=== PATIENT | male | born 1950 | race Caucasian/White ===

== ENCOUNTER 2024-02-01 09:28 | Outpatient (OUT) | payer MEDICARE, MEDICAID, OTHER, SELFPAY ==
--- NOTE | 2024-02-01 09:53 | CT_ITS ---
[address] [address] Patient Name: VICTOR M NI MRN: [id number] date: 1950 Sex: M Assigned Patient Location: LAB Current Patient Location: LAB Accession/Order Number: [id number] Exam Date: 02/01/2024 10:30 Report Date: 02/03/2024 04:34 At the request of: RADHA OLIVIER Procedure: CT abdomen pelvis wo/w con EXAMINATION: CT abdomen pelvis wo/w con HISTORY: Renal cancer COMPARISON: No relevant comparison available. TECHNIQUE: Axial, Coronal, and Sagittal images were obtained without and/or with IV contrast as indicated by examination type. Dose reduction techniques were achieved by using automated exposure control and/or adjustment of mA and/or kV according to patient size and/or use of iterative reconstruction technique. FINDINGS: LUNG BASES: No visible pulmonary or pleural disease. LIVER: No enlargement, atrophy, suspicious density, or significant focal lesion. BILIARY: A few small stones within noninflamed gallbladder. PANCREAS: No lesion, fluid collection, or abnormal duct dilatation. SPLEEN: No enlargement or focal lesion. ADRENALS: No mass or enlargement. KIDNEYS: Prior wedge resection and removal of mass seen within right kidney on prior study. Unremarkable left kidney. BOWEL/MESENTERY: No visible mass, obstruction, or bowel wall thickening. AORTA/VASCULAR: No aneurysm or dissection. RETROPERITONEUM: No mass or adenopathy. LYMPH NODES: No adenopathy. ABDOMINAL WALL: No mass or hernia. BONES: No bony lesion or fracture. OTHER: Negative. CT/CT abdomen pelvis wo/w con IMPRESSION: 1. Prior wedge resection of right renal mass. No interval studies since the 07/10/2021 study when the renal mass was present. 2. No appreciable recurrence of neoplasm or evidence of metastatic disease. 3. Cholelithiasis. Electronically authenticated by: BALDO GARCIA Date: 02/03/2024 04:34
[2024-02-01 10:01] LABS: Estimated GFR (African America 47 (>=60 mL/min/1.73m^2); Estimated GFR (Non-African Ame 39 (>=60 mL/min/1.73m^2)
--- NOTE | 2024-02-01 10:45 | XR_ITS ---
The [address] [address] Patient Name: VICTOR M NI MRN: [id number] date: 1950 Sex: M Assigned Patient Location: LAB Current Patient Location: Accession/Order Number: [id number] Exam Date: 02/01/2024 10:38 Report Date: 02/02/2024 08:08 At the request of: RADHA OLIVIER Procedure: XR chest 2V EXAMINATION: XR chest 2V HISTORY: SP Partial nephrectomy, RCC COMPARISON: No relevant comparison available. TECHNIQUE: AP and lateral FINDINGS: LUNGS: No significant pulmonary parenchymal abnormalities. Low lung volumes VASCULATURE: No increased pulmonary vasculature. PLEURA: No pneumothorax, effusion, or pleural thickening. CARDIAC: No cardiomegaly or cardiac silhouette abnormality. MEDIASTINUM: No visible mass or adenopathy. BONES: No fracture or visible bone lesion. OTHER: Negative. XR/XR chest 2V IMPRESSION: No acute cardiopulmonary process Electronically authenticated by: BRENDA HI Date: 02/02/2024 08:08
== END 2024-02-01 09:29 | disposition home or self-care (01) ==
LOC: LAB 09:36
PROVIDERS: PCP Family Medicine; Visit Provider Physician Assistant
DX: C64.9 Malignant neoplasm of unspecified kidney, except renal pelvis (principal); K80.20 Calculus of gallbladder without cholecystitis without obstruction
CPT/HCPCS: 36415; 71046; 74178; 82565; Q9966

== ENCOUNTER 2024-07-07 13:11 | Outpatient (OUT) | payer MEDICARE, MEDICAID, OTHER, SELFPAY | END 2024-07-07 13:12 | disposition home or self-care (01) | LOC: PST 13:11 | PROVIDERS: PCP Family Medicine; Visit Provider Urology | DX: Z01.818 Encounter for other preprocedural examination (principal); R97.20 Elevated prostate specific antigen [PSA] ==

== ENCOUNTER 2024-08-01 13:09 | Outpatient (OUT) | payer MEDICARE, MEDICAID, OTHER, SELFPAY | END 2024-08-01 13:10 | disposition home or self-care (01) | LOC: PST 13:09 | PROVIDERS: PCP Family Medicine; Visit Provider Urology | DX: Z01.818 Encounter for other preprocedural examination (principal); N40.1 Benign prostatic hyperplasia with lower urinary tract symptoms; R97.20 Elevated prostate specific antigen [PSA] ==

== ENCOUNTER 2024-08-10 07:52 | Day surgery (SDC) | payer MEDICARE, MEDICAID, OTHER, SELFPAY ==
--- NOTE | 2024-08-10 07:36 | US_ITS ---
[address] [address] Patient Name: VICTOR M NI MRN: [id number] date: 1950 Sex: M Assigned Patient Location: [facility] Current Patient Location: Accession/Order Number: [id number] Exam Date: 08/10/2024 12:47 Report Date: 08/10/2024 12:49 At the request of: MATILDA BRUNSON MD Procedure: US prostate Ultrasound-guided prostate biopsy. FINDINGS: Ultrasound guided prostate biopsy performed by the urology service. No radiologist was present for the procedure. The prostate gland measures 4.8 x 4.1 x 5.3 cm for a prostate volume of 56 mL. Predicted PSA 6.69. US/US prostate IMPRESSION: Ultrasound-guided prostate biopsy. Impression dictated by: Jamilah Casillas Jr.OCarol Ann 08/10/2024 12:49 PM Dictation Location: [place] [address] Electronically authenticated by: [id number] Y Date: 08/10/2024 12:49
[2024-08-10 07:50] VITALS: BP 141/90; PULSE 59; TEMP 36.2; O2SAT 97
[2024-08-10] MEDS: GENTAMICIN SULFATE 80 MG/2 ML VIAL IM (08:00)
[2024-08-10 08:05] VITALS: BP 145/75; PULSE 58; O2SAT 97
[2024-08-10 08:07] VITALS: BP 174/72; PULSE 64; O2SAT 96
--- OUTSIDE RECORDS SUMMARY | 2024-08-10 08:14 | XMS_ITS | CCD ---
Author Organization [facility] Care Team Providers Care Transport Tech Name Role Phone Ayesha Tafoya Primary Care Physician UnavailShanell Pulliam Rounding Physician Unavailab AYESHA Ann Primary Care Physician Lottie REID, Ayesha aaron Primary Care Provider [phone] Ayesha Tafoya MD Primary Care Provider Ayesha Tafoya MD aaron Primary Care Provider Ayesha Tafoya MD aaron Primary Care Provider [phone] AYESHA TAFOYA BRYN MAWR Primary Care Unavailable WEIGHT, CHRISTOPHER Referring Unavailable TAFOYA AYESHA BRYN MAWR Primary Care Unavailable WEIGHT, CHRISTOPHER Referring Unavailable TAFOYA AYESHA BRYN MAWR Primary Care Unavailable WEIGHT, CHRISTOPHER Referring Unavailable TAFOYA [facility] Primary Care Unavailable WEIGHT, CHRISTOPHER Referring Unavailable TAFOYA AYESHA BRYN MAWR Referring Unavailable TAFOYA AYESHA BRYN MAWR Primary Care Unavailable WEIGHT, CHRISTOPHER Referring Unavailable TAFOYA AYESHA BRYN MAWR Primary Care Unavailable WEIGHT, CHRISTOPHER Attending Unavailable WEIGHT, CHRISTOPHER Referring Unavailable TAFOYA [facility] Primary Care Unavailable MATT KHAN Attending Unavailable TAFOYA, [facility] Primary Care Unavailable WEIGHT, CHRISTOPHER Referring Unavailable TAFOYA, [facility] Primary Care Unavailable TAFOYA, [facility] Primary Care Unavailable ERASMO HACKETT Admitting Unavailable ERASMO HACKETT Attending Unavailable TAFOYA, [facility] Primary Care Unavailable MATT KHAN Attending Unavailable TAFOYA, [facility] Primary Care Unavailable WEIGHT, CHRISTOPHER Attending Unavailable WEIGHT, CHRISTOPHER Referring Unavailable TAFOYA, [facility] Primary Care Unavailable WEIGHT, CHRISTOPHER Referring Unavailable TAFOYA, [facility] Primary Care Unavailable EVERTON ABAD Attending Unavailable WEIGHT, CHRISTOPHER Referring Unavailable TAFOYA, AYESHA RAMIREZ Primary Care Unavailable TITUS LANGE Referring Unavailable TAFOYA, AYESHA RAMIREZ Primary Care Unavailable WEIGHT, MAR Admitting Unavailable WEIGHT, MAR Attending Unavailable TAFOYA, AYESHA RAMIREZ Primary Care Unavailable WEIGHT, MAR Referring Unavailable WEIGHT, MAR Attending Unavailable TAFOYA, DR AYESHA Sena Admitting Unavailable TAFOYA, DR AYESHA Sena Attending Unavailable TAFOYA, DR AYESHA Sena Primary Care Unavailable TAFOYA, DR AYESHA Sena Consulting Unavailable NANNETTE, DR GREY Admitting Unavailable BRUNSON, DR GREY Attending Unavailable TAFOYA, DR AYESHA Sena Primary Care Unavailable BRUNSON, DR GREY Consulting Unavailable ZIEBER, DR BALDO Grimes Consulting Unavailable TAFOYA, DR AYESHA Sena Admitting Unavailable TAFOYA, DR AYESHA Sena Attending Unavailable TAFOYA, DR AYESHA Sena Primary Care Unavailable TAFOYA, DR AYESHA Sena Consulting Unavailable TAFOYA, DR AYESHA Sena Primary Care Unavailable HAY, DR MATHIAS Admitting Unavailable HAY, DR MATHIAS Attending Unavailable HAY, DR MATHIAS Consulting Unavailable PRESTON, LULÚ Consulting Unavailable AYESHA TAFOYA Primary Care Physician [phone] Ayesha Tafoya MD Primary Care Provider RANDALL APARICIO Primary Care Physician [phone] AYESHA TAFOYA Primary Care Unavailable RAJ GAFFNEY Referring Unavailable Susan Ballesteros PA-C Attending Provider NON STAFF Primary Care Provider UnavailSusan Yin Attending Unavailable Susan Ballesteros Admitting Unavailable NON STAFF Primary Care Unavailable Matilda BRUNSON Attending Unavailable BRUNSON, Matilda Grimes Attending Unavailable BRUNSON, Matilda R Attending Unavailable BRUNSON, Matilda Grimes Attending Unavailable BRUNSON, Matilda Grimes Attending Unavailable SUSAN BALLESTEROS Attending Unavailable RANDALL APARICIO Referring Unavailable SUSAN BALLESTEROS Attending Unavailable Allergies Allergy Classification Reported Allergen(s) Allergy Type Date of Onset Reaction(s) Facility (10 sources) buPROPion; Translations: [bupropion] Drug Allergy 2 Sleep, function (observable entity), Mental Status Change [facility] (16 sources) meloxicam; Translations: [meloxicam] Drug Allergy 2 Sleep, function (observable entity), Mental Status Change [facility] (1 source) meloxicam Drug Allergy 6 [facility] Repository (3 sources) rofecoxib; Translations: [rofecoxib] Drug Allergy Unknown (qualifier value) [facility] (1 source) meloxicam Drug Allergy 9 [facility] Repository Medications Current Medications Medication Drug Class(es) Dates Sig (Normalized) Sig (Original) acetaminophen 500 mg oral tablet (20 sources) Start: 07-21-2022 take 2 tablets by mouth every six hours as needed for pain acetaminophen 500 mg Tab 1,000 mg = 2 tab(s), Oral, q6hr, PRN for pain, # 120 tab(s), Refills(s) 0 Start Date: 07/21/22 Status: Ordered Start: 10-30-2021 End: 11-13-2021 take 2 tablets by mouth every six hours acetaminophen (TYLENOL EXTRA STRENGTH) 500 mg tablet Take 2 tablets by mouth every 6 hours for 14 days. 112 tablet 0 10/30/2021 11/13/2021 Active Start: 07-21-2021 acetaminophen Refills(s) 0 Start Date: 07/21/21 Status: Ordered Start: 10-30-2018 take 500 mg by mouth every six hours as needed for pain Acetaminophen 500 MG Oral Q6H PRN For Pain October 30, 2018 Active Start: 07-19-2008 acetaminophen( TYLENOL EXTRA STRENGTH 500 MG TAB) Take two(2) tablets every six(6) hours as needed for pain. 0 07/19/2008 Active Comment on above: Take two(2) tablets every six(6) hours as needed for pain. Take 2 tablets by mo [facility] every 6 hours for 14 days. albuterol 0.833 mg/ml / ipratropium bromide 0.167 mg/ml inhalation solution (1 source) Anticholinergic, beta2-Adrenergic Agonist Start: 07-22-19 take 1 [IU] by inhalation every four hours albuterol-ipratro pium Inh Shruti 3 mL UD INHALE 1 UNIT DOSE VIAL VIA NEB EVERY 4 HOURS Start Date: 07/21/22 Status: Ordered amLODIPine 5 mg oral tablet (1 source) Dihydropyridine Calcium Channel Brad Start: 03-31-19 take 1 tablet by mouth once daily amLODIPine 5 mg Tab 5 mg = 1 tab(s), Oral, Daily, Refills(s) 0 Start Date: 03/31/21 Status: Ordered AMLODIPINE BESYLATE, BULK, MISC (13 sources) take 5 mg by mouth once daily AMLODIPINE BESYLATE, BULK, MISC Take 5 mg by mouth once daily. Active take 5 mg by mouth once daily AM LODIPINE BESYLATE, BULK, MISC Take 5 mg by mouth once daily. 0 Active AMLODIPINE BESYL ATE, BULK, MISC Comment on above: Take 5 mg by mouth o nce daily. ARIPiprazole 2 mg oral tablet (5 sources) Atypical Antipsychotic Start: 07-22-19 take 1 tablet by mouth once daily aripiprazole 2 mg Tab 2 mg, Oral, Daily, # 30 tab(s), Refills(s) 0 Start Date: 07/21/22 Status: Ordered Start: 01-20-2022 take 1 tablet by butch th once daily ARIPiprazole (ABILIFY) 5 mg tablet Take 5 mg by mouth once daily. 01/20/2022 Active Comment on above: Take 5 mg by mouth o nce daily. basic metabolic panel (1 source) Start: 07-24-2022 basic metabolic panel basic metabolic panel, To be done one week after discharge and fax the result to PCP, Print Requisition, Compound Start Date: 07/24/22 Status: Ordered busPIRone hydrochloride 10 mg oral tablet (3 sources) Start: 01-18-2024 busPIRone 10 mg Tab 10 mg = 1 tab(s), Refills(s) 0 Start Date: 01/18/24 Status: Ordered Start: 10-07-2022 take 1 tablet by butch th three times daily busPIRone 5 mg Tab 5 mg = 1 tab(s), Oral, TID, # 270 tab(s), Refills(s) 0, Pharmacy: [id number], 171, cm, 10/07/22 13:59:00 EDT, Height/Length Dosing, 299, kg, 10/07/22 13:59:00 EDT, Weight Dosing Start Date: 10/07/22 Status: Ordered Start: 07-21-2022 take 1 tablet by butch th three times daily busPIRone 5 mg Tab 5 mg = 1 tab(s), Oral, TID, # 270 tab(s), Refills(s) 0 Start Date: 07/21/22 Status: Ordered Celebrate Multivitamin (1 source) Start: 07-21-2022 Celebrate Multivitamin Refill(s) 0 Start Date: 07/21/22 Status: Ordered citalopram 20 mg oral tablet (7 sources) Serotonin Reuptake Inhibitor Start: 07-21-2022 take 1 tablet by mouth once daily citalopram 20 mg Tab 20 mg = 1 tab(s), Oral, Daily, # 90 tab(s), Refills(s) 0 Start Date: 07/21/22 Status: Ordered Start: 07-19-2008 End: 2021 CITALOPRAM 20 MG TAB Diclofenac (1 source) Nonsteroidal Anti-inflammatory Drug Start: 01-18-2024 Voltaren Topical See Instructions, Refill(s) 0 Start Date: 01/18/24 Status: Ordered docusate sodium 100 mg oral capsule (8 sources) Start: 10-30-2021 take 1 capsule by mouth twice daily as needed for constipation Colace 100 mg Cap 100 mg = 1 cap(s), Oral, BID, PRN for constipation, # 20 cap(s), Refills(s) 0 Start Date: 07/21/22 Status: Ordered Comment on above: Take 1 capsule by mouth twice daily. Maikel e while taking narcotic pain medication to avoid constipation. Stop taking if you develop loose stools or diarrhea dorzolamide (1 source) Carbonic Anhydrase Inhibitor Start: 08-16-2020 dorzolamide ophthalmic Eye-Both, TID, Refill(s) 0 Start Date: 08/16/20 Status: Ordered dorzolamide 20 mg/ml / timolol 5 mg/ml ophthalmic solution (20 sources) Carbonic Anhydrase Inhibitor, beta-Adrenergic Brad Start: 07-21-2022 dorzolamide-timol ol Opth 2%-0.5% Shruti PLACE 1 DROP IN EACH EYE TWICE DAILY Start Date: 07/21/22 Status: Ordered Start: 10-02-2021 take 1 drop(s) into the eye(s) every twelve hours dorzolamide-timolol (COSOPT) 22.3-6.8 mg/mL ophthalmic solution Use 1 Drop in both eyes every 12 hours. 10/02/2021 Active Start: 10-02-2021 take 1 drop(s) into the eye(s) every twelve hours dorzolamide-timolol (COSOPT) 22.3-6.8 mg/mL ophthalmic solution Use 1 Drop in both eyes every 12 hours. 0 10/02/2021 Active Start: 10-30-2018 take 1 drop(s) into the eye(s) twice daily Dorzolamide-Timolol 1 DROPS Eye-Both Twice daily October 30, 2018 Active Start: 10-30-2018 take 1 drop(s) into the eye(s) twice daily Dorzolamide-Timolol 22.3-6.8 mg/mL Drops Active 1 DROPS EYE-BOTH Twice daily October 29, 2018 11:00pm Comment on above: Use 1 Drop in both e yes every 12 hours. DULoxetine 60 mg delayed release oral capsule (20 sources) Serotonin and Norepinephrine Reuptake Inhibitor Start: 10-07-2022 duloxetine 60 mg oral delayed release capsule 60 mg = 1 cap(s), Oral, Daily, in addition to the 30mg cap, # 180 cap(s), Refills(s) 0, Pharmacy: [id number], 171, cm, 10/07/22 13:59:00 EDT, Height/Length Dosing, 299, kg, 10/07/22 13:59:00 EDT, Weight Dosing Start Date: 10/07/22 Status: Ordered Start: 07-21-2022 duloxetine 30 mg oral delayed release capsule 30 mg = 1 cap(s), Daily, in addition to the 60mg cap Start Date: 07/21/22 Status: Ordered Start: 07-21-2022 duloxetine 60 mg oral delayed release capsule 60 mg = 1 cap(s), Daily, in addition to the 30mg cap, Refills(s) 0 Start Date: 07/21/22 Status: Ordered Start: 11-04-2018 take 60 mg by mouth at bedtime Duloxetine [Cymbalta] 60 MG Oral Bedtime 14 November 04, 2018 Active take 2 capsules by m outh once daily DULoxetine (CYMBALTA) 60 mg capsule Take 120 mg by mouth once daily. Active Comment on above: Take 60 mg by mouth once daily. Take 120 mg by mouth once daily. duloxetine 60 mg Cap-DR (1 source) Start: 1 take 1 mg by mouth once daily duloxetine 60 mg Cap-DR mg, Oral, Daily, Refills(s) 0 Start Date: 08/16/20 Status: Ordered methocarbamol 500 mg oral tablet (1 source) Muscle Relaxant Start: 2 End: 2 take 1 tablet by mouth three times daily methocarbamol (ROBAXIN) 500 mg tablet Take 1 tablet by mouth three times daily for 5 days. 15 tablet 0 10/30/2021 11/04/2021 Active Comment on above: Take 1 tablet by butch three times daily for 5 days. metoprolol tartrate 25 mg oral tablet (5 sources) beta-Adrenergic Brad Start: 3 take 1 tablet by mouth once daily Lopressor 25 mg oral tablet 25 mg = 1 tab(s), Oral, Daily, # 90 tab(s), Refills(s) 0, Pharmacy: [id number], 171, cm, 10/07/22 13:59:00 EDT, Height/Length Dosing, 299, kg, 10/07/22 13:59:00 EDT, Weight Dosing Start Date: 10/07/22 Status: Ordered Start: 07-24-2022 End: 07-24-2022 Lopressor 25 mg oral tablet 25 mg = 1 tab(s), Tab, Oral, Start date 07/24/22 9:00:00 EDT, 07/21/22 20:47:00 EDT Start Date: 07/24/22 Stop Date: 07/24/22 Status: Completed Start: 07-23-2022 End: 07-23-2022 Lopressor 25 mg oral tablet 25 mg = 1 tab(s), Tab, Oral, Start date 07/23/22 9:00:00 EDT, 07/21/22 20:47:00 EDT Start Date: 07/23/22 Stop Date: 07/23/22 Status: Completed Start: 07-22-2022 End: 07-22-2022 Lopressor 25 mg oral tablet 25 mg = 1 tab(s), Tab, Oral, Start date 07/22/22 9:00:00 EDT, 07/21/22 20:47:00 EDT Start Date: 07/22/22 Stop Date: 07/22/22 Status: Completed Start: 07-21-2022 take 1 tablet by butch once daily Lopressor 25 mg oral tablet 25 mg = 1 tab(s), Oral, Daily, Refills(s) 0 Start Date: 07/21/22 Status: Ordered mirtazapine 7.5 mg oral tablet (1 source) Start: 01-18-2024 take 1 tablet by mouth once daily mirtazapine 7.5 mg oral tablet 7.5 mg = 1 tab(s), Oral, Daily, Refills(s) 0 Start Date: 01/18/24 Status: Ordered MULTIVITAMIN TAB (14 sources) Start: 07-19-2008 MULTIVITAMIN T AB Take one(1) tablet daily. 0 0 07/19/2008 Active Comment on above: Take one(1) tablet d aily. Multivitamins and Minerals (1 source) Start: 07-21-2021 Multivitamins and Minerals Refill(s) 0 Start Date: 07/21/21 Status: Ordered Nystatin (1 source) Polyene Antifungal Start: 01-18-2024 nystatin 100,000 unit(s), Refills(s) 0 Start Date: 01/18/24 Status: Ordered One Tab Daily (1 source) Start: 01-18-2024 One Tab Daily 1 tab(s), Refill(s) 0 Start Date: 01/18/24 Status: Ordered oxyCODONE hydrochloride 5 mg oral tablet (8 sources) Opioid Agonist Start: 10-30-2021 take 1 tablet by mouth every eight hours as needed for pain oxyCODONE IR (ROXICODONE) 5 mg immediate release tablet Indications: Renal cell cancer, right (HCC) Take 1 tablet by mouth every 8 hours as needed for pain. 9 tablet 10/30/2021 Active Start: 10-30-2021 End: 10-30-2021 take 1 tablet by mouth every six hours as needed for pain oxyCODONE IR (ROXICODONE) 5 mg immediate release tablet Indications: pain Take 1 tablet by mouth every 6 hours as needed for pain for up to 2 days. 8 tablet 0 10/30/2021 10/30/2021 Discontinued Comment on above: Take 1 tablet by butch th every 8 hours as needed for pain. Take 1 tablet by butch th every 6 hours as needed for pain for up to 2 days. Prednison Onitment 0.05 units (1 source) Start: 019 apply 0.05 [IU] topically once daily Prednison Onitment 0.05 units Active 0.05 PERCENT TOPICAL Daily October 29, 2018 11:00pm sildenafil 100 mg oral tablet (1 source) Phosphodiesterase 5 Inhibitor Start: 021 take 1 mg by mouth once daily sildenafil 100 mg Tab mg tab(s), Oral, Daily, Refills(s) 0 Start Date: 08/16/20 Status: Ordered tamsulosin hydrochloride 0.4 mg oral capsule (16 sources) alpha-Adrenergic Brad Start: 023 take 1 capsule by mouth once daily tamsulosin 0.4 mg Cap 0.4 mg = 1 cap(s), Oral, Daily, # 90 cap(s), Refills(s) 0, Pharmacy: [id number], 171, cm, 10/07/22 13:59:00 EDT, Height/Length Dosing, 299, kg, 10/07/22 13:59:00 EDT, Weight Dosing Start Date: 10/07/22 Status: Ordered Start: 08-16-2020 take 1 capsule by mo [facility] once daily tamsulosin 0.4 mg Cap 0.4 mg = 1 cap(s), Oral, Daily, # 30 cap(s), Refills(s) 0 Start Date: 07/21/22 Status: Ordered Comment on above: Take 0.4 mg by mouth once daily. traZODone hydrochloride 100 mg oral tablet (1 source) Serotonin Reuptake Inhibitor Start: 01-18-2024 traZODONE 100 mg Tab 100 mg = 1 tab(s), Refills(s) 0 Start Date: 01/18/24 Status: Ordered valproic acid 250 mg oral capsule (1 source) Mood Stabilizer, Anti-epileptic Agent Start: 01-18-2024 Depakote 250 mg, Oral, Refills(s) 0 Start Date: 01/18/24 Status: Ordered Completed/Discontinued Medications Medication Drug Class(es) Dates Sig (Normalized) Sig (Original) enteric contrast (will be provided with radiology test) (1 source) Start: 2 End: 2 enteric contrast (will be provided with radiology test) Indications: Renal neoplasm , Benign prostatic hyperplasia with urinary obstruction For CT CHESTABD/PEL W IVCON Routine order Administer, As Directed One Time Only, via Oral, Rectal, both Oral and Rectal, Enteric Tube, Stoma or Indwelling Catheter, Enteric Contrast as designated per enteric contrast guidelines 1 Each 0 02/26/2022 02/27/2022 Comment on above: For CT CHESTABD/PEL W IVCON Routine order Administer, As Directed One Time Only, via Oral, Rectal, both Oral and Rectal, Enteric Tube, Stoma or Indwelling Catheter, Enteric Contrast as designated per enteric contrast guidelines FLUoxetine 20 mg oral capsule (9 sources) Serotonin Reuptake Inhibitor Start: 8 End: 9 take 20 mg by mouth once daily in the morning Fluoxetine 20 MG Oral Every morning November 19, 2017 November 04, 2018 Discontinued hydroCHLOROthiazide 12.5 mg / lisinopril 10 mg oral tablet (9 sources) Thiazide Diuretic, Angiotensin Converting Enzyme Inhibitor Start: 8 take 1 tablet by mouth once daily in the morning Lisinopril-Hydroch lorothiazide 1 TAB Oral Every morning November 19, 2017 Active hydrOXYzine hydrochloride 25 mg oral tablet (3 sources) Antihistamine Start: 2 End: 2 hydrOXYzine HCl (ATARAX) 25 mg tablet iv contrast (will be provided with radiology test) (4 sources) Start: 2 End: 2 iv contrast (will be provided with radiology test) Indications: Renal neoplasm , Benign prostatic hyperplasia with urinary obstruction CT Chest ABD/PEL-Inject, intravenously, once for 1 dose.No IV access, insert saline lock prior to the beginning of sedation, infusion, injection of imaging exam. Discontinue saline lock post exam. If Pt. has a central line or IVAD, may access for administration according to line specific nursing protocol. Once exam is complete flush line and de-access according to line specific nursing protocol in the CT contrast administration guidelines link. 1 Each 0 02/26/2022 02/27/2022 Start: 11-18-2021 End: 11-19-2021 iv contrast (will be provide d with radiology test) Indications: Renal cell cancer, right (HCC) CT ABD/PEL -Inject, intravenously, once for 1 dose.No IV access, insert saline lock prior to the beginning of sedation, infusion, injection of imaging exam. Discontinue saline lock post exam. If Pt. has a central line or IVAD, may access for administration according to line specific nursing protocol. Once exam is complete flush line and de-access according to line specific nursing protocol in the CT contrast administration guidelines link. 1 Each 0 11/18/2021 11/19/2021 Start: 11-18-2021 End: 11-19-2021 iv contrast (will be provide d with radiology test) Indications: Renal cell cancer, right (HCC) CT Chest W -Inject, intravenously, once for 1 dose.No IV access, insert saline lock prior to the beginning of sedation, infusion, injection of imaging exam. Discontinue saline lock post exam. If Pt. has a central line or IVAD, may access for administration according to line specific nursing protocol. Once exam is complete flush line and de-access according to line specific nursing protocol in the CT contrast administration guidelines link. 1 Each 0 11/18/2021 11/19/2021 Start: 10-02-2021 End: 10-03-2021 iv contrast (will be provide d with radiology test) Indications: Renal mass CT Chest W -Inject, intravenously, once for 1 dose.No IV access, insert saline lock prior to the beginning of sedation, infusion, injection of imaging exam. Discontinue saline lock post exam. If Pt. has a central line or IVAD, may access for administration according to line specific nursing protocol. Once exam is complete flush line and de-access according to line specific nursing protocol in the CT contrast administration guidelines link. 1 Each 0 10/02/2021 10/03/2021 Comment on above: CT Chest W -Inject, intravenously, once for 1 dose.No IV access, insert saline lock prior to the beginning of sedation, infusion, injection of imaging exam. Discontinue saline lock post exam. If Pt. has a central line or IVAD, may access for administration according to line specific nursing protocol. Once exam is complete flush line and de-access according to line specific nursing protocol in the CT contrast administration guidelines link. CT ABD/PEL -Inject, intravenously, once for 1 dose.No IV access, insert saline lock prior to the beginning of sedation, infusion, injection of imaging exam. Discontinue saline lock post exam. If Pt. has a central line or IVAD, may access for administration according to line specific nursing protocol. Once exam is complete flush line and de-access according to line specific nursing protocol in the CT contrast administration guidelines link. CT Chest ABD/PEL-Inj ect, intravenously, once for 1 dose.No IV access, insert saline lock prior to the beginning of sedation, infusion, injection of imaging exam. Discontinue saline lock post exam. If Pt. has a central line or IVAD, may access for administration according to line specific nursing protocol. Once exam is complete flush line and de-access according to line specific nursing protocol in the CT contrast administration guidelines link. lidocaine 0.05 mg/mg medicated patch (6 sources) Antiarrhythmic, Amide Local Anesthetic Start: End: apply 1 dose transdermal route once daily, then apply 1 dose transdermal route every twelve hours lidocaine(LIDODERM 5 % (700 MG/PATCH) ADHESIVE PATCH) Apply one(1) patch to affected area once daily. Remove patch after 12 hours. 0 0 07/19/2008 2021 Discontinued Comment on above: Apply one(1) patch t o affected area once daily. Remove patch after 12 hours. lisinopril 10 mg oral tablet (6 sources) Angiotensin Converting Enzyme Inhibitor Start: End: lisinopril(PRINIVIL 10 MG TAB) Take one(1) tablet daily. 0 0 07/19/2008 2021 Discontinued Comment on above: Take one(1) tablet d aily. Prednison Onitment (8 sources) Start: Prednison Onitment 0.05 PERCENT Topical Daily October 30, 2018 Active QUEtiapine 25 mg oral tablet (9 sources) Atypical Antipsychotic Start: End: take 1 tablet by mouth once daily at bedtime as needed Quetiapine 1 - 2 TAB Oral Daily at bedtime PRN For Insomnia November 19, 2017 Discontinued sulindac 200 mg oral tablet (20 sources) Nonsteroidal Anti-inflammatory Drug Start: take 1 tablet by mouth twice daily as needed for pain sulindac 200 mg oral tablet 200 mg = 1 tab(s), Oral, BID, TAKE 1 TABLET BY MOUTH TWICE DAILY NEEDED for joint pain, # 180 tab(s), Refills(s) 0, Pharmacy: [id number], 171, cm, 10/07/22 13:59:00 EDT, Height/Length Dosing, 299, kg, 10/07/22 13:59:00 EDT, Weight Dosing Start Date: 10/07/22 Status: Ordered Comment on above: Take 200 mg by mouth as needed. vortioxetine 20 mg oral tablet (4 sources) Start: 021 End: 022 take 1 tablet by mouth once daily TRINTELLIX 20 mg tablet Take 20 mg by mouth once daily. 0 07/09/2021 2021 Discontinued Comment on above: Take 20 mg by mouth once daily. Problems Active Problems Problem Classification Problem Date Documented Da te Episodic/Chronic Acute and unspecified renal failure (1 source) Renal failure syndrome; Translations: [Unspecified kidney failure] Chronic Adjustment disorders (2 sources) Adjustment disorder with depressed mood 06-10-2022 Chronic Anxiety disorders (5 sources) Anxiety disorder; Translations: [Other specified anxiety disorders] Onset: 07-22-2022 Chronic Cancer of kidney and renal pelvis (9 sources) Clear cell carcinoma of kidney; Translations: [Malignant neoplasm of right kidney, except renal pelvis] Onset: 2021 Chronic Cancer of kidney and renal pelvis (1 source) History of malignant neoplasm of retroperitoneum; Translations: [Personal history of other malignant neoplasm of kidney] Episodic Chronic kidney disease (3 sources) Chronic kidney disease stage 3; Translations: [Chronic kidney disease, stage 3 unspecified] Onset: 07-22-2022 Chronic Congestive heart failure; nonhypertensive (1 source) Left ventricular failure, unspecified; Translations: [LEFT VENTRICULAR FAILURE UNSPEC] Onset: 03-25-2022 Chronic Deficiency and other anemia (1 source) Anemia; Translations: [Anemia, unspecified] Episodic Diabetes mellitus without complication (4 sources) Hyperglycemia, unspecified; Translations: [HYPERGLYCEMIA UNSPECIFIED] Onset: 03-26-2022 Episodic Disorders of lipid metabolism (2 sources) Dyslipidemia 06-10-2022 Chronic E Codes: Fall (1 source) Unspecified fall, initial encounter; Translations: [UNSPECIFIED FALL INITIAL ENCOUNTER] Onset: 04-07-2022 Episodic Essential hypertension (17 sources) Hypertensive disorder; Translations: [Essential (primary) hypertension] Onset: 2021 2021 Chronic Genitourinary symptoms and ill-defined conditions (16 sources) Urge incontinence of urine; Translations: [Urge incontinence] Onset: 10-02-2021 03-31-2021 Chronic Genitourinary symptoms and ill-defined conditions (3 sources) Nocturia 03-31-2021 Episodic Hyperplasia of prostate (20 sources) Benign prostatic hypertrophy with outflow obstruction; Translations: [Benign prostatic hyperplasia with lower urinary tract symptoms] Onset: 07-15-2021 Chronic Hypertension with complications and secondary hypertension (4 sources) Hypertensive heart disease with heart failure; Translations: [HTN HEART DISEASE W/HEART FAIL] Onset: 03-21-2022 Chronic Malaise and fatigue (6 sources) Malaise and fatigue; Translations: [Other malaise] Onset: 03-25-2022 Episodic Mood disorders (19 sources) Severe major depression; Translations: [Major depressive disorder, single episode, severe without psychotic features] Onset: 2021 2021 Chronic Neoplasms of unspecified nature or uncertain behavior (10 sources) Neoplasm of kidney; Translations: [Neoplasm of unspecified behavior of unspecified kidney] Onset: 10-30-2021 10-30-2021 Episodic Osteoarthritis (2 sources) Osteoarthritis; Translations: [Degenerative joint disease involving multiple joints] 06-10-2022 Chronic Comment on above: knees Other aftercare (1 source) Other termite exterminator helper (current) drug therapy; Translations: [OTH BONBON DIPPER CURRENT DRUG THERAPY] Onset: 04-07-2022 Episodic Other diseases of kidney and ureters (3 sources) Disorder of kidney and/or ureter; Translations: [Other specified disorders of kidney and ureter] Onset: 07-21-2021 Chronic Other diseases of kidney and ureters (18 sources) Renal mass; Translations: [Other specified disorders of kidney and ureter] Onset: 10-02-2021 03-31-2021 Chronic Other diseases of kidney and ureters (8 sources) Other specified disorders of kidney and ureter; Translations: [Renal mass, right] Onset: 05-12-2022 Chronic Other diseases of kidney and ureters (2 sources) Urinary tract obstruction; Translations: [Other obstructive and reflux uropathy] Onset: 07-21-2021 Episodic Other male genital disorders (2 sources) Disorder of prostate 06-10-2022 Episodic Other non-traumatic joint disorders (3 sources) Pain in left knee; Translations: [PAIN IN LEFT KNEE] Onset: 04-05-2022 Episodic Other nutritional; endocrine; and metabolic disorders (11 sources) Obesity; Translations: [Obesity, unspecified] Onset: 2021 2021 Chronic Other nutritional; endocrine; and metabolic disorders (1 source) Severe obesity; Translations: [Morbid (severe) obesity due to excess calories] Chronic Other nutritional; endocrine; and metabolic disorders (7 sources) Body mass index 40+ - severely obese; Translations: [Morbid (severe) obesity due to excess calories] Onset: 10-29-2021 10-29-2021 Chronic Other nutritional; endocrine; and metabolic disorders (1 source) Morbid (severe) obesity due to excess calories; Translations: [Class 3 severe obesity with body mass index (BMI) of 50.0 to 59.9 in adult, unspecified obesity type, unspecified whether serious comorbidity present (HCC)] Onset: 2021 Chronic Other nutritional; endocrine; and metabolic disorders (1 source) Body mass index (BMI) 50.0-59.9, adult; Translations: [Class 3 severe obesity with body mass index (BMI) of 50.0 to 59.9 in adult, unspecified obesity type, unspecified whether serious comorbidity present (HCC)] Onset: 2021 Chronic Other nutritional; endocrine; and metabolic disorders (3 sources) Morbid obesity; Translations: [Morbid (severe) obesity due to excess calories] Onset: 07-22-2022 Chronic Other screening for suspected conditions (not mental disorders or infectious disease) (6 sources) Patient encounter status; Translations: [Encounter for screening for other disorder] Onset: 07-22-2022 Episodic Residual codes; unclassified (15 sources) Obstructive sleep apnea syndrome; Translations: [Obstructive sleep apnea (adult) (pediatric)] Onset: 2021 2021 Chronic Residual codes; unclassified (1 source) Obstructive sleep apnea (adult) (pediatric); Translations: [Obstructive sleep apnea] Onset: 2021 Chronic Spondylosis; intervertebral disc disorders; other back problems (2 sources) Sciatica 06-10-2022 Episodic Past or Other Problems Problem Classification Problem Date Documented Date Episodic/Chronic Complications of surgical procedures or medical care (11 sources) Delayed recovery from general anesthesia; Translations: [Other complications of anesthesia, initial encounter] Onset: 2021 2021 Episodic Fracture of lower limb (2 sources) Unspecified fracture of lower end of left femur, initial encounter for closed fracture; Translations: [Displaced supracondylar fracture with intracondylar extension of lower end of left femur, subsequent encounter for closed fracture with routine healing] Onset: 04-06-2022 Episodic Other diseases of kidney and ureters (1 source) Other obstructive and reflux uropathy; Translations: [Benign prostatic hyperplasia with urinary obstruction] Onset: 10-02-2021 Episodic Other non-traumatic joint disorders (14 sources) Shoulder joint pain; Translations: [Pain in unspecified shoulder] Onset: 07-20-2003 07-20-2003 Episodic Results Test Name Value Interpretation Reference Range Facility Urology Office/Clinic Noteon 05-22-2024 Urology Office/Clinic Note Urology Office/Clinic Note Chief Complaint increasing PSA, TRUS/ HPI Staff 73 year old male here to discuss TRUS/Bx and increasing elevated PSA. Previous DX: BPH w/LUTS and renal mass Pt. taking Flomax 0.4mg PSA 01/05/24 - 5.7 06/25/20 - 3.61 08/25/18 - 2.54 08/02/17 - 1.79 07/15/20 - 1.40 04/24/24 - 6.7 pt states he is having urgency, usually he can get the urinal in time. pt unable to give urine sample due to immobility. History of Present Illness Tests reviewed: reviewed UA, PSA, MRI, CT, CXR I have reviewed the previous health record information and history for this patient from Dr. Brunson. I have reviewed and verified the staff HPI to be accurate for this encounter. Review of Systems PHQ Score Initial Depression Screen Score: 0 SCORE ROS - Provider Constitutional: denies weight loss, denies hot flashes. Eyes: denies eye problems. Gastrointestinal: denies nausea, denies vomiting. Cardiovascular: denies chest pain or angina. Integumentary: no dryness Musculoskeletal: denies musculoskeletal symptoms. ENMT: denies otolaryngeal symptoms. Respiratory: no shortness of breath. Heme/Lymph: denies easy bleeding tendency, denies easy bruising tendency. Psychiatric: no confusion, no anxiety. Genitourinary: See HPI. Physical Exam Vitals & Measurements T: 37 ???C(Oral) HR: 68(Peripheral) RR: 18 BP: 126/80 HT: 68 in HT: 172 cm WT: 282.191 lb WT: 128 kg BMI: 43.27 General Appearance: alert, no distress, well nourished, well developed male. Assessment/Plan Pt resides at the [facility]. Ambulates via wheelchair. 1. Elevated PSA (R97.20: Elevated prostate specific antigen [PSA]) PSA 07/16/15 - 1.40 08/02/17 - 1.79 08/25/18 - 2.54 06/25/20 - 3.61 01/05/24 - 5.7 04/24/24 - 6.7 Prostate [place] [facility] [place] No family hx prostate cancer. Unable to do CHERELLE - pt is in WC/stuart lift. PSA has increased despite neg MRI and asx for prostatitis. Advised pt MRI's do not have a chance of missed malignancy. Recommended TRUS/bx to further evaluate. Risks/benefits discussed. Pt willing to proceed. -Will schedule TRUS of Prostate with Biopsy. The procedural risks, benefits, details, and treatment alternatives have been discussed with the patient. These include minimal to severe bleeding, infection, blood in the semen, inability to urinate, and severe infection requiring hospitalization and IV antibiotics, among others. Full informed consent has been obtained. Will order Local anesthesia. 2. BPH with urinary obstruction (N40.1: Benign prostatic hyperplasia with lower urinary tract symptoms) Prostate [place] [facility] [place] volume 77 mL. IPSS 14. No sample provided for UA today. Taking Flomax 0.8m qd. No bother with urination at this time. 3. Renal cancer (C64.9: Malignant neoplasm of unspecified kidney, except renal pelvis) Sp robotic partial nephrectomy at [facility] 10/29/21. 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 Plan was f/u [address] chest/abd/pelv, BMP, CBC. Appears to have been lost to f/u after that. No labs 2023 on clinisync. CBC/CMP 01/04/24 - BUN 25 Courtesy Clerk 1.6 GFR 44 [1] CT/CXR 02/01/24 [facility] - Neg for recurrence or mets Follow-up With When Contact Information NANNETTE REID, Matilda Grimes, [facility] [address] [place] [address] [phone] Additional Instructions: sched TRUS/bx Patient Education Transrectal Ultrasound-Guided Prostate Biopsy, Care After Transrectal Ultrasound-Guided Prostate Biopsy I, Adelaide Wesley, personally scribed for Dr. Brunson on 05/22/2024 10:25:39. . Documentation recorded by the scribe, Adelaide Wesley, accurately reflects the services(s) I performed and decisions made by me. Authenticated by Dr. Brunson on 05/22/2024 10:27:09. Problem List/Past Medical History Ongoing Adjustment disorder with depressed mood Anxiety BPH with urinary obstruction CKD (chronic kidney disease), stage III Depression with anxiety Dyslipidemia Elevated PSA Melancholia Morbid obesity due to excess calories Obstructive sleep apnea Primary hypertension Primary osteoarthritis involving multiple joints Renal cancer Sciatica Weakness Historical BPH without urinary obstruction Disorder of prostate, unspecified Nocturia Urge incontinence Procedure/Surgical History Internal fixation of femur (04/13/2022), Colonoscopy abnormal, Partial nephrectomy. Medications acetaminophen 500 mg Tab, 1000 mg= 2 tab(s), Oral, q6hr, PRN busPIRone 10 mg Tab, 10 mg= 1 tab(s) busPIRone 5 mg Tab, 5 mg= 1 tab(s), Oral, TID Depakote, 250 mg, Oral dorzolamide-timolol Opth 2%-0.5% Shruti duloxetine 60 mg oral delayed release capsule, 60 mg= 1 cap(s), Oral, Daily furosemide 20 mg Tab, 20 mg= 1 tab(s) Lopressor 25 mg oral tablet, 25 mg= 1 tab(s), Oral, Daily mirtazapine 7.5 mg oral tablet, 7.5 mg= 1 tab(s), Oral, Daily nyst (more content not included)... Normal [facility] Comment on above: Result Comment: Elec tronically Signed By: Matilda BRUNSON MD\.br\Date and Time Signed: 05/22/24 10:27 EDT\.br\Electronically Co-Signed By: Adelaide Wesley\.br\Date and Time Co-Signed: 05/22/24 10:26 EDT Creatinine (Bld) [Mass/Vol]O rdered By: Susan Ballesteros on 04-11-2024 Creatinine [Mass/Vol] Whole blood creatinine measurement High 0.6-1.3 [facility] Comment on above: ER/ESD physician is notified/shown all ISTAT results.Critical values may be confirmed by laboratory testing ifdeemed necessary by ER attending doctor. ISTAT XRay CREon 04-11-2024 Creatinine [Mass/Vol] 1.4 mg/dL High 0.6-1.3 [facility] Comment on above: Result Comment: ER/E SD physician is notified/shown all ISTAT results. Critical values may be confirmed by laboratory testing if deemed necessary by ER attending doctor. Performed By: #### I SCRE #### [facility] [address] [place] [address] ISTAT GFR 53.071 Normal [facility] Comment on above: Result Comment: PERF ORMED BY: [place] [address] PATHOLOGIST ADMINISTRATIVE OFFICE MANAGER TANIYA PASCAL M.D. Performed By: #### I SCRE #### [facility] [address] [place] [address] MR prostate wo/w conon 04-11 MR prostate wo/w con [facility] [place] [address] [place] [address] MRI Report Signed Patient: Victor M Ni MR#: [id number] : 1950 Acct:[id number] Age/Sex: 73 / M ADM Date: 04/11/24 Loc: MR Room: Type: [facility] Attending Dr: Susan Ballesteros PA-C Copies to: Susan Ballesteros PA-C Ordering Provider: Susan Ballesteros PA-C Date of Service: 04/11/24 MR/MR prostate wo/w con: R97.20 EXAMINATION: MR prostate wo/w con HISTORY: Elevated PSA. COMPARISON: NONE TECHNIQUE: Multiparametric imaging of the prostate gland was performed with IV contrast. FINDINGS: Prostate Dimensions: 5.5 x 4.0 x 6.7 cm Prostate Volume: 77 mL Peripheral Zone: Heterogenous inT2 signal suggestive of prior prostatitis. No suspicious T2 or ADC map abnormality is identified to suggest prostate malignancy. Central/Transitional Zone: BPH changes. Seminal Vesicles: Unremarkable Neurovascular bundles: Unremarkable. Lymphadenopathy: No evidence of lymphadenopathy. Bladder: No focal lesion. Bowel: The visualized bowel is without acute abnormality. Peritoneal Cavity: No free fluid. Bones: No suspicious bony lesion. MR/MR prostate wo/w con IMPRESSION: No MRI evidence of clinically significant prostate cancer. BPH. Impression dictated by: Erasmo Johnson Jr., D.OCarol Ann04/11/2024 2:22 PM Dictation Location: [facility]- Transcribed By: [facility] 04/11/24 1422 Dictated By: Erasmo Johnson Jr, DO 04/11/24 1412 Signed By: 04/11/24 1422 Normal [facility] Magnetic resonance imaging r eportOrdered By: Erasmo Johnson on 04-11-2024 Study report [facility] [place] [address] [place] [address] MRI Report Signed Patient: Victor M Ni MR#: [id number] : 1950 Acct:[id number] Age/Sex: 73 / M ADM Date: 5 Loc: MR Room: Type: [facility] Attending Dr: Susan Ballesteros PA-C Copies to: Susan Ballesteros PA-C~ Ordering Provider: Susan Ballesteros PA-C Date of Service: 04/11/24 MR/MR prostate wo/w con: R97.20 EXAMINATION: MR prostate wo/w con HISTORY: Elevated PSA. COMPARISON: NONE TECHNIQUE: Multiparametric imaging of the prostate gland was performed with IV contrast. FINDINGS: Prostate Dimensions: 5.5 x 4.0 x 6.7 cm Prostate Volume: 77 mL Peripheral Zone: Heterogenous inT2 signal suggestive of prior prostatitis. Nosuspicious T2 or ADC map abnormality is identified to suggest prostate malignancy. Central/Transitional Zone: BPH changes. Seminal Vesicles: Unremarkable Neurovascular bundles: Unremarkable. Lymphadenopathy: No evidence of lymphadenopathy. Bladder: No focal lesion. Bowel: The visualized bowel is without acute abnormality. Peritoneal Cavity: No free fluid. Bones: No suspicious bony lesion. MR/MR prostate wo/w con IMPRESSION: No MRI evidence of clinically significant prostate cancer. BPH. Impression dictated by: Erasmo Johnson Jr., D.O.04/11/2024 2:22 PM Dictation Location: [place] [address] Transcribed By: THI 04/11/24 1422 Dictated By: Erasmo Johnson Jr, DO 04/11/24 1412 Signed By: 04/11/24 1422 [facility] No Panel InformationOrdered By: Susan Ballesteros on 04-11-2024 Bedside Estimated GFR (eGFR) 53.071 [facility] XR FEMUR LEFT (MIN 2 VIEWS)o n 03-22-2024 XR FEMUR LEFT (MIN 2 VIEWS) History: Left femur status post open reduction internal fixation. Comparison: 06/02/2022 Findings: 2 views of the left femur in a skeletally mature individual (AP, lateral) and 3 views of the left knee in a skeletally mature individual (AP, oblique, lateral) demonstrating previous orthopedic hardware in the form of plates and screws about the medial and lateral aspect of the femur as well as the lateral aspect of the proximal tibia. Orthopedic hardware was examined in detail and negative for any broken screws, a broken plate, or any other hardware related complications. The previous fracture of the distal femur is well-visualized and when comparing to previous films does not appear to have much fracture consolidation, nor callus formation. No new acute fractures or dislocations noted. Impression: Left femur/left knee with previous orthopedic hardware that is stable, distal femur fracture that is not consolidating. Interpreted by: Leonard Bustillos DO Boothby, Benjamin C, Signed by: Bravo Martins DO 03/22/24 Final result Normal [facility] XR KNEE LEFT (3 VIEWS)on XR KNEE LEFT (3 VIEWS) History: Left fem ur status post open reduction internal fixation. Comparison: 06/02/2022 Findings: 2 views of the left femur in a skeletally mature individual (AP, lateral) and 3 views of the left knee in a skeletally mature individual (AP, oblique, lateral) demonstrating previous orthopedic hardware in the form of plates and screws about the medial and lateral aspect of the femur as well as the lateral aspect of the proximal tibia. Orthopedic hardware was examined in detail and negative for any broken screws, a broken plate, or any other hardware related complications. The previous fracture of the distal femur is well-visualized and when comparing to previous films does not appear to have much fracture consolidation, nor callus formation. No new acute fractures or dislocations noted. Impression: Left femur/left knee with previous orthopedic hardware that is stable, distal femur fracture that is not consolidating. Interpreted by: Leonard Bustillos DO Boothby, Benjamin C, DO Signed by: Bravo Martins DO 03/22/24 Final result Normal [facility] Ambulatory Visit Summaryon 1 03-19-2023 Ambulatory Visit Summary Ambulatory Visit Summary VICTOR M NI :1950 Visit Date:01/18/2024 Ambulatory Visit Instructions Your Diagnosis Elevated PSA Renal cancer BPH with urinary obstruction Other obstructive and reflux uropathy Tests Performed CT Abdomen w/ + w/o Contrast -- Results Pending -- CXR -- Results Pending -- MRI Pelvis (Soft Tissue) w/ + w/o contrast -- Results Pending -- Please visit your patient portal for your results or contact your primary care physician. Your Care Team Attending Physician - SUSAN BALLESTEROS PA-C Primary Care Physician - RANDALL APARICIO DO Referring Physician - RANDALL APARICIO DO This Is Your Medications List acetaminophen (acetaminophen 500 mg Tab) busPIRone (busPIRone 10 mg Tab) busPIRone (busPIRone 5 mg Tab) diclofenac topical (Voltaren Topical) divalproex sodium (Depakote) dorzolamide-timolol ophthalmic (dorzolamide-timolol Opth 2%-0.5% Shruti) duloxetine (duloxetine 60 mg oral delayed release capsule) metoprolol (Lopressor 25 mg oral tablet) mirtazapine (mirtazapine 7.5 mg oral tablet) multivitamin (One Tab Daily) nystatin sulindac (sulindac 200 mg oral tablet) tamsulosin (tamsulosin 0.4 mg Cap) trazodone (traZODONE 100 mg Tab) Procedures Performed Internal fixation of femur (04/13/2022), Colonoscopy abnormal, Partial nephrectomy. Discharge Vitals Temperature (Oral) 37 ???C Heart Rate (Peripheral) 51 Respiratory Rate 18 Blood Pressure 142/99 Height 172 cm Height 68 in Weight 123 kg Weight 271.168 lb BMI 41.58 What to do next You Need to Schedule the Following Appointments Follow Up with FAVIAN TOLEDO, CHEMA RANGEL When: Comments: pending results of imaging/testing, will call with next steps Where: [address] [place] [address] Business (1) Medications What How Much When Instructions Unchanged acetaminophen (acetaminophen 500 mg Tab) 2 Tablets By Mouth Every 6 hours as needed for for pain Unchanged busPIRone (busPIRone 10 mg Tab) 1 Tablets Unchanged busPIRone (busPIRone 5 mg Tab) 1 Tablets By Mouth 3 times a day Unchanged diclofenac topical (Voltaren Topical) See instructions Unchanged divalproex sodium (Depakote) 250 Milligram By Mouth Unchanged dorzolamide-timolol ophthalmic (dorzolamide-timolol Opth 2%-0.5% Shruti) PLACE 1 DROP IN EACH EYE TWICE DAILY Unchanged duloxetine (duloxetine 60 mg oral delayed release capsule) 1 Capsules By Mouth Every day in addition to the 30mg cap Unchanged metoprolol (Lopressor 25 mg oral tablet) 1 Tablets By Mouth Every day Unchanged mirtazapine (mirtazapine 7.5 mg oral tablet) 1 Tablets By Mouth Every day Unchanged multivitamin (One Tab Daily) 1 Tablets Unchanged nystatin 100,000 Units Unchanged sulindac (sulindac 200 mg oral tablet) 1 Tablets By Mouth 2 times a day TAKE 1 TABLET BY MOUTH TWICE DAILY NEEDED for joint pain Unchanged tamsulosin (tamsulosin 0.4 mg Cap) 1 Capsules By Mouth Every day Unchanged trazodone (traZODONE 100 mg Tab) 1 Tablets Allergies Mobic (Sleep) Vioxx (Unknown) Wellbutrin (Sleep) Problems Ongoing - Any problem that you are currently receiving treatment for. Adjustment disorder with depressed mood Anxiety BPH with urinary obstruction CKD (chronic kidney disease), stage III Depression with anxiety Dyslipidemia Elevated PSA Melancholia Morbid obesity due to excess calories Obstructive sleep apnea Primary hypertension Primary osteoarthritis involving multiple joints Renal cancer Sciatica Weakness Historical - Any problem that you are no longer receiving treatment for. BPH without urinary obstruction Disorder of prostate, unspecified Nocturia Urge incontinence Patient Survey You may receive a survey via text or e-mail asking about your office visit. Please share your experience with us by completing your survey. We appreciate your feedback and thank you for choosing us for your care. Education Materials Benign Prostatic Hyperplasia Benign prostatic hyperplasia (BPH) is an enlarged prostate gland that is caused by the normal aging process. The prostate may get bigger as a man gets older. The condition is not caused by cancer. The prostate is a walnut-sized gland that is involved in the production of semen. It is located in front of the rectum and below the bladder. The bladder stores urine. The urethra carries stored urine out of the body. An enlarged prostate can press on the urethra. This can make it harder to pass urine. The buildup of urine in the bladder can cause infection. Back pressure and infection may progress to bladder damage and kidney (renal) failure. What are the causes? This condition is part of the normal aging process. However, not all men develop problems from this condition. If the prostate enlarges away from the urethra, urine flow will not be blocked. If it enlarges toward the urethra and compresses i (more content not included)... Normal [facility] Urology Office/Clinic Noteon 01-18-2024 Urology Office/Clinic Note Urology Office/Clinic Note Chief Complaint elevated PSA HPI Staff 73 year old male referred for elevated PSA. Pt. last seen 07/21/21. Pt also has history of kidney cancer and tumors were removed about 2 yrs ago. Unable to give urine sample right now, pt states might be able to go before leaving Previous DX: BPH w/LUTS and renal mass Pt. taking Flomax 0.4mg PSA 01/05/24 - 5.7 06/25/20 - 3.61 08/25/18 - 2.54 08/02/17 - 1.79 07/15/20 - 1.40 Dysuria: denies Incomplete bladder emptying: does not feel empty, but cannot go anymore Hematuria: denies Frequency: 3-4x per day Urgency: yes - cannot hold urine Nocturia: yes - 1x per night Stream: good stream Leaking: denies Post void dripping: denies Wearing pads/ Depends: wears depends Urge incontinence: yes - uses a urinal but does not make it all the time Stress incontinence: denies Incontinence without Sensory Awareness: only at night sometimes, usually wakes up and is able to use urinal Abdominal pain: denies Flank pain:denies Review of Systems PHQ Score Initial Depression Screen Score: 6 SCORE Detailed Depression Screen Score: 9 Total Depression Screen Score: 15 no fever, chills, malaise, myalgia. no unintentional weight loss. no night sweats. Physical Exam Vitals & Measurements T: 37 ???C(Oral) HR: 51(Peripheral) RR: 18 BP: 142/99 HT: 68 in HT: 172 cm WT: 123 kg WT: 271.168 lb BMI: 41.58 General: nontoxic, NAD. in WC. Mouth: moist mucosa Lungs: normal respiratory effort Cardio: regular rate, good distal perfusion Abdomen: nondistended, no suprapubic distention or tenderness, no CVA tenderness Neurologic: Grossly normal Skin: No rashes or suspicious lesions Assessment/Plan 1. Elevated PSA (R97.20: Elevated prostate specific antigen [PSA]) PSA 01/05/24 - 5.7 06/25/20 - 3.61 08/25/18 - 2.54 08/02/17 - 1.79 07/16/15 - 1.40 No family hx prostate cancer. Unable to do CHERELLE today - pt is in WC/stuart lift. I discussed the pros and cons of PSA with the patient today. The various causes of PSA elevation were outlined, including prostate cancer, prostate enlargement, infection of the prostate, inflammation without infection, as well as prostate manipulation. The options regarding this PSA elevation, including prostate biopsy versus close monitoring, versus obtaining an MRI of the prostate were discussed. -The patient has decided upon obtaining an MRI of the prostate. If normal, we will repeat PSA f&t in 3 mos. If abnl, will schedule appt [facility] to discuss fusion biopsy. Ordered: Body Mass Index (BMI) documented 3008F Current tobacco non-user 1036F Depression Screening Negative 3352F E&M of Est. Patient High 40-54 Min 63953 Influenza immunization status assessed 1030F Medication list documented in medical record 1159F Most recent diastolic blood pressure >=90 mm Hg 3080F Most recent systolic blood pressure >= 140 mm Hg 3077F MRI Pelvis (Soft Tissue) w/ + w/o contrast Patient screen for fall risk: no falls in last year or 1 fall with no injury in last year 1101F Review of all meds by a prescribing practitioner or clinical pharmacist documented in EHR 1160F 2. Renal cancer (C64.9: Malignant neoplasm of unspecified kidney, except renal pelvis) Sp robotic partial nephrectomy at [facility] 10/29/21. 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 Plan was f/u [address] chest/abd/pelv, BMP, CBC. Appears to have been lost to f/u after that. No labs 2023 on clin[facility]. 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 Orders placed. Ordered: Body Mass Index (BMI) documented 3008F CT Abdomen w/ + w/o Contrast Current tobacco non-user 1036F Depression Screening Negative 3352F E&M of Est. Patient High 40-54 Min 47151 Influenza immunization status assessed 1030F Medication list documented in medical record 1159F Most recent diastolic blood pressure >=90 mm Hg 3080F Most recent systolic blood pressure >= 140 mm Hg 3077F Patient screen for fall risk: no falls in last year or 1 fall with no injury in last year 1101F Review of all meds by a prescribing practitioner or clinical pharmacist documented in EHR 1160F XR Chest 2 Views 3. BPH with urinary obstruction (N40.1: Benign prostatic hyperplasia with lower urinary tract symptoms) Pt is taking tamsulosin0.4mg qd and is _with overall symptom control. Pt is experiencing noside effects. Was previously on 0.8mg last time we saw him (2021). Pt did not complete IPSS but has severe urgency. Uses a urinal but does not make it all the time. Wears Depends. Noct x 1. Occasional nocturnal enuresis. Good steady stream. We discussed current dose and optional changes: increasing tamsulosin to BID. No hx hypotension, dizziness, lightheadedness. adding an additional agent such as finasteride/dutaster luis enrique -Pt prefers to try Flomax 0.8mg daily since that's what he used to be on. Ordered: Body Mass (more content not included)... Normal [facility] Comment on above: Result Comment: Elec tronically Signed By: FAVIAN TOLEDO, SUSAN Sena\.gilbert\Date and Time Signed: 01/18/24 15:51 EST CHEMISTRYOrdered By: SYSTEM SYSTEM on 07-24-2022 Anion gap [Moles/Vol] 10 mmol/L Normal 6 - 16 mEq/L F [facility] Remisol Calcium [Mass/Vol] 8.9 mg/dL Normal 8.9 - 11. 1 mg/dL [facility] Remisol Chloride [Moles/Vol] 105 mmol/L Normal 101 - 1 11 mmol/L [facility] CO2 [Moles/Vol] 27 mmol/L Normal 21 - 31 mmol/L [facility] Remisol Creatinine [Mass/Vol] 1.6 mg/dL High 0.5 - 1.3 mg/dL [facility] Remisol GFR/1.73 sq M.predicted among non-blacks MDRD (S/P/Bld) [Vol rate/Area] 46 mL/min/1.73 m2 Low >=59mL/min/1 .73 m2 [facility] Chem S Glucose [Mass/Vol] 90 mg/dL Normal 55 - 199 mg/dL [facility] Remisol Potassium [Moles/Vol] 3.5 mmol/L Normal 3.5 - 5.3 mmol/L [facility] Remisol Sodium [Moles/Vol] 138 mmol/L Normal 135 - 145 mmol/L [facility] Urea nitrogen [Mass/Vol] 14 mg/dL Normal 5 - 21 mg/dL [facility] Rem[facility] Urea nitrogen/Creatinine [Mass ratio] 9 mg/mg Low 10 - 20 [facility] Remisol MICRO OTHER TESTSOrdered By: Jeniffer Jeffries on 07-24-2022 Rapid COV Int NEG Ctl Pass (07/24/22 7:55 AM) Normal [facility] Man Sero Rapid COV Int POS Ctl Pass (07/24/22 7:55 AM) Normal [facility] Man Sero SARS-CoV+SARS-CoV-2 (COVID-19) Ag IA.rapid Ql (Resp) Not Detected (07/24/22 7:55 AM) Normal Not Detected FT Man Sero CHEMISTRYOrdered By: SYSTEM SYSTEM on 07-23-2022 Albumin [Mass/Vol] 3.6 g/dL Normal 3.3 - 5.0 gm/dL [facility] Albumin/Globulin [Mass ratio] 1.0 {ratio} Low 1.1 - 2.2 [facility] ALP [Catalytic activity/Vol] 97 [iU]/d Normal 21 - 98 Int._Unit/L [facility] ALT No additional P-5'-P [Catalytic activity/Vol] 11 [iU]/d Normal 6 - 46 Int._Unit/L [facility] Anion gap [Moles/Vol] 10 mmol/L Normal 6 - 16 mEq/L F [facility] AST [Catalytic activity/Vol] 15 [iU]/d Normal 5 - 43 Int._Unit/L [facility] Bilirubin [Mass/Vol] 0.8 mg/dL Normal 0.0 - 1 .1 mg/dL [facility]isol Calcium [Mass/Vol] 9.0 mg/dL Normal 8.9 - 11. 1 mg/dL [facility]isol Chloride [Moles/Vol] 105 mmol/L Normal 101 - 1 11 mmol/L [facility] CK [Catalytic activity/Vol] 45 [iU]/d Normal 14 - 261 Int._Unit/L [facility] CO2 [Moles/Vol] 27 mmol/L Normal 21 - 31 mmol/L [facility] Creatinine [Mass/Vol] 1.7 mg/dL High 0.5 - 1.3 mg/dL [facility] GFR/1.73 sq M.predicted among non-blacks MDRD (S/P/Bld) [Vol rate/Area] 43 mL/min/1.73 m2 Low >=59mL/min/1 .73 m2 [facility] Chem S Globulin (S) [Mass/Vol] 3.7 g/dL Normal 1.4 - 4.0 gm/dL [facility] Remisol Glucose [Mass/Vol] 97 mg/dL Normal 55 - 199 mg/dL [facility] Potassium [Moles/Vol] 3.3 mmol/L Low 3.5 - 5.3 mmol/L [facility] Protein [Mass/Vol] 7.3 g/dL Normal 6.0 - 7.8 gm/dL [facility] Sodium [Moles/Vol] 139 mmol/L Normal 135 - 145 mmol/L [facility] Urea nitrogen [Mass/Vol] 17 mg/dL Normal 5 - 21 mg/dL [facility] Urea nitrogen/Creatinine [Mass ratio] 10 mg/mg Normal 10 - 20 [facility] Remisol HEMATOLOGYOrdered By: SYSTEM SYSTEM on 07-23-2022 Basophils/100 WBC (Bld) 0.8 % Normal 0.0 - 2.0 % [facility] HemeAutoSS Basophils/Leukocytes Auto (Bld) [Pure # fraction] 0.1 E9/L Normal 0.0 - 0.2 E9/L [facility]eAutoSS Eosinophils/100 WBC (Bld) 2.3 % Normal 0.0 - 8.0 % [facility]Auto[facility] Eosinophils/Leukocytes Auto (Bld) [Pure # fraction] 0.1 E9/L Normal 0.0 - 0.5 E9/L [facility]eAuto[facility] Lymphocytes/100 WBC (Bld) 22.7 % Normal 14.0 - 50.0 % [facility]eAutoSS Lymphocytes/Leukocytes Auto (Bld) [Pure # fraction] 1.5 E9/L Normal 1.0 - 4.0 E9/L [facility]eAutoSS Monocytes/100 WBC (Bld) 12.0 % Normal 4.0 - 14.0 % [facility]eAutoSS Monocytes/Leukocytes Auto (Bld) [Pure # fraction] 0.8 E9/L Normal 0.2 - 1.0 E9/L [facility] Neutrophils/100 WBC (Bld) 62.2 % Normal 36.0 - 75.0 % [facility]eAutoSS Neutrophils/Leukocytes Auto (Bld) [Pure # fraction] 4.0 E9/L Normal 2.0 - 7.5 E9/L [facility] HemeAutoSS HEMATOLOGYOrdered By: Apolonia Tierney on 07-23-2022 Erythrocyte distribution width (RBC) [Ratio] 15.1 % High 10.9 - 14.2 % [facility]eAutoSS Hematocrit (Bld) [Volume fraction] 42.8 % Normal 37.7 - 49.0 % [facility]eAutoSS Hemoglobin (Bld) [Mass/Vol] 14.4 g/dL Normal 13.5 - 17.5 gm/dL [facility] HemeAutoSS MCH (RBC) [Entitic mass] 29.8 pg Normal 27.0 - 34.0 pg [facility] HemeAutoSS MCHC (RBC) [Mass/Vol] 33.7 g/dL Normal 31.4 - 36.0 gm/dL [facility] HemeAutoSS MCV (RBC) [Entitic vol] 88.5 fL Normal 80.0 - 100.0 fL [facility] HemeAutoSS Platelet mean volume (Bld) [Entitic vol] 9.7 fL Normal 6.4 - 10.8 fL [facility] HemeAutoSS Platelets (Bld) [#/Vol] 180.0 E9/L Normal 150.0 - 500.0 E9/L [facility] HemeAutoSS RBC (Bld) [#/Vol] 4.8 E12/L Normal 4.3 - 5.9 E12/L [facility] HemeAutoSS WBC corrected for nucl RBC Auto (Bld) [#/Vol] 6.5 E9/L Normal 4.0 - 11.0 E9/L [facility] HemeAutoSS CHEMISTRYOrdered By: SYSTEM SYSTEM on 07-22-2022 Anion gap [Moles/Vol] 13 mmol/L Normal 6 - 16 mEq/L [facility] Remisol Calcium [Mass/Vol] 9.0 mg/dL Normal 8.9 - 11. 1 mg/dL [facility] Remisol Chloride [Moles/Vol] 103 mmol/L Normal 101 - 1 11 mmol/L [facility] Remisol CO2 [Moles/Vol] 25 mmol/L Normal 21 - 31 mmol/L [facility] Remisol Creatinine [Mass/Vol] 1.8 mg/dL High 0.5 - 1.3 mg/dL [facility] Remisol GFR/1.73 sq M.predicted among non-blacks MDRD (S/P/Bld) [Vol rate/Area] 40 mL/min/1.73 m2 Low >=59mL/min/1 .73 m2 [facility] Chem S Glucose [Mass/Vol] 90 mg/dL Normal 55 - 199 mg/dL [facility] Remisol Potassium [Moles/Vol] 3.4 mmol/L Low 3.5 - 5.3 mmol/L [facility] Sodium [Moles/Vol] 138 mmol/L Normal 135 - 145 mmol/L [facility] Rem[facility] Urea nitrogen [Mass/Vol] 13 mg/dL Normal 5 - 21 mg/dL [facility] Urea nitrogen/Creatinine [Mass ratio] 7 mg/mg Low 10 - 20 [facility] Remisol HEMATOLOGYOrdered By: [employer] SYSTEM on 07-22-2022 Basophils/100 WBC (Bld) 1.1 % Normal 0.0 - 2.0 % [facility]eAutoSS Basophils/Leukocytes Auto (Bld) [Pure # fraction] 0.1 E9/L Normal 0.0 - 0.2 E9/L [facility]Auto[facility] Eosinophils/100 WBC (Bld) 2.3 % Normal 0.0 - 8.0 % [facility] Eosinophils/Leukocytes Auto (Bld) [Pure # fraction] 0.1 E9/L Normal 0.0 - 0.5 E9/L [facility] Lymphocytes/100 WBC (Bld) 23.1 % Normal 14.0 - 50.0 % [facility] Lymphocytes/Leukocytes Auto (Bld) [Pure # fraction] 1.4 E9/L Normal 1.0 - 4.0 E9/L [facility] Monocytes/100 WBC (Bld) 12.8 % Normal 4.0 - 14.0 % [facility] Monocytes/Leukocytes Auto (Bld) [Pure # fraction] 0.8 E9/L Normal 0.2 - 1.0 E9/L [facility] Neutrophils/100 WBC (Bld) 60.7 % Normal 36.0 - 75.0 % [facility] Neutrophils/Leukocytes Auto (Bld) [Pure # fraction] 3.8 E9/L Normal 2.0 - 7.5 E9/L [facility] HEMATOLOGYOrdered By: Jeniffer Jeffries on 07-22-2022 Erythrocyte distribution width (RBC) [Ratio] 15.1 % High 10.9 - 14.2 % [facility] Hematocrit (Bld) [Volume fraction] 41.9 % Normal 37.7 - 49.0 % [facility] Hemoglobin (Bld) [Mass/Vol] 13.9 g/dL Normal 13.5 - 17.5 gm/dL [facility] MCH (RBC) [Entitic mass] 29.5 pg Normal 27.0 - 34.0 pg [facility] MCHC (RBC) [Mass/Vol] 33.1 g/dL Normal 31.4 - 36.0 gm/dL [facility] MCV (RBC) [Entitic vol] 89.3 fL Normal 80.0 - 100.0 fL [facility] Platelet mean volume (Bld) [Entitic vol] 9.2 fL Normal 6.4 - 10.8 fL [facility] Platelets (Bld) [#/Vol] 179.0 E9/L Normal 150.0 - 500.0 E9/L [facility] RBC (Bld) [#/Vol] 4.7 E12/L Normal 4.3 - 5.9 E12/L [facility] WBC corrected for nucl RBC Auto (Bld) [#/Vol] 6.2 E9/L Normal 4.0 - 11.0 E9/L [facility] URINALYSISOrdered By: Apolonia Noble on 07-22-2022 Bacteria LM Ql (Urine sed) Trace /HPF Normal Trace/HPF [facility] UA Auto SS Bilirubin Ql (U) 2+ *ABN* (07/22/22 8:20 AM) Invalid Interpretation Code Negative [facility] UA Auto SS Calcium oxalate crystals LM Ql (Urine sed) Present (07/22/22 8:20 AM) Normal [facility] UA Auto SS Clarity (U) Clear (07/22/22 8:20 AM) Normal Clear [facility] UA Auto SS Color (U) Yellow (07/22/22 8:20 AM) Normal Yellow [facility] UA Auto SS Epithelial cells.squamous LM.HPF (Urine sed) [#/Area] 0-2 /HPF Normal 0-2/HPF [facility] UA Aut o SS Glucose Test strip (U) [Mass/Vol] Negative (07/22/22 8:20 AM) Normal Negative [facility] UA Auto SS Hemoglobin Ql (U) Trace *ABN* (07/22/22 8:20 AM) Invalid Interpretation Code Negative [facility] UA Auto SS Ketones (U) [Mass/Vol] 2+ *ABN* (07/22/22 8:20 AM) Invalid Interpretation Code Negative [facility] UA Auto SS Morrice.plasma/Morrice .RBC (Bld) [Mass ratio] 21-30 /HPF Invalid Interpretation Code 0-3/HPF [facility] UA Auto SS Mucus Ql (Urine sed) 1+ (07/22/22 8:20 AM) Normal [facility] UA Auto SS Nitrite Ql (U) Negative (07/22/22 8:20 AM) Normal Negative [facility] UA Auto SS pH (U) 6.0 *NA* (07/22/22 8:20 AM) Invalid Interpretation Code 5.0 - 9.0 [facility] UA Auto SS Protein (U) [Mass/Vol] Trace *ABN* (07/22/22 8:20 AM) Invalid Interpretation Code Negative [facility] UA Auto SS Specific gravity (U) [Rel density] >=1.030 *NA* (07/22/22 8:20 AM) Invalid Interpretation Code 1.005 - 1.030 [facility] UA Auto SS UA Spec Desc Clean Catch (07/22/22 8:20 AM) Normal [facility] UA Auto SS Urobilinogen Qn (U) [id number] {Jose'U}/dL Normal 0.0 - 1.0 EU/dL [facility] UA Auto SS WBC Auto Ql (U) Negative (07/22/22 8:20 AM) Normal Negative [facility] UA Auto SS WBC LM.HPF (Urine sed) [#/Area] 0-5 /HPF Normal 0-5/HPF [facility] UA Auto SS CHEMISTRYOrdered By: SYSTEM SYSTEM on 07-21-2022 Troponin I.cardiac [Mass/Vol] 7.70 pg/mL Low 15.90 - 38.40 pg/mL [facility] Remisol COAGULATIONOrdered By: Torri Marcos on 07-21-2022 aPTT Coag (PPP) [Time] 32.2 s Normal 25.1 - 36.5 second(s) [facility] Auto Coag INR Coag (PPP) [Relative time] 1.1 {INR} Invalid Interpretation Code [facility] Auto Coag PT Coag (PPP) [Time] 11.9 s Normal 9.4 - 1 2.5 second(s) [facility] Auto Coag HEMATOLOGYOrdered By: SYSTEM SYSTEM on 07-21-2022 Basophils/100 WBC (Bld) 1.0 % Normal 0.0 - 2.0 % [facility] HemeAutoSS Basophils/Leukocytes Auto (Bld) [Pure # fraction] 0.1 E9/L Normal 0.0 - 0.2 E9/L [facility] Eosinophils/100 WBC (Bld) 0.9 % Normal 0.0 - 8.0 % [facility] Eosinophils/Leukocytes Auto (Bld) [Pure # fraction] 0.1 E9/L Normal 0.0 - 0.5 E9/L [facility] Lymphocytes/100 WBC (Bld) 13.2 % Low 14.0 - 50.0 % [facility] Lymphocytes/Leukocytes Auto (Bld) [Pure # fraction] 1.1 E9/L Normal 1.0 - 4.0 E9/L [facility] Monocytes/100 WBC (Bld) 9.3 % Normal 4.0 - 14.0 % [facility] Monocytes/Leukocytes Auto (Bld) [Pure # fraction] 0.8 E9/L Normal 0.2 - 1.0 E9/L [facility] Neutrophils/100 WBC (Bld) 75.6 % High 36.0 - 75.0 % [facility] Neutrophils/Leukocytes Auto (Bld) [Pure # fraction] 6.2 E9/L Normal 2.0 - 7.5 E9/L [facility] HEMATOLOGYOrdered By: Valeria Gupta on 07-21-2022 Erythrocyte distribution width (RBC) [Ratio] 15.1 % High 10.9 - 14.2 % [facility] Hematocrit (Bld) [Volume fraction] 46.5 % Normal 37.7 - 49.0 % [facility] Hemoglobin (Bld) [Mass/Vol] 15.5 g/dL Normal 13.5 - 17.5 gm/dL [facility] MCH (RBC) [Entitic mass] 29.4 pg Normal 27.0 - 34.0 pg [facility] MCHC (RBC) [Mass/Vol] 33.2 g/dL Normal 31.4 - 36.0 gm/dL [facility] MCV (RBC) [Entitic vol] 88.6 fL Normal 80.0 - 100.0 fL [facility] Platelet mean volume (Bld) [Entitic vol] 9.2 fL Normal 6.4 - 10.8 fL [facility] Platelets (Bld) [#/Vol] 201.0 E9/L Normal 150.0 - 500.0 E9/L [facility] RBC (Bld) [#/Vol] 5.2 E12/L Normal 4.3 - 5.9 E12/L [facility] HemeAutoSS WBC corrected for nucl RBC Auto (Bld) [#/Vol] 8.2 E9/L Normal 4.0 - 11.0 E9/L [facility] HemeAutoSS XR KNEE LT 4V or >on 023 XR KNEE LT 4V or > EXAM: XR KNEE LT 4V or > HISTORY: Pain in left knee COMPARISON: Left knee radiographs dated 11/13/2020. TECHNIQUE: 4 views of the left knee were obtained. FINDINGS: There are postsurgical changes of ORIF of a remote proximal left tibia fracture. There is a moderately comminuted, impacted, and displaced fracture through the distal left femoral diametaphysis without definite intra-articular extension. There are advanced degenerative changes of the lateral compartment with mild degenerative changes of the medial and patellofemoral compartments of the left knee. There is no significant left knee joint effusion. IMPRESSION: 1. Moderately comminuted, impacted, and displaced fracture through the distal left femoral diametaphysis without definite intra-articular extension. Electronically authenticated by: Keysha PRESTON Date: 2022-04-05 01:08 Normal [facility] GLYCOHEMOGLOBIN A1Con 2022 ADA RECOMMENDATION SEE BELOW Normal [facility] Comment on above: Result Comment: ADA RECOMMENDED LIMIT 4.0 - 6.0 ADA THERAPEUTIC TARGET < 7.0 ACTION SUGGESTED > 7.0 Performed By: #### A 1C #### [facility] [address] [address] [address] Hemanth Meraz Glucose [Mass/Vol] 128 mg/dL Normal [facility] Comment on above: Performed By: #### A 1C #### [facility] [address] [address] [address] Hemanth Meraz HbA1c (Bld) [Mass fraction] 6.1 % Normal 4.5-6.2 [facility] Comment on above: Performed By: #### A 1C #### [facility] [address] [address] [address] Hemanth Meraz BNPon 03-21-2022 Natriuretic peptide B (Bld) [Mass/Vol] 31.0 pg/mL Normal <=900.0 [facility] Comment on above: Performed By: #### C MP, FT3, BNP, TSH #### [facility] [address] [place], [place] [address] Dr. Hemanth Meraz CBC AUTO DIFFon 03-21-2022 BASO # 0.1 103/ul Normal 0.0-0.1 [facility] Comment on above: Performed By: #### C BC ####[facility] [address] [address]Dr. Hemanth Meraz Basophils/100 WBC (Bld) 1.2 % Normal 0.2-2.0 [facility] Comment on above: Performed By: #### C BC ####[facility] [address] [address]DrCarol Ann Meraz EO # 0.2 103/ul Normal 0.0-0.7 [facility] Comment on above: Performed By: #### C BC ####[facility] [address] [address]DrCarol Ann Meraz Eosinophils/100 WBC (Bld) 3.1 % Normal 0.9-7.0 [facility] Comment on above: Performed By: #### C BC ####[facility] [address] [address]DrCarol Ann Meraz Erythrocyte distribution width (RBC) [Ratio] 13.0 % Normal 11.0-15.0 [facility] Comment on above: Performed By: #### C BC ####[facility] [address] [address]DrCarol Ann Meraz Hematocrit (Bld) [Volume fraction] 37.3 % Critically low 42.0-54.0 [facility] Comment on above: Performed By: #### C BC ####[facility] [address] [address]DrCarol Ann Meraz Hemoglobin (Bld) [Mass/Vol] 13.6 g/dL Critically low 14.0-18.0 [facility] Comment on above: Performed By: #### C BC ####[facility] [address] [id number]. Hemanth Meraz IG # 0.01 10e3/ul Normal 0.00-0.03 [facility] Comment on above: Performed By: #### C BC ####[facility] [address] [address]Dr. Hemanth Meraz IG % 0.2 % Normal 0.0-0.5 [facility] Comment on above: Performed By: #### C BC ####[facility] [address] [address]Dr. Hemanth Kt LYMPH # 1.4 103/ul Normal 1.2-3.8 [facility] Comment on above: Performed By: #### C BC ####[facility] [address] [address]Dr. Haydelizet Meraz Lymphocytes/100 WBC (Bld) 23.5 % Normal 20.5-60.0 [facility] Comment on above: Performed By: #### C BC ####[facility] [address] [address]Dr. Hemanth Meraz MANUAL DIFF REQ NO Normal [facility] Comment on above: Performed By: #### C BC ####[facility] [address] [address]Dr. Hemanth Meraz MCH (RBC) [Entitic mass] 31.6 pg Normal 25.9-34.0 [facility] Comment on above: Performed By: #### C BC ####[facility] [address] [address]Dr. Hemanth Meraz MCHC (RBC) [Mass/Vol] 36.5 g/dL Critically high 29.9-35.2 [facility] Comment on above: Performed By: #### C BC ####[facility] [address] [place], [place] [address]Dr. Hemanth Meraz MCV (RBC) [Entitic vol] 86.7 fL Normal 80.0-94.0 [facility] Comment on above: Performed By: #### C BC ####[facility] [address] [id number]. Hemanth Meraz MONO # 0.5 103/ul Normal 0.3-0.8 [facility] Comment on above: Performed By: #### C BC ####[facility] [address] [id number]. Hemanth Meraz Monocytes/100 WBC (Bld) 9.0 % Normal 1.7-12.0 [facility] Comment on above: Performed By: #### C BC ####[facility] [address] [place], [place] [address]Dr. Hemanth Meraz NEUT # 3.7 103/ul Normal 1.4-6.5 [facility] Comment on above: Performed By: #### C BC ####[facility] [address] [place], [place] [address]Dr. Hemanth Meraz Neutrophils/100 WBC (Bld) 63.0 % Normal 43.0-75.0 [facility] Comment on above: Performed By: #### C BC ####[facility] [address] [place], [place] [address]Dr. Hemanth Meraz Platelet mean volume (Bld) [Entitic vol] 9.4 fL Critically low 9.5-13.5 [facility] Comment on above: Performed By: #### C BC ####[facility] [address] [place], [place] [id number]. Hemanth Meraz PLT 202 103/ul Normal 150-450 [facility] Comment on above: Performed By: #### C BC ####[facility] [address] [place], [place] [address]Dr. Hemanth Meraz RBC 4.30 106/ul Critically low 4.70-6.10 [facility] Comment on above: Performed By: #### C BC ####[facility] [address] [place], [place] [address]Dr. Hemanth Meraz WBC 5.9 103/ul Normal 4.0-11.0 [facility] Comment on above: Performed By: #### C BC ####[facility] [address] [place], [place] [address]Dr. Hemanth Meraz FREE T3on 03-21-2022 FREE T3 2.37 pg/mlL Normal 2.18-3.98 [facility] Comment on above: Performed By: #### C MP, FT3, BNP, TSH #### [facility] [address] [place] [address] Dr. Hemanth Meraz FREE T4on 03-21-2022 Free T4 [Mass/Vol] 0.74 ng/dL Critically low 0.76-1.46 [facility] Comment on above: Performed By: #### F T4 #### [facility] [address] [place] [address] Dr. Hemanth Meraz PROF 14(COMP METB)on 023 Albumin [Mass/Vol] 3.4 g/dL Normal 3.4-5.0 [facility] Comment on above: Performed By: #### C MP, FT3, BNP, TSH #### [facility] [address] [place] [address] Dr. Hemanth Meraz Albumin/Globulin [Mass ratio] 0.9 {ratio} Normal [facility] Comment on above: Performed By: #### C MP, FT3, BNP, TSH #### [facility] [address] [place] [address] Dr. Hemanth Meraz ALP [Catalytic activity/Vol] 113 U/L Normal 46-116 [facility] Comment on above: Performed By: #### C MP, FT3, BNP, TSH #### [facility] [address] [place] [address] Dr. Hemanth Meraz ALT [Catalytic activity/Vol] 23 U/L Normal 16-63 [facility] Comment on above: Performed By: #### C MP, FT3, BNP, TSH #### [facility] [address] [place] [address] Dr. Hemanth Meraz Anion gap [Moles/Vol] 11.5 mmol/L Normal [facility] Comment on above: Performed By: #### C MP, FT3, BNP, TSH #### [facility] [address] [place] [address] Dr. Hemanth Meraz AST [Catalytic activity/Vol] 17 U/L Normal 15-37 [facility] Comment on above: Performed By: #### C MP, FT3, BNP, TSH #### [facility] [address] [address] [address] Hemanth Meraz Bilirubin [Mass/Vol] 0.5 mg/dL Normal 0.2-1.0 [facility] Comment on above: Performed By: #### C MP, FT3, BNP, TSH #### [facility] [address] [address] [address] Hemanth Meraz Calcium [Mass/Vol] 9.1 mg/dL Normal 8.5-10.1 [facility] Comment on above: Performed By: #### C MP, FT3, BNP, TSH #### [facility] [address] [place] [address] Dr. Hemanth Meraz Chloride [Moles/Vol] 104 mmol/L Normal 98-107 [facility] Comment on above: Performed By: #### C MP, FT3, BNP, TSH #### [facility] [address] [place] [address] Dr. Hemanth Meraz CO2 [Moles/Vol] 29.6 mmol/L Normal 21.0-32.0 [facility] Comment on above: Performed By: #### C MP, FT3, BNP, TSH #### [facility] [address] [place] [address] Dr. Hemanth Meraz Creatinine [Mass/Vol] 1.76 mg/dL Critically high 0.70-1.30 [facility] Comment on above: Performed By: #### C MP, FT3, BNP, TSH #### [facility] [address] [place] [address] Dr. Hemanth Meraz EGFR-AF KAZAKH 46 mL/min/1.73m2 Critically low >=60 [facility] Comment on above: Performed By: #### C MP, FT3, BNP, TSH #### [facility] [address] [place] [address] Dr. Hemanth Meraz EGFR-NON AF KAZAKH 38 mL/min/1.73m2 Critically low >=60 [facility] Comment on above: Performed By: #### C MP, FT3, BNP, TSH #### [facility] [address] [address] [address] Hemanth Meraz Globulin (S) [Mass/Vol] 3.8 g/dL Normal [facility] Comment on above: Performed By: #### C MP, FT3, BNP, TSH #### [facility] [address] [place] [address] Dr. Hemanth Meraz Glucose [Mass/Vol] 179 mg/dL Critically high 74-106 T [facility] Comment on above: Performed By: #### C MP, FT3, BNP, TSH #### [facility] [address] [place] [address] Dr. Hemanth Meraz Potassium [Moles/Vol] 4.1 mmol/L Normal 3.5-5.1 [facility] Comment on above: Performed By: #### C MP, FT3, BNP, TSH #### [facility] [address] [place] [address] Dr. Hemanth Meraz Protein [Mass/Vol] 7.2 g/dL Normal 6.4-8.2 [facility] Comment on above: Performed By: #### C MP, FT3, BNP, TSH #### [facility] [address] [place] [address] Dr. Hemanth Meraz Sodium [Moles/Vol] 141 mmol/L Normal 136-145 [facility] Comment on above: Performed By: #### C MP, FT3, BNP, TSH #### [facility] [address] [place] [address] Dr. Hemanth Meraz Urea nitrogen [Mass/Vol] 30.0 mg/dL Critically high 7.0-18.0 [facility] Comment on above: Performed By: #### C MP, FT3, BNP, TSH #### [facility] [address] [place] [address] Dr. Hemanth Meraz Urea nitrogen/Creatinine [Mass ratio] 17.0 mg/mg Normal [facility] Comment on above: Performed By: #### C MP, FT3, BNP, TSH #### [facility] [address] [place], [place] [address] Dr. Hemanth Meraz TSHon 03-21-2022 TSH 2.406 uIU/mL Normal 0.358-3.740 [facility] Comment on above: Performed By: #### C MP, FT3, BNP, TSH #### [facility] [address] [place], [place] [address] Dr. Hemanth Meraz CNOVSPon 02-26-2022 CNOVSP Visit (SP) Office ([place]) VICTOR M NI ([id number]) 1950 M Date Time Provider Department 02/26/22 10:30 AM MATT KHAN During your visit today, we recorded the following information about you: Temperature Pulse Respiration Blood pressure 97.6 degrees 79/minute 16/minute 165/85 Weight Height 162.2 kg 1.75 m Matt Khan MD 02/26/2022 10:53 AM Signed NAME: Victor M Ni CLINIC NO.: [id number] DATE OF SERVICE: February 26, 2022 ([place]) Some elements in this clinic note that are critical to medical decision making have been carefully reviewed and included from a prior clinic note dated: January 29, 2022 ([place]) Referring Provider: self Additional Clinicians involved in Victor M Ni's care: Mar Ellis, Matilda Estrada DIAGNOSIS: Right kidney cancer ASSESSMENT: 71 year old man with history of right renal mass s/p Robotic right partial nephrectomy 10/29/2021. He initially presented in October 2020 with a suspicious mass that was initially stable on serial follow-up but then approximately 9 months later was found to increase in size. Following resection he presents for local follow-up and serial observation. CT's in January 2022 with no evidence of disease. PLAN: Repeat CT in 12 weeks Labs same day RTC 1 Week after to review. 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 Tumor was confined to the kidney margins are negative stage [id number] maximum tumor diameter 5.5 cm. 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 07/10/2021 CT abdomen pelvis comparison 02/07/2021 heterogeneous hypoenhancing right renal mass 5.5 x 4.1 x 4.5 cm biopsy recommended. Compression fractures T7-T8. 02/07/2021 CT abdomen right kidney stable 4.8 cm mass remains nonspecific. Suspect hemorrhagic or density proteinaceous cyst. 01/30/2021 nondisplaced longitudinal fracture left patella 11/15/2020 CT abdomen pelvis: 4.9 cm right renal mass showing density higher than expected for simple fluid. Mass was suspicious with recommended pre and postinfusion imaging. 11/13/2020 ultrasound kidneys bladder: Indications increased frequency of urination, dehydration, nocturia: Right kidney hypoechoic partially exophytic round mass versus cyst projecting from mid body right kidney 4.8 cm diameter. No hydronephrosis or visible stones. Left kidney with normal renal cortical parenchymal echogenicity. Updated Visit, February 26, 2022: Doing well, Energy is back. Anemia resolved. Is staying hydrated. Scans show no evidence of recurrence. Initial Visit, January 29, 2022: Victor M Ni presents today Hematology and Oncology evaluation. He is a 71 year old male who has BPH and mild obstructive uropathy as well as a history of obstructive sleep apnea who was found to have a right renal mass in October 2020. Initially noted on ultrasound in October 2020 as a right hypocholic kidney mass possible cyst. Follow-up CT scan showed a 4.9 cm right renal mass concerning for possible malignancy. Follow-up CT scan in January 2021 showed that the mass was stable but then in June 2021 it was noted to be increasing in size now 5.5 cm. 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 He then underwent a partial right nephrectomy robotically assisted summarized above. Victor M tells me that he still feels very fatigued since his surgery. We will check his laboratories to see if he has become anemic But otherwise he may need his CPAP adjusted which he has been on for many years. He presents with his [place] who is also a patient of mine and wishes for his care to be done closer to home. I promised close correspondence with his urologic team. - REVIEW OF SYSTEMS Per HPI and otherwise negative by full review of organ systems. - ECOG PERFORMANCE STATUS: 1 PHYSICAL EXAMINATION: Vitals: BP 165/85 Pulse 79 Temp (Src) 97.6 (Temporal) Resp 16 Ht 5' 8.898 (1.75m) Wt 357 lb 9.6 oz (162.2kg) SpO2 98% BMI 52.97 kg/(m2). Body surface area is 2.81 meters squared. Very pleasant age-appropriate man with chronic lower extremity edema and difficulty walking due to orthopedic injuries including ankle and knee injuries. He is neurologically intact on gross visualization and appears to be in no acute distress. ____ (more content not included)... Normal [facility] CT Abdomen W contrast Flip 1 04-21-2021 IMPRESSION: Ill-defined hypodense in the right partial nephrectomy bed, likely postoperative change, though follow-up recommended. No abdominal metastasis. Transcribe Date/Time: Feb 18 2022 9:28A Dictated by: MAR SHARMA MD This examination was interpreted and the report reviewed and electronically signed by: MAR SHARMA MD on Feb 18 2022 9:48AM EST Thank you for allowing us to participate in the care of your patient. Should there be any questions regarding this interpretation, please call [phone]. If you are unable to reach us at the number above, please feel free to contact [facility] at [phone]. DIVISION OF RADIOLOGY * * *Final Report* * * DATE OF EXAM: Feb 17 2022 10:31AM [facility] 0533 - CT ABDOMEN W IVCON / PROCEDURE REASON: Other specified disorders of kidney and ureter * * * * Physician Interpretation * * * * RESULT: EXAMINATION: CT ABDOMEN WITH IV CONTRAST CLINICAL HISTORY: Right partial nephrectomy for papillary RCC TECHNIQUE: CT of the abdomen was performed using standard technique, scanning from just above the dome of the diaphragm to the iliac crest. MQ: CTAbdW_4 Contrast: IV: 125 ml of Omnipaque 300 Oral: 450 ml of 50ML Omnipaque [address] Radiation dose: Integrated Dose-length product (DLP) for this visit = 126 mGy*cm. CT Dose Reduction Employed: Automated exposure control (AEC) COMPARISON: Outside CT 07/10/2021 RESULT: Liver: No mass. Fatty change. Biliary: No bile duct dilation. Cholelithiasis. Spleen: No mass. No splenomegaly. Pancreas: No mass or duct dilation. Adrenals:No mass. Kidneys: Interval right partial nephrectomy. Ill-defined hypodense stranding in the operative bed (3:66). Left kidney is unremarkable. GI tract: No dilation or wall thickening. Lymph nodes: No abdominal lymphadenopathy. Mesentery/Peritoneum : No ascites or mass. Retroperitoneum: No mass. Vasculature: - Abdominal aorta: No aneurysm. - Celiac and SMA: Patent without stenosis. - Portal venous system (SMV, splenic vein, portal vein and branches): Patent. - Hepatic veins: Patent. Bones/Soft Tissues: Degenerative change. No osseous metastatic disease. Lower thorax: A chest CT performed will be reported separately. Humanities Division Chair (topogram) images: No additional findings. DIVISION OF RADIOLOGY Provider, [facility] [place] - 02/18/2022 * * *Final Report* * * DATE OF EXAM: Feb 17 2022 10:31AM [facility] 0533 - CT ABDOMEN W IVCON / PROCEDURE REASON: Other specified disorders of kidney and ureter * * * * Physician Interpretation * * * * RESULT: EXAMINATION: CT ABDOMEN WITH IV CONTRAST CLINICAL HISTORY: Right partial nephrectomy for papillary RCC TECHNIQUE: CT of the abdomen was performed using standard technique, scanning from just above the dome of the diaphragm to the iliac crest. MQ: CTAbdW_4 Contrast: IV: 125 ml of Omnipaque 300 Oral: 450 ml of 50ML Omnipaque [address] Radiation dose: Integrated Dose-length product (DLP) for this visit = 126 mGy*cm. CT Dose Reduction Employed: Automated exposure control (AEC) COMPARISON: Outside CT 07/10/2021 RESULT: Liver: No mass. Fatty change. Biliary: No bile duct dilation. Cholelithiasis. Spleen: No mass. No splenomegaly. Pancreas: No mass or duct dilation. Adrenals:No mass. Kidneys: Interval right partial nephrectomy. Ill-defined hypodense stranding in the operative bed (3:66). Left kidney is unremarkable. GI tract: No dilation or wall thickening. Lymph nodes: No abdominal lymphadenopathy. Mesentery/Peritoneum : No ascites or mass. Retroperitoneum: No mass. Vasculature: - Abdominal aorta: No aneurysm. - Celiac and SMA: Patent without stenosis. - Portal venous system (SMV, splenic vein, portal vein and branches): Patent. - Hepatic veins: Patent. Bones/Soft Tissues: Degenerative change. No osseous metastatic disease. Lower thorax: A chest CT performed will be reported separately. Humanities Division Chair (topogram) images: No additional findings. IMPRESSION IMPRESSION: Ill-defined hypodense in the right partial nephrectomy bed, likely postoperative change, though follow-up recommended. No abdominal metastasis. Transcribe Date/Time: Feb 18 2022 9:28A Dictated by: MAR SHARMA MD This examination was interpreted and the report reviewed and electronically signed by: MAR SHARMA MD on Feb 18 2022 9:48AM EST Thank you for allowing us to participate in the care of your patient. Should there be any questions regarding this interpretation, please call [phone]. If you are unable to reach us at the number above, please feel free to contact [facility] at [phone]. [facility] CT Chest W contrast Flip IMPRESSION: 1. Small (less than 5 mm) indeterminate pulmonary nodules are stable since 11/16/2020. Attention on follow-up exam is recommended given the history of malignancy. 2. No thoracic lymphadenopathy. 3. Dilated ascending aorta measuring 5.1 cm, not substantially changed since the prior exam. 4. Compression deformities of T6-T8 vertebral bodies with sclerosis, unchanged since the prior exam. Transcribe Date/Time: Feb 18 2022 9:09A Dictated by: SABIHA BEARD MD This examination was interpreted and the report reviewed and electronically signed by: SABIHA BEARD MD on Feb 18 2022 9:30AM EST Thank you for allowing us to participate in the care of your patient. Should there be any questions regarding this interpretation, please call [phone]. If you are unable to reach us at the number above, please feel free to contact [facility] at [phone]. DIVISION OF RADIOLOGY * * *Final Report* * * DATE OF EXAM: Feb 17 2022 10:31AM [facility] 0539 - CT CHEST W IVCON / PROCEDURE REASON: Renal cell cancer, right (HCC) * * * * Physician Interpretation * * * * RESULT: EXAMINATION: CHEST CT WITH CONTRAST CLINICAL HISTORY: Renal cell carcinoma, s/p Robotic right partial nephrectomy 10/29/2021 (as per medical record). Technique: Spiral CT acquisition of the chest from the thoracic inlet to the upper abdomen following IV contrast. MQ: CTCW_6 Contrast: 125 mL Omnipaque [address] Radiation dose: Integrated Dose-length product (DLP) for this visit = 126 mGy*cm CT Dose Reduction Employed: Automated exposure control (AEC) Comparison: CT chest dated 2021 RESULT: Limitations: None Lines, tubes, and devices: None. Lung parenchyma and airways: The lungs are free of focal consolidation. A few small (less than 5 mm) pulmonary nodules are stable since the prior exam. For reference, a 3 mm groundglass nodule in the right middle lobe (image 99), a 3 mm groundglass nodule in the right middle lobe (image 102), a 2 mm right middle lobe nodule (image 120) and a 2 mm left lower lobe nodule (image 106) are stable since the prior CT chest dated [address] abdomen dated 11/16/2020. A 3 mm calcified granuloma along the minor fissure (image 78) is unchanged. No new or enlarging suspicious pulmonary nodules are seen. The central airways are patent. No endobronchial lesion is seen. Pleural space: No pleural effusion or focal pleural thickening is identified. There is no pneumothorax. Lower neck, lymph nodes, and mediastinum: No enlarged mediastinal, hilar, supraclavicular, or axillary lymph nodes are seen. The thyroid gland is unremarkable. The esophagus is nondilated. Heart, pericardium, and thoracic vessels: There is a three-vessel left aortic arch. The ascending aorta is dilated measuring 5.1 cm in diameter, similar to the prior exam. The main pulmonary artery is normal in course and caliber. Mild atherosclerotic calcifications are seen in the coronary arteries although the exam is not optimized for evaluation of the coronary arteries. The cardiac chambers are normal in size. There is no pericardial effusion or pericardial thickening. Bones and soft tissues: Sclerosis and compression deformities of the T6-T8 vertebral bodies are unchanged since the prior exam. The T8 compression deformity is also seen on the CT abdomen dated 11/16/2020. Degenerative changes are seen in the thoracic spine. The soft tissues of the chest wall are unremarkable. Upper abdomen: CT of the abdomen and pelvis performed concurrently is reported separately. Humanities Division Chair (topogram) images: No additional findings. DIVISION OF RADIOLOGY Provider, [facility] [place] - 02/18/2022 * * *Final Report* * * DATE OF EXAM: Feb 17 2022 10:31AM [facility] 0539 - CT CHEST W IVCON / PROCEDURE REASON: Renal cell cancer, right (HCC) * * * * Physician Interpretation * * * * RESULT: EXAMINATION: CHEST CT WITH CONTRAST CLINICAL HISTORY: Renal cell carcinoma, s/p Robotic right partial nephrectomy 10/29/2021 (as per medical record). Technique: Spiral CT acquisition of the chest from the thoracic inlet to the upper abdomen following IV contrast. MQ: CTCW_6 Contrast: 125 mL Omnipaque [address] Radiation dose: Integrated Dose-length product (DLP) for this visit = 126 mGy*cm CT Dose Reduction Employed: Automated exposure control (AEC) Comparison: CT chest dated 2021 RESULT: Limitations: None Lines, tubes, and devices: None. Lung parenchyma and airways: The lungs are free of focal consolidation. A few small (less than 5 mm) pulmonary nodules are stable since the prior exam. For reference, a 3 mm groundglass nodule in the right middle lobe (image 99), a 3 mm groundglass nodule in the right middle lobe (image 102), a 2 mm right middle lobe nodule (image 120) and a 2 mm left lower lobe nodule (image 106) are stable since the prior CT chest dated [address] abdomen dated 11/16/2020. A 3 mm calcified granuloma along the minor fissure (image 78) is unchanged. No new or enlarging suspicious pulmonary nodules are seen. The central airways are patent. No endobronchial lesion is seen. Pleural space: No pleural effusion or focal pleural thickening is identified. There is no pneumothorax. Lower neck, lymph nodes, and mediastinum: No enlarged mediastinal, hilar, supraclavicular, or axillary lymph nodes are seen. The thyroid gland is unremarkable. The esophagus is nondilated. Heart, pericardium, and thoracic vessels: There is a three-vessel left aortic arch. The ascending aorta is dilated measuring 5.1 cm in diameter, similar to the prior exam. The main pulmonary artery is normal in course and caliber. Mild atherosclerotic calcifications are seen in the coronary arteries although the exam is not optimized for evaluation of the coronary arteries. The cardiac chambers are normal in size. There is no pericardial effusion or pericardial thickening. Bones and soft tissues: Sclerosis and compression deformities of the T6-T8 vertebral bodies are unchanged since the prior exam. The T8 compression deformity is also seen on the CT abdomen dated 11/16/2020. Degenerative changes are seen in the thoracic spine. The soft tissues of the chest wall are unremarkable. Upper abdomen: CT of the abdomen and pelvis performed concurrently is reported separately. Humanities Division Chair (topogram) images: No additional findings. IMPRESSION IMPRESSION: 1. Small (less than 5 mm) indeterminate pulmonary nodules are stable since 11/16/2020. Attention on follow-up exam is recommended given the history of malignancy. 2. No thoracic lymphadenopathy. 3. Dilated ascending aorta measuring 5.1 cm, not substantially changed since the prior exam. 4. Compression deformities of T6-T8 vertebral bodies with sclerosis, unchanged since the prior exam. Transcribe Date/Time: Feb 18 2022 9:09A Dictated by: SABIHA BEARD MD This examination was interpreted and the report reviewed and electronically signed by: SABIHA BEARD MD on Feb 18 2022 9:30AM EST Thank you for allowing us to participate in the care of your patient. Should there be any questions regarding this interpretation, please call [phone]. If you are unable to reach us at the number above, please feel free to contact [facility] at [phone]. [facility] CT Chest W contrast IVOrdere d By: [facility] Provider on 02-18-2022 [facility] CBC W Auto Differential pane l (Bld)on 02-17-2022 Basophils (Bld) [#/Vol] 0.05 10*3/uL Normal <0.[address] [facility] Comment on above: Order Comment: Speci men Type: BLOOD SPECIMENOrdering Facility: [facility] Address: [address] [place] [address] Performed By: #### 5 7021-8 ####[facility] LABCLIA [id number] [place] [address] Basophils/100 WBC (Bld) 0.7 % Normal [facility] Comment on above: Order Comment: Speci men Type: BLOOD SPECIMENOrdering Facility: [facility] Address: [address] [address] Performed By: #### 5 7021-8 ####[facility] LABCLIA [id number] [place] [address] Differential cell count method Nom (Bld) Auto Normal [facility] Comment on above: Order Comment: Speci men Type: BLOOD SPECIMENOrdering Facility: [facility] Address: [address] [address] Performed By: #### 5 7021-8 ####[facility] LABCLIA [id number] [place] [address] Eosinophils (Bld) [#/Vol] 0.26 10*3/uL Normal <0.[address] [facility] Comment on above: Order Comment: Speci men Type: BLOOD SPECIMENOrdering Facility: [facility] Address: [address] [address] Performed By: #### 5 7021-8 ####[facility] LABCLIA [id number] [place] [address] Eosinophils/100 WBC (Bld) 3.7 % Normal [facility] Comment on above: Order Comment: Speci men Type: BLOOD SPECIMENOrdering Facility: [facility] Address: [address] [place] [address] Performed By: #### 5 7021-8 ####[facility] LABCLIA [id number] [place] [address] Erythrocyte distribution width (RBC) [Ratio] 13.2 % Normal 11.5-15.[address] [facility] Comment on above: Order Comment: Speci men Type: BLOOD SPECIMENOrdering Facility: [facility] Address: [address] [place] [address] Performed By: #### 5 7021-8 ####[facility] LABCLIA [id number] [place] [address] Hematocrit (Bld) [Volume fraction] 41.6 % Normal 39.0-51.[address] [facility] Comment on above: Order Comment: Speci men Type: BLOOD SPECIMENOrdering Facility: [facility] Address: [address] [place] [address] Performed By: #### 5 7021-8 ####[facility] LABCLIA [id number] [place] [address] Hemoglobin (Bld) [Mass/Vol] 13.7 g/dL Normal 13.0-17.[address] [facility] Comment on above: Order Comment: Speci men Type: BLOOD SPECIMENOrdering Facility: [facility] Address: [address] [place] [address] Performed By: #### 5 7021-8 ####[facility] LABCLIA [id number] [place] [address] Immature granulocytes (Bld) [#/Vol] 10*3/uL Normal <0.[address] [facility] Comment on above: Order Comment: Speci men Type: BLOOD SPECIMENOrdering Facility: [facility] Address: [address] [place] [address] Performed By: #### 5 7021-8 ####[facility] LABCLIA [id number] [place] [address] Immature granulocytes/100 WBC (Bld) 0.3 % Normal [facility] Comment on above: Order Comment: Speci men Type: BLOOD SPECIMENOrdering Facility: [facility] Address: [address] [place] [address] Performed By: #### 5 7021-8 ####[facility] LABCLIA [id number] [place] [address] Lymphocytes (Bld) [#/Vol] 1.61 10*3/uL Normal 1.00-4.[address] [facility] Comment on above: Order Comment: Speci men Type: BLOOD SPECIMENOrdering Facility: [facility] Address: [address] [place] [address] Performed By: #### 5 7021-8 ####[facility] LABCLIA [id number] [place] [address] Lymphocytes/100 WBC (Bld) 23.1 % Normal [facility] Comment on above: Order Comment: Speci men Type: BLOOD SPECIMENOrdering Facility: [facility] Address: [facility] [address] [place] [address] Performed By: #### 5 7021-8 ####[facility] LABCLIA [id number] [place] [address] MCH (RBC) [Entitic mass] 30.9 pg Normal 26.0-34.[address] [facility] Comment on above: Order Comment: Speci men Type: BLOOD SPECIMENOrdering Facility: [facility] Address: [address] [place] [address] Performed By: #### 5 7021-8 ####[facility] LABCLIA [id number] [place] [address] MCHC (RBC) [Mass/Vol] 32.9 g/dL Normal 30.5-36.0 [facility] Comment on above: Order Comment: Speci men Type: BLOOD SPECIMENOrdering Facility: [facility] Address: [address] [place] [address] Performed By: #### 5 7021-8 ####[facility] LABIA [id number] [place] [address] MCV (RBC) [Entitic vol] 93.9 fL Normal 80.0-100.[address] [facility] Comment on above: Order Comment: Speci men Type: BLOOD SPECIMENOrdering Facility: [facility] Address: [address] [place] [address] Performed By: #### 5 7021-8 ####[facility] LABCLIA [id number] [place] [address] Monocytes (Bld) [#/Vol] 0.81 10*3/uL Normal <0.[address] [facility] Comment on above: Order Comment: Speci men Type: BLOOD SPECIMENOrdering Facility: [facility] Address: [address] [place] [address] Performed By: #### 5 7021-8 ####[facility] LABCLIA [id number] [place] [address] Monocytes/100 WBC (Bld) 11.6 % Normal [facility] Comment on above: Order Comment: Speci men Type: BLOOD SPECIMENOrdering Facility: [facility] Address: [address] [place] [address] Performed By: #### 5 7021-8 ####[facility] LABCLIA [id number] [place] [address] Neutrophils (Bld) [#/Vol] 4.21 10*3/uL Normal 1.45-7.[address] [facility] Comment on above: Order Comment: Speci men Type: BLOOD SPECIMENOrdering Facility: [facility] Address: [address] [place] [address] Performed By: #### 5 7021-8 ####[facility] LABCLIA [id number] [place] [address] Neutrophils/100 WBC (Bld) 60.6 % Normal [facility] Comment on above: Order Comment: Speci men Type: BLOOD SPECIMENOrdering Facility: [facility] Address: [address] [place] [address] Performed By: #### 5 7021-8 ####[facility] LABCLIA [id number] [place] [address] Nucleated RBC (Bld) [#/Vol] 10*3/uL Normal <0.[address] [facility] Comment on above: Order Comment: Speci men Type: BLOOD SPECIMENOrdering Facility: [facility] Address: [address] [place] [address] Performed By: #### 5 7021-8 ####[facility] LABCLIA [id number] [place] [address] Nucleated RBC/100 WBC (Bld) [Ratio] 0.0 /100 WBC Normal [facility] Comment on above: Order Comment: Speci men Type: BLOOD SPECIMENOrdering Facility: [facility] Address: [address] [place] [address] Performed By: #### 5 7021-8 ####[facility] LABCLIA [id number] [place] [address] Platelet mean volume (Bld) [Entitic vol] 9.9 fL Normal 9.0-12.[address] [facility] Comment on above: Order Comment: Speci men Type: BLOOD SPECIMENOrdering Facility: [facility] Address: [address] [place] [address] Performed By: #### 5 7021-8 ####[facility] LABCLIA [id number] [place] [address] Platelets (Bld) [#/Vol] 239 10*3/uL Normal 150-[address] [facility] Comment on above: Order Comment: Speci men Type: BLOOD SPECIMENOrdering Facility: [facility] Address: [address] [place] [address] Performed By: #### 5 7021-8 ####[facility] LABCLIA [id number] [place] [address] RBC (Bld) [#/Vol] 4.43 10*6/uL Normal 4.20-6.00 [facility] Comment on above: Order Comment: Speci men Type: BLOOD SPECIMENOrdering Facility: [facility] Address: [address] [place] [address] Performed By: #### 5 7021-8 ####[facility] LABCLIA [id number] [place] [address] WBC (Bld) [#/Vol] 6.96 10*3/uL Normal 3.70-11.00 [facility] Comment on above: Order Comment: Speci men Type: BLOOD SPECIMENOrdering Facility: [facility] Address: [address] [place] [address] Performed By: #### 5 7021-8 ####[facility] LABCLIA [id number] [place] [address] Basophils (Bld) [#/Vol] 0.05 10*3/uL [facility] Basophils/100 WBC (Bld) 0.7 % [facility] Differential cell count method Nom (Bld) Auto [facility] Eosinophils (Bld) [#/Vol] 0.26 10*3/uL [facility] Eosinophils/100 WBC (Bld) 3.7 % [facility] Erythrocyte distribution width (RBC) [Ratio] 13.2 % 11.5 - 15.0 % [facility] Hematocrit (Bld) [Volume fraction] 41.6 % 39.0 - 51.0 % [facility] Hemoglobin (Bld) [Mass/Vol] 13.7 g/dL 13.0 - 17.0 g/dL [facility] Immature granulocytes (Bld) [#/Vol] [facility] Immature granulocytes/100 WBC (Bld) 0.3 % [facility] Lymphocytes (Bld) [#/Vol] 1.61 10*3/uL [facility] Lymphocytes/100 WBC (Bld) 23.1 % [facility] MCH (RBC) [Entitic mass] 30.9 pg 26.0 - 34.0 pg [facility] MCHC (RBC) [Mass/Vol] 32.9 g/dL 30.5 - 36.0 g/dL [facility] MCV (RBC) [Entitic vol] 93.9 fL 80.0 - 100.0 fL [facility] Monocytes (Bld) [#/Vol] 0.81 10*3/uL [facility] Monocytes/100 WBC (Bld) 11.6 % [facility] Neutrophils (Bld) [#/Vol] 4.21 10*3/uL [facility] Neutrophils/100 WBC (Bld) 60.6 % [facility] Nucleated RBC (Bld) [#/Vol] [facility] Nucleated RBC/100 WBC (Bld) [Ratio] 0.0 % /100 WBC [facility] Platelet mean volume (Bld) [Entitic vol] 9.9 fL 9.0 - 12.7 fL [facility] Platelets (Bld) [#/Vol] 239 10*3/uL [facility] RBC (Bld) [#/Vol] 4.43 10*6/uL 4.20 - 6.0 0 m/uL [facility] WBC (Bld) [#/Vol] 6.96 10*3/uL [facility] This is an appended report. These results have been appended to a previously verified report. [facility] CT ABDOMEN W IVCONon 022 CT ABDOMEN W IVCON * * *Final Report* * * DATE OF EXAM: Feb 17 2022 10:31AM [facility] 0533 - CT ABDOMEN W IVCON / PROCEDURE REASON: Other specified disorders of kidney and ureter * * * * Physician Interpretation * * * * RESULT: EXAMINATION: CT ABDOMEN WITH IV CONTRAST CLINICAL HISTORY: Right partial nephrectomy for papillary RCC TECHNIQUE: CT of the abdomen was performed using standard technique, scanning from just above the dome of the diaphragm to the iliac crest. MQ: CTAbdW_4 Contrast: IV: 125 ml of Omnipaque 300 Oral: 450 ml of 50ML Omnipaque [address] Radiation dose: Integrated Dose-length product (DLP) for this visit = 126 mGy*cm. CT Dose Reduction Employed: Automated exposure control (AEC) COMPARISON: Outside CT 07/10/2021 RESULT: Liver: No mass. Fatty change. Biliary: No bile duct dilation. Cholelithiasis. Spleen: No mass. No splenomegaly. Pancreas: No mass or duct dilation. Adrenals:No mass. Kidneys: Interval right partial nephrectomy. Ill-defined hypodense stranding in the operative bed (3:66). Left kidney is unremarkable. GI tract: No dilation or wall thickening. Lymph nodes: No abdominal lymphadenopathy. Mesentery/Peritoneum : No ascites or mass. Retroperitoneum: No mass. Vasculature: - Abdominal aorta: No aneurysm. - Celiac and SMA: Patent without stenosis. - Portal venous system (SMV, splenic vein, portal vein and branches): Patent. - Hepatic veins: Patent. Bones/Soft Tissues: Degenerative change. No osseous metastatic disease. Lower thorax: A chest CT performed will be reported separately. Humanities Division Chair (topogram) images: No additional findings. IMPRESSION: Ill-defined hypodense in the right partial nephrectomy bed, likely postoperative change, though follow-up recommended. No abdominal metastasis. Transcribe Date/Time: Feb 18 2022 9:28A Dictated by: MAR SHARMA MD This examination was interpreted and the report reviewed and electronically signed by: MAR SHARMA MD on Feb 18 2022 9:48AM EST Thank you for allowing us to participate in the care of your patient. Should there be any questions regarding this interpretation, please call [phone]. If you are unable to reach us at the number above, please feel free to contact [facility] at [phone]. [id number] CN Normal [facility] CT Abdomen W contrast Flip 1 04-20-2021 Radiology Study observation (narrative) [facility] CT CHEST W IVCONon 2 CT CHEST W IVCON * * *Final Report* * * DATE OF EXAM: Feb 17 2022 10:31AM [facility] 0539 - CT CHEST W IVCON / PROCEDURE REASON: Renal cell cancer, right (HCC) * * * * Physician Interpretation * * * * RESULT: EXAMINATION: CHEST CT WITH CONTRAST CLINICAL HISTORY: Renal cell carcinoma, s/p Robotic right partial nephrectomy 10/29/2021 (as per medical record). Technique: Spiral CT acquisition of the chest from the thoracic inlet to the upper abdomen following IV contrast. MQ: CTCW_6 Contrast: 125 mL Omnipaque [address] Radiation dose: Integrated Dose-length product (DLP) for this visit = 126 mGy*cm CT Dose Reduction Employed: Automated exposure control (AEC) Comparison: CT chest dated 2021 RESULT: Limitations: None Lines, tubes, and devices: None. Lung parenchyma and airways: The lungs are free of focal consolidation. A few small (less than 5 mm) pulmonary nodules are stable since the prior exam. For reference, a 3 mm groundglass nodule in the right middle lobe (image 99), a 3 mm groundglass nodule in the right middle lobe (image 102), a 2 mm right middle lobe nodule (image 120) and a 2 mm left lower lobe nodule (image 106) are stable since the prior CT chest dated [address] abdomen dated 11/16/2020. A 3 mm calcified granuloma along the minor fissure (image 78) is unchanged. No new or enlarging suspicious pulmonary nodules are seen. The central airways are patent. No endobronchial lesion is seen. Pleural space: No pleural effusion or focal pleural thickening is identified. There is no pneumothorax. Lower neck, lymph nodes, and mediastinum: No enlarged mediastinal, hilar, supraclavicular, or axillary lymph nodes are seen. The thyroid gland is unremarkable. The esophagus is nondilated. Heart, pericardium, and thoracic vessels: There is a three-vessel left aortic arch. The ascending aorta is dilated measuring 5.1 cm in diameter, similar to the prior exam. The main pulmonary artery is normal in course and caliber. Mild atherosclerotic calcifications are seen in the coronary arteries although the exam is not optimized for evaluation of the coronary arteries. The cardiac chambers are normal in size. There is no pericardial effusion or pericardial thickening. Bones and soft tissues: Sclerosis and compression deformities of the T6-T8 vertebral bodies are unchanged since the prior exam. The T8 compression deformity is also seen on the CT abdomen dated 11/16/2020. Degenerative changes are seen in the thoracic spine. The soft tissues of the chest wall are unremarkable. Upper abdomen: CT of the abdomen and pelvis performed concurrently is reported separately. Humanities Division Chair (topogram) images: No additional findings. IMPRESSION: 1. Small (less than 5 mm) indeterminate pulmonary nodules are stable since 11/16/2020. Attention on follow-up exam is recommended given the history of malignancy. 2. No thoracic lymphadenopathy. 3. Dilated ascending aorta measuring 5.1 cm, not substantially changed since the prior exam. 4. Compression deformities of T6-T8 vertebral bodies with sclerosis, unchanged since the prior exam. Transcribe Date/Time: Feb 18 2022 9:09A Dictated by: SABIHA BEARD MD This examination was interpreted and the report reviewed and electronically signed by: SABIHA BEARD MD on Feb 18 2022 9:30AM EST Thank you for allowing us to participate in the care of your patient. Should there be any questions regarding this interpretation, please call [phone]. If you are unable to reach us at the number above, please feel free to contact [facility] at [phone]. [id number] CN Normal [facility] CT Chest W contrast Flip Radiology Study observation (narrative) [facility] Comprehensive metabolic 2000 panelon 02-17-2022 Albumin [Mass/Vol] 4.0 g/dL Normal 3.9-4.9 [facility] Comment on above: Order Comment: Speci men Type: BLOOD SPECIMENOrdering Facility: [facility] Address: [address] [address] Performed By: #### 2 4323-8 ####[facility] LABCLIA [id number] [place] [address] ALP [Catalytic activity/Vol] 113 U/L Normal 38-[address] [facility] Comment on above: Order Comment: Speci men Type: BLOOD SPECIMENOrdering Facility: [facility] Address: [address] [address] Performed By: #### 2 4323-8 ####[facility] LABCLIA [id number] [place] [address] ALT [Catalytic activity/Vol] 15 U/L Normal 10-[address] [facility] Comment on above: Order Comment: Speci men Type: BLOOD SPECIMENOrdering Facility: [facility] Address: [address] [address] Performed By: #### 2 4323-8 ####[facility] LABCLIA [id number] [place] [address] Anion gap [Moles/Vol] 10 mmol/L Normal 9-18 [facility] Comment on above: Order Comment: Speci men Type: BLOOD SPECIMENOrdering Facility: [facility] Address: [address] [address] Performed By: #### 2 4323-8 ####[facility] LABCLIA [id number] [place] [address] AST [Catalytic activity/Vol] 17 U/L Normal 14-[address] [facility] Comment on above: Order Comment: Speci men Type: BLOOD SPECIMENOrdering Facility: [facility] Address: [address] [address] Performed By: #### 2 4323-8 ####[facility] LABCLIA [id number] [place] [address] Bilirubin [Mass/Vol] 0.5 mg/dL Normal 0.2-1.3 [facility] Comment on above: Order Comment: Speci men Type: BLOOD SPECIMENOrdering Facility: [facility] Address: [address] [place] [address] Performed By: #### 2 4323-8 ####[facility] LABCLIA [id number] [place] [address] Calcium [Mass/Vol] 9.2 mg/dL Normal 8.5-10.2 [facility] Comment on above: Order Comment: Speci men Type: BLOOD SPECIMENOrdering Facility: [facility] Address: [address] [place] [address] Performed By: #### 2 4323-8 ####[facility] LABCLIA [id number] [place] [address] Chloride [Moles/Vol] 103 mmol/L Normal 97-105 [facility] Comment on above: Order Comment: Speci men Type: BLOOD SPECIMENOrdering Facility: [facility] Address: [address] [place] [address] Performed By: #### 2 4323-8 ####[facility] LABCLIA [id number] [place] [address] CO2 [Moles/Vol] 26 mmol/L Normal 22-[address] [facility] Comment on above: Order Comment: Speci men Type: BLOOD SPECIMENOrdering Facility: [facility] Address: [address] [place] [address] Performed By: #### 2 4323-8 ####[facility] LABCLIA [id number] [place] [address] Creatinine [Mass/Vol] 1.74 mg/dL High 0.73-1.22 [facility] Comment on above: Order Comment: Speci men Type: BLOOD SPECIMENOrdering Facility: [facility] Address: [address] [place] [address] Performed By: #### 2 4323-8 ####[facility] LABCLIA [id number] [place] [address] ESTIMATED GLOMERULAR FILTRATION RATE 41 mL/min/1.73m??? Low >=[address] [facility] Comment on above: Order Comment: Speci men Type: BLOOD SPECIMENOrdering Facility: [facility] Address: [address] [place] [address] Result Comment: Nely mated Glomerular Filtration Rate (eGFR) is calculated using the 2020 CKD-EPI creatinine equation. This equation utilizes serum creatinine, sex, and age as parameters. The creatinine assay has traceable calibration to isotope dilution-mass spectrometry. Refer to KDIGO guidelines for clinical interpretation. In patients with unstable renal function, e.g. those with acute kidney injury, the eGFR may not accurately reflect actual GFR. Performed By: #### 2 4323-8 ####[facility] LABCLIA [id number] [place] [address] Glucose [Mass/Vol] 125 mg/dL High 74-99 [facility] Comment on above: Order Comment: Speci men Type: BLOOD SPECIMENOrdering Facility: [facility] Address: [address] [place] [address] Result Comment: The [place] Diabetes Association (ADA) provides guidance for cutoff values for fasting glucose and random glucose. The ADA defines fasting as no caloric intake for at least 8 hours. Fasting plasma glucose results between 100 to 125 mg/dL indicate increased risk for diabetes (prediabetes). Fasting plasma glucose results greater than or equal to 126 mg/dL meet the criteria for diagnosis of diabetes. In the absence of unequivocal hyperglycemia, results should be confirmed by repeat testing. In a patient with classic symptoms of hyperglycemia or hyperglycemic crisis, random plasma glucose results greater than or equal to 200 mg/dL meet the criteria for diagnosis of diabetes. Reference: Standards of Medical Care in Diabetes 2016, [place] Diabetes Association. Diabetes Care. 2016.39(Suppl 1). Performed By: #### 2 4323-8 ####[facility] LABCLIA [id number] [place] [address] Potassium [Moles/Vol] 4.3 mmol/L Normal 3.7-5.1 [facility] Comment on above: Order Comment: Speci men Type: BLOOD SPECIMENOrdering Facility: [facility] Address: [address] [place] [address] Performed By: #### 2 4323-8 ####[facility] LABCLIA [id number] [place] [address] Protein [Mass/Vol] 7.1 g/dL Normal 6.3-8.0 [facility] Comment on above: Order Comment: Speci men Type: BLOOD SPECIMENOrdering Facility: [facility] Address: [address] [place] [address] Performed By: #### 2 4323-8 ####[facility] LABCLIA [id number] [place] [address] Sodium [Moles/Vol] 139 mmol/L Normal 136-144 [facility] Comment on above: Order Comment: Speci men Type: BLOOD SPECIMENOrdering Facility: [facility] Address: [address] [place] [address] Performed By: #### 2 4323-8 ####[facility] LABCLIA [id number] [place] [address] Urea nitrogen [Mass/Vol] 29 mg/dL High 9-[address] [facility] Comment on above: Order Comment: Speci men Type: BLOOD SPECIMENOrdering Facility: [facility] Address: [address] [place] [address] Performed By: #### 2 4323-8 ####[facility] LABCLIA [id number] [place] [address] Comprehensive metabolic 2000 panelOrdered By: Nabil Reese on 02-17-2022 Albumin [Mass/Vol] 4.0 g/dL 3.9 - 4.9 g/dL [facility] ALP [Catalytic activity/Vol] 113 U/L 38 - 113 U/L [facility] ALT [Catalytic activity/Vol] 15 U/L 10 - 54 U/L [facility] Anion gap [Moles/Vol] 10 mmol/L 9 - 18 mmol/L [facility] AST [Catalytic activity/Vol] 17 U/L 14 - 40 U/L [facility] Bilirubin [Mass/Vol] 0.5 mg/dL 0.2 - 1 .3 mg/dL [facility] Calcium [Mass/Vol] 9.2 mg/dL 8.5 - 10. 2 mg/dL [facility] Chloride [Moles/Vol] 103 mmol/L 97 - 10 5 mmol/L [facility] CO2 [Moles/Vol] 26 mmol/L 22 - 30 mmol/L [facility] Creatinine [Mass/Vol] 1.74 mg/dL High 0.73 - 1.22 mg/dL [facility] GFR/1.73 sq M.predicted among non-blacks MDRD (S/P/Bld) [Vol rate/Area] 41 mL/min/{1.73_m2} Low - PINF [facility] Comment on above: Estimated Glomerular Filtration Rate (eGFR) is calculated using the 2020 CKD-EPI creatinine equation. This equation utilizes serum creatinine, sex, and age as parameters. The creatinine assay has traceable calibration to isotope dilution-mass spectrometry. Refer to KDIGO guidelines for clinical interpretation. In patients with unstable renal function, e.g. those with acute kidney injury, the eGFR may not accurately reflect actual GFR. Glucose [Mass/Vol] 125 mg/dL High 74 - 99 mg/dL [facility] Comment on above: The [place] Diabete s Association (ADA) provides guidance for cutoff values for fasting glucose and random glucose. The ADA defines fasting as no caloric intake for at least 8 hours. Fasting plasma glucose results between 100 to 125 mg/dL indicate increased risk for diabetes (prediabetes). Fasting plasma glucose results greater than or equal to 126 mg/dL meet the criteria for diagnosis of diabetes. In the absence of unequivocal hyperglycemia, results should be confirmed by repeat testing. In a patient with classic symptoms of hyperglycemia or hyperglycemic crisis, random plasma glucose results greater than or equal to 200 mg/dL meet the criteria for diagnosis of diabetes. Reference: Standards of Medical Care in Diabetes 2016, [place] Diabetes Association. Diabetes Care. 2016.39(Suppl 1). Interpretation and review of laboratory results Abnormal [facility] Potassium [Moles/Vol] 4.3 mmol/L 3.7 - 5.1 mmol/L [facility] Protein [Mass/Vol] 7.1 g/dL 6.3 - 8.0 g/dL [facility] Sodium [Moles/Vol] 139 mmol/L 136 - 144 mmol/L [facility] Urea nitrogen [Mass/Vol] 29 mg/dL High 9 - 24 mg/dL [facility] CBC W Auto Differential pane l (Bld)on 01-29-2022 Basophils (Bld) [#/Vol] 0.07 10*3/uL Normal <0.[address] [facility] Comment on above: Order Comment: Speci men Type: BLOOD SPECIMENOrdering Facility: [facility] Address: [address] [place] [address] Performed By: #### 5 7021-8 ####[facility] LABCLIA [id number] [place] [address] Basophils/100 WBC (Bld) 1.2 % Normal [facility] Comment on above: Order Comment: Speci men Type: BLOOD SPECIMENOrdering Facility: [facility] Address: [address] [place] [address] Performed By: #### 5 7021-8 ####[facility] LABCLIA [id number] [place] [address] Differential cell count method Nom (Bld) Auto Normal [facility] Comment on above: Order Comment: Speci men Type: BLOOD SPECIMENOrdering Facility: [facility] Address: [address] [address] Performed By: #### 5 7021-8 ####[facility] LABCLIA [id number] [place] [address] Eosinophils (Bld) [#/Vol] 0.14 10*3/uL Normal <0.[address] [facility] Comment on above: Order Comment: Speci men Type: BLOOD SPECIMENOrdering Facility: [facility] Address: [address] [address] Performed By: #### 5 7021-8 ####[facility] LABCLIA [id number] [place] [address] Eosinophils/100 WBC (Bld) 2.4 % Normal [facility] Comment on above: Order Comment: Speci men Type: BLOOD SPECIMENOrdering Facility: [facility] Address: [address] [place] [address] Performed By: #### 5 7021-8 ####[facility] LABCLIA [id number] [place] [address] Erythrocyte distribution width (RBC) [Ratio] 13.0 % Normal 11.5-15.[address] [facility] Comment on above: Order Comment: Speci men Type: BLOOD SPECIMENOrdering Facility: [facility] Address: [address] [place] [address] Performed By: #### 5 7021-8 ####[facility] LABCLIA [id number] [place] [address] Hematocrit (Bld) [Volume fraction] 43.2 % Normal 39.0-51.[address] [facility] Comment on above: Order Comment: Speci men Type: BLOOD SPECIMENOrdering Facility: [facility] Address: [address] [place] [address] Performed By: #### 5 7021-8 ####[facility] LABCLIA [id number] [place] [address] Hemoglobin (Bld) [Mass/Vol] 14.3 g/dL Normal 13.0-17.[address] [facility] Comment on above: Order Comment: Speci men Type: BLOOD SPECIMENOrdering Facility: [facility] Address: [address] [place] [address] Performed By: #### 5 7021-8 ####[facility] LABCLIA [id number] [place] [address] Immature granulocytes (Bld) [#/Vol] 10*3/uL Normal <0.[address] [facility] Comment on above: Order Comment: Speci men Type: BLOOD SPECIMENOrdering Facility: [facility] Address: [address] [place] [address] Performed By: #### 5 7021-8 ####[facility] LABCLIA [id number] [place] [address] Immature granulocytes/100 WBC (Bld) 0.2 % Normal [facility] Comment on above: Order Comment: Speci men Type: BLOOD SPECIMENOrdering Facility: [facility] Address: [address] [place] [address] Performed By: #### 5 7021-8 ####[facility] LABCLIA [id number] [place] [address] Lymphocytes (Bld) [#/Vol] 1.57 10*3/uL Normal 1.00-4.[address] [facility] Comment on above: Order Comment: Speci men Type: BLOOD SPECIMENOrdering Facility: [facility] Address: [address] [place] [address] Performed By: #### 5 7021-8 ####[facility] LABIA [id number] [place] [address] Lymphocytes/100 WBC (Bld) 26.6 % [facility] [facility] Comment on above: Order Comment: Speci men Type: BLOOD SPECIMENOrdering Facility: [facility] Address: [address] [place] [address] Performed By: #### 5 7021-8 ####[facility] LABCLIA [id number] [place] [address] MCH (RBC) [Entitic mass] 31.3 pg Normal 26.0-34.[address] [facility] Comment on above: Order Comment: Speci men Type: BLOOD SPECIMENOrdering Facility: [facility] Address: [address] [place] [address] Performed By: #### 5 7021-8 ####[facility] LABCLIA [id number] [place] [address] MCHC (RBC) [Mass/Vol] 33.1 g/dL Normal 30.5-36.0 [facility] Comment on above: Order Comment: Speci men Type: BLOOD SPECIMENOrdering Facility: [facility] Address: [address] [place] [address] Performed By: #### 5 7021-8 ####[facility] LABCLIA [id number] [place] [address] MCV (RBC) [Entitic vol] 94.5 fL Normal 80.0-100.[address] [facility] Comment on above: Order Comment: Speci men Type: BLOOD SPECIMENOrdering Facility: [facility] Address: [address] [place] [address] Performed By: #### 5 7021-8 ####[facility] LABCLIA [id number] [place] [address] Monocytes (Bld) [#/Vol] 0.73 10*3/uL Normal <0.[address] [facility] Comment on above: Order Comment: Speci men Type: BLOOD SPECIMENOrdering Facility: [facility] Address: [address] [place] [address] Performed By: #### 5 7021-8 ####[facility] LABCLIA [id number] [place] [address] Monocytes/100 WBC (Bld) 12.4 % Normal [facility] Comment on above: Order Comment: Speci men Type: BLOOD SPECIMENOrdering Facility: [facility] Address: [address] [place] [address] Performed By: #### 5 7021-8 ####[facility] LABIA [id number] [place] [address] Neutrophils (Bld) [#/Vol] 3.39 10*3/uL Normal 1.45-7.[address] [facility] Comment on above: Order Comment: Speci men Type: BLOOD SPECIMENOrdering Facility: [facility] Address: [address] [address] Performed By: #### 5 7021-8 ####[facility] LABCLIA [id number] [place] [address] Neutrophils/100 WBC (Bld) 57.2 % Normal [facility] Comment on above: Order Comment: Speci men Type: BLOOD SPECIMENOrdering Facility: [facility] Address: [address] [address] Performed By: #### 5 7021-8 ####[facility] LABCLIA [id number] [place] [address] Nucleated RBC (Bld) [#/Vol] 10*3/uL Normal <0.[address] [facility] Comment on above: Order Comment: Speci men Type: BLOOD SPECIMENOrdering Facility: [facility] Address: [address] [address] Performed By: #### 5 7021-8 ####[facility] LABCLIA [id number] [place] [address] Nucleated RBC/100 WBC (Bld) [Ratio] 0.0 /100 WBC [address] [facility] Comment on above: Order Comment: Speci men Type: BLOOD SPECIMENOrdering Facility: [facility] Address: [address] [address] Performed By: #### 5 7021-8 ####[facility] LABCLIA [id number] [place] [address] Platelet mean volume (Bld) [Entitic vol] 9.6 fL Normal 9.0-12.[address] [facility] Comment on above: Order Comment: Speci men Type: BLOOD SPECIMENOrdering Facility: [facility] Address: [address] [address] Performed By: #### 5 7021-8 ####[facility] LABCLIA [id number] [place] [address] Platelets (Bld) [#/Vol] 229 10*3/uL Normal 150-[address] [facility] Comment on above: Order Comment: Speci men Type: BLOOD SPECIMENOrdering Facility: [facility] Address: [address] [place] [address] Performed By: #### 5 7021-8 ####[facility] LABCLIA [id number] [place] [address] RBC (Bld) [#/Vol] 4.57 10*6/uL Normal 4.20-6.00 [facility] Comment on above: Order Comment: Speci men Type: BLOOD SPECIMENOrdering Facility: [facility] Address: [address] [place] [address] Performed By: #### 5 7021-8 ####[facility] LABCLIA [id number] [place] [address] WBC (Bld) [#/Vol] 5.91 10*3/uL Normal 3.70-11.00 [facility] Comment on above: Order Comment: Speci men Type: BLOOD SPECIMENOrdering Facility: [facility] Address: [address] [place] [address] Performed By: #### 5 7021-8 ####[facility] LABCLIA [id number] [place] [address] Basophils (Bld) [#/Vol] 0.07 10*3/uL <0.11 k/uL [facility] Basophils/100 WBC (Bld) 1.2 % [facility] Differential cell count method Nom (Bld) Auto [facility] Eosinophils (Bld) [#/Vol] 0.14 10*3/uL <0.46 k/uL [facility] Eosinophils/100 WBC (Bld) 2.4 % [facility] Erythrocyte distribution width (RBC) [Ratio] 13.0 % 11.5 - 15.0 % [facility] Hematocrit (Bld) [Volume fraction] 43.2 % 39.0 - 51.0 % [facility] Hemoglobin (Bld) [Mass/Vol] 14.3 g/dL 13.0 - 17.0 g/dL [facility] Immature granulocytes (Bld) [#/Vol] <0.10 k/uL [facility] Immature granulocytes/100 WBC (Bld) 0.2 % [facility] Lymphocytes (Bld) [#/Vol] 1.57 10*3/uL 1.00 - 4.00 k/uL [facility] Lymphocytes/100 WBC (Bld) 26.6 % [facility] MCH (RBC) [Entitic mass] 31.3 pg 26.0 - 34.0 pg [facility] MCHC (RBC) [Mass/Vol] 33.1 g/dL 30.5 - 36.0 g/dL [facility] MCV (RBC) [Entitic vol] 94.5 fL 80.0 - 100.0 fL [facility] Monocytes (Bld) [#/Vol] 0.73 10*3/uL <0.87 k/uL [facility] Monocytes/100 WBC (Bld) 12.4 % [facility] Neutrophils (Bld) [#/Vol] 3.39 10*3/uL 1.45 - 7.50 k/uL [facility] Neutrophils/100 WBC (Bld) 57.2 % [facility] Nucleated RBC (Bld) [#/Vol] <0.01 k/uL [facility] Nucleated RBC/100 WBC (Bld) [Ratio] 0.0 /100 WBC [facility] Platelet mean volume (Bld) [Entitic vol] 9.6 fL 9.0 - 12.7 fL [facility] Platelets (Bld) [#/Vol] 229 10*3/uL 150 - 400 k/uL [facility] RBC (Bld) [#/Vol] 4.57 10*6/uL 4.20 - 6.0 0 m/uL [facility] WBC (Bld) [#/Vol] 5.91 10*3/uL 3.70 - 11. 00 k/uL [facility] CNOVSPon 01-29-2022 CNOVSP Visit (SP) Office ([place]) VICTOR M NI ([id number]) 1950 M Date Time Provider Department 01/29/22 11:00 AM MATT KHAN During your visit today, we recorded the following information about you: Temperature Pulse Respiration Blood pressure 97 degrees 70/minute 16/minute 154/92 Weight Height 155.6 kg 1.75 m Matt Khan MD 02/04/2022 8:36 PM Signed NAME: Victor M Ni CLINIC NO.: [id number] DATE OF SERVICE: January 29, 2022 Referring Provider: self Consultation requested by Self Referred for an opinion regarding Mr. Victor M Ni, and my final recommendations will be communicated back to the requesting physician by way of shared medical record or letter via US mail. Additional Clinicians involved in Victor M Ni's care: DIAGNOSIS: ASSESSMENT: 71 year old man with history of right renal mass s/p Robotic right partial nephrectomy 10/29/2021. He initially presented in October 2020 with a suspicious mass that was initially stable on serial follow-up but then approximately 9 months later was found to increase in size. Following resection he presents for local follow-up and serial observation. PLAN: Labs today - with anemia work up Please schedule scans ordered by Dr. Ellis herein January please Labs same day please. CBC, CMP. RTC 1 week after to Review. 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 Tumor was confined to the kidney margins are negative stage [id number] maximum tumor diameter 5.5 cm. 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 07/10/2021 CT abdomen pelvis comparison 02/07/2021 heterogeneous hypoenhancing right renal mass 5.5 x 4.1 x 4.5 cm biopsy recommended. Compression fractures T7-T8. 02/07/2021 CT abdomen right kidney stable 4.8 cm mass remains nonspecific. Suspect hemorrhagic or density proteinaceous cyst. 01/30/2021 nondisplaced longitudinal fracture left patella 11/15/2020 CT abdomen pelvis: 4.9 cm right renal mass showing density higher than expected for simple fluid. Mass was suspicious with recommended pre and postinfusion imaging. 11/13/2020 ultrasound kidneys bladder: Indications increased frequency of urination, dehydration, nocturia: Right kidney hypoechoic partially exophytic round mass versus cyst projecting from mid body right kidney 4.8 cm diameter. No hydronephrosis or visible stones. Left kidney with normal renal cortical parenchymal echogenicity. Initial Visit, January 29, 2022: Victor M Ni presents today Hematology and Oncology evaluation. He is a 71 year old male who has BPH and mild obstructive uropathy as well as a history of obstructive sleep apnea who was found to have a right renal mass in October 2020. Initially noted on ultrasound in October 2020 as a right hypocholic kidney mass possible cyst. Follow-up CT scan showed a 4.9 cm right renal mass concerning for possible malignancy. Follow-up CT scan in January 2021 showed that the mass was stable but then in June 2021 it was noted to be increasing in size now 5.5 cm. 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 He then underwent a partial right nephrectomy robotically assisted summarized above. Victor M tells me that he still feels very fatigued since his surgery. We will check his laboratories to see if he has become anemic But otherwise he may need his CPAP adjusted which he has been on for many years. He presents with his [place] who is also a patient of mine and wishes for his care to be done closer to home. I promised close correspondence with his urologic team. - REVIEW OF SYSTEMS Per HPI and otherwise negative by full review of organ systems. - ECOG PERFORMANCE STATUS: 1 PHYSICAL EXAMINATION: Vitals: BP 154/92 Pulse 70 Temp (Src) 97 (Temporal) Resp 16 Ht 5' 8.898 [with shoes. verified by 2 caregivers[ (1.75m) Wt 343 lb (155.6kg) SpO2 98% BMI 50.80 kg/(m2). Body surface area is 2.75 meters squared. Very pleasant age-appropriate man with chronic lower extremity edema and difficulty walking due to orthopedic injuries including ankle and knee injuries. He is neurologically intact on gross visualization and appears to be in no acute distress. - ALLERGIES: ALLERGIES Allergen Reactions Bupropion Mental Status Change (more content not included)... Normal [facility] Comprehensive metabolic 2000 panelon 01-29-2022 Albumin [Mass/Vol] 4.0 g/dL Normal 3.9-4.9 [facility] Comment on above: Order Comment: Speci men Type: BLOOD SPECIMENOrdering Facility: [facility] Address: [facility] [place] [address] Performed By: #### 2 4323-8 ####[facility] LABCLIA [id number] [place] [address] ALP [Catalytic activity/Vol] 104 U/L Normal 38-[address] [facility] Comment on above: Order Comment: Speci men Type: BLOOD SPECIMENOrdering Facility: [facility] Address: [address] [address] Performed By: #### 2 4323-8 ####[facility] LABCLIA [id number] [place] [address] ALT [Catalytic activity/Vol] 15 U/L Normal 10-[address] [facility] Comment on above: Order Comment: Speci men Type: BLOOD SPECIMENOrdering Facility: [facility] Address: [address] [place] [address] Performed By: #### 2 4323-8 ####[facility] LABCLIA [id number] [place] [address] Anion gap [Moles/Vol] 7 mmol/L Low 9-18 [facility] Comment on above: Order Comment: Speci men Type: BLOOD SPECIMENOrdering Facility: [facility] Address: [address] [place] [address] Performed By: #### 2 4323-8 ####[facility] LABCLIA [id number] [place] [address] AST [Catalytic activity/Vol] 20 U/L Normal 14-[address] [facility] Comment on above: Order Comment: Speci men Type: BLOOD SPECIMENOrdering Facility: [facility] Address: [address] [place] [address] Performed By: #### 2 4323-8 ####[facility] LABCLIA [id number] [place] [address] Bilirubin [Mass/Vol] 0.5 mg/dL Normal 0.2-1.3 [facility] Comment on above: Order Comment: Speci men Type: BLOOD SPECIMENOrdering Facility: [facility] Address: [address] [place] [address] Performed By: #### 2 4323-8 ####[facility] LABCLIA [id number] [place] [address] Calcium [Mass/Vol] 9.4 mg/dL Normal 8.5-10.2 [facility] Comment on above: Order Comment: Speci men Type: BLOOD SPECIMENOrdering Facility: [facility] Address: [address] [place] [address] Performed By: #### 2 4323-8 ####[facility] LABCLIA [id number] [place] [address] Chloride [Moles/Vol] 102 mmol/L Normal 97-105 [facility] Comment on above: Order Comment: Speci men Type: BLOOD SPECIMENOrdering Facility: [facility] Address: [address] [place] [address] Performed By: #### 2 4323-8 ####[facility] LABCLIA [id number] [place] [address] CO2 [Moles/Vol] 28 mmol/L Normal 22-[address] [facility] Comment on above: Order Comment: Speci men Type: BLOOD SPECIMENOrdering Facility: [facility] Address: [address] [place] [address] Performed By: #### 2 4323-8 ####[facility] LABCLIA [id number] [place] [address] Creatinine [Mass/Vol] 1.61 mg/dL High 0.73-1.22 [facility] Comment on above: Order Comment: Speci men Type: BLOOD SPECIMENOrdering Facility: [facility] Address: [address] [place] [address] Performed By: #### 2 4323-8 ####[facility] LABCLIA [id number] [place] [address] ESTIMATED GLOMERULAR FILTRATION RATE 45 mL/min/1.73m??? Low >=[address] [facility] Comment on above: Order Comment: Speci men Type: BLOOD SPECIMENOrdering Facility: [facility] Address: [address] [place] [address] Result Comment: Nely mated Glomerular Filtration Rate (eGFR) is calculated using the 2020 CKD-EPI creatinine equation. This equation utilizes serum creatinine, sex, and age as parameters. The creatinine assay has traceable calibration to isotope dilution-mass spectrometry. Refer to KDIGO guidelines for clinical interpretation. In patients with unstable renal function, e.g. those with acute kidney injury, the eGFR may not accurately reflect actual GFR. Performed By: #### 2 4323-8 ####[facility] LABCLIA [id number] [place] [address] Glucose [Mass/Vol] 122 mg/dL High 74-99 [facility] Comment on above: Order Comment: Speci cooper Type: BLOOD SPECIMENOrdering Facility: [facility] Address: [address] [place] [id number] Result Comment: The [place] Diabetes Association (ADA) provides guidance for cutoff values for fasting glucose and random glucose. The ADA defines fasting as no caloric intake for at least 8 hours. Fasting plasma glucose results between 100 to 125 mg/dL indicate increased risk for diabetes (prediabetes). Fasting plasma glucose results greater than or equal to 126 mg/dL meet the criteria for diagnosis of diabetes. In the absence of unequivocal hyperglycemia, results should be confirmed by repeat testing. In a patient with classic symptoms of hyperglycemia or hyperglycemic crisis, random plasma glucose results greater than or equal to 200 mg/dL meet the criteria for diagnosis of diabetes. Reference: Standards of Medical Care in Diabetes 2016, [place] Diabetes Association. Diabetes Care. 2016.39(Suppl 1). Performed By: #### 2 4323-8 ####[facility] LABCLIA [id number] [place] [address] Potassium [Moles/Vol] 4.6 mmol/L Normal 3.7-5.1 [facility] Comment on above: Order Comment: Liam gamboa Type: BLOOD SPECIMENOrdering Facility: [facility] Address: [address] [place] [phone] Performed By: #### 2 4323-8 ####[facility] LABCLIA [id number] [place] [address] Protein [Mass/Vol] 7.2 g/dL Normal 6.3-8.0 [facility] Comment on above: Order Comment: Speci men Type: BLOOD SPECIMENOrdering Facility: [facility] Address: [address] [address] Performed By: #### 2 4323-8 ####[facility] LABCLIA [id number] [place] [address] Sodium [Moles/Vol] 137 mmol/L Normal 136-144 [facility] Comment on above: Order Comment: Speci men Type: BLOOD SPECIMENOrdering Facility: [facility] Address: [address] [address] Performed By: #### 2 4323-8 ####[facility] LABCLIA [id number] [place] [address] Urea nitrogen [Mass/Vol] 16 mg/dL Normal 9-[address] [facility] Comment on above: Order Comment: Speci men Type: BLOOD SPECIMENOrdering Facility: [facility] Address: [address] [address] Performed By: #### 2 4323-8 ####[facility] LABCLIA [id number] [place] [address] Albumin [Mass/Vol] 4.0 g/dL 3.9 - 4.9 g/dL [facility] ALP [Catalytic activity/Vol] 104 U/L 38 - 113 U/L [facility] ALT [Catalytic activity/Vol] 15 U/L 10 - 54 U/L [facility] Anion gap [Moles/Vol] 7 mmol/L Low 9 - 18 mmol/L [facility] AST [Catalytic activity/Vol] 20 U/L 14 - 40 U/L [facility] Bilirubin [Mass/Vol] 0.5 mg/dL 0.2 - 1 .3 mg/dL [facility] Calcium [Mass/Vol] 9.4 mg/dL 8.5 - 10. 2 mg/dL [facility] Chloride [Moles/Vol] 102 mmol/L 97 - 10 5 mmol/L [facility] CO2 [Moles/Vol] 28 mmol/L 22 - 30 mmol/L [facility] Creatinine [Mass/Vol] 1.61 mg/dL High 0.73 - 1.22 mg/dL [facility] Estimated Glomerular Filtration Rate 45 mL/min/1.73m Low >=60 mL/min/1.73m [facility] Glucose [Mass/Vol] 122 mg/dL High 74 - 99 mg/dL [facility] Potassium [Moles/Vol] 4.6 mmol/L 3.7 - 5.1 mmol/L [facility] Protein [Mass/Vol] 7.2 g/dL 6.3 - 8.0 g/dL [facility] Sodium [Moles/Vol] 137 mmol/L 136 - 144 mmol/L [facility] Urea nitrogen [Mass/Vol] 16 mg/dL 9 - 24 mg/dL [facility] FERRITIN BLDon 01-29-2022 Ferritin [Mass/Vol] 210.0 ng/mL 30.3 - 5 65.7 ng/mL [facility] FOLATE SERUMon 01-29-2022 Folate [Mass/Vol] >4.7 ng/mL [facility] Ferritin SerPl-mCncon 2021 Ferritin [Mass/Vol] 210.0 ng/mL Normal 30.3-565.7 [facility] Comment on above: Order Comment: Liam men Type: BLOOD SPECIMENOrdering Facility: [facility] Address: [address] [place] [address] Performed By: #### 2 284-8, 2132-9, 2276-4, 78783-5 ####[facility] LABCLIA [id number] [address] OF [facility] Folate SerPl-mCncon 01-30-20 22 Folate [Mass/Vol] ng/mL Normal >4.7 [facility] Comment on above: Order Comment: Liam men Type: BLOOD SPECIMENOrdering Facility: [facility] Address: [address] [place] [address] Result Comment: A re sult of > 20 ng/mL is not necessarily indicative of a pathologic or treatable condition: it reflects a limitation of the test methodology. Assay reference range: 4.8 to 24.2 ng/mL. Suitable for detection of folate deficiency. Reference: Folate III (Folate III) [package insert V 1.0 Mauritian]. [facility], [place], [place]: December 2014. Performed By: #### 2 284-8, 2132-9, 6-4, 40690-0 ####[facility] LABCLIA [id number] [address] [place] [id number] [place] Iron and Iron binding capaci ty panelon 01-29-2022 Iron [Mass/Vol] 84 ug/dL 41 - 186 ug/dL [facility] Iron binding capacity [Mass/Vol] 329 ug/dL 232 - 386 ug/dL [facility] Iron/TIBC [Molar ratio] 25.5 % 15.0 - 57.0 % [facility] Iron [Mass/Vol] 84 ug/dL Normal 41-[address] [facility] Comment on above: Order Comment: Speci men Type: BLOOD SPECIMENOrdering Facility: [facility] Address: [address] [place] [address] Performed By: #### 2 284-8, 2-9, 2275-4, 96671-2 ####[facility] LABIA [id number] [address] [place] Iron binding capacity [Mass/Vol] 329 ug/dL Normal 232-[address] [facility] Comment on above: Order Comment: Speci men Type: BLOOD SPECIMENOrdering Facility: [facility] Address: [address] [place] [address] Performed By: #### 2 284-8, 2132-9, 2275-4, 24598-3 ####[facility] LABCLIA [id number] [address] [place] Iron/TIBC [Molar ratio] 25.5 % Normal 15.0-57.[address] [facility] Comment on above: Order Comment: Speci men Type: BLOOD SPECIMENOrdering Facility: [facility] Address: [address] [place] [address] Performed By: #### 2 284-8, 2132-9, 2275-4, 28010-2 ####[facility] LABCLIA [id number] [place] [id number] [place] VITAMIN B12 BLOODon 01-30-20 22 Cobalamin (Vitamin B12) [Mass/Vol] 362 pg/mL 232 - 1,245 pg/mL [facility] Vit B12 SerPl-mCncon 022 Cobalamin (Vitamin B12) [Mass/Vol] 362 pg/mL Normal 232-[address] [facility] Comment on above: Order Comment: Speci men Type: BLOOD SPECIMENOrdering Facility: [facility] Address: [address] [place] [address] [place] [address] Performed By: #### 2 284-8, 2132-9, 6-4, 69653-0 ####[facility] LABCLIA [id number] [address] OF [facility] CNOVon 11-18-2021 CNOV Office Visit (UROLMN) VICTOR M NI ([id number]) 1950 M Date Time Provider Department 11/18/21 3:30 PM MAR ELLIS During your visit today, we recorded the following information about you: Pulse Blood pressure 69/minute 118/77 Mar Ellis MD 11/28/2021 7:22 PM Signed REASON FOR VISIT: Follow up for renal mass HPI: 71 year old male with history of right renal mass who presents for follow-up. 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 -Tumor is confined to the kidney. -Margins are negative for tumor. -See comment. LABS: Creatinine Date Value Ref Range Status 10/30/2021 1.72 (H) 0.73 - 1.22 mg/dL Final 10/29/2021 1.70 (H) 0.73 - 1.22 mg/dL Final 2021 1.50 (H) 0.73 - 1.22 mg/dL Final Creatinine (POCT) Date Value Ref Range Status 2021 1.60 (A) 0.7 - 1.4 mg/dL Final No results found for: PSA URINALYSIS: Specific [place], Ur Date Value Ref Range Status 2021 1.023 1.005 - 1.030 Final Glucose, Urine Date Value Ref Range Status 2021 Negative Negative Final Bilirubin, Urine Date Value Ref Range Status 2021 Negative Negative Final Ketones, Urine Date Value Ref Range Status 2021 Negative Negative Final Hemoglobin/Blood,Ur Date Value Ref Range Status 2021 Negative Negative Final Protein, Urine Date Value Ref Range Status 2021 Trace (A) Negative Final Nitrites Date Value Ref Range Status 2021 Negative Negative Final IMAGING: ALLERGIES: ALLERGIES Allergen Reactions Mobic [Meloxicam] Mental Status Change Sleepiness MEDICATIONS: Current Outpatient Medications Medication Sig docusate sodium (COLACE) 100 mg capsule Take 1 capsule by mouth twice daily. Take while taking narcotic pain medication to avoid constipation. Stop taking if you develop loose stools or diarrhea oxyCODONE IR (ROXICODONE) 5 mg immediate release tablet Take 1 tablet by mouth every 8 hours as needed for pain. sulindac (CLINORIL) 200 mg tablet Take 200 mg by mouth as needed. dorzolamide-timolol (COSOPT) 22.3-6.8 mg/mL ophthalmic solution Use 1 Drop in both eyes every 12 hours. AMLODIPINE BESYLATE, BULK, MISC Take 5 mg by mouth once daily. DULoxetine (CYMBALTA) 60 mg capsule Take 120 mg by mouth once daily. tamsulosin (FLOMAX) 0.4 mg Take 0.4 mg by mouth once daily. MULTIVITAMIN TAB Take one(1) tablet daily. acetaminophen(TYLENO L EXTRA STRENGTH 500 MG TAB) Take two(2) tablets every six(6) hours as needed for pain. No current facility-administere d medications for this visit. HISTORIES PAST MEDICAL HISTORY Diagnosis Date Delayed emergence from general anesthesia Hypertension Obesity Obstructive sleep apnea PAST SURGICAL HISTORY Procedure Laterality Date PAST SURGICAL HISTORY OF L leg fracture - 2nd grade PAST SURGICAL HISTORY OF 2007 knee surgery - fx Social History Tobacco Use Smoking status: Never Smokeless tobacco: Never Substance Use Topics Alcohol use: No Drug use: Never FAMILY HISTORY Problem Relation Age of Onset Anesthesia Problems No Family History REVIEW OF SYSTEMS General: No weight loss, malaise or fevers. Genitourinary: No history of dysuria, frequency or incontinence The remainder of the ROS was reviewed and negative. PHYSICAL EXAMINATION There were no vitals taken for this visit. Constitutional: Well appearing, alert, in no acute distress, and well-hydrated, well nourished Skin: Skin color, texture, turgor normal, no suspicious rashes or lesions Gastrointestinal: Normal abdominal exam, Abdomen soft, non-tender. Bowel sounds normal. No masses, organomegaly. Surgical incisions clean, dry and intact Musculoskeletal: Extremities normal. No deformities, edema, or skin discoloration. Good capillary refill. PROBLEMS: 1. Renal cell cancer, right (HCC) - ICD9: 189.0, ICD10: C64.1 IMPRESSION: This is a 71 year old male with history of right renal mass s/p Robotic right partial nephrec (more content not included)... Normal [facility] URINALYSIS, REFLEX MICROSCOP ICon 11-18-2021 Bilirubin Ql (U) Negative Normal Negative Ishmael bhandari [facility] Comment on above: Order Comment: Speci men Type: URINE SPECIMENOrdering Facility: [facility] Address: [address] [phone] Performed By: #### L [id number] ####[facility] LABCLIA [id number] [place] [address] [place] Clarity (Unsp spec) Clear Normal Clear [facility] Comment on above: Order Comment: Speci men Type: URINE SPECIMENOrdering Facility: [facility] Address: [address] [place] [address] Performed By: #### L [id number] ####[facility] LABCLIA [id number] [place] [address] [place] Color (U) Light Yellow Normal Yellow [facility] Comment on above: Order Comment: Speci men Type: URINE SPECIMENOrdering Facility: [facility] Address: [address] [place], [place] [phone] Performed By: #### L [id number] ####[facility] LABCL[facility] [id number] [place] [address] [place] Glucose Test strip (U) [Mass/Vol] Negative Normal Negative [facility] Comment on above: Order Comment: Speci men Type: URINE SPECIMENOrdering Facility: [facility] Address: [address] [place], [place] [phone] Performed By: #### L [id number] ####[facility] LABCLIA [id number] [place] [address] [place] Hemoglobin Ql (U) 2+ Abnormal Negative [facility] Comment on above: Order Comment: Speci men Type: URINE SPECIMENOrdering Facility: [facility] Address: [address] [place] [address] Performed By: #### L [id number] ####[facility] LABCL[facility] [id number] [place] [address] [place] Ketones Ql (U) Negative Normal Negative [facility] Comment on above: Order Comment: Speci men Type: URINE SPECIMENOrdering Facility: [facility] Address: [address] [place], [place] [phone] Performed By: #### L [id number] ####[facility] LABCLIA [id number] [place] [address] [place] Leukocyte esterase Test strip Ql (U) Negative Normal Negative [facility] Comment on above: Order Comment: Speci men Type: URINE SPECIMENOrdering Facility: [facility] Address: [address] [place], [place] [phone] Performed By: #### L [id number] ####[facility] LABIA [id number] [place] [address] [place] Nitrite Ql (U) Negative Normal Negative [facility] Comment on above: Order Comment: Speci men Type: URINE SPECIMENOrdering Facility: [facility] Address: [address] [place], [place] [phone] Performed By: #### L [id number] ####[facility] LABIA [id number] [place] [address] [place] pH (U) 5.0 [pH] Normal 5.0-8.[address] [facility] Comment on above: Order Comment: Speci men Type: URINE SPECIMENOrdering Facility: [facility] Address: [address] [place], [place] [phone] Performed By: #### L [id number] ####[facility]CL[facility] [id number] [place] [address] [place] Protein (U) [Mass/Vol] Negative Normal Negative [facility] Comment on above: Order Comment: Speci men Type: URINE SPECIMENOrdering Facility: [facility] Address: [address] [place], [place] [address] Performed By: #### L [id number] ####[facility] LABIA [id number] [place] [address] RBC LM.HPF (Urine sed) [#/Area] 0-3 /HPF Normal 0-3 /HPF [facility] Comment on above: Order Comment: Speci men Type: URINE SPECIMENOrdering Facility: [facility] Address: [address] [place] [address] Performed By: #### L [id number] ####[facility] LABIA [id number] [address] [place] [facility] Specific gravity (U) [Rel density] 1.016 Normal 1.005-1.[address] [facility] Comment on above: Order Comment: Speci men Type: URINE SPECIMENOrdering Facility: [facility] Address: [address] [place] [address] Performed By: #### L [id number] ####[facility] LABIA [id number] [address] Urobilinogen Ql (U) Negative Normal Negative [facility] Comment on above: Order Comment: Speci men Type: URINE SPECIMENOrdering Facility: [facility] Address: [address] [place] [address] Performed By: #### L [id number] ####[facility] LABIA [id number] [address] [place] WBC LM.HPF (Urine sed) [#/Area] 0-5 /HPF Normal 0-5 /HPF [facility] Comment on above: Order Comment: Speci men Type: URINE SPECIMENOrdering Facility: [facility] Address: [address] [place] [address] Performed By: #### L [id number] ####[facility] LABIA [id number] [address] [place] Nettie 11-11-2021 JULIO Telephone (GLQ) VICTOR M NI ([id number]) 1950 M Date Time Provider Department 11/11/21 JANKI IRELAND GLAlvaro During your visit today, we recorded the following information about you: Janki Ireland 11/11/2021 1:24 PM Signed Spoke to Mrs. Ni regarding driving restrictions for patient. Advised that he needs to be off of narcotics and if he feels up to it, he can drive. I recommended that he take someone with him the first time in case he does not feel well. She verbalized understanding. All questions answered. Janki Ireland air pollution auditor Nurse Department of Urology [facility] Allergies As of Date: 11/11/2021 Noted Allergy Reaction MOBIC (MELOXICAM) 2021 1 - Mental Status Change Comments: Sleepiness Date Reviewed: 10/30/2021 Reviewed by: Jolly Russell RN - Fully Assessed Reason for Visit: Returning Patient's Call [[id number]] Prescriptions as of 11/11/2021 - acetaminophen (TYLENOL EXTRA STRENGTH) 500 mg tablet Take 2 tablets by mouth every 6 hours for 14 days. - docusate sodium (COLACE) 100 mg capsule Take 1 capsule by mouth twice daily. Take while taking narcotic pain medication to avoid constipation. Stop taking if you develop loose stools or diarrhea - oxyCODONE IR (ROXICODONE) 5 mg immediate release tablet Take 1 tablet by mouth every 8 hours as needed for pain. - sulindac (CLINORIL) 200 mg tablet Take 200 mg by mouth as needed. - dorzolamide-timolol (COSOPT) 22.3-6.8 mg/mL ophthalmic solution Use 1 Drop in both eyes every 12 hours. - AMLODIPINE BESYLATE, BULK, MISC Take 5 mg by mouth once daily. - DULoxetine (CYMBALTA) 60 mg capsule Take 120 mg by mouth once daily. - tamsulosin (FLOMAX) 0.4 mg Take 0.4 mg by mouth once daily. - MULTIVITAMIN TAB Take one(1) tablet daily. - acetaminophen(TYLENO L EXTRA STRENGTH 500 MG TAB) Take two(2) tablets every six(6) hours as needed for pain. Problem List As Of Date 11/11/2021 Noted Resolved JOINT PAIN-SHLDER [M25.519] 07/20/2003 Benign prostatic hyperplasia with urinary obstr*07/15/2021 Renal mass [N28.89] 10/02/2021 Urge incontinence of urine [N39.41] 10/02/2021 Hypertension [I10] 2021 Obesity [E66.9] 2021 Obstructive sleep apnea [G47.33] 2021 Severe major depression (HCC) [F32.2] 2021 Delayed emergence from general anesthesia [T88.*2021 Obesity, Class III, BMI >= 40 [E66.01] 10/29/2021 Renal neoplasm [D49.519] 10/30/2021 Encounter Status:Closed by JANKI IRELAND on 11/11/21 [facility] ANES POSTPROC EVALon 022 ANES POSTPROC EVAL HNO ID: [id number] Author: Aditya Armstrong DO Service: ? Author Type: Anesthesiologist Type: Anesthesia Postprocedure Evaluation Filed: 10/30/2021 6:03 AM Note Text: POST ANESTHESIA EVALUATION NOTE : 1950 Procedure Summary Date: 10/29/21 Room / Location: [address] [facility] Anesthesia Start: 1443 Anesthesia Stop: 1957 Procedure: ROBOTIC LAPAROSCOPIC NEPHRECTOMY PARTIAL (Right: Kidney) Diagnosis: Renal mass Surgeons: Mar Ellis MD Responsible Provider: Cleopatra Amado APRN.CRNA Anesthesia Type: general ASA Status: 3 Anesthesia Type: general Airway Type: ETT Last Vitals Vitals Value Taken Time BP 153/79 10/30/21 0259 Temp 36.9 ?C (98.4 ?F) 10/30/21 0240 Pulse 79 10/30/21 0259 Resp 18 10/30/21 0259 SpO2 94 % 10/30/21258 Post Anesthesia Patient Status Patient Evaluation: PACU. PACU/ICU Patient Condition: stable. Anticipated Disposition: inpatient floor planned admission. Neurological Status: aware and responsive. Pulmonary Status: breathing comfortably on supplemental oxygen Airway Control: returned to baseline unsupported. Cardiovascular Status: stable. Pain Management: clinically adequate Postoperative Hydration: acceptable. Intraoperative Events: no significant anesthesia events Post Operative Nausea/Vomiting Status: no significant post operative nausea or vomiting Anesthetic Observations: Recommendation: continue current plan of care. Anesthesia Observations No Documentation SIGNATURE: Aditya Armstrong DO PATIENT NAME: Victor M Ni DATE: October 30, 2021 TIME: 6:03 AM CSN: [id number] Normal [facility] Basic metabolic 2000 panelon 10-30-2021 Anion gap [Moles/Vol] 16 mmol/L Normal 9-18 [facility] Comment on above: Order Comment: Speci men Type: BLOOD SPECIMENOrdering Facility: [facility] Address: [address] [place] [address] Performed By: #### 2 4321-2 ####[facility] LABCLIA [id number] [place] [address] [place] Calcium [Mass/Vol] 9.3 mg/dL Normal 8.5-10.2 [facility] Comment on above: Order Comment: Speci men Type: BLOOD SPECIMENOrdering Facility: [facility] Address: [address] [place] [address] Performed By: #### 2 4321-2 ####[facility] LABCLIA [id number] [place] [address] [place] Chloride [Moles/Vol] 100 mmol/L Normal 97-105 [facility] Comment on above: Order Comment: Speci men Type: BLOOD SPECIMENOrdering Facility: [facility] Address: [address] [place] [address] Performed By: #### 2 4321-2 ####[facility] LABCLIA [id number] [place] [address] [place] CO2 [Moles/Vol] 20 mmol/L Low 22-[address] [facility] Comment on above: Order Comment: Speci men Type: BLOOD SPECIMENOrdering Facility: [facility] Address: [address] [address] Performed By: #### 2 4321-2 ####[facility] LABIA [id number] [address] [place] Creatinine [Mass/Vol] 1.72 mg/dL High 0.73-1.22 [facility] Comment on above: Order Comment: Speci men Type: BLOOD SPECIMENOrdering Facility: [facility] Address: [address] [place] [address] Performed By: #### 2 4321-2 ####[facility] LABIA [id number] [address] [place] ESTIMATED GLOMERULAR FILTRATION RATE 42 mL/min/1.73m??? Low >=[address] [facility] Comment on above: Order Comment: Speci men Type: BLOOD SPECIMENOrdering Facility: [facility] Address: [address] [place] [address] Result Comment: Nely mated Glomerular Filtration Rate (eGFR) is calculated using the 2020 CKD-EPI creatinine equation. This equation utilizes serum creatinine, sex, and age as parameters. The creatinine assay has traceable calibration to isotope dilution-mass spectrometry. Refer to KDIGO guidelines for clinical interpretation. In patients with unstable renal function, e.g. those with acute kidney injury, the eGFR may not accurately reflect actual GFR. Performed By: #### 2 4321-2 ####[facility] LABIA [id number] [place] [address] [place] Glucose [Mass/Vol] 142 mg/dL High 74-99 [facility] Comment on above: Order Comment: Speci men Type: BLOOD SPECIMENOrdering Facility: [facility] Address: [address] [place] [address] Result Comment: The [place] Diabetes Association (ADA) provides guidance for cutoff values for fasting glucose and random glucose. The ADA defines fasting as no caloric intake for at least 8 hours. Fasting plasma glucose results between 100 to 125 mg/dL indicate increased risk for diabetes (prediabetes). Fasting plasma glucose results greater than or equal to 126 mg/dL meet the criteria for diagnosis of diabetes. In the absence of unequivocal hyperglycemia, results should be confirmed by repeat testing. In a patient with classic symptoms of hyperglycemia or hyperglycemic crisis, random plasma glucose results greater than or equal to 200 mg/dL meet the criteria for diagnosis of diabetes. Reference: Standards of Medical Care in Diabetes 2016, [place] Diabetes Association. Diabetes Care. 2016.39(Suppl 1). Performed By: #### 2 4321-2 ####[facility] LABCLIA [id number] [place] [address] [place] Potassium [Moles/Vol] 4.6 mmol/L Normal 3.7-5.1 [facility] Comment on above: Order Comment: Liam gamboa Type: BLOOD SPECIMENOrdering Facility: [facility] Address: [address] [place] [address] Performed By: #### 2 4321-2 ####[facility] LABIA [id number] [place] [address] [place] Sodium [Moles/Vol] 136 mmol/L Normal 136-144 [facility] Comment on above: Order Comment: Liam gamboa Type: BLOOD SPECIMENOrdering Facility: [facility] Address: [address] [place] [address] Performed By: #### 2 4321-2 ####[facility] LABCLIA [id number] [place] [address] [place] Urea nitrogen [Mass/Vol] 25 mg/dL High 9-[address] [facility] Comment on above: Order Comment: Paytoni men Type: BLOOD SPECIMENOrdering Facility: [facility] Address: [address] [place] [address] Performed By: #### 2 4321-2 ####[facility] LABCLIA [id number] [place] [address] [place] CASE MANAGEMon 10-30-2021 CASE MANAGEM HNO ID: [id number] Author: Sam Meadows MD Service: Case Management Author Type: Physician Type: Care Mgt Progress Note Filed: 10/30/2021 2:53 PM Note Text: CARE MANAGEMENT UTILIZATION REVIEW COMMITTEE PROVIDER LIABLE (Admission Status Discrepancy Review) Admission Date: 10/29/2021 Patient's Initial Order is: Inpatient Date Received: October 30, 2021 Date Reviewed: October 30, 2021 Under the authority of the Utilization Management Plan, the Physician Advisor, Dr. Sam Meadows, has reviewed the medical record of the above patient. The following recommendation has been made by the Physician Advisor, based upon the current available medical information as of the date of this determination. The patient is appropriate for: Outpatient in a Bed/Extended Recovery Rationale for this decision: Lack of medical necessity for inpatient admission and less than 2 midnight stay SIGNATURE: Sam Meadows MD PATIENT NAME: Victor M Ni DATE: October 30, 2021 TIME: 2:51 PM PAGER/CONTACT #: Disclaimer: The information in this determination is to be used for utilization management purposes only. The information and recommendation is made pursuant to Medicare Hospital Conditions of Participation (442 CFR Part 482) and is neither a judgment nor an assessment with regard to the appropriateness or quality of the clinical care. Nothing in this document may be used to limit clinical services provided to the above named patient. This form should be used as one part of the process utilized to ensure compliance with [facility] policy regarding Inpatient Admission and Observation Services. The definitions of Inpatient and Observation used in making the determination above are those provided in Medicare Benefit Policy Manual Chapter 1, Section 1 and 10, Chapter 6, Section 20, and the Medicare Claims Processing Manual Chapter 1, Section 50.3 and Chapter 4, Section 290. This recommendation should be considered as only one factor in determining the patient's final level of service along with other pertinent documentation such as the treating physician's order as documented evidence of concurrence. Normal [facility] CBC W Auto Differential pane l (Bld)on 10-30-2021 Basophils (Bld) [#/Vol] 10*3/uL Normal <0.[address] [facility] Comment on above: Order Comment: Speci men Type: BLOOD SPECIMENOrdering Facility: [facility] Address: [address] [place], [place] [address] Performed By: #### 5 7021-8 ####[facility] LABCLIA [id number] [address] [place] Basophils/100 WBC (Bld) 0.1 % Normal [facility] Comment on above: Order Comment: Speci men Type: BLOOD SPECIMENOrdering Facility: [facility] Address: [address] [place], [place] [address] Performed By: #### 5 7021-8 ####[facility] LABCLIA [id number] [place] [address] [place] Differential cell count method Nom (Bld) Auto Normal [facility] Comment on above: Order Comment: Speci men Type: BLOOD SPECIMENOrdering Facility: [facility] Address: [address] [place], [place] [address] Performed By: #### 5 7021-8 ####[facility] LABCLIA [id number] [place] [address] [place] Eosinophils (Bld) [#/Vol] 10*3/uL Normal <0.[address] [facility] Comment on above: Order Comment: Speci men Type: BLOOD SPECIMENOrdering Facility: [facility] Address: [address] [place], [place] [address] Performed By: #### 5 7021-8 ####[facility] LABCLIA [id number] [address] [place] Eosinophils/100 WBC (Bld) 0.0 % Normal [facility] Comment on above: Order Comment: Speci men Type: BLOOD SPECIMENOrdering Facility: [facility] Address: [address] [place], [place] [address] Performed By: #### 5 7021-8 ####[facility] LABCLIA [id number] [place] [address] [place] Erythrocyte distribution width (RBC) [Ratio] 12.9 % Normal 11.5-15.[address] [facility] Comment on above: Order Comment: Speci men Type: BLOOD SPECIMENOrdering Facility: [facility] Address: [address] [place] [address] Performed By: #### 5 7021-8 ####[facility] LABCLIA [id number] [place] [address] [place] Hematocrit (Bld) [Volume fraction] 42.3 % Normal 39.0-51.[address] [facility] Comment on above: Order Comment: Speci men Type: BLOOD SPECIMENOrdering Facility: [facility] Address: [address] [place] [address] Performed By: #### 5 7021-8 ####[facility] LABIA [id number] [place] [address] [place] Hemoglobin (Bld) [Mass/Vol] 14.3 g/dL Normal 13.0-17.[address] [facility] Comment on above: Order Comment: Speci men Type: BLOOD SPECIMENOrdering Facility: [facility] Address: [address] [place], [place] [address] Performed By: #### 5 7021-8 ####[facility] LABIA [id number] [address] [place] IMMATURE GRAN % 0.4 % Normal [facility] Comment on above: Order Comment: Speci men Type: BLOOD SPECIMENOrdering Facility: [facility] Address: [address] [place], [place] [address] Performed By: #### 5 7021-8 ####[facility] LABIA [id number] [place] [address] [place] IMMATURE GRAN ABS 0.05 k/uL Normal <0.10 [facility] Comment on above: Order Comment: Speci men Type: BLOOD SPECIMENOrdering Facility: [facility] Address: [address] [place] [id number] Performed By: #### 5 7021-8 ####[facility] LABCLIA [id number] [place] [address] [place] Lymphocytes (Bld) [#/Vol] 0.58 10*3/uL Low 1.00-4.[address] [facility] Comment on above: Order Comment: Speci men Type: BLOOD SPECIMENOrdering Facility: [facility] Address: [address] [place], [place] [address] Performed By: #### 5 7021-8 ####[facility] LABCLIA [id number] [address] [place] Lymphocytes/100 WBC (Bld) 4.1 % Normal [facility] Comment on above: Order Comment: Speci men Type: BLOOD SPECIMENOrdering Facility: [facility] Address: [address] [place], [place] [address] Performed By: #### 5 7021-8 ####[facility] LABCLIA [id number] [place] [address] [place] MCH (RBC) [Entitic mass] 31.9 pg Normal 26.0-34.[address] [facility] Comment on above: Order Comment: Speci men Type: BLOOD SPECIMENOrdering Facility: [facility] Address: [address] [place], [place] [address] Performed By: #### 5 7021-8 ####[facility] LABCLIA [id number] [place] [address] [place] MCHC (RBC) [Mass/Vol] 33.8 g/dL Normal 30.5-36.0 [facility] Comment on above: Order Comment: Speci men Type: BLOOD SPECIMENOrdering Facility: [facility] Address: [address] [place], [place] [address] Performed By: #### 5 7021-8 ####[facility] LABCLIA [id number] [place] [address] [place] MCV (RBC) [Entitic vol] 94.4 fL Normal 80.0-100.[address] [facility] Comment on above: Order Comment: Speci men Type: BLOOD SPECIMENOrdering Facility: [facility] Address: [address] [place] [address] Performed By: #### 5 7021-8 ####[facility] LABCLIA [id number] [place] [address] [place] Monocytes (Bld) [#/Vol] 0.85 10*3/uL Normal <0.87 [facility] Comment on above: Order Comment: Speci men Type: BLOOD SPECIMENOrdering Facility: [facility] Address: [address] [place] [address] Performed By: #### 5 7021-8 ####[facility] LABCLIA [id number] [address] [place] Monocytes/100 WBC (Bld) 6.0 % Normal [facility] Comment on above: Order Comment: Speci men Type: BLOOD SPECIMENOrdering Facility: [facility] Address: [address] [place], [place] [address] Performed By: #### 5 7021-8 ####[facility] LABCLIA [id number] [place] [address] [place] Neutrophils (Bld) [#/Vol] 12.71 10*3/uL High 1.45-7.[address] [facility] Comment on above: Order Comment: Speci men Type: BLOOD SPECIMENOrdering Facility: [facility] Address: [address] [place], [place] [address] Performed By: #### 5 7021-8 ####[facility] LABCLIA [id number] [place] [address] [place] Neutrophils/100 WBC (Bld) 89.4 % Normal [facility] Comment on above: Order Comment: Speci men Type: BLOOD SPECIMENOrdering Facility: [facility] Address: [address] [place] [address] Performed By: #### 5 7021-8 ####[facility] LABIA [id number] [place] [address] [place] Nucleated RBC (Bld) [#/Vol] 10*3/uL Normal <0.[address] [facility] Comment on above: Order Comment: Speci men Type: BLOOD SPECIMENOrdering Facility: [facility] Address: [address] [place], [place] [address] Performed By: #### 5 7021-8 ####[facility] LABIA [id number] [place] [address] [place] Nucleated RBC/100 WBC (Bld) [Ratio] 0.0 /100 WBC Normal [facility] Comment on above: Order Comment: Speci men Type: BLOOD SPECIMENOrdering Facility: [facility] Address: [address] [place] [address] Performed By: #### 5 7021-8 ####[facility] LABIA [id number] [place] [address] [place] Platelet mean volume (Bld) [Entitic vol] 10.3 fL Normal 9.0-12.[address] [facility] Comment on above: Order Comment: Speci men Type: BLOOD SPECIMENOrdering Facility: [facility] Address: [address] [place] [address] Performed By: #### 5 7021-8 ####[facility] LABIA [id number] [place] [address] [place] Platelets (Bld) [#/Vol] 226 10*3/uL Normal 150-[address] [facility] Comment on above: Order Comment: Speci men Type: BLOOD SPECIMENOrdering Facility: [facility] Address: [address] [place] [address] Performed By: #### 5 7021-8 ####[facility] LABCLIA [id number] [place] [address] [place] RBC (Bld) [#/Vol] 4.48 10*6/uL Normal 4.20-6.00 [facility] Comment on above: Order Comment: Speci men Type: BLOOD SPECIMENOrdering Facility: [facility] Address: [address] [place] [address] Performed By: #### 5 7021-8 ####[facility] LABCLIA [id number] [place] [address] [place] WBC (Bld) [#/Vol] 14.20 10*3/uL High 3.70-11.00 [facility] Comment on above: Order Comment: Speci men Type: BLOOD SPECIMENOrdering Facility: [facility] Address: [address] [place] [address] Performed By: #### 5 7021-8 ####[facility] LABCLIA [id number] [address] OF [facility] CNDSon 10-30-2021 CNDS HNO ID: [id number] Author: Alex Ching MD Service: Urology Author Type: Resident Type: Discharge Summary Filed: 10/30/2021 7:25 AM Note Text: Attestation signed by Mar Ellis MD at 11/03/2021 2:22 PM Mar Ellis MD, [place] [facility] [place] [phone] or ([phone]) [facility] I D E N T I A L I N F O R M A T I O N STANDARD [facility] DOCUMENT DISCHARGE SUMMARY Patient Name: Victor M Ni Patient Admission Date: 10/29/2021 Discharge Date: 10/30/2021 Attending Physician: Mar Ellis MD Principal Diagnosis: Patient Active Hospital Problem List: Renal neoplasm (10/30/2021) Obesity, Class III, BMI >= 40 (10/29/2021) Operations During Hospitalization: ROBOTIC LAPAROSCOPIC NEPHRECTOMY PARTIAL: 78755 (CPT?) Procedures Performed While Hospitalized: None Reason for Hospitalization: 71 year old male with history of BPH, KARINA, right renal mass who presented for operative management. Hospital Course: The patient underwent the above procedure(s) (please see separately dictated operative report for full details of the procedure). Patient tolerated the procedure well and post-operatively was transferred to PACU and ultimately to a regular nursing unit. Patient's diet was initially restricted. Patient was transitioned to oral pain medication as well as restarted on prior to admission medications, and diet was advanced as tolerated. Activity level was gradually increased. Carty catheter was removed on POD1. On POD1 the patient was afebrile, hemodynamically stable, pain was well-controlled, ambulating, and tolerating PO intake. The patient was then deemed fit for discharge. Patient Condition at Discharge: Stable Discharge Disposition: Home Information Provided to the Patient: Patient was given a copy of Discharge Instructions Discharge Medications: Current Discharge Medication List START taking these medications !! acetaminophen (TYLENOL) 1,000 mg Take 1,000 mg by mouth every 6 hours. Qty: 112 tablet Refills: 0 oxyCODONE IR (ROXICODONE) 5 mg Take 5 mg by mouth every 6 hours as needed for pain. Qty: 8 tablet Refills: 0 Associated Diagnoses:Renal mass methocarbamol (ROBAXIN) 500 mg Take 500 mg by mouth three times daily. Qty: 15 tablet Refills: 0 !! - Potential duplicate medications found. Please discuss with provider. CONTINUE these medications which have NOT CHANGED dorzolamide-timolol (COSOPT) 1 Drop Use 1 Drop in both eyes every 12 hours. AMLODIPINE BESYLATE, BULK, MISC 5 mg Take 5 mg by mouth once daily. DULoxetine (CYMBALTA) 120 mg Take 120 mg by mouth once daily. sulindac (CLINORIL) 200 mg Take 200 mg by mouth as needed. tamsulosin (FLOMAX) 0.4 mg Take 0.4 mg by mouth once daily. MULTIVITAMIN TAB Take one(1) tablet daily. Qty: 0 Refills: 0 !! acetaminophen(TYLENO L EXTRA STRENGTH 500 MG TAB) Take two(2) tablets every six(6) hours as needed for pain. Refills: 0 !! - Potential duplicate medications found. Please discuss with provider. Future Appointments: Please follow-up as recommended by your provider. Electronically SIGNED by Licensed Independent Practitioner: Alex Ching MD [facility] NURSING PROGon 10-30-2021 NURSING PROG HNO ID: [id number] Author: Parisa Dietz RN Service: Nursing Author Type: Registered Nurse Type: Nursing Progress Note Filed: 10/30/2021 2:24 PM Note Text: Other: Pt discharge home with family. Ivs removed, belongings returned, VS stable. Pt passed voiding trial prior to discharge. Reviewed discharged instructions with patient and family, verbalized understanding. Instructed to pick pack worker his medications at his home pharmacy. Family wheeled pt off unit in wheel chair. [facility] NURSING PROG HNO ID: [id number] Author: Jolly Russell, RN Service: Nursing Author Type: Registered Nurse Type: Nursing Progress Note Filed: 10/30/2021 2:05 AM Note Text: Admission/Transfer Note PATIENT NAME: Victor M Ni Patient transferred from PACU via bed in stable condition. Actions taken: Patient oriented to room, call light function, prescribed activities, and Patient rights. This note was completed by: Jolly Apaircio [facility] ANES PRE-OPon 10-29-2021 ANES PRE-OP HNO ID: [id number] Author: Cleopatra Amado APRN.CORPORATE RELATIONS MANAGER Service: ? Author Type: Nurse Silver Recovery Operator Type: Anesthesia Preprocedure Evaluation Filed: 10/29/2021 3:30 PM Note Text: ANESTHESIOLOGY DAY OF SURGERY NOTE : 1950 Procedure Information Anesthesia Start Date/Time: 10/29/21 1444 Procedure: ROBOTIC LAPAROSCOPIC NEPHRECTOMY PARTIAL (Right: Kidney) Location: [facility] [place] Surgeons: Mar Ellis MD Estimated body mass index is 50.94 kg/m? as calculated from the following: Height as of 10/22/21: 174 cm (5' 8.5 ). Weight as of 10/22/21: 154.2 kg (340 lb). Most recent hematocrit and potassium results: Hematocrit 42.6 2021 Potassium 4.3 2021 Relevant Problems ANESTHESIA (+) Delayed emergence from general anesthesia (+) Obstructive sleep apnea CARDIO (+) Hypertension PULMONARY (+) Obstructive sleep apnea I - PHYSICAL EVALUATION AIRWAY Patient intubated: No. Tracheostomy tube not present Mallampati: III. TM distance: <3 FB. Mouth opening: adequate. Short neck: yes. Thick neck: yes DENTAL Dental findings: teeth intact. Additional exam findings: no II - ANESTHESIA PLAN ASA Score: 3 Anesthetic Plan: general Airway type: ETT The patient is not a current smoker. NPO Status: adequate Beta Brad Administration of chronic beta brad medication not planned. Monitoring plan: standard ASA. Postoperative analgesic plan: parenteral or oral opioids. Informed Consent Anesthetic risks, benefits, alternatives, personnel and consent discussed: yes. Patient / Responsible Alliance Party agrees to proceed: yes Patient / Surrogate agrees to blood products: Yes Vitals Value Taken Time BP 150/79 10/29/21 1218 Pulse 70 10/29/21 1218 Resp 70 10/29/21 1218 Temp 36.5 ?C (97.7 ?F) 10/29/21 1218 SpO2 93 % 10/29/21 1218 Facility-Administere d Medications as of 10/29/2021 Medication Dose Route Frequency - [MAR Hold due to Transfer] lidocaine (PF) 10 mg/mL (1 %) 1-2 mg injection (XYLOCAINE) 0.1-0.2 mL INTRADERMAL PRN Or - [MAR Hold due to Transfer] lidocaine 1% 0.25 mL subcutaneous j-tip syringe (XYLOCAINE) 0.25 mL SUBCUTANEOUS PRN - [MAR Hold due to Transfer] lactated ringers iv infusion 5-30 mL/hr INTRAVENOUS CONTINUOUS - [MAR Hold due to Transfer] ceFAZolin 3 g in D5W 100 mL (ANCEF) 3 g INTRAVENOUS Pre-Op Once Outpatient Medications as of 10/29/2021 Medication Sig - dorzolamide-timolol (COSOPT) 22.3-6.8 mg/mL ophthalmic solution Use 1 Drop in both eyes every 12 hours. - AMLODIPINE BESYLATE, BULK, MISC Take 5 mg by mouth once daily. - DULoxetine (CYMBALTA) 60 mg capsule Take 120 mg by mouth once daily. - sulindac (CLINORIL) 200 mg tablet Take 200 mg by mouth as needed. - [] iv contrast (will be provided with radiology test) CT Chest W -Inject, intravenously, once for 1 dose.No IV access, insert saline lock prior to the beginning of sedation, infusion, injection of imaging exam. Discontinue saline lock post exam. If Pt. has a central line or IVAD, may access for administration according to line specific nursing protocol. Once exam is complete flush line and de-access according to line specific nursing protocol in the CT contrast administration guidelines link. - tamsulosin (FLOMAX) 0.4 mg Take 0.4 mg by mouth once daily. - MULTIVITAMIN TAB Take one(1) tablet daily. - acetaminophen(TYLENO L EXTRA STRENGTH 500 MG TAB) Take two(2) tablets every six(6) hours as needed for pain. I have interviewed and examined the patient. I have reviewed the medical record and/or the pre-anesthesia evaluation, pertinent labs, and test results. This contains updated information obtained within 48 hours of Surgery/Procedure. SIGNATURE: Cleopatra Amado APRN.CRNA PATIENT NAME: Victor M Ni DATE: October 29, 2021 TIME: 3:29 PM CSN: [id number] Normal [facility] Basic metabolic 2000 panelon 10-29-2021 Anion gap [Moles/Vol] 10 mmol/L Normal 9-18 [facility] Comment on above: Order Comment: Speci men Type: BLOOD SPECIMENOrdering Facility: [facility] Address: [address] [place] [address] Performed By: #### 2 4321-2 ####[facility] LABIA [id number] [place] [address] [place] Calcium [Mass/Vol] 8.7 mg/dL Normal 8.5-10.2 [facility] Comment on above: Order Comment: Speci men Type: BLOOD SPECIMENOrdering Facility: [facility] Address: [address] [place] [address] Performed By: #### 2 4321-2 ####[facility] LABIA [id number] [place] [address] [place] Chloride [Moles/Vol] 103 mmol/L Normal 97-105 [facility] Comment on above: Order Comment: Speci men Type: BLOOD SPECIMENOrdering Facility: [facility] Address: [address] [place], [place] [address] Performed By: #### 2 4321-2 ####[facility] LABCLIA [id number] [place] [address] [place] CO2 [Moles/Vol] 25 mmol/L Normal 22-[address] [facility] Comment on above: Order Comment: Speci men Type: BLOOD SPECIMENOrdering Facility: [facility] Address: [address] [place], [place] [address] Performed By: #### 2 4321-2 ####[facility] LABCLIA [id number] [place] [address] [place] [facility] Creatinine [Mass/Vol] 1.70 mg/dL High 0.73-1.22 [facility] Comment on above: Order Comment: Liam gamboa Type: BLOOD SPECIMENOrdering Facility: [facility] Address: [address] [place] [address] Performed By: #### 2 4321-2 ####[facility] LABCLIA [id number] [address] [place] ESTIMATED GLOMERULAR FILTRATION RATE 43 mL/min/1.73m??? Low >=[address] [facility] Comment on above: Order Comment: Liam gamboa Type: BLOOD SPECIMENOrdering Facility: [facility] Address: [address] [place] [address] Result Comment: Nely mated Glomerular Filtration Rate (eGFR) is calculated using the 2020 CKD-EPI creatinine equation. This equation utilizes serum creatinine, sex, and age as parameters. The creatinine assay has traceable calibration to isotope dilution-mass spectrometry. Refer to KDIGO guidelines for clinical interpretation. In patients with unstable renal function, e.g. those with acute kidney injury, the eGFR may not accurately reflect actual GFR. Performed By: #### 2 4321-2 ####[facility] LABCLIA [id number] [place] [address] [place] Glucose [Mass/Vol] 166 mg/dL High 74-99 [facility] Comment on above: Order Comment: Liam gamboa Type: BLOOD SPECIMENOrdering Facility: [facility] Address: [address] [place] [address] Result Comment: The [place] Diabetes Association (ADA) provides guidance for cutoff values for fasting glucose and random glucose. The ADA defines fasting as no caloric intake for at least 8 hours. Fasting plasma glucose results between 100 to 125 mg/dL indicate increased risk for diabetes (prediabetes). Fasting plasma glucose results greater than or equal to 126 mg/dL meet the criteria for diagnosis of diabetes. In the absence of unequivocal hyperglycemia, results should be confirmed by repeat testing. In a patient with classic symptoms of hyperglycemia or hyperglycemic crisis, random plasma glucose results greater than or equal to 200 mg/dL meet the criteria for diagnosis of diabetes. Reference: Standards of Medical Care in Diabetes 2016, [place] Diabetes Association. Diabetes Care. 2016.39(Suppl 1). Performed By: #### 2 4321-2 ####[facility] LABCLIA [id number] [place] [address] [place] Potassium [Moles/Vol] 4.5 mmol/L Normal 3.7-5.1 [facility] Comment on above: Order Comment: Speci men Type: BLOOD SPECIMENOrdering Facility: [facility] Address: [address] [place] [address] Performed By: #### 2 4321-2 ####[facility] [id number] [address] [place] Sodium [Moles/Vol] 138 mmol/L Normal 136-144 [facility] Comment on above: Order Comment: Speci men Type: BLOOD SPECIMENOrdering Facility: [facility] Address: [address] [place], [place] [address] Performed By: #### 2 4321-2 ####[facility] LABIA [id number] [place] [address] [place] Urea nitrogen [Mass/Vol] 25 mg/dL High 9-[address] [facility] Comment on above: Order Comment: Speci men Type: BLOOD SPECIMENOrdering Facility: [facility] Address: [address] [place] [address] Performed By: #### 2 4321-2 ####[facility] [id number] [place] [address] [place] CBC W Auto Differential pane l (Bld)on 10-29-2021 Basophils (Bld) [#/Vol] 10*3/uL Normal <0.[address] [facility] Comment on above: Order Comment: Speci men Type: BLOOD SPECIMENOrdering Facility: [facility] Address: [address] [place] [address] Performed By: #### 5 7021-8 ####[facility] LABCLIA [id number] [facility] [address] [place] Basophils/100 WBC (Bld) 0.2 % Normal [facility] Comment on above: Order Comment: Speci men Type: BLOOD SPECIMENOrdering Facility: [facility] Address: [address] [place], [place] [address] Performed By: #### 5 7021-8 ####[facility] LABCLIA [id number] [place] [address] [place] Differential cell count method Nom (Bld) Auto Normal [facility] Comment on above: Order Comment: Speci men Type: BLOOD SPECIMENOrdering Facility: [facility] Address: [address] [place], [place] [address] Performed By: #### 5 7021-8 ####[facility] LABCLIA [id number] [place] [address] [place] Eosinophils (Bld) [#/Vol] 10*3/uL Normal <0.[address] [facility] Comment on above: Order Comment: Speci men Type: BLOOD SPECIMENOrdering Facility: [facility] Address: [address] [place], [place] [address] Performed By: #### 5 7021-8 ####[facility] LABCLIA [id number] [address] [place] Eosinophils/100 WBC (Bld) 0.0 % Normal [facility] Comment on above: Order Comment: Speci men Type: BLOOD SPECIMENOrdering Facility: [facility] Address: [address] [place] [address] Performed By: #### 5 7021-8 ####[facility] LABCLIA [id number] [place] [address] [place] Erythrocyte distribution width (RBC) [Ratio] 12.8 % Normal 11.5-15.[address] [facility] Comment on above: Order Comment: Speci men Type: BLOOD SPECIMENOrdering Facility: [facility] Address: [address] [place], [place] [address] Performed By: #### 5 7021-8 ####[facility] LABIA [id number] [address] OF [facility] Hematocrit (Bld) [Volume fraction] 41.2 % Normal 39.0-51.[address] [facility] Comment on above: Order Comment: Speci men Type: BLOOD SPECIMENOrdering Facility: [facility] Address: [address] [place], [place] [address] Performed By: #### 5 7021-8 ####[facility] [id number] [address] OF [facility] Hemoglobin (Bld) [Mass/Vol] 14.0 g/dL Normal 13.0-17.[address] [facility] Comment on above: Order Comment: Speci men Type: BLOOD SPECIMENOrdering Facility: [facility] Address: [address] [place], [place] [address] Performed By: #### 5 7021-8 ####[facility] LABIA [id number] [address] OF [facility] IMMATURE GRAN % 0.4 % Normal [facility] Comment on above: Order Comment: Speci men Type: BLOOD SPECIMENOrdering Facility: [facility] Address: [address] [place], [place] [address] Performed By: #### 5 7021-8 ####[facility] LABIA [id number] [address] [place] IMMATURE GRAN ABS 0.05 k/uL Normal <0.10 [facility] Comment on above: Order Comment: Speci men Type: BLOOD SPECIMENOrdering Facility: [facility] Address: [address] [place], [place] [address] Performed By: #### 5 7021-8 ####[facility] LABCLIA [id number] [address] [place] Lymphocytes (Bld) [#/Vol] 0.62 10*3/uL Low 1.00-4.[address] [facility] Comment on above: Order Comment: Speci men Type: BLOOD SPECIMENOrdering Facility: [facility] Address: [address] [place] [address] Performed By: #### 5 7021-8 ####[facility] LABCLIA [id number] [address] [place] [facility] Lymphocytes/100 WBC (Bld) 4.7 % Normal [facility] Comment on above: Order Comment: Speci men Type: BLOOD SPECIMENOrdering Facility: [facility] Address: [address] [place] [address] Performed By: #### 5 7021-8 ####[facility] LABIA [id number] [address] [place] MCH (RBC) [Entitic mass] 32.2 pg Normal 26.0-34.[address] [facility] Comment on above: Order Comment: Speci men Type: BLOOD SPECIMENOrdering Facility: [facility] Address: [address] [place] [address] Performed By: #### 5 7021-8 ####[facility] LABCLIA [id number] [address] [place] MCHC (RBC) [Mass/Vol] 34.0 g/dL Normal 30.5-36.0 [facility] Comment on above: Order Comment: Speci men Type: BLOOD SPECIMENOrdering Facility: [facility] Address: [address] [place], [place] [address] Performed By: #### 5 7021-8 ####[facility] LABIA [id number] [address] [id number] [address] [place] MCV (RBC) [Entitic vol] 94.7 fL Normal 80.0-100.[address] [facility] Comment on above: Order Comment: Speci men Type: BLOOD SPECIMENOrdering Facility: [facility] Address: [address] [place], [place] [address] Performed By: #### 5 7021-8 ####[facility] LABCLIA [id number] [place] [address] [place] Monocytes (Bld) [#/Vol] 0.32 10*3/uL Normal <0.[address] [facility] Comment on above: Order Comment: Speci men Type: BLOOD SPECIMENOrdering Facility: [facility] Address: [address] [place], [place] [address] Performed By: #### 5 7021-8 ####[facility] LABCLIA [id number] [address] [place] Monocytes/100 WBC (Bld) 2.4 % Normal [facility] Comment on above: Order Comment: Speci men Type: BLOOD SPECIMENOrdering Facility: [facility] Address: [address] [place], [place] [address] Performed By: #### 5 7021-8 ####[facility] LABCLIA [id number] [place] [address] [place] Neutrophils (Bld) [#/Vol] 12.07 10*3/uL High 1.45-7.[address] [facility] Comment on above: Order Comment: Speci men Type: BLOOD SPECIMENOrdering Facility: [facility] Address: [address] [place], [place] [address] Performed By: #### 5 7021-8 ####[facility] LABCLIA [id number] [place] [address] [place] Neutrophils/100 WBC (Bld) 92.3 % Normal [facility] Comment on above: Order Comment: Speci men Type: BLOOD SPECIMENOrdering Facility: [facility] Address: [address] [place] [id number] Performed By: #### 5 7021-8 ####[facility] LABCLIA [id number] [place] [address] [place] Nucleated RBC (Bld) [#/Vol] 10*3/uL Normal <0.[address] [facility] Comment on above: Order Comment: Speci men Type: BLOOD SPECIMENOrdering Facility: [facility] Address: [address] [place], [place] [address] Performed By: #### 5 7021-8 ####[facility] LABCLIA [id number] [place] [address] [place] Nucleated RBC/100 WBC (Bld) [Ratio] 0.0 /100 WBC [address] [facility] Comment on above: Order Comment: Speci men Type: BLOOD SPECIMENOrdering Facility: [facility] Address: [address] [place] [address] Performed By: #### 5 7021-8 ####[facility] LABCLIA [id number] [place] [address] [place] Platelet mean volume (Bld) [Entitic vol] 10.2 fL Normal 9.0-12.[address] [facility] Comment on above: Order Comment: Speci men Type: BLOOD SPECIMENOrdering Facility: [facility] Address: [address] [place] [address] Performed By: #### 5 7021-8 ####[facility] LABCLIA [id number] [place] [address] [place] Platelets (Bld) [#/Vol] 187 10*3/uL Normal 150-[address] [facility] Comment on above: Order Comment: Speci men Type: BLOOD SPECIMENOrdering Facility: [facility] Address: [address] [place] [id number] Performed By: #### 5 7021-8 ####[facility] LABCLIA [id number] [place] [address] [place] RBC (Bld) [#/Vol] 4.35 10*6/uL Normal 4.20-6.00 [facility] Comment on above: Order Comment: Speci men Type: BLOOD SPECIMENOrdering Facility: [facility] Address: [address] [place] [address] Performed By: #### 5 7021-8 ####[facility] LABIA [id number] [place] [address] [place] WBC (Bld) [#/Vol] 13.08 10*3/uL High 3.70-11.00 [facility] Comment on above: Order Comment: Speci men Type: BLOOD SPECIMENOrdering Facility: [facility] Address: [address] [place] [address] Performed By: #### 5 7021-8 ####[facility] LABIA [id number] [place] [address] [place] OPERATIVE NOon 10-29-2021 OPERATIVE NO HNO ID: [id number] Author: Aldo Rahman MD Service: Urology Author Type: Resident Type: Operative Report Filed: 10/29/2021 8:02 PM Note Text: OPERATIVE/PROCEDURE REPORT LOG ID: [id number] Surgery/Procedure Date: 10/29/2021 Incision/Procedure Start Time: 3:47 PM Incision Close/Procedure End Time: 7:26 PM Surgeon(s)/Procedura list(s) and Casino Host(s): Surgeon(s) and Role: * Mar Ellis MD - Primary * Aldo Rahman MD - Resident - Assisting * Colby Rodríguez MD - Resident - Assisting Procedure(s): Procedure(s) and Anesthesia Type: * ROBOTIC LAPAROSCOPIC NEPHRECTOMY PARTIAL - General (right) Anesthesia: General Operative Indications: This is a 71 year old male with history of biopsy-proven renal cell carcinoma of the right kidney who after discussing the risks, benefits, and alternatives of the procedure has elected to pursue management of their condition via the aforementioned surgery. Procedure Details: The patient was brought to the operating room, at which point a preoperative huddle was performed confirming the proper patient, procedure, site, medications, allergies, equipment, and personnel were accounted for. Sequential compression stockings were applied.Thereafter, general anesthesia was introduced. The patient was then prepped with chlorhexidine solution and draped in the standard sterile fashion. A Veress needle was placed at the proposed camera port site at the right lateral border of the rectus muscle in the line with the 11th rib. The abdomen was insufflated without issues, and a 8 mm robotic camera port was placed. No bowel injury or bleeding was encountered upon close inspection of the port site. The following ports were then placed under direct vision. -Left and right 8mm robotic working ports approximately 8cm above and below the robotic camera port in the same line -A fourth robotic 8 mm working port was placed at the most caudad extent (8 cm below the left robotic arm) and about 2 cm medial from the right ASIS -12mm access services assistant port paramidline in between the camera and left working robotic port -A 5mm port just below the xyphoid for liver retraction The robot was docked. The peritoneum was incised along the line of the Toldt and the colon was mobilized medially, this was continue superiorly and then laterally to free the upper pole from the liver, sparing the adrenal. We kocherized the duodenum.The gonadal vein was identified within the Gerota's fascia and from there we moved laterally until the psoas was encountered. Dissection was carried up towards the hilum. The renal vein was identified and dissected free from the surrounding tissue. Two renal arteries and a vein were identified and exposed. The kidney was then defatted and mobilized. The renal ultrasound probe was inserted and used to demarcate the edges of the renal mass, which was well-circumscribed and deep reaching into the central sinus. The renal arteries was controlled using a bulldog clamp. The mass was then sharply excised, taking care to stay within healthy parenchyma. The mass was set aside and the deep layers of the kidney were closed using 3-0 V-lock running suture in the deep tissue layers and secured to the capsule with Weck clips.The renorraphy was then packed with Floseal and Surgicel. The bulldogs were unclamped. An extra stitch with a 3 OV lock was made to ensure hemostasis as well as to pin the Surgicel to the renorraphy. Ischemia time was 27 minutes. The renorrhaphy and hilum were both again inspected and noted to be hemostatic. The Gerota's fascia was reapproximated 0 PDS. The specimen was placed into an Endocatch bag. The robot was undocked. The specimen was extracted from access services assistant port. Following extraction, the extraction site was closed with continuous 0 PDS. The remaining ports were removed. The skin was closed using 4-0 subcuticular suture and surgical glue. Pre-Op/Pre-Procedure Diagnosis: Pre-Op Diagnosis Codes: * Renal mass [N28.89] Post-Op/Post-Procedu re Diagnosis: same Estimated Blood Loss: 300 mls Specimens: ID Type Source Tests Collected by Time Destination A : right partial nephrectomy Tissue KIDNEY PARTIAL NEPHRECTOMY RIGHT SURGICAL PATHOLOGY Mar Ellis MD 10/29/2021 6:55 PM Implantable Devices: None Drains: carty Complications: None Qualifier: None Aldo Rahman MD, dictating on behalf of MD Mar Santos MD, the primary proceduralist, performed the entire procedure with the assistance of Dr. Rahman and Marcos. Normal [facility] SURGICAL PATHOLOGYon 022 CASE REPORT Normal [facility] Comment on above: Order Comment: Liam gamboa Type: TISSUE SPECIMENOrdering Facility: [facility] Address: [address] [place] [address] Result Comment: Surg ical Pathology Report Case: [id number] Authorizing Provider: Mar Ellis MD Collected: 10/29/2021 06:55 PM Ordering Location: [place] [address] Received: 10/30/2021 07:34 AM Pathologist: Mar Francisco MD Specimen: KIDNEY PARTIAL NEPHRECTOMY RIGHT, right partial nephrectomy Performed By: #### S ####[facility] LABCLIA [id number] [address] [place] DIAGNOSIS COMMENT Normal [facility] Comment on above: Order Comment: Paytoni cooper Type: TISSUE SPECIMENOrdering Facility: [facility] Address: [address] [place] [address] Result Comment: The microcystic growth pattern in papillary renal cell carcinoma has been associated with a higher likelihood of aggressive behavior (Calderon et al. Am J Surg Pathol 202;46:392-403). Selected slides from this case were reviewed at the genitourinary pathology consensus conference with Dr. Doc Fraser, Dr. Doc Parmar, and Dr. Tata Galindo, who concur with the above diagnosis. Performed By: #### S ####[facility] LABCLIA [id number] [address] FINAL DIAGNOSIS Normal 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 -Tumor is confined to the kidney. -Margins are negative for tumor. -See comment. Performed By: #### S ####[facility] LABIA [id number] [address] FINAL PERFORMING LAB Normal [facility] Comment on above: Order Comment: Speci men Type: TISSUE SPECIMENOrdering Facility: [facility] Address: [address] [place] [address] Result Comment: Diag nostic interpretation performed at [facility], [address] [place] [address] CLIA# [id number] Director Of Extension Work: Matheus Echols M.D. Performed By: #### S ####[facility] LABCLIA [id number] [address] GROSS DESCRIPTION Normal [facility] Comment on above: Order Comment: Speci men Type: TISSUE SPECIMENOrdering Facility: [facility] Address: [address] [place] [address] Result Comment: Rahul RUBY PARTIAL NEPHRECTOMY RIGHT Received in formalin labeled with patient's name, date, and right partial nephrectomy is a specimen consisting of a segment of the midportion of the kidney, measuring 7.0 x 6.9 x 5.0 cm, and weighting 78.7 g. Renal artery, vein, pelvis, and ureter are not present in the specimen. A portion of renal sinus fat is not identified within the specimen. Serial sections reveals yellow-muñoz, multinodular, solid-cystic lesion, measuring 5.1 x 5.0 x 3.9 cm. The tumor penetrates the capsule, without grossly invading into the perirenal fat. The tumor bulges the possible renal sinus, but is not present at the periphery and renal parenchymal line of resection. The tumor is 0.1 cm from the inked parenchymal margin of resection. from the main specimen is a segment of yellow and lobulated tissue measuring 2.5 x 2.0 x 1.1 cm and weighting 1.4 g. Certified Physician'S Assistant sections are submitted as follows: A1-A2: Tumor and renal parenchymal resection margin (inked blue). A3: Tumor and capsular margin (inked black). A4-A5: Tumor and renal sinus (inked orange). A6-A7: Tumor (sales representative uniforms sections). A8: Detached fragment of yellow and lobulated tissue. Gross examination performed at [facility], [address] [place] [address] RT 10/30/21 1:53 PM Performed By: #### S ####[facility] LABCLIA [id number] [place] [address] [place] SYNOPTIC REPORT Normal [facility] Comment on above: Order Comment: Speci men Type: TISSUE SPECIMENOrdering Facility: [facility] Address: [facility] [place] [id number] Result Comment: ENRIQUE FERNANDO: Nephrectomy KIDNEY, PARTIAL OR RADICAL NEPHRECTOMY - A 8th Edition - Protocol posted: 08/28/2020 SPECIMEN Procedure: Partial nephrectomy Specimen Laterality: Right TUMOR Tumor Focality: Unifocal Tumor Size: Greatest Dimension (Centimeters): 5.1 cm Histologic Type: Papillary renal cell carcinoma Histologic Grade (WHO / ISUP): G3 (nucleoli conspicuous and eosinophilic at 100x magnification) Tumor Extent: Limited to kidney Sarcomatoid Features: Not identified Rhabdoid Features: Not identified Tumor Necrosis: Not identified Lymphovascular Invasion: Not identified Tumor Comment: Microcystic features present (see comment) MARGINS Margin Status: All margins negative for invasive carcinoma REGIONAL LYMPH NODES Regional Lymph Node Status: Not applicable (no regional lymph nodes submitted or found) PATHOLOGIC STAGE CLASSIFICATION (pTNM, AJCC 8th Edition) Reporting of pT, pN, and (when applicable) pM categories is based on information available to the pathologist at the time the report is issued. As per the AJCC (Chapter 1, 8th Ed.) it is the managing physician???s responsibility to establish the final pathologic stage based upon all pertinent information, including but potentially not limited to this pathology report. Primary Tumor (pT): pT1b Regional Lymph Nodes (pN): pN not assigned (no nodes submitted or found) ADDITIONAL FINDINGS Additional Findings in Nonneoplastic Kidney: Insufficient tissue Comment(s): A1 Performed By: #### S ####[facility] LABCLIA [id number] [address] STATES OF [facility] SARS-CoV-2 RNA Resp Ql LUNA+p robeon 10-26-2021 SARS-CoV-2 (COVID-19) RNA LUNA+probe Ql (Resp) SARS-CoV-2 (Agent of COVID-19) Not Detected by RT-PCR or equivalent method. Normal Not Detected [facility] Comment on above: Order Comment: Speci men Type: SWAB OF INTERNAL NOSEOrdering Facility: [facility] Address: [address] [place] [address] Result Comment: This test was developed and its performance characteristics determined by [facility]'s [facility] [place]. This test has been authorized by FDA under an Emergency Use Authorization (EUA). This test has been validated in accordance with the FDA's Guidance Document Policy for Diagnostics Testing in Laboratories Certified to Perform High Complexity Testing under CLIA prior to Emergency use Authorization for Coronavirus Disease 2019 during the Public Health Emergency issued on April 29, 2019. Test performed by [facility], [facility] [place], [address] [place] [address]. Performed By: #### 9 4500-6 ####[facility] LABCLIA [id number] [place] [address] [place] CBC panel Auto (Bld)on 10-22 Erythrocyte distribution width (RBC) [Ratio] 12.9 % Normal 11.5-15.[address] [facility] Comment on above: Order Comment: Speci men Type: BLOOD SPECIMENOrdering Facility: [facility] Address: [address] [place] [address] Performed By: #### 5 8410-2 ####[facility] LABIA [id number] [address] [place] Hematocrit (Bld) [Volume fraction] 42.6 % Normal 39.0-51.[address] [facility] Comment on above: Order Comment: Speci men Type: BLOOD SPECIMENOrdering Facility: [facility] Address: [address] [place], [place] [address] Performed By: #### 5 8410-2 ####[facility] LABIA [id number] [place] [address] [place] Hemoglobin (Bld) [Mass/Vol] 14.0 g/dL Normal 13.0-17.[address] [facility] Comment on above: Order Comment: Speci men Type: BLOOD SPECIMENOrdering Facility: [facility] Address: [address] [place], [place] [address] Performed By: #### 5 8410-2 ####[facility] LABCLIA [id number] [place] [address] [place] MCH (RBC) [Entitic mass] 31.5 pg Normal 26.0-34.[address] [facility] Comment on above: Order Comment: Speci men Type: BLOOD SPECIMENOrdering Facility: [facility] Address: [address] [place], [place] [address] Performed By: #### 5 8410-2 ####[facility] LABCLIA [id number] [place] [address] [place] MCHC (RBC) [Mass/Vol] 32.9 g/dL Normal 30.5-36.0 [facility] Comment on above: Order Comment: Speci men Type: BLOOD SPECIMENOrdering Facility: [facility] Address: [address] [place], [place] [address] Performed By: #### 5 8410-2 ####[facility] [id number] [place] [address] [place] MCV (RBC) [Entitic vol] 95.7 fL Normal 80.0-100.[address] [facility] Comment on above: Order Comment: Speci men Type: BLOOD SPECIMENOrdering Facility: [facility] Address: [address] [place] [address] Performed By: #### 5 8410-2 ####[facility] [id number] [place] [address] [place] Nucleated RBC (Bld) [#/Vol] 10*3/uL Normal <0.[address] [facility] Comment on above: Order Comment: Speci men Type: BLOOD SPECIMENOrdering Facility: [facility] Address: [address] [place], [place] [address] Performed By: #### 5 8410-2 ####[facility] [id number] [place] [address] [place] Platelet mean volume (Bld) [Entitic vol] 10.6 fL Normal 9.0-12.[address] [facility] Comment on above: Order Comment: Speci men Type: BLOOD SPECIMENOrdering Facility: [facility] Address: [address] [place], [place] [address] Performed By: #### 5 8410-2 ####[facility] [id number] [place] [address] [place] Platelets (Bld) [#/Vol] 242 10*3/uL Normal 150-[address] [facility] Comment on above: Order Comment: Speci men Type: BLOOD SPECIMENOrdering Facility: [facility] Address: [address] [place] [address] Performed By: #### 5 8410-2 ####[facility] LABCLIA [id number] [place] [address] [place] RBC (Bld) [#/Vol] 4.45 10*6/uL Normal 4.20-6.00 [facility] Comment on above: Order Comment: Speci men Type: BLOOD SPECIMENOrdering Facility: [facility] Address: [address] [place] [address] Performed By: #### 5 8410-2 ####[facility] LABCLIA [id number] [place] [address] [place] WBC (Bld) [#/Vol] 6.60 10*3/uL Normal 3.70-11.00 [facility] Comment on above: Order Comment: Speci men Type: BLOOD SPECIMENOrdering Facility: [facility] Address: [address] [place] [address] Performed By: #### 5 8410-2 ####[facility] LABCLIA [id number] [address] [place] CNOVon 2021 CNOV Office Visit (UROLMN) VICTOR M NI ([id number]) 1950 M Date Time Provider Department 10/22/21 1:15 PM EVERTON ABAD During your visit today, we recorded the following information about you: Everton Abad MD 2021 1:47 PM Signed [facility] PRE-OP NOTE Patient is a 71 year old year old male. Pre-op Date: 10/22/21 Date of Procedure: 10/29/21 Does the patient have an active COVID-19 test in Epic? NA Procedure/Surgery: Right Robot Assisted Partial Nephrectomy Diagnosis: Renal Cell Carcinoma Primary Surgeon: Mar Ellis MD Pain Assessment: Are you currently having pain? No 0 on a scale of 0 to 10 Surgical Guide Book Status: yes Patient has guide with them today. Dialysis Guide Book Status: NA Allergies Reviewed: mobic Medications Reviewed: yes, updated Is patient currently on oral steroids?: no Has the patient had a UTI in the past month?: no Does the patient have any artificial joints (last 2 years), metal parts, pacemakers or cardiac/ureteral stents in place?: Has screws in left knee Does the patient have diabetes?: no Is the patient routinely taking anticoagulants?: no Can the patient have an IV put in either arm?: yes Urine Dip Complete?: yes URINE CULTURE COMPLETE?: NA Ostomy/Stoma Nurse appointment made/completed: N/A [facility]/Medical Clearance: Cleared per [facility] - To be seen [facility]: Cleared per [facility] - To be seen All testing on cureform has been scheduled: Yes Consent Signed: yes DOS Orders Placed and Signed: Yes. Pre-op HANDP Done by Urology Fellow: Done. PATIENT INSTRUCTIONS FOR SURGERY 1.) DO NOT HAVE ANYTHING TO EAT AFTER MIDNIGHT THE DAY BEFORE SURGERY except for certain morning medications as instructed by the doctor. Candy, mints, gum, and smoking are NOT permitted. You may drink clear liquids (Sprite, water, clif pradeep) up to two hours before your arrival time on the day of surgery. 2.) Medications to be taken on the morning of surgery with a few sips of water: discussed with patient 3.) Please bring all your prescribed inhalers (if you have any you normally take) to the hospital. 4.) Arrival time: Call for arrival. 5.) Prep given: No 6.) Lovenox instructions given: N/A 7.) Patient reminded that surgery time provided day before surgery is tentative based on potential changes with transplants. Recommendations: This patient is optimally prepared for surgery pending LABS, [facility] Everton Abad MD 2021 1:47 PM Signed Chief Complaint: Renal neoplasm History of Present Illness: Some aspects copied from prior note but reassessed today. 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 Review of Systems: REVIEW OF SYSTEMS: GENERAL: Negative for weight loss, fevers, chills, or night sweats. HEENT: Negative for sudden vision or hearing changes. RESPIRATORY: Negative for cough or shortness of breath. CARDIAC: Negative for chest pain, COPD, dyspnea, palpitations, murmurs, or syncopal episodes. GASTROINTESTINAL: Negative for trouble swallowing, heartburn, change in bowel habits, blood in stool, and dark black stools. GENITOURINARY: See HPI MUSCULAR: Negative for limitations in movement, pain, or swelling. NEUROLOGIC: Negative for dizziness, headache, weakness or numbness. HEMATOLOGIC: Negative for bleeding or easy bruising. SKIN: Negative for rashes or other skin changes. LYMPHATIC: No masses noted. EXTREMITIES: No swelling of extremities. Allergies: Allergies: No Known Allergies Physical Exam: BP 130/73 Pulse 73 Ht 175.3 cm (5' 9 ) Wt (!) 156.9 kg (346 lb) BMI 51.10 kg/m? Constitutional: Well appearing, alert, in no acute distress and well-hydrated, well nourished Skin: Skin color, texture, turgor normal, no suspicious rashes or lesions Eyes: Normocephalic, no masses, lesions, tenderness or abnormalities Neuro: Supple, no adenopathy; thyroid symmetric, normal size, no bruits Respiratory: Clear to a (more content not included)... Normal [facility] CONFIRM BLOOD TYPEon 022 ABO O Normal [facility] Comment on above: Order Comment: Speci men Type: BLOOD SPECIMENOrdering Facility: [facility] Address: [address] [place] [address] Performed By: #### C ONABO ####[facility] BLO[facility] BANKCLIA [id number] [address] [place] Rh Nom (Bld) Positive Normal [facility] Comment on above: Order Comment: Speci men Type: BLOOD SPECIMENOrdering Facility: [facility] Address: [address] [place] [address] Performed By: #### C ONABO ####[facility] BLOOD BANKCLIA [id number] [place] [address] [place] CREATININE, BLOOD (POC)on Creatinine [Mass/Vol] 1.60 mg/dL Abnormal 0.7 - 1.4 mg/dL [facility] eGFR (POCT) 46 mL/min/1.[address] [facility] CT CHEST W IVCONon 2 CT CHEST W IVCON * * *Final Report* * * DATE OF EXAM: 2021 12:56PM [facility] 0539 - CT CHEST W IVCON / PROCEDURE REASON: Renal mass * * * * Physician Interpretation * * * * EXAMINATION: CHEST CT WITH CONTRAST CLINICAL HISTORY: Kidney cancer, monitor Technique: Spiral CT acquisition of the chest from the thoracic inlet to the upper abdomen following IV contrast. MQ: [id number]_6 Contrast: 50 mL Omnipaque [address] Radiation dose: Integrated Dose-length product (DLP) for this visit = 873 mGy*cm CT Dose Reduction Employed: Automated exposure control (AEC) Comparison: None available RESULT: Limitations: None. Lines, tubes, and devices: None. Lung parenchyma and airways: No consolidation. A 3 mm calcified granuloma is seen along the minor fissure (image 75). A couple 3 mm nonsolid nodules in the middle lobe (images 96 and 99), and a couple punctate nodules in the left lower lobe (image 104) and right middle lobe (image 116) are unchanged from an abdominal CT dated 11/16/2020. A 2 mm nodule along the right major fissure may represent fissural lymph node (image 84). A subcentimeter thin-walled air-filled cyst is noted in the left lower lobe (image 119). The central airways are patent. Pleural space: No pleural effusion. No pleural thickening. Lower neck, lymph nodes, and mediastinum: The imaged thyroid gland is normal. No lymphadenopathy in the supraclavicular, axillary, mediastinal, or hilar regions. Heart, pericardium, and thoracic vessels: The ascending aorta is aneurysmally dilated and measures 4.8 x 5.1 cm in its mid segment (image 75). The arch and descending thoracic aorta as well as the main pulmonary artery are normal in caliber. The cardiac chambers are normal in size. Mild coronary artery atherosclerotic calcifications are noted, although the study is not optimized for coronary assessment. No pericardial effusion or thickening. Bones and soft tissues: Endplate degenerative changes at the T1-T2, T2-T3 and T3-T4 levels. Mottled sclerotic and lucent densities associated with compression deformities and moderate loss of height of the T6-T8. There are a few remote bilateral sequential anterior rib fractures. Chest wall is unremarkable aside from mild bilateral gynecomastia. Upper abdomen: Diffuse hepatic steatosis. Multiple tiny gallstones within the gallbladder with normal gallbladder wall thickness. No pericholecystic edema. The kidneys are not fully included in the [id number]. Humanities Division Chair (topogram) images: No findings. IMPRESSION: A few nonsolid nodules measuring up to 3 mm and a couple punctate solid nodules in both lungs are unchanged from an abdominal CT dated 11/16/2020, likely benign. A 2 mm nodule along the right major fissure is nonspecific though may represent fissural lymph node. Given history of renal malignancy, suggest continued follow-up. Indeterminate multiple sclerotic and lucent densities associated with compression deformities and moderate loss of height of the T6-T8 vertebra noted. Suggest correlation with radionuclide bone scans and/or thoracic spine MRI. Aneurysmal dilation of the ascending thoracic aorta (maximum 5.1 cm in its mid segment). Consider follow-up with dedicated CTA or MRA of the chest. No thoracic lymphadenopathy. Cholelithiasis and diffuse hepatic steatosis. Customer Sales Specialist: PSCB Transcribe Date/Time: 2021 8:18P Dictated by : HEATHER VILLARREAL MD This examination was interpreted and the report reviewed and electronically signed by: HEATHER VILLARREAL MD on 2021 8:31PM EST [id number] CN Normal [facility] Comprehensive metabolic 2000 panelon 2021 Albumin [Mass/Vol] 4.1 g/dL Normal 3.9-4.9 [facility] Comment on above: Order Comment: Speci men Type: BLOOD SPECIMENOrdering Facility: [facility] Address: [address] [place] [address] Performed By: #### 2 4323-8 ####[facility] LABIA [id number] [place] [address] [place] ALP [Catalytic activity/Vol] 92 U/L Normal 38-[address] [facility] Comment on above: Order Comment: Speci men Type: BLOOD SPECIMENOrdering Facility: [facility] Address: [address] [place] [address] Performed By: #### 2 4323-8 ####[facility] LABIA [id number] [address] [place] ALT [Catalytic activity/Vol] 16 U/L Normal 10-[address] [facility] Comment on above: Order Comment: Speci men Type: BLOOD SPECIMENOrdering Facility: [facility] Address: [address] [place] [address] Performed By: #### 2 4323-8 ####[facility] LABIA [id number] [place] [address] [place] Anion gap [Moles/Vol] 12 mmol/L Normal 9-18 [facility] Comment on above: Order Comment: Speci men Type: BLOOD SPECIMENOrdering Facility: [facility] Address: [address] [place] [id number] Performed By: #### 2 4323-8 ####[facility] LABCLIA [id number] [place] [address] [place] AST [Catalytic activity/Vol] 17 U/L Normal 14-[address] [facility] Comment on above: Order Comment: Speci men Type: BLOOD SPECIMENOrdering Facility: [facility] Address: [address] [place], [place] [address] Performed By: #### 2 4323-8 ####[facility] LABCLIA [id number] [place] [address] [place] Bilirubin [Mass/Vol] 0.6 mg/dL Normal 0.2-1.3 [facility] Comment on above: Order Comment: Speci men Type: BLOOD SPECIMENOrdering Facility: [facility] Address: [address] [place], [place] [address] Performed By: #### 2 4323-8 ####[facility] LABCLIA [id number] [place] [address] [place] Calcium [Mass/Vol] 9.4 mg/dL Normal 8.5-10.2 [facility] Comment on above: Order Comment: Speci men Type: BLOOD SPECIMENOrdering Facility: [facility] Address: [address] [place], [place] [address] Performed By: #### 2 4323-8 ####[facility] LABCLIA [id number] [place] [address] [place] Chloride [Moles/Vol] 102 mmol/L Normal 97-105 [facility] Comment on above: Order Comment: Speci men Type: BLOOD SPECIMENOrdering Facility: [facility] Address: [address] [place] [address] Performed By: #### 2 4323-8 ####[facility] LABCLIA [id number] [place] [address] [place] CO2 [Moles/Vol] 25 mmol/L Normal 22-[address] [facility] Comment on above: Order Comment: Speci men Type: BLOOD SPECIMENOrdering Facility: [facility] Address: [address] [place] [address] Performed By: #### 2 4323-8 ####[facility] LABCLIA [id number] [place] [address] [place] Creatinine [Mass/Vol] 1.50 mg/dL High 0.73-1.22 [facility] Comment on above: Order Comment: Speci men Type: BLOOD SPECIMENOrdering Facility: [facility] Address: [address] [place] [address] Performed By: #### 2 4323-8 ####[facility] LABIA [id number] [address] [place] [facility] ESTIMATED GLOMERULAR FILTRATION RATE 49 mL/min/1.73m??? Low >=[address] [facility] Comment on above: Order Comment: Speci men Type: BLOOD SPECIMENOrdering Facility: [facility] Address: [address] [place] [address] Result Comment: Nely mated Glomerular Filtration Rate (eGFR) is calculated using the 2020 CKD-EPI creatinine equation. This equation utilizes serum creatinine, sex, and age as parameters. The creatinine assay has traceable calibration to isotope dilution-mass spectrometry. Refer to KDIGO guidelines for clinical interpretation. In patients with unstable renal function, e.g. those with acute kidney injury, the eGFR may not accurately reflect actual GFR. Performed By: #### 2 4323-8 ####[facility] LABCLIA [id number] [place] [address] [place] Glucose [Mass/Vol] 105 mg/dL High 74-99 [facility] Comment on above: Order Comment: Speci men Type: BLOOD SPECIMENOrdering Facility: [facility] Address: [address] [place] [address] Result Comment: The [place] Diabetes Association (ADA) provides guidance for cutoff values for fasting glucose and random glucose. The ADA defines fasting as no caloric intake for at least 8 hours. Fasting plasma glucose results between 100 to 125 mg/dL indicate increased risk for diabetes (prediabetes). Fasting plasma glucose results greater than or equal to 126 mg/dL meet the criteria for diagnosis of diabetes. In the absence of unequivocal hyperglycemia, results should be confirmed by repeat testing. In a patient with classic symptoms of hyperglycemia or hyperglycemic crisis, random plasma glucose results greater than or equal to 200 mg/dL meet the criteria for diagnosis of diabetes. Reference: Standards of Medical Care in Diabetes 2016, [place] Diabetes Association. Diabetes Care. 2016.39(Suppl 1). Performed By: #### 2 4323-8 ####[facility] LABIA [id number] [place] [address] [place] Potassium [Moles/Vol] 4.3 mmol/L Normal 3.7-5.1 [facility] Comment on above: Order Comment: Speci men Type: BLOOD SPECIMENOrdering Facility: [facility] Address: [address] [place], [place] [address] Performed By: #### 2 4323-8 ####[facility] [id number] [place] [address] [place] Protein [Mass/Vol] 7.3 g/dL Normal 6.3-8.0 [facility] Comment on above: Order Comment: Speci men Type: BLOOD SPECIMENOrdering Facility: [facility] Address: [address] [place] [address] Performed By: #### 2 4323-8 ####[facility] LABIA [id number] [place] [address] [place] Sodium [Moles/Vol] 139 mmol/L Normal 136-144 [facility] Comment on above: Order Comment: Speci men Type: BLOOD SPECIMENOrdering Facility: [facility] Address: [address] [place] [address] Performed By: #### 2 4323-8 ####[facility] LABCLIA [id number] [place] [address] [place] Urea nitrogen [Mass/Vol] 21 mg/dL Normal 11-[address] [facility] Comment on above: Order Comment: Speci men Type: BLOOD SPECIMENOrdering Facility: [facility] Address: [address] [place] [address] Performed By: #### 2 4323-8 ####[facility] LABCLIA [id number] [address] [place] ECG COMPLETEon 2021 ECG COMPLETE Ventricular Rate : 60 BPM Atrial Rate : 60 BPM P-R Interval : 150 ms QRS Duration : 90 ms Q-T Interval : 410 ms QTC Calculation(Bazett) : 410 ms Calculated P Pinon : 9 degrees Calculated R Pinon : 23 degrees Calculated T Pinon : 39 degrees NORMAL SINUS RHYTHM NORMAL ECG Confirmed by TREVOR TORRES MD ([id number]) on 11/09/2021 3:07:11 PM NAME : VICTOR M NI PID : [id number] : 1950 Gender : Male Race : ORD : [id number] Procedure Date : 2021 16:00:46 Edit Date : Nov 09 2021 15:07:12 Diagnosis: NORMAL SINUS RHYTHM NORMAL ECG Confirmed by TREVOR TORRES MD ([id number]) on 11/09/2021 3:07:11 PM Test Reason : PT. UNABLE TO RELAX Location : 314 : J14 1 Overread By : TREVOR TORRES MD Edited By : TREVOR TORRES MD Referred By : MAR ELLIS Acquired by : BUSTER PONCE [facility] HISTORY PHYSICALon HISTORY PHYSICAL HNO ID: [id number] Author: Elizabeth Champion PA-C Service: ? Author Type: Physician Casino Host Type: HANDP Filed: 11/05/2021 8:12 AM Note Text: HISTORY AND PHYSICAL EXAMINATION SERVICE DATE: 10/22/21 SERVICE TIME: 3:01 PM PRIMARY CARE PHYSICIAN: Ayesha Tafoya MD REASON FOR VISIT: Victor M Ni is a 70 year old male who is scheduled for ROBOTIC LAPAROSCOPIC NEPHRECTOMY PARTIAL at the request of Dr. Mar Ellis for consultation. My final recommendation will be communicated back to the requesting physician by way of shared medical record or letter. The patient has the following: ACTIVE PROBLEM LIST Pain in Joint, Shoulder Region Benign Prostatic Hyperplasia With Urinary Obstruction Renal Mass Urge Incontinence of Urine Hypertension Obesity Obstructive Sleep Apnea Severe Major Depression (Hcc) Delayed Emergence From General Anesthesia Subjective CHIEF COMPLAINT: Pre-op visit, right renal mass HPI: Victor M Ni is a 70 year old male presenting for pre-anesthesia consultation with his and son. Pt has history of right renal mass. 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 He denies dysuria or gross hematuria. Above procedure recommended to manage disease. Procedure scheduled on 10/29/2021 at . PAST MEDICAL HISTORY Diagnosis Date Delayed emergence from general anesthesia Hypertension Obesity Obstructive sleep apnea PAST SURGICAL HISTORY Procedure Laterality Date PAST SURGICAL HISTORY OF L leg fracture - 2nd grade PAST SURGICAL HISTORY OF 2007 knee surgery - fx FAMILY HISTORY Problem Relation Age of Onset Anesthesia Problems No Family History SOCIAL HISTORY: Social History Tobacco Use Smoking status: Never Smokeless tobacco: Never Substance Use Topics Alcohol use: No Drug use: Never MEDICATIONS: Prior to Admission medications as of 10/22/21 1504 Medication Sig Last Dose Taking sulindac (CLINORIL) 200 mg tablet Take 200 mg by mouth as needed. Taking Yes dorzolamide-timolol (COSOPT) 22.3-6.8 mg/mL ophthalmic solution Use 1 Drop in both eyes every 12 hours. Taking Yes AMLODIPINE BESYLATE, BULK, MISC Take 5 mg by mouth once daily. Taking Yes DULoxetine (CYMBALTA) 60 mg capsule Take 120 mg by mouth once daily. Taking Yes tamsulosin (FLOMAX) 0.4 mg Take 0.4 mg by mouth once daily. Taking Yes MULTIVITAMIN TAB Take one(1) tablet daily. Taking Yes acetaminophen(TYLENO L EXTRA STRENGTH 500 MG TAB) Take two(2) tablets every six(6) hours as needed for pain. Taking Yes No medication comments found. CURRENT ALLERGIES: ALLERGIES Allergen Reactions Mobic [Meloxicam] Mental Status Change Sleepiness COVID VACCINATION STATUS: Fully vaccinated REVIEW OF SYSTEMS: General: No weight loss, malaise or fevers. Neuro: No history of TIA's, stroke, P[employer]AP[employer] tumor, impaired sensorium, hemiplegia, paraplegia or quadraplegia. No neurological symptoms or problems. Respiratory: +KARINA Negative for Asthma, Bronchitis, COPD, Current cough, Tobacco Use, URI < 2 weeks Cardiovascular: +HTN Negative for Recent [place], Arrhythmia, CHF, Valvular Heart Disease, DVT/PE GI: No history of GI symptoms or problems. No history of esophageal varices, recent ascites, or ETOH greater than 2 drinks per day. : See HPI +BPH Negative for dysuria and hematuria Endocrine: No history of diabetes. Has not taken steroids within the past 30 days. No history of endocrinological symptoms or problems. Hematology: No history of bleeding or clotting disorder. Pt is not taking anti-coagulation or platelet medications. No history of hematological symptoms or problems. Oncology: See HPI Psych: +Depression Musculoskeletal: +L leg weakness, L shoulder pain. Skin: Negative for lesions, rash and itching. Objective PHYSICAL EXAM: VITALS: BP 150/90[Provider notified[ Pulse 60 Temp (Src) 97 (Temporal) Ht 5' 8.5 (1.74m) Wt 340 lb (154.2kg) SpO2 97% BMI 50.94 kg/(m2). General: Alert and oriented, No acute distress, Morbidly obese Skin: Normal color, no rash, no lesions. HEENT: EOM, pupils equal, round and reactive., No carotid bruits Cardiovascular: Normal S1 AND S2, no murmurs. Pulse regular. Lungs: Normal breath sounds, no wheezes or crackles. Extremities: No deformity, 1+ pitting edema in LEs bilaterally. Neurological: Normal cognition and motor skills. Gait not observed, in wheelchair. Pulses: Radial pulses; left 2+ / right 2+. Diagnostic tests reviewed for today's visit: Lab Value Units Date High Low HB 14.0 g/dL 2021 17.0 13.0 HCT 42.6 % 2021 51.0 39.0 WBC 6.60 k/uL 2021 11.00 3.70 PLT 242 k/uL 2021 400 150 NA 139 mmol/L 2021 144 136 K 4.3 mmol/L 2021 5.1 3.7 GLUC 105 mg/dL 2021 99 74 BUN 21 mg/dL 2021 24 9 CREAT 1.50 mg/dL 2021 1.22 0.73 CREAT 1.60 mg/dL 2021 1.4 0.7 PTSEC 10.9 sec 2021 13.0 9.7 INR 1.0 no uni* 2021 1.3 0.9 (more content not included)... Normal [facility] HISTORY PHYSICAL HNO ID: [id number] Author: Everton Abad MD Service: ? Author Type: Physician Type: HANDP Filed: 2021 1:47 PM Note Text: Chief Complaint: Renal neoplasm History of Present Illness: Some aspects copied from prior note but reassessed today. 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 Review of Systems: REVIEW OF SYSTEMS: GENERAL: Negative for weight loss, fevers, chills, or night sweats. HEENT: Negative for sudden vision or hearing changes. RESPIRATORY: Negative for cough or shortness of breath. CARDIAC: Negative for chest pain, COPD, dyspnea, palpitations, murmurs, or syncopal episodes. GASTROINTESTINAL: Negative for trouble swallowing, heartburn, change in bowel habits, blood in stool, and dark black stools. GENITOURINARY: See HPI MUSCULAR: Negative for limitations in movement, pain, or swelling. NEUROLOGIC: Negative for dizziness, headache, weakness or numbness. HEMATOLOGIC: Negative for bleeding or easy bruising. SKIN: Negative for rashes or other skin changes. LYMPHATIC: No masses noted. EXTREMITIES: No swelling of extremities. Allergies: Allergies: No Known Allergies Physical Exam: BP 130/73 Pulse 73 Ht 175.3 cm (5' 9 ) Wt (!) 156.9 kg (346 lb) BMI 51.10 kg/m? Constitutional: Well appearing, alert, in no acute distress and well-hydrated, well nourished Skin: Skin color, texture, turgor normal, no suspicious rashes or lesions Eyes: Normocephalic, no masses, lesions, tenderness or abnormalities Neuro: Supple, no adenopathy; thyroid symmetric, normal size, no bruits Respiratory: Clear to auscultation bilaterally, no wheezing or rhonchi Cardiovascular: RRR without murmur, gallop, or rubs. No ectopy Gastrointestinal: Normal abdominal exam, Abdomen soft, non-tender. Bowel sounds normal. No masses, organomegaly Musculoskeletal: Extremities normal. No deformities, edema, or skin discoloration. Good capillary refill. Genitourinary: Deferred Labs and Pathology: No results found for: CREAT URINALYSIS: Specific [place], Ur Date Value Ref Range Status 10/02/2021 1.015 1.005 - 1.030 Final Glucose, Urine Date Value Ref Range Status 10/02/2021 Negative Negative Final Bilirubin, Urine Date Value Ref Range Status 10/02/2021 Negative Negative Final Ketones, Urine Date Value Ref Range Status 10/02/2021 Negative Negative Final Hemoglobin/Blood,Ur Date Value Ref Range Status 10/02/2021 Negative Negative Final Protein, Urine Date Value Ref Range Status 10/02/2021 Negative Negative Final Nitrites Date Value Ref Range Status 10/02/2021 Negative Negative Final Imaging: N/A Assessment: This is a 70 year old male with right renal mass that was biopsied and showed renal cell carcinoma, papillary subtype grade group 2. Plan: - Right robot assisted partial nephrectomy on 10/29/21 - CT chest, CBC, BMP today Normal [facility] PT panel Coag (PPP)on 2021 INR Coag (PPP) [Relative time] 1.0 {INR} Normal 0.9-1.[address] [facility] Comment on above: Order Comment: Speci men Type: BLOOD SPECIMENOrdering Facility: [facility] Address: [address] [place] [address] Result Comment: Alisa min K Antagonist (VKA) Therapeutic Range: INR 2 to 3 (Target INR of 2.5) Note: For patients treated with VKA drugs, such as warfarin, the [place] [employer] 2012 Guideline recommends a therapeutic INR range of 2 to 3 (target INR of 2.5). This recommendation includes high-risk patients with antiphospholipid syndrome with previous arterial or venous thromboembolism, current-generation mechanical or bioprosthetic aortic heart valve replacement. Note: Patients with mechanical aortic valve replacement and additional risk factors for thromboembolic events (atrial fibrillation, previous thromboembolism, LV dysfunction, hypercoagulable conditions) or an older generation mechanical AVR (i.e., ball in-Cage) or any mechanical MVR should have a INR therapeutic range of 2.5 to 3.5 (target INR of 3). Meagan GH, et al. Chest 2012, 141:7S-47S Mitch RA, et al. [facility] 2017, 70: 252-289 Performed By: #### 3 4528-0, 52605-3 ####[facility] LABCLIA [id number] [place] [address] [place] PT Coag (PPP) [Time] 10.9 s Normal 9.7-13.0 [facility] Comment on above: Order Comment: Speci men Type: BLOOD SPECIMENOrdering Facility: [facility] Address: [address] [place] [address] Performed By: #### 3 4528-0, 07524-4 ####[facility] LABCLIA [id number] [place] [address] [place] TYPE AND SCREEN,30 DAYon ABO O Normal [facility] Comment on above: Order Comment: Speci men Type: BLOOD SPECIMENOrdering Facility: [facility] Address: [address] [place] [address] Performed By: #### T SCR30 ####CC [facility] BLOOD BANKIA [id number] [place] HISTORICAL AB SCR STATUS Negative Normal [facility] Comment on above: Order Comment: Speci men Type: BLOOD SPECIMENOrdering Facility: [facility] Address: [address] [place], [place] [address] Performed By: #### T [id number] ####[facility] BANKCLIA [id number] [address] [place] Rh Nom (Bld) Positive Normal [facility] Comment on above: Order Comment: Speci men Type: BLOOD SPECIMENOrdering Facility: [facility] Address: [address] [place], [place] [address] Performed By: #### T SCR30 ####[facility] BLOOD BANKCLIA [id number] [address] [place] URINALYSIS, REFLEX MICROSCOP ICon 2021 Bilirubin Ql (U) Negative Normal Negative [facility] Comment on above: Order Comment: Speci men Type: URINE SPECIMENOrdering Facility: [facility] Address: [address] [place], [place] [address] Performed By: #### L [id number] ####[facility] Q7CLIA [id number] [address] [place] Clarity (Unsp spec) Clear Normal Clear [facility] Comment on above: Order Comment: Speci men Type: URINE SPECIMENOrdering Facility: [facility] Address: [address] [place], [place] [address] Performed By: #### L [id number] ####[facility] Q7CLIA [id number] [address] [place] Color (U) Light Yellow Normal Yellow [facility] Comment on above: Order Comment: Speci men Type: URINE SPECIMENOrdering Facility: [facility] Address: [address] [place], [place] [address] Performed By: #### L [id number] ####[facility] Q7CLIA [id number] [address] Glucose Test strip (U) [Mass/Vol] Negative Normal Negative [facility] Comment on above: Order Comment: Speci men Type: URINE SPECIMENOrdering Facility: [facility] Address: [address] [place] [address] Performed By: #### L [id number] ####[facility] Q7CLIA [id number] [address] Hemoglobin Ql (U) Negative Normal Negative [facility] Comment on above: Order Comment: Speci men Type: URINE SPECIMENOrdering Facility: [facility] Address: [address] [place], [place] [address] Performed By: #### L [id number] ####[facility] Q7CLIA [id number] [address] Ketones Ql (U) Negative Normal Negative [facility] Comment on above: Order Comment: Speci men Type: URINE SPECIMENOrdering Facility: [facility] Address: [address] [place], [place] [address] Performed By: #### L [id number] ####[facility] Q7CLIA [id number] [address] Leukocyte esterase Test strip Ql (U) Negative Normal [facility] [facility] Comment on above: Order Comment: Speci men Type: URINE SPECIMENOrdering Facility: [facility] Address: [address] [place], [place] [id number] Performed By: #### L [id number] ####[facility] Q7CLIA [id number] [place] [address] [place] Nitrite Ql (U) Negative Normal Negative [facility] Comment on above: Order Comment: Speci men Type: URINE SPECIMENOrdering Facility: [facility] Address: [address] [place] [address] Performed By: #### L [id number] ####[facility] Q7CLIA [id number] [place] [address] [place] pH (U) 6.0 [pH] Normal 5.0-8.[address] [facility] Comment on above: Order Comment: Speci men Type: URINE SPECIMENOrdering Facility: [facility] Address: [address] [place] [address] Performed By: #### L [id number] ####[facility] Q7CLIA [id number] [place] [address] [place] Protein (U) [Mass/Vol] Trace Abnormal Negative [facility] Comment on above: Order Comment: Speci men Type: URINE SPECIMENOrdering Facility: [facility] Address: [address] [place] [address] Performed By: #### L [id number] ####RE[facility] Q7CLIA [id number] [place] [address] [place] Specific gravity (U) [Rel density] 1.023 Normal 1.005-1.[address] [facility] Comment on above: Order Comment: Speci men Type: URINE SPECIMENOrdering Facility: [facility] Address: [address] [place] [address] Performed By: #### L [id number] ####[facility] Q7CLIA [id number] [place] [address] [place] Urobilinogen Ql (U) Negative Normal Negative [facility] Comment on above: Order Comment: Speci men Type: URINE SPECIMENOrdering Facility: [facility] Address: [address] [place] [address] Performed By: #### L [id number] ####RE[facility] LAB Q7CLIA [id number] [place] [address] [place] Bilirubin Ql (U) Negative Negative [facility] Clarity (Unsp spec) Clear Clear [facility] Color (U) Light Yellow Yellow [facility] Glucose Test strip (U) [Mass/Vol] Negative Negative [facility] Hemoglobin Ql (U) Negative Negative [facility] Ketones Ql (U) Negative Negative [facility] Leukocyte esterase Test strip Ql (U) Negative Negative [facility] Nitrite Ql (U) Negative Negative [facility] pH (U) 6.0 [pH] 5.0 - 8.0 [facility] Protein (U) [Mass/Vol] Trace Abnormal Negative Cl [facility] Specific gravity (U) [Rel density] 1.023 1.005 - 1.030 [facility] Urobilinogen Ql (U) Negative Negative [facility] aPTT PPPon 2021 aPTT Coag (PPP) [Time] 29.3 s Normal 23.0-32.4 [facility] Comment on above: Order Comment: Speci men Type: BLOOD SPECIMENOrdering Facility: [facility] Address: [address] [place] [address] Performed By: #### 3 4528-0, 03386-5 ####[facility] LABCLIA [id number] [address] OF [facility] CNOVon 10-02-2021 CNOV Office Visit (UROLMN) VICTOR M NI ([id number]) 1950 M Date Time Provider Department 10/02/21 3:00 PM MAR ELLIS During your visit today, we recorded the following information about you: Pulse Blood pressure Weight Height 73/minute 130/73 156.9 kg 1.753 m Mar Ellis MD 10/10/2021 8:27 PM Signed Chief Complaint: Renal neoplasm History of Present Illness: Victor M Ni is a very pleasant 70 year old male who presents with right renal mass found to be renal cell carcinoma, papillary type on renal mass biopsy RCC Snapshot: Age at diagnosis: 70 Gender: male Date of radiographic diagnosis: 11/18/2020 Preop GFR: Unknown Clinical: Cystic Mass: No Tumor size: (maximum tumor diameter in cm): (cm): 5.5cm Stage: [id number] RMB: Date of biopsy: (MM/DD/YYYY, please provide best estimate): 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 Review of Systems: REVIEW OF SYSTEMS: GENERAL: Negative for weight loss, fevers, chills, or night sweats. HEENT: Negative for sudden vision or hearing changes. RESPIRATORY: Negative for cough or shortness of breath. CARDIAC: Negative for chest pain, COPD, dyspnea, palpitations, murmurs, or syncopal episodes. GASTROINTESTINAL: Negative for trouble swallowing, heartburn, change in bowel habits, blood in stool, and dark black stools. GENITOURINARY: See HPI MUSCULAR: Negative for limitations in movement, pain, or swelling. NEUROLOGIC: Negative for dizziness, headache, weakness or numbness. HEMATOLOGIC: Negative for bleeding or easy bruising. SKIN: Negative for rashes or other skin changes. LYMPHATIC: No masses noted. EXTREMITIES: No swelling of extremities. Allergies: Allergies: No Known Allergies Physical Exam: BP 130/73 Pulse 73 Ht 175.3 cm (5' 9 ) Wt (!) 156.9 kg (346 lb) BMI 51.10 kg/m? Constitutional: Well appearing, alert, in no acute distress and well-hydrated, well nourished Skin: Skin color, texture, turgor normal, no suspicious rashes or lesions Eyes: Normocephalic, no masses, lesions, tenderness or abnormalities Neuro: Supple, no adenopathy; thyroid symmetric, normal size, no bruits Respiratory: no wheezing or rhonchi Cardiovascular: RRR without murmur, gallop, or rubs. No ectopy Gastrointestinal: Normal abdominal exam, Abdomen soft, non-tender. Bowel sounds normal. No masses, organomegaly Musculoskeletal: Extremities normal. No deformities, edema, or skin discoloration. Good capillary refill. Genitourinary: Deferred Labs and Pathology: No results found for: CREAT URINALYSIS: Specific [place], Ur Date Value Ref Range Status 10/02/2021 1.015 1.005 - 1.030 Final Glucose, Urine Date Value Ref Range Status 10/02/2021 Negative Negative Final Bilirubin, Urine Date Value Ref Range Status 10/02/2021 Negative Negative Final Ketones, Urine Date Value Ref Range Status 10/02/2021 Negative Negative Final Hemoglobin/Blood,Ur Date Value Ref Range Status 10/02/2021 Negative Negative Final Protein, Urine Date Value Ref Range Status 10/02/2021 Negative Negative Final Nitrites Date Value Ref Range Status 10/02/2021 Negative Negative Final Imaging: N/A Assessment: This is a 70 year old male with right renal mass that was biopsied and showed renal cell carcinoma, papillary subtype grade group 2. Plan: - Patient will need a PACC visit - Will schedule patient for a right partial robotic nephrectomy - Cannot be scheduled 11/10 - 11/14 - CT chest, CBC, BMP Edie Luz, FRICTION PAINT MACHINE TENDER.TRAVEL SPECIALIST Scribed for Dr. Mar Ellis by Sky Barry electromedical equipment technician, on October 02, 2021. I agree with the Chief Complaint, ROS, and Past Histories independently gathered by the clinical desktop support consultant including scribe and or medical student and or SHADY and or resident or fellow and the remaining scribed note accurately describes my personal service to the patient. Mar Ellis MD, MS [facility] Referring Provider: MAR ELLIS [[id number]] Allergies As of Date: 10/02/2021 (No Known Allergies) Date Reviewed: 10/02/2021 Reviewed by: Kathleen Lynch MA - Fully Assessed Reason for Visit: Consult [173] Primary Visit Diagnosis:Renal mass [N28.89] Order(s):CT CHEST W IVCON [[id number]] Order #: [id number] FUTURE [] iv contrast (will be provided with radiology t (more content not included)... Normal [facility] URINALYSIS, REFLEX MICROSCOP ICon 10-02-2021 Bilirubin Ql (U) Negative Normal Negative [facility] Comment on above: Order Comment: Speci men Type: URINE SPECIMENOrdering Facility: [facility] Address: [address] [place], [place] [id number] Performed By: #### L [id number] ####[facility] Q7CLIA [id number] [place] [address] [place] Clarity (Unsp spec) Clear Normal Clear [facility] Comment on above: Order Comment: Speci men Type: URINE SPECIMENOrdering Facility: [facility] Address: [address] [place], [place] [id number] Performed By: #### L [id number] ####[facility] Q7CLIA [id number] [address] STATES OF [facility] Color (U) Yellow Normal Yellow [facility] Comment on above: Order Comment: Speci men Type: URINE SPECIMENOrdering Facility: [facility] Address: [address] [place], [place] [id number] Performed By: #### L [id number] ####[facility] Q7CLIA [id number] [place] [address] [place] Glucose Test strip (U) [Mass/Vol] Negative Normal Negative [facility] Comment on above: Order Comment: Speci men Type: URINE SPECIMENOrdering Facility: [facility] Address: [address] [place], [place] [id number] Performed By: #### L [id number] ####[facility] Q7CLIA [id number] [place] [address] [place] Hemoglobin Ql (U) Negative Normal Negative [facility] Comment on above: Order Comment: Speci men Type: URINE SPECIMENOrdering Facility: [facility] Address: [address] [place], [place] [phone] Performed By: #### L [id number] ####[facility] Q7CLIA [id number] [place] [address] [place] Ketones Ql (U) Negative Normal Negative [facility] Comment on above: Order Comment: Speci men Type: URINE SPECIMENOrdering Facility: [facility] Address: [address] [place], [place] [id number] Performed By: #### L [id number] ####[facility] Q7CLIA [id number] [place] [address] [place] Leukocyte esterase Test strip Ql (U) Negative Normal Negative [facility] Comment on above: Order Comment: Speci men Type: URINE SPECIMENOrdering Facility: [facility] Address: [address] [place], [place] [phone] Performed By: #### L [id number] ####[facility] Q7CLIA [id number] [place] [address] [place] Nitrite Ql (U) Negative Normal Negative [facility] Comment on above: Order Comment: Speci men Type: URINE SPECIMENOrdering Facility: [facility] Address: [address] [place], [place] [id number] Performed By: #### L [id number] ####[facility] Q7CLIA [id number] [place] [address] [place] pH (U) 5.5 [pH] Normal 5.0-8.[address] [facility] Comment on above: Order Comment: Speci men Type: URINE SPECIMENOrdering Facility: [facility] Address: [address] [place], [place] [id number] Performed By: #### L [id number] ####[facility] Q7CLIA [id number] [place] [address] [place] Protein (U) [Mass/Vol] Negative Normal Negative [facility] Comment on above: Order Comment: Speci men Type: URINE SPECIMENOrdering Facility: [facility] Address: [address] [place], [place] [id number] Performed By: #### L [id number] ####[facility] Q7CLIA [id number] [place] [address] Specific gravity (U) [Rel density] 1.015 Normal 1.005-1.[address] [facility] Comment on above: Order Comment: Speci men Type: URINE SPECIMENOrdering Facility: [facility] Address: [address] [place] [address] Performed By: #### L [id number] ####[facility] Q7CLIA [id number] [address] [place] Urobilinogen Ql (U) Negative Normal Negative [facility] Comment on above: Order Comment: Speci men Type: URINE SPECIMENOrdering Facility: [facility] Address: [address] [place] [address] Performed By: #### L [id number] ####[facility] Q7CLIA [id number] [address] STATES OF [facility] Bilirubin Ql (U) Negative Negative [facility] Clarity (Unsp spec) Clear Clear [facility] Color (U) Yellow Yellow [facility] Glucose Test strip (U) [Mass/Vol] Negative Negative [facility] Hemoglobin Ql (U) Negative Negative [facility] Ketones Ql (U) Negative Negative [facility] Leukocyte esterase Test strip Ql (U) Negative Negative [facility] Nitrite Ql (U) Negative Negative [facility] pH (U) 5.5 [pH] 5.0 - 8.0 [facility] Protein (U) [Mass/Vol] Negative Negative [facility] Specific gravity (U) [Rel density] 1.015 1.005 - 1.030 [facility] Urobilinogen Ql (U) Negative Negative [facility] BRIEF OP NOTon 08-27-2021 BRIEF OP NOT HNO ID: [id number] Author: Bishop Roche MD Service: Radiology Author Type: Physician Type: Brief Op Note Filed: 08/27/2021 3:00 PM Note Text: BRIEF OPERATIVE / PROCEDURE NOTE LOG ID: [id number] SURGERY/PROCEDURE DATE: 08/27/2021 INCISION/PROCEDURE START TIME: 2:16 PM INCISION CLOSE/PROCEDURE END TIME: 2:45 PM SURGEON(S)/PROCEDURA LIST(S) AND PRODUCT DEVELOPMENT CHEMIST(S): Surgeon(s) and Role: * Bishop Roche MD - Primary No Additional Staff SURGERY/PROCEDURE(S) : US-guided right renal mass biopsy ANESTHESIA: Procedural Sedation FINDINGS: Right renal mass ESTIMATED BLOOD LOSS: 0 ml SPECIMENS: 4 core biopsies obtained and sent to pathology COMPLICATIONS: None PRE-OP/PRE-PROCEDURE DIAGNOSIS: Right renal mass POST-OP/POST-PROCEDU RE DIAGNOSIS: Same as Preop SIGNATURE: Bishop Roche MD PATIENT NAME: Victor M Ni DATE: August 27, 2021 TIME: 2:59 PM Pager: [phone] [facility] CBC panel Auto (Bld)on 08-27 Erythrocyte distribution width (RBC) [Ratio] 12.7 % Normal 11.5-15.[address] [facility] Comment on above: Order Comment: Speci men Type: BLOOD SPECIMENOrdering Facility: [facility] Address: [address] [place] [address] Performed By: #### 5 8410-2 ####[facility] LABCLIA [id number] [place] [address] [place] Hematocrit (Bld) [Volume fraction] 43.9 % Normal 39.0-51.[address] [facility] Comment on above: Order Comment: Speci men Type: BLOOD SPECIMENOrdering Facility: [facility] Address: [address] [place] [address] Performed By: #### 5 8410-2 ####[facility] LABCLIA [id number] [place] [address] [place] Hemoglobin (Bld) [Mass/Vol] 14.5 g/dL Normal 13.0-17.[address] [facility] Comment on above: Order Comment: Speci men Type: BLOOD SPECIMENOrdering Facility: [facility] Address: [address] [place] [address] Performed By: #### 5 8410-2 ####[facility] LABCLIA [id number] [place] [address] [place] MCH (RBC) [Entitic mass] 31.5 pg Normal 26.0-34.[address] [facility] Comment on above: Order Comment: Speci men Type: BLOOD SPECIMENOrdering Facility: [facility] Address: [address] [place] [address] Performed By: #### 5 8410-2 ####[facility] LABCLIA [id number] [address] [place] MCHC (RBC) [Mass/Vol] 33.0 g/dL Normal 30.5-36.0 [facility] Comment on above: Order Comment: Speci men Type: BLOOD SPECIMENOrdering Facility: [facility] Address: [address] [place] [address] Performed By: #### 5 8410-2 ####[facility] LABCLIA [id number] [address] [place] MCV (RBC) [Entitic vol] 95.2 fL Normal 80.0-100.[address] [facility] Comment on above: Order Comment: Speci men Type: BLOOD SPECIMENOrdering Facility: [facility] Address: [address] [place] [address] Performed By: #### 5 8410-2 ####[facility] LABCLIA [id number] [place] [address] [place] Nucleated RBC (Bld) [#/Vol] 10*3/uL Normal <0.[address] [facility] Comment on above: Order Comment: Speci men Type: BLOOD SPECIMENOrdering Facility: [facility] Address: [address] [place], [place] [address] Performed By: #### 5 8410-2 ####[facility] LABCLIA [id number] [address] [place] Platelet mean volume (Bld) [Entitic vol] 10.7 fL Normal 9.0-12.[address] [facility] Comment on above: Order Comment: Speci men Type: BLOOD SPECIMENOrdering Facility: [facility] Address: [address] [place] [address] Performed By: #### 5 8410-2 ####[facility] LABCLIA [id number] [place] [address] [place] Platelets (Bld) [#/Vol] 209 10*3/uL Normal 150-[address] [facility] Comment on above: Order Comment: Speci men Type: BLOOD SPECIMENOrdering Facility: [facility] Address: [address] [place] [address] Performed By: #### 5 8410-2 ####[facility] LABIA [id number] [place] [address] [place] RBC (Bld) [#/Vol] 4.61 10*6/uL Normal 4.20-6.00 [facility] Comment on above: Order Comment: Speci men Type: BLOOD SPECIMENOrdering Facility: [facility] Address: [address] [place] [address] Performed By: #### 5 8410-2 ####[facility] LABIA [id number] [address] [place] [facility] WBC (Bld) [#/Vol] 6.71 10*3/uL Normal 3.70-11.00 [facility] Comment on above: Order Comment: Speci men Type: BLOOD SPECIMENOrdering Facility: [facility] Address: [address] [place] [address] Performed By: #### 5 8410-2 ####[facility] LABIA [id number] [address] [place] HISTORY PHYSICALon HISTORY PHYSICAL HNO ID: [id number] Author: Mike Street MD Service: Radiology Author Type: Resident Type: HANDP Filed: 08/27/2021 1:59 PM Note Text: Attestation signed by Bishop Roche MD at 08/27/2021 3:01 PM Radiology Attending Note I evaluated the patient and personally participated in the lobato components. I agree with the resident's findings and plan as documented and have discussed the case and management of the patient's care with the resident. Signature: Bishop Roche MD Date: 08/27/2021 Time: 3:01 PM RADIOLOGY PROCEDURAL SEDATION HISTORY AND PHYSICAL EXAM SERVICE DATE: 08/27/2021 SERVICE TIME: 1334 Subjective HPI: This is a 70 year old male who presents with indeterminate right renal lesion. PROCEDURE SCHEDULED: Procedure(s) with comments: BIOPSY KIDNEY PERCUTANEOUS (N/A) - US BIOPSY RIGHT RENAL MASS / DR. MORIN / LABS- TO BE DRAWN / RADIOLOGY ORDER PLACED: PAST ANESTHESIA HISTORY: No history of adverse event No past medical history on file. No past surgical history on file. Prior to Admission medications as of 08/27/21 1320 Medication Sig Last Dose Taking AMLODIPINE BESYLATE, BULK, MISC 08/27/2021 at Unknown time Yes DULoxetine (CYMBALTA) 60 mg capsule Take 60 mg by mouth once daily. 08/26/2021 at Unknown time Yes tamsulosin (FLOMAX) 0.4 mg Take 0.4 mg by mouth once daily. 08/27/2021 at Unknown time Yes MULTIVITAMIN TAB Take one(1) tablet daily. 08/27/2021 at Unknown time Yes acetaminophen(TYLENO L EXTRA STRENGTH 500 MG TAB) Take two(2) tablets every six(6) hours as needed for pain. Yes lisinopril(PRINIVIL 10 MG TAB) Take one(1) tablet daily. CITALOPRAM 20 MG TAB lidocaine(LIDODERM 5 % (700 MG/PATCH) ADHESIVE PATCH) Apply one(1) patch to affected area once daily. Remove patch after 12 hours. ALLERGIES No Known Allergies Objective PHYSICAL EXAM: The remainder of the physical exam is noncontributory. AIRWAY: Airway Visualization of Uvula: No (See Comment) (Mallampatti 3) Mouth opening greater than 2 fingerbreadths: Yes Neck Full Range of Motion: Yes LUNGS: Lungs clear to auscultation, Good diaphragmatic excursion CARDIAC: Normal S1 and S2; no rubs, murmurs, or gallops Assessment/Plan ASA Class: ASA Class:: Patient with mild systemic disease Provisional Diagnosis/Treatment Plan: Indeterminate right renal lesion. SEDATION GOAL: Moderate SIGNATURE: Mike Street MD PATIENT NAME: Victor M Ni DATE: August 27, 2021 TIME: 1:35 PM Normal [facility] NURSING PROGon 08-27-2021 NURSING PROG HNO ID: [id number] Author: Romi Garcia LPN Service: ? Author Type: LICENSED NURSE Type: Nursing Progress Note Filed: 08/28/2021 8:22 AM Note Text: Completed post procedure phone call. Patient is feeling well and has returned to his baseline diet and activity. Denies questions or concerns related to biopsy appointment on 08/27/21 and had no surgical site concerns. Normal [facility] PT EDon 08-27-2021 PT ED HNO ID: [id number] Author: Mandy Knutson RN Service: Radiology Author Type: Registered Nurse Type: Patient Education Filed: 08/27/2021 1:57 PM Note Text: AMBULATORY PATIENT EDUCATION TOPIC: HEALTH PROMOTION: Follow up management READINESS TO LEARN COGNITIVE ABILITY: Alert and oriented MOTIVATION TO LEARN: Eager Interested FAMILY SUPPORT: None - Unavailable/disinter ested INSTRUCTION PROVIDED TO: Patient PATIENT LEARNS BEST BY: Individual Instruction FACTORS AFFECTING LEARNING: None PHYSICAL LIMITATIONS AFFECTING LEARNING: None LEARNING RESPONSE DIAGNOSIS: Right renal mass biopsy METHOD OF INSTRUCTION: Individual instruction PATIENT / FAMILY RESPONSE: Verbalizes understanding of: POST-PROCEDURE INSTRUCTIONS-Correct actions to take to reduce post procedure complications FOLLOW-UP PLAN: Follow up phone call. SUPPLEMENTAL MATERIAL: None REFERRAL (RECOMMENDATION): None Electronically Signed By Mandy Knutson RN In Department: HOSP MAIN [id number] Normal [facility] PT panel Coag (PPP)on 2021 INR Coag (PPP) [Relative time] 1.1 {INR} Normal 0.9-1.[address] [facility] Comment on above: Order Comment: Speci cooper Type: BLOOD SPECIMENOrdering Facility: [facility] Address: [address] [place], [place] [id number] Result Comment: Alisa min K Antagonist (VKA) Therapeutic Range: INR 2 to 3 (Target INR of 2.5) Note: For patients treated with VKA drugs, such as warfarin, the [employer] [employer] 2012 Guideline recommends a therapeutic INR range of 2 to 3 (target INR of 2.5). This recommendation includes high-risk patients with antiphospholipid syndrome with previous arterial or venous thromboembolism, current-generation mechanical or bioprosthetic aortic heart valve replacement. Note: Patients with mechanical aortic valve replacement and additional risk factors for thromboembolic events (atrial fibrillation, previous thromboembolism, LV dysfunction, hypercoagulable conditions) or an older generation mechanical AVR (i.e., ball in-Cage) or any mechanical MVR should have a INR therapeutic range of 2.5 to 3.5 (target INR of 3). Meagan GH, et al. Chest 2012, 141:7S-47S Mitch RA et al. [facility] 2017, 70: 252-289 Performed By: #### 3 4528-0 ####[facility] LABCLIA [id number] [address] [place] [facility] PT Coag (PPP) [Time] 11.3 s Normal 9.7-13.0 [facility] Comment on above: Order Comment: Liam gamboa Type: BLOOD SPECIMENOrdering Facility: [facility] Address: [address] [place] [address] Performed By: #### 3 4528-0 ####[facility] LABCLIA [id number] [address] OF [facility] SURGICAL PATHOLOGYon 022 CASE REPORT Normal [facility] Comment on above: Order Comment: Speci men Type: TISSUE SPECIMENOrdering Facility: [facility] Address: [address] [place] [address] Result Comment: Surg ica Pathology Report Case: [id number] Authorizing Provider: Erasmo Hackett MD, PhD Collected: 08/27/2021 02:19 PM Ordering Location: [place] [address] Received: 08/27/2021 05:38 PM Pathologist: Armando Parmar MD Specimen: [id number] MASS BIOPSY RIGHT Performed By: #### S ####[facility] LABCLIA [id number] [address] CLINICAL HISTORY Indeterminate right renal mass. Normal [facility] Comment on above: Order Comment: Speci men Type: TISSUE SPECIMENOrdering Facility: [facility] Address: [address] [place] [address] Performed By: #### S ####[facility]CLIA [id number] [address] FINAL DIAGNOSIS Normal 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 JOSE 08/28/2021 Performed By: #### S ####[facility]IA [id number] [address] OF [facility] FINAL PERFORMING LAB Normal [facility] Comment on above: Order Comment: Speci men Type: TISSUE SPECIMENOrdering Facility: [facility] Address: [address] [place], [place] [id number] Result Comment: Diag nostic interpretation performed at [facility], [address] [place] [address] CLIA# [id number] Director Of Extension Work: Matheus Echols M.D. Performed By: #### S ####[facility] LABIA [id number] [address] GROSS DESCRIPTION Normal [facility] Comment on above: Order Comment: Speci men Type: TISSUE SPECIMENOrdering Facility: [facility] Address: [address] [place] [address] Result Comment: Rahul RUBY MASS BIOPSY RIGHT. Received in formalin on Telfa gauze are multiple segments of cylindrical tissue aggregating to 1.5 x 0.9 x 0.1 cm, meredith and of a soft and friable consistency. Totally submitted in one cassette. Gross examination performed at [facility], [address] [place] [address] FFS 08/27/2021 9:51 PM Performed By: #### S ####[facility] [id number] [address] STATES OF [facility] US BIOPSY RENALon 08-27-2021 US BIOPSY RENAL * * *Final Report* * * DATE OF EXAM: Aug 27 2021 2:48PM [facility] 1070 - US BIOPSY RENAL / PROCEDURE REASON: Right renal mass [N28.89] * * * * Physician Interpretation * * * * PROCEDURE PERFORMED: ULTRASOUND GUIDED RIGHT RENAL MASS BIOPSY ON 08/27/2021 PRE-PROCEDURE DIAGNOSIS: Right renal mass POST-PROCEDURE DIAGNOSIS: Right renal mass INDICATION FOR PROCEDURE: The patient is a 70 years old Male who presents with a right renal mass. STAFF RADIOLOGIST: Dr. Roche PRODUCT DEVELOPMENT CHEMIST(S): None CONSENT: The risks, benefits, treatment options, potential complications and personnel involved were discussed with the patient. All questions were answered and consent was obtained. The patient indicated he was willing to proceed. The staff physician personally verified consent. TIME OUT: A time out was performed immediately prior to procedure start with the nursing, anesthesia and interventional team, correctly identifying the patient name, date of , procedure, anatomy (including marking of site and side), patient position, procedure consent form, relevant diagnostic and radiology test results, antibiotic administration, safety precautions, and procedure-specific equipment needs. RESULT: PROCEDURE: After performing the time out, the right renal mass was localized with ultrasound, images were obtained and archived. The right flank was prepped and draped in the usual sterile fashion. Under direct ultrasound guidance, 4 passes were made into the lesion using an 18 gauge cutting needle. The procedure was performed by the: attending radiologist, without an access services assistant. The attending radiologist performed the following procedural activities: Entire procedure ANESTHESIA/SEDATION: Conscious sedation was achieved using 1 mg of versed and 50 mcg of fentanyl intravenously. Local anesthesia was achieved utilizing 15 cc 1% percent lidocaine. Vital signs were monitored by the nurse. START TIME/TIMEOUT TIME: 1408 END TIME: 1445 INTRA-SERVICE (SEDATION) TIME: 37 minutes PATIENT MONITORING: The staff physician personally supervised and directed an independent trained observer who assisted in monitoring the patient?s level of consciousness and physiological status throughout the procedure. COMPLICATIONS: None SIGN-OUT DISCUSSION: Completed ESTIMATED BLOOD LOSS: None SPECIMENS: 4 core biopsy specimen(s) was/were placed in formalin and sent to pathology BIOPSY DEVICE: 18 gauge Biopinc core biopsy needle. IMPRESSION: ULTRASOUND GUIDED BIOPSY DESCRIBED v 1.3.17 Customer Sales Specialist: CLARITZA Transcribe Date/Time: Aug 27 2021 3:08P Dictated by : BISHOP ROCHE MD This examination was interpreted and the report reviewed and electronically signed by: BISHOP ROCHE MD on Aug 27 2021 3:24PM EST [id number] Normal [facility] NURSING PROGon 08-25-2021 NURSING PROG HNO ID: [id number] Author: Romi Garcia LPN Service: ? Author Type: LICENSED NURSE Type: Nursing Progress Note Filed: 08/25/2021 9:51 AM Note Text: Pre- e instructions: Contacted patient's [place] and confirmed appt. for biopsy scheduled on 08/27/21, at [facility]. Diet: Do not eat solid food after midnight the night before your procedure. You may have water until your arrival time. Medications: IF ok with your Prescribing Provider: RADIOLOGY RECOMMENDS THESE MEDICATION RESTRICTIONS : None Labs: Arrive to - lab at 11:45am Arrival: Please bring your Photo ID and Insurance Card. A general consent may need to be signed. Arrival at 12:15pm to desk QB[facility] ([facility]) and check in for your procedure. Wine Cellar Stock Clerk/Transportatio n: How will you be arriving for your procedure? Private car. If you will be arriving at [facility] via ambulance or public transportation, please call to discuss. You will need a responsible adult to accompany you to and from the procedure. Your cdl company flatbed driver is required to stay with you until you are taken into the Procedure room. [facility] is currently restricting visitors to one visitor per patient. No visitor under the age of 16. You and your visitor will be screened for temperature and COVID-19 symptoms upon entry to the hospital, and a wristband will be applied when cleared. If you develop any of the following symptoms before your procedure, please call [phone]. Chills, joint pain, rash, sore throat, cough, loss of smell, reddened eyes, vomiting, abdominal pains, diarrhea, loss of taste, severe headache, weakness, bruising or bleeding, fever, muscle pain, shortness of breath Recovery expectations: You can expect to be at the hospital for the majority of the day. Please do not schedule any other appointments the day of your procedure. Special concerns: Do you use CPAP or BPAP? Yes Written instructions provided to patient via: declined If you have any questions please call [phone] ' Normal [facility] N[facility]20[facility] VICTOR M NI ([id number]) 1950 M Date Time Provider Department 08/19/21 MTAILDA BRUNSON During your visit today, we recorded the following information about you: Edie Villalobos 08/19/2021 1:38 PM Signed RADIOLOGY CALL CENTER INTAKE PAN TANK WORKER: EDIE EXT: 0000 DATE: 08.19.2021 TIME: 1.:26PM TRACKING #. [id number] REQUESTING PERSON: CONI Pagan PHONE/PAGER: [phone] REQUESTING STAFF: MATILDA BRUNSON PHONE/PAGER: [phone] SPECIFICS OF THE REQUEST: (Please be as detailed as possible. If request is lymph node biopsy, specify LOCATION of the node if possible): right renal biopsy (For example: ?biopsy liver mass? or ?biopsy pelvic lymph node?) SPECIAL REQUESTS: TISSUE SAMPLE, LABWORK: they will send in tissues -Fine needle aspiration (FNA), core biopsy, no preference, unsure, specific processing request for pathology (For example: ?send for ER, [place], HER2/niraj? or ?possible lymphoma send in RPMI solution?) IS THIS REQUEST PART OF A RESEARCH PROTOCOL: No IF YES: List specifics of request and name/contact number of research coordinator and primary physician. MEDICAL DIAGNOSIS: right renal mass (For example: ?history of breast cancer with liver mass? or ?history of lymphoma?) TYPE AND DATE OF THE EXAM THAT IS THE BASIS OF THE REQUEST: CT Date: 07.11.2019 and MRI Date: (Note: Requests for random organ biopsies, specifically liver and kidney random biopsies do not need imaging. ALL OTHER CASES NEED IMAGING TO EVALUATE APPROPRIATENESS/FEAS IBILITY OF THE REQUEST) IMAGING: OUTSIDE [facility] Films: Where is study now: push thought portal of [place] (If the imaging was obtained outside the [facility] system, then it needs to be submitted for review prior to approval.) Note to all persons requesting biopsies: All biopsy requests will be scheduled as quickly as possible, based on the clinical urgency, availability of appointment times, the need to hold anti-thrombolytic therapy (aspirin, blood thinners) and the patient?s schedule, including the need for an available cdl company flatbed driver. If a percutaneous biopsy or drainage is not felt to be safe or an alternative method for establishing a diagnosis is possible, this will be discussed directly with the requesting physician. Romi Garcia LPN 08/19/2021 4:13 PM Signed BX. COORDINATOR INFORMATION LAB RESULTS: No results found for: INR No results found for: APTT No results found for: PLT Current Outpatient Medications Medication Sig - lisinopril(PRINIVIL 10 MG TAB) Take one(1) tablet daily. - CITALOPRAM 20 MG TAB - MULTIVITAMIN TAB Take one(1) tablet daily. - acetaminophen(TYLENO L EXTRA STRENGTH 500 MG TAB) Take two(2) tablets every six(6) hours as needed for pain. - lidocaine(LIDODERM 5 % (700 MG/PATCH) ADHESIVE PATCH) Apply one(1) patch to affected area once daily. Remove patch after 12 hours. No current facility-administere d medications for this visit. ALLERGIES No Known Allergies FILMS SENT TO WORKSTATION: GUIDELINES FOR HOLDING ANTI-PLATELET AND ANTI- COAGULATION THERAPY: none on file NURSE SIGNATURE: Romi Garcia LPN DATE: August 19, 2021 TIME: 4:12 PM Titus Lange MD 08/19/2021 6:03 PM Signed RADIOLOGIST REQUEST / APPROVAL FORM STAFF RADIOLOGIST:Titus Lange MD PROCEDURE TO BE DONE UNDER: US PROCEDURE REQUESTED: CORE Requested PROCEDURE: Approved TIME SLOT NEEDED: 1 Hour NOTES: exo right renal mass )CT 07/10/21) SPECIAL LABS/ PROCESSING: none Pre-procedure labs: CBC: ordered INR: ordered COVID: ordered SIR Bleeding risk category for this procedure: intermediate-high risk. Reference from [facility] Windsurfing Instructor: [email or web address] STAFF SIGNATURE: Titus Lange MD DATE: August 19, 2021 TIME: 5:14 PM Afsaneh Espinal 08/21/2021 4:24 PM Signed No order, called Dr. Brunson office and Coni said she'd fax it. Fax did not come through. Afsaneh Espinal 08/22/2021 8:55 AM Signed Spoke to pt's and scheduled biopsy for 08/27/21. Allergies As of Date: 08/19/2021 (No Known Allergies) Date Reviewed: 07/19/2008 Reviewed by: Michael Stapleton - Reviewed Reason for Visit: Biopsy Request [1576] Primary Visit Diagnosis:Renal mass, right [N28.89] Order(s):CBC [SQCBC] Order #: [id number] FUTURE PROTHROMBIN TIME/PT [SQPT] Order #: [id number] FUTURE Prescriptions as of 08/22/2021 - lisinopril(PRINIVIL 10 MG TAB) Take one(1) tablet daily. - CITALOPRAM 20 MG TAB - MULTIVITAMIN TAB Take one(1) tablet daily. - acetaminophen(TYLENO L EXTRA STRENGTH 500 MG TAB) Take two(2) tablets every six(6) hours as needed for pain. - lidocaine(LIDODERM 5 % (700 MG/PATCH) ADHESIVE PATCH) Apply one(1) patch to affected area once daily. Remove patch after 12 hours. Problem List As Of Date 08/19/2021 Noted Resolved JOINT PAIN-ALVARO [M25.519] 07/20/2003 (more content not included)... Normal [facility] BUNon 07-10-2021 Urea nitrogen [Mass/Vol] 25.0 mg/dL Critically high 7.0-18.0 [facility] Comment on above: Performed By: #### C JOSEF BUN #### [facility] [address] [place] [address] Dr. Hemanth Meraz CREATININEon 07-10-2021 Creatinine [Mass/Vol] 1.66 mg/dL Critically high 0.70-1.30 [facility] Comment on above: Performed By: #### Juan BAHENA BUN #### [facility] [address] [place] [address] Dr. Hemanth Meraz EGFR-AF KAZAKH 50 mL/min/1.73m2 Critically low >=60 [facility] Comment on above: Performed By: #### Juan BAHENA, BUN #### [facility] [address] [place] [address] Dr. Hemanth Meraz EGFR-NON AF KAZAKH 41 mL/min/1.73m2 Critically low >=60 [facility] Comment on above: Performed By: #### Juan BAHENA, BUN #### [facility] [address] [place] [address] ABD/PELV W CONon 07-11-19 CT ABD/PELV W CON EXAMINATION: CT ABD/PELV W CON HISTORY: Disorder of kidney and/or ureter COMPARISON: CT abdomen 02/07/2021 TECHNIQUE: Axial, Coronal, and Sagittal images were created with IV contrast. Dose reduction techniques were achieved by using automated exposure control and/or adjustment of mA and/or kV according to patient size and/or use of iterative reconstruction technique. FINDINGS: LUNG BASES: No visible pulmonary or pleural disease. LIVER: No enlargement, atrophy, abnormal density, or significant focal lesion. BILIARY: A few tiny stones within noninflamed gallbladder. PANCREAS: No lesion, fluid collection, ductal dilatation, or atrophy. SPLEEN: No enlargement or focal lesion. ADRENALS: No mass or enlargement. KIDNEYS: Heterogeneous, hypoenhancing right renal mass, 5.5 x 4.1 x 4.5 cm. BOWEL/MESENTERY: No visible mass, obstruction, or bowel wall thickening. AORTA/VASCULAR: No aneurysm or dissection. RETROPERITONEUM: No mass or adenopathy. LYMPH NODES: No adenopathy. URINARY BLADDER: No visible focal wall thickening, lesion, or calculus. PELVIC ORGANS: No visible mass. Pelvic organs appropriate for patient age. ABDOMINAL WALL: No mass or hernia. BONES: T7-8 suspected mild compression fractures. L3-4 moderate degenerative disc disease. No visible bone lesion. OTHER: Negative. IMPRESSION: 1. Given the slight increase in size of the right renal mass and its overall heterogeneous appearance, I feel biopsy of the lesion is needed to exclude neoplasm. 2. Cholelithiasis. 3. Suspect mild compression fractures of T7 and T8 vertebral bodies; incompletely evaluated on today's study. Electronically authenticated by: BALDO GARCIA Date: 2021-07-10 10:03 Normal [facility] Studieson 018 Albumin (Body fld) [Mass/Vol] 4.1 gm/dL 3.2-5.5 [facility] Albumin/Globulin [Mass ratio] 1.2 {ratio} [facility] ALP [Catalytic activity/Vol] 61 U/L 32-92 [facility] ALT No additional P-5'-P [Catalytic activity/Vol] 26 U/L 10-60 [facility] AST [Catalytic activity/Vol] 26 U/L 10-42 [facility] Bilirubin [Mass/Vol] 1.4 mg/dL High 0.3-1.2 [facility] Comment on above: Samples from patient s who have taken Naproxen have shown spurious elevation in Total Bilirubin levels. A metabolite of Naproxen, O-desmethylnaproxen, has been shown to interfere with the Sandy method for measuring Total Bilirubin. Calcium [Mass/Vol] 9.8 mg/dL 8.2-10.2 [facility] Chloride [Moles/Vol] 99 mmol/L 95-114 [facility] CO2 [Moles/Vol] 24.9 mmol/L 22.0-30.0 [facility] Creatinine [Mass/Vol] 1.26 mg/dL 0.64-1.[address] [facility] Ethanol [Mass/Vol] mg/dL [facility] Ethanol [Mass/Vol] TNP [facility] Comment on above: Test not performed GFR/1.73 sq M predicted among blacks MDRD (S/P/Bld) [Vol rate/Area] mL/min/{1.73_m2} [facility] Comment on above: GFR estimated refere nce range: According to KDOQI guidelines, <60 ml/min/1.73m2 is sufficient to diagnose a patient with chronic kidney disease. GFR/1.73 sq M predicted among non-blacks MDRD (S/P/Bld) [Vol rate/Area] 57 mL/min/{1.73_m2} [facility] Globulin (S) [Mass/Vol] 3.5 g/dL [facility] Glucose [Mass/Vol] 94 mg/dL 70-100 [facility] Comment on above: ADA recommended refe rence range Random Glucose Reference Range is dependent on time and content of last meal. Glucose of more than 200 mg/dL in a nonstressed, ambulatory subject supports the diagnosis of Diabetes Mellitus. Pharmacy Creatinine Clearance (Chem [id number] [facility] Potassium [Moles/Vol] 3.5 mmol/L 3.5-5.[address] [facility] Protein [Mass/Vol] 7.6 g/dL 6.1-7.9 [facility] Sodium [Moles/Vol] 136 mmol/L 136-146 [facility] Urea nitrogen [Mass/Vol] 13 mg/dL 9-23 [facility] Basophils (Bld) [#/Vol] 0.0 10*3/uL 0.0-0.2 [facility] Basophils/100 WBC (Bld) 0.5 % [facility] Eosinophils (Bld) [#/Vol] 0.1 10*3/uL 0.0-0.45 [facility] Eosinophils/100 WBC (Bld) 0.8 % [facility] Erythrocyte distribution width (RBC) [Ratio] 13.0 % 12.0-14.8 [facility] Hematocrit (Bld) [Volume fraction] 43.7 % 38.8-50.0 [facility] Hemoglobin (Bld) [Mass/Vol] 15.1 g/dL 13.0-17.0 [facility] Lymphocytes (Bld) [#/Vol] 1.2 10*3/uL 1.00-4.8 [facility] Lymphocytes/100 WBC (Bld) 16.6 % [facility] MCH (RBC) [Entitic mass] 32.5 pg 27.5-35.2 [facility] MCHC (RBC) [Mass/Vol] 34.6 g/dL 32.5-35.[address] [facility] MCV (RBC) [Entitic vol] 94.0 fL 83.5-101 [facility] Monocytes (Bld) [#/Vol] 0.6 10*3/uL 0.0-0.8 [facility] Monocytes/100 WBC (Bld) 8.0 % [facility] Neutrophils (Bld) [#/Vol] 5.3 10*3/uL 1.8-7.7 [facility] Neutrophils/100 WBC (Bld) 74.1 % [facility] Platelet mean volume (Bld) [Entitic vol] 8.4 fL 6.6-10.1 [facility] Platelets (Bld) [#/Vol] 234 10*3/uL 150-450 [facility] RBC (Bld) [#/Vol] 4.65 10*6/uL 3.90-5.60 [facility] WBC (Bld) [#/Vol] 7.1 10*3/uL 4.1-10.5 [facility] Vital Signs Date Time Vital Sign Value Performing Clinician Faci lity 04-11-2024 07:22-0500 Body height 170.18 cm Susan Ballesteros PA-C Work Phone: [facility] 04-11-2024 07:22-0500 Body weight 127 kg Susan Favian PA-C Work Phone: [facility] 01-18-2024 15:19-0500 Blood Pressure Location SUSAN BALLESTEROS [facility] 01-18-2024 15:19-0500 Body temperature 98.6 [degF] SUSAN BALLESTEROS [facility] 01-18-2024 15:19-0500 Diastolic blood pressure 99 mm[Hg] SUSAN BALLESTEROS [facility] 01-18-2024 15:19-0500 Heart rate 51 /min SUSAN BALLESTEROS [facility] 01-18-2024 15:19-0500 Respiratory rate 18 /min SUSAN BALLESTEROS [facility] 01-18-2024 15:19-0500 Systolic blood pressure 142 mm[Hg] SUSAN BALLESTEROS [facility] 07-24-2022 18:27-0400 Hourly Rounding [facility] 07-24-2022 18:27-0400 Promise to Return [facility] 07-24-2022 17:09-0400 Hourly Rounding [facility] 07-24-2022 17:09-0400 Promise to Return [facility] 07-24-2022 16:01-0400 Hourly Rounding [facility] 07-24-2022 16:01-0400 Promise to Return Moi Fields [facility] 07-24-2022 15:29-0400 Heart rate 78 /min [facility] Bardales[facility] 07-24-2022 15:29-0400 SaO2% (BldA) [Mass fraction] 95 % [facility] 07-24-2022 15:28-0400 Diastolic blood pressure 88 mm[Hg] [facility] 07-24-2022 15:28-0400 Mean blood pressure 111 mm[Hg] [facility] 07-24-2022 15:28-0400 Systolic blood pressure 157 mm[Hg] [facility] 07-24-2022 15:27-0400 Body temperature 97.88 [degF] [facility] 07-24-2022 14:00-0400 Blood Pressure Location [facility] 07-24-2022 14:00-0400 Mean blood pressure 102 mm[Hg] [facility] 07-24-2022 14:00-0400 Respiratory rate 17 /min [facility] 07-24-2022 13:57-0400 Heart rate 63 /min [facility] 07-24-2022 13:57-0400 SaO2% (BldA) [Mass fraction] 97 % [facility] 07-24-2022 13:55-0400 Diastolic blood pressure 93 mm[Hg] [facility] 07-24-2022 13:55-0400 Mean blood pressure 115 mm[Hg] [facility] 07-24-2022 13:55-0400 Systolic blood pressure 159 mm[Hg] [facility] 07-24-2022 13:55-0400 Body temperature 97.88 [degF] [facility] 07-24-2022 13:00-0400 Respiratory rate 16 /min [facility] 07-24-2022 09:00-0400 Diastolic blood pressure 96 mm[Hg] [facility] 07-24-2022 09:00-0400 Systolic blood pressure 149 mm[Hg] [facility] 07-24-2022 07:56-0400 Heart rate 66 /min [facility] 07-24-2022 07:48-0400 Heart rate 66 /min [facility] 07-24-2022 07:48-0400 SaO2% (BldA) [Mass fraction] 97 % [facility] 07-24-2022 07:46-0400 Mean blood pressure 116 mm[Hg] [facility] 07-24-2022 07:45-0400 Body temperature 97.88 [degF] [facility] 07-23-2022 19:00-0400 Blood Pressure Location [facility] 07-23-2022 19:00-0400 Respiratory rate 17 /min [facility] 07-23-2022 09:44-0400 Heart rate 62 /min [facility] 07-22-2022 19:00-0400 Respiratory rate 20 /min [facility] 07-22-2022 08:08-0400 Heart rate 62 /min [facility] 07-22-2022 04:00-0400 Heart rate 66 /min [facility] 07-21-2022 21:59-0400 Heart rate 69 /min [facility] 07-21-2022 21:19-0400 Mean blood pressure 103 mm[Hg] [facility] 07-21-2022 21:19-0400 Respiratory rate 18 /min [facility] 07-21-2022 20:03-0400 Mean blood pressure 110 mm[Hg] [facility] 02-26-2022 10:13-0500 Body height 175 cm Matt Khan MD Work Phone: [facility] 02-26-2022 10:13-0500 Body temperature 97.59 [degF] Matt Khan MD Work Phone: [facility] 02-26-2022 10:13-0500 Body weight 162.21 kg Matt Khan MD Work Phone: [facility] 02-26-2022 10:13-0500 Diastolic blood pressure 85 mm[Hg] Matt Khan MD Work Phone: [facility] 02-26-2022 10:13-0500 Heart rate 79 /min Matt Khan MD Work Phone: [facility] 02-26-2022 10:13-0500 Respiratory rate 16 /min Matt Khan MD Work Phone: [facility] 02-26-2022 10:13-0500 SaO2% (BldA) [Mass fraction] 98 % Matt Khan MD Work Phone: [facility] 02-26-2022 10:13-0500 Systolic blood pressure 165 mm[Hg] Matt Khan MD Work Phone: [facility] 01-29-2022 10:31-0500 Body height 175 cm Matt Khan MD Work Phone: [facility] 01-29-2022 10:31-0500 Body temperature 97 [degF] Matt Khan MD Work Phone: [facility] 01-29-2022 10:31-0500 Body weight 155.58 kg Matt Khan MD Work Phone: [facility] 01-29-2022 10:31-0500 Diastolic blood pressure 92 mm[Hg] Matt Khan MD Work Phone: [facility] 01-29-2022 10:31-0500 Heart rate 70 /min Matt Khan MD Work Phone: [facility] 01-29-2022 10:31-0500 Respiratory rate 16 /min Matt Khan MD Work Phone: [facility] 01-29-2022 10:31-0500 SaO2% (BldA) [Mass fraction] 98 % Matt Khan MD Work Phone: [facility] 01-29-2022 10:31-0500 Systolic blood pressure 154 mm[Hg] Matt Khan MD Work Phone: [facility] 11-18-2021 15:35-0400 Diastolic blood pressure 77 mm[Hg] Mar Ellis MD Work Phone: [facility] 11-18-2021 15:35-0400 Heart rate 69 /min Mar Ellis MD Work Phone: [facility] 11-18-2021 15:35-0400 Systolic blood pressure 118 mm[Hg] Mar Ellis MD Work Phone: [facility] 2021 14:56-0400 Body height 174 cm Pacc 2 Work Phone: [facility] 2021 14:56-0400 Body temperature 97 [degF] Pacc 2 Work Phone: [facility] 2021 14:56-0400 Body weight 154.22 kg Pacc 2 Work Phone: [facility] 2021 14:56-0400 Diastolic blood pressure 90 mm[Hg] Pacc 2 Work Phone: [facility] 2021 14:56-0400 Heart rate 60 /min Pacc 2 Work Phone: [facility] 2021 14:56-0400 SaO2% (BldA) [Mass fraction] 97 % Pacc 2 Work Phone: [facility] 2021 14:56-0400 Systolic blood pressure 150 mm[Hg] Pacc 2 Work Phone: [facility] 10-02-2021 14:59-0400 Body height 175.3 cm Mar Ellis MD Work Phone: [facility] 10-02-2021 14:59-0400 Body weight 156.94 kg Mar Ellis MD Work Phone: [facility] 10-02-2021 14:59-0400 Diastolic blood pressure 73 mm[Hg] Mar Ellis MD Work Phone: [facility] 10-02-2021 14:59-0400 Heart rate 73 /min Mar Ellis MD Work Phone: [facility] 10-02-2021 14:59-0400 Systolic blood pressure 130 mm[Hg] Mar Ellis MD Work Phone: [facility] 07-21-2021 13:14-0400 Blood Pressure Location Matilda BRUNSON [facility] 07-21-2021 13:14-0400 Diastolic blood pressure 98 mm[Hg] Matilda BRUNSON [facility] 07-21-2021 13:14-0400 Heart rate 71 /min Matilda BRUNSON [facility] 07-21-2021 13:14-0400 Systolic blood pressure 168 mm[Hg] Matilda BRUNSON [facility] 11-19-2017 19:47-0400 BP Diastolic 91 mm[Hg] [facility] 11-19-2017 19:47-0400 BP Systolic 168 mm[Hg] [facility] 11-19-2017 19:47-0400 Pulse (Heart Rate) 78 /min [facility] 11-19-2017 19:47-0400 Pulse Oximetry 95 % [facility] 11-19-2017 19:47-0400 Respiratory Rate 14 /min [facility] 11-19-2017 18:00-0400 BMI (Body Mass Index) 44.4 kg/m2 [facility] 11-19-2017 18:00-0400 Body Temperature 97.5 [degF] [facility] 11-19-2017 18:00-0400 Body weight 132.44 kg [facility] 11-19-2017 18:00-0400 Height 172.72 cm Ayesha Tafoya [facility] Encounters Encounter Date Encounter Type Care Provider Facility Start: 08-23-2024 ambulatory Matilda Grimes NANNETTE Facili ty:[facility] Start: 08-21-2024 ambulatory Matilda Grimes NANNETTE [place] ty:[facility] Start: 07-31-2024 ambulatory Matilda Grimes NANNETTE [place] ty:[facility] Start: 07-10-2024 ambulatory Matilda Grimes NANNETTE [place] ty:[id number] Start: 05-22-2024 End: 05-22-2024 ambulatory Matilda Grimes NANNETTE Facility:[facility] Start: 05-16-2024 End: 05-16-2024 ambulatory SUSAN BALLESTEROS Facility:[facility] Start: 04-11-2024 End: 04-11-2024 Patient encounter procedure Susan Ballesteros PA-C Work Phone: [facility] [place] Work Phone: Start: 04-11-2024 End: 04-11-2024 ambulatory NON STAFF [facility] Work Phone: Start: 01-18-2024 End: 01-18-2024 ambulatory RANDALLMICHELLE APARICIO Facility:[facility] Start: 01-18-2024 End: 01-18-2024 Patient encounter procedure SUSAN BALLESTEROS [facility] Start: 05-18-2023 End: 05-18-2023 ambulatory AYESHA TAFOYA [facility] Start: 07-21-2022 End: 07-24-2022 Evaluation and management of inpatient Moi Fields [facility] Start: 04-05-2022 End: 04-05-[address] AYESHA TAFOYA Facility:[facility] Start: 03-26-2022 End: 03-27-[address] AYESHA TAFOYA Facility:[facility] Start: 03-21-2022 End: 03-22-[address] AYESHA TAFOYA Facility: Start: 03-10-2022 End: 03-10-2022 ambulatory Mar Ellis MD Work Phone: Urology Comment on above: Personal history of renal cancer (Primary Dx) Start: 03-10-2022 End: 03-10-2022 Telemedicine consultation with patient Mar Ellis MD Work Phone: [facility] Start: 02-26-2022 End: 02-26-2022 ambulatory AYESHA TAFOYA Facility:[facility] Start: 02-26-2022 End: 02-26-2022 ambulatory Matt Khan MD Work Phone: Hematology/Oncology Comment on above: Renal neoplasm (Prim bev Dx); Benign prostatic hyperplasia with urinary obstruction Start: 02-26-2022 End: 02-26-2022 Patient encounter procedure Matt Khan MD Work Phone: [place] Start: 02-17-2022 End: 02-17-2022 ambulatory [facility] Facility:[facility] Start: 02-17-2022 End: 02-17-2022 Subsequent hospital visit by physician Arrival Time Radiology Work Phone: Radiology [facility] Comment on above: Renal cell cancer, r ight (HCC) [C64.1] Start: 01-29-2022 End: 01-29-2022 ambulatory Matt Khan MD Work Phone: Hematology/Oncology Comment on above: Renal neoplasm (Prim bev Dx); Benign prostatic hyperplasia with urinary obstruction; Obstructive sleep apnea; Malaise and fatigue; Anemia, unspecified type; Renal failure, unspecified chronicity Start: 01-29-2022 End: 01-29-2022 Patient encounter procedure Matt Khan MD Work Phone: [place] Start: 11-18-2021 End: 11-19-2021 ambulatory [facility] Facility: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 Start: 10-26-2021 End: 10-27-2021 ambulatory AYESHA TAFOYA Facility:[facility] Start: 2021 Encounter for other preprocedural examination AYESHA TAFOYA [facility] Start: 2021 End: 10-23-2021 ambulatory AYESHA TAFOYA Facility:[facility] Start: 2021 End: 2021 Admission to establishment Pacc Main 2 Work Phone: [facility] Start: 2021 End: 2021 Preprocedural examination done Pacc Main 2 Work Phone: Pre Anesthesia Start: 2021 End: 10-23-2021 ambulatory Pacc Main 2 Work Phone: Pre Anesthesia Comment on above: Preoperative examina tion (Primary Dx); Renal mass; Primary hypertension; Obstructive sleep apnea; Benign prostatic hyperplasia with urinary obstruction; Class 3 severe obesity with body mass index (BMI) of 50.0 to 59.9 in adult, unspecified obesity type, unspecified whether serious comorbidity present (HCC); Severe major depression (HCC) Start: 2021 End: 2021 Patient encounter procedure Everton Abad MD Work Phone: Urology Comment on above: Renal cell cancer, r ight (HCC) (Primary Dx) Start: 2021 End: 2021 Subsequent hospital visit by physician Ct 2 Main Qb (I-Stat) Radiology Comment on above: Renal mass [N28.89] Start: 10-02-2021 End: 10-02-2021 Patient encounter procedure Mar Ellis MD Work Phone: Urology Comment on above: Renal mass (Primary Dx) Start: 10-02-2021 End: 10-03-2021 ambulatory Mar Ellis MD Work Phone: Urology Start: 08-27-2021 End: 08-27-2021 ambulatory AYESHA TAFOYA Facility:[facility] Start: 08-27-2021 End: 08-28-2021 ambulatory AYESHA AARON TAFOYA Facility:[facility] Start: 08-19-2021 Telephone encounter Matilda Brunson MD Work Phone: Radiology Comment on above: Biopsy Request Start: 07-21-2021 End: 07-21-2021 Patient encounter procedure Matilda BRUNSON [facility] Start: 07-10-2021 End: 07-11-[address] MATILDA BRUNSON Facility: Start: 11-19-2017 End: 11-19-2017 Emergency department patient visit Ayesha Tafoya [facility] Procedures Date Procedure Procedure Detail Performing Clinician Start: 04-11-2024 MR prostate wo/w con Je yoshi Ballesteros PA-C Work Phone: Start: 04-13-2022 Internal fixation of femur Moi Fields Start: 02-17-2022 Ct abdomen w/contras t material Mar Ellis MD Work Phone: Start: 02-17-2022 Ct thorax w/contrast material Mar Ellis MD Work Phone: Start: 02-17-2022 Blood count complete auto&auto difrntl wbc Matt Khan MD Work Phone: Start: 2021 Antibody screen AYESHA WOLFE Comment on above: Order Comment: Speci men Type: BLOOD SPECIMENOrdering Facility: [facility] Address: [address] [place] [address] [place] [address] Performed By: #### T [id number] ####CC MAIN BLOOD BANKCLIA [id number] [place] [address] [place] Start: 2021 Urnls dip stick/tabl et rgnt auto w/o microscopy Bulk Order Provider Start: 2021 Ct thorax w/contrast material Mar Ellis MD Work Phone: Start: 2021 Creatinine [Mass/vol ume] in Serum or Plasma [facility] Provider Start: 10-02-2021 Urnls dip stick/tabl et rgnt auto w/o microscopy Bulk Order Provider Colonoscopy abnormal (finding) Matilda BRUNSON Colonoscopy abnormal (finding) Moi Fields Comment on above: , 12/02, 01/06, 2010, 2015 Partial nephrectomy Moi story Comment on above: 09/2021 Plan of Treatment Date Care Activity Detail Author Start: 11-13-2030 Urine microalbumin profile [facility] Start: 04-10-2025 Diabetes Screening Diabetes Screenin g [facility] Start: 02-17-2025 DIABETES SCREEN DIABETES SCREEN [facility] Start: 01-29-2025 DIABETES SCREEN DIABETES SCREEN [facility] Start: 10-30-2024 DIABETES SCREEN DIABETES SCREEN [facility] Start: 2024 DIABETES SCREEN DIABETES SCREEN [facility] Start: 10-31-2023 Covid-19 Vaccine ( season) Covid-19 Vaccine ( season) [facility] Start: 10-31-2023 Influenza vaccination Influenza Vacc ine (#1) [facility] Start: 03-01-2023 Advance Directive Discussion Advance Directive Discussion [facility] Start: 11-18-2022 BP CONTROLLED (<130/80) BP CONTROLLE D (<130/80) [facility] Start: 05-27-2022 End: 02-26-2023 CBC W Auto Differential panel - Blood CBC + DIFF Lab Routine Renal neoplasm Benign prostatic hyperplasia with urinary obstruction Expected: 05/27/2022 (Approximate), Expires: 02/26/2023 [facility] Work Phone: Comment on above: Expected: 05/27/2022 (Approximate), Expires: 02/26/2023 Start: 05-27-2022 End: 02-26-2023 Comprehensive metabolic 2000 panel - Serum or Plasma COMP METABOLIC PANEL Lab Routine Renal neoplasm Benign prostatic hyperplasia with urinary obstruction Expected: 05/27/2022 (Approximate), Expires: 02/26/2023 [facility] Work Phone: Comment on above: Expected: 05/27/2022 (Approximate), Expires: 02/26/2023 Start: 05-27-2022 End: 03-28-2023 Ct abdomen & pelvis w/contrast material CT ABD/PEL W IVCON Radiology Routine Renal neoplasm Benign prostatic hyperplasia with urinary obstruction Expected: 05/27/2022 (Approximate), Expires: 03/28/2023 [facility] Work Phone: Comment on above: Expected: 05/27/2022 (Approximate), Expires: 03/28/2023 Start: 05-27-2022 End: 03-28-2023 CT CHEST W IVCON CT CHEST W IVCON Radiology Routine Renal neoplasm Benign prostatic hyperplasia with urinary obstruction Expected: 05/27/2022 (Approximate), Expires: 03/28/2023 [facility] Work Phone: Comment on above: Expected: 05/27/2022 (Approximate), Expires: 03/28/2023 Start: 05-27-2022 End: 07-27-2022 Prostate specific Ag [Mass/volume] in Serum or Plasma PSA/PROSTSPECAG DIAG Lab Routine Renal neoplasm Benign prostatic hyperplasia with urinary obstruction Expected: 05/27/2022 (Approximate), Expires: 07/27/2022 [facility] Work Phone: Comment on above: Expected: 05/27/2022 (Approximate), Expires: 07/27/2022 Start: 03-01-2022 ADVANCE DIRECTIVE DISCUSSION ADVANCE DIRECTIVE DISCUSSION [facility] Start: 11-18-2021 End: 01-18-2022 Basic metabolic 2000 panel - Serum or Plasma BASIC METABOLIC PNL Lab Routine Renal cell cancer, right (HCC) Expected: 11/18/2021, Expires: 01/18/2022 [facility] Work Phone: Comment on above: Expected: 11/18/2021 , Expires: 01/18/2022 Start: 11-18-2021 End: 01-18-2022 CBC panel - Blood by Automated count CBC Lab Routine Renal cell cancer, right (HCC) Expected: 11/18/2021, Expires: 01/18/2022 [facility] Work Phone: Comment on above: Expected: 11/18/2021 , Expires: 01/18/2022 Start: 10-30-2021 Influenza vaccination [facility] Start: 10-03-2021 COVID-19 VACCINE (4 - Booster for Román series) COVID-19 VACCINE (4 - Booster for Román series) [facility] Start: 10-02-2021 End: 12-02-2021 Basic metabolic 2000 panel - Serum or Plasma BASIC METABOLIC PNL Lab Routine Renal mass Expected: 10/02/2021, Expires: 12/02/2021 [facility] Work Phone: Comment on above: Expected: 10/02/2021 , Expires: 12/02/2021 Start: 10-02-2021 End: 12-02-2021 CBC panel - Blood by Automated count CBC Lab Routine Renal mass Expected: 10/02/2021, Expires: 12/02/2021 [facility] Work Phone: Comment on above: Expected: 10/02/2021 , Expires: 12/02/2021 Start: 10-02-2021 End: 12-02-2021 CREATININE BLD CREATININE BLD Lab Routine Renal mass Expected: 10/02/2021, Expires: 12/02/2021 [facility] Work Phone: Comment on above: Expected: 10/02/2021 , Expires: 12/02/2021 Start: 08-19-2021 End: 10-19-2021 CBC panel - Blood by Automated count CBC Lab STAT Renal mass, right Expected: 08/19/2021, Expires: 10/19/2021 [facility] Work Phone: Comment on above: Expected: 08/19/2021 , Expires: 10/19/2021 Start: 08-19-2021 End: 10-19-2021 PT panel - Platelet poor plasma by Coagulation assay PROTHROMBIN TIME/PT Lab STAT Renal mass, right Expected: 08/19/2021, Expires: 10/19/2021 [facility] Work Phone: Comment on above: Expected: 08/19/2021 , Expires: 10/19/2021 Start: 03-01-2021 ADVANCE DIRECTIVE DISCUSSION ADVANCE DIRECTIVE DISCUSSION [facility] Start: 06-03-2020 COVID-19 VACCINE (2 - Moderna series) COVID-19 VACCINE (2 - Moderna series) [facility] Start: 10-23-2015 Pneumococcal Vaccine : 65+ (1 of 1 - PCV) Pneumococcal Vaccine: 65+ (1 of 1 - PCV) [facility] Start: 10-23-2015 PNEUMOCOCCAL: 65+ (1 - PCV) PNEUMOCOCCAL: 65+ (1 - PCV) [facility] Start: 2010 RSV Vaccine (1 - Ris k 60-74 years 1-dose series) RSV Vaccine (1 - Risk 60-74 years 1-dose series) [facility] Start: 2000 SHINGRIX VACCINE (1 of 2) SHINGRIX VACCINE (1 of 2) [facility] Start: 10-23-1995 COLOGUARD (FIT-DNA) COLOGUARD (FIT-D NA) [facility] Start: 10-23-1995 Colonoscopy COLONOSCOPY [facility] Start: 10-23-1995 COLORECTAL CANCER SCREENING COLORECTAL CANCER SCREENING [facility] Start: 10-23-[address] COLONOGRAPHY [facility] Start: 10-23-1995 DIABETES SCREEN DIABETES SCREEN [facility] Start: 10-23-1995 FECAL OCCULT BLOOD FECAL OCCULT BLOO D [facility] Start: 10-23-1995 Screening for malign ant neoplasm of colon [facility] Start: 10-23-1995 [facility] Start: 1985 Lipid panel Lipid Screening [facility] Start: 1985 LIPID SCREEN LIPID SCREEN [facility] Start: 1969 Urine microalbumin profile DTAP,TDAP,TD (1 - Tdap) [facility] Start: 1968 ANNUAL PCP TEAM PRINT LINE FEEDER STARR DISEASE VISIT ANNUAL PCP TEAM CHRONIC DISEASE VISIT [facility] Start: 1968 Anxiety Screening Anxiety Screening [facility] Start: 1968 BP CONTROLLED (<130/80) BP CONTROLLE D (<130/80) [facility] Start: 1968 HEPATITIS C SCREENING HEPATITIS C [facility] Start: 1968 Hepatitis C screening Hepatitis C [facility] Start: 1962 Adult depression screening assessment DEPRESSION SCREENING [facility] End: 01-29-2023 CBC W Auto Differential panel - Blood CBC + DIFF Lab Routine Renal neoplasm Once per month for 12 Occurrences starting 01/29/2022 until 01/29/2023 [facility] Work Phone: Comment on above: Once per month for 1 2 Occurrences starting 01/29/2022 until 01/29/2023 End: 01-29-2023 Comprehensive metabolic 2000 panel - Serum or Plasma COMP METABOLIC PANEL Lab Routine Renal neoplasm Once per month for 12 Occurrences starting 01/29/2022 until 01/29/2023 [facility] Work Phone: Comment on above: Once per month for 1 2 Occurrences starting 01/29/2022 until 01/29/2023 End: 12-18-2022 Ct abdomen & pelvis w/contrast material CT ABD/PEL W IVCON Radiology Routine Renal cell cancer, right (HCC) 1 Occurrences starting 11/18/2021 until 12/18/2022 [facility] Work Phone: Comment on above: 1 Occurrences starti ng 11/18/2021 until 12/18/2022 End: 12-18-2022 Ct abdomen w/contrast material CT ABDOMEN W IVCON Radiology Routine Other specified disorders of kidney and ureter 1 Occurrences starting 11/28/2021 until 12/18/2022 [facility] Work Phone: Comment on above: 1 Occurrences starti ng 11/28/2021 until 12/18/2022 End: 11-01-2022 CT CHEST W IVCON CT CHEST W IVCON Radiology Routine Renal mass 1 Occurrences starting 10/02/2021 until 11/01/2022 [facility] Work Phone: Comment on above: 1 Occurrences starti ng 10/02/2021 until 11/01/2022 End: 12-18-2022 CT CHEST W IVCON CT CHEST W IVCON Radiology Routine Renal cell cancer, right (HCC) 1 Occurrences starting 11/18/2021 until 12/18/2022 [facility] Work Phone: Comment on above: 1 Occurrences starti ng 11/18/2021 until 12/18/2022 [facility] Immunizations Immunization Date Immunization Notes Care Provider Fa [facility] 02-04-2022 influenza virus vaccine, unspecified formulation Moi Fields [facility] 02-04-2022 Seasonal, quadrivale nt, recombinant, injectable influenza vaccine, preservative free Matt Khan MD Work Phone: [facility] 01-16-2022 SARS-CoV-2 (COVID-19 ) [id number] Moi Fields [facility] 08-08-2021 SARS-CoV-2 (COVID-19 ) mRNA-1273 vaccine Moi Fields [facility] 02-04-2021 SARS-CoV-2 (COVID-19 ) mRNA-1273 vaccine Moi Fields [facility] 11-29-2020 influenza virus vaccine, unspecified formulation Matilda BRUNSON [facility] 11-13-2020 diphtheria, tetanus toxoids and pertussis vaccine Matt Khan MD Work Phone: [facility] 05-06-2020 SARS-CoV-2 (COVID-19 ) [id number] vaccine Matilda BRUNSON [facility] Comment on above: Result Comment: celestine clancy 12-11-2019 influenza virus vaccine, unspecified formulation Moi Fields [facility] 12-11-2019 influenza, injectabl e, quadrivalent, preservative free Matt Khan MD Work Phone: [facility] 12-04-2015 influenza virus vaccine, unspecified formulation Moi Fields [facility] 12-04-2015 influenza, high dose seasonal, preservative-free Matt Khan MD Work Phone: [facility] 12-10-2014 influenza virus vaccine, unspecified formulation Moi Fields [facility] 12-10-2014 influenza, seasonal, injectable, preservative free Matt Khan MD Work Phone: [facility] 11-23-2013 influenza virus vaccine, unspecified formulation Moi Fields [facility] 11-23-2013 influenza, seasonal, injectable Matt hKan MD Work Phone: [facility] 12-08-2012 influenza virus vaccine, unspecified formulation Moi Fields [facility] 12-08-2012 influenza, seasonal, injectable Mtat Khan MD Work Phone: [facility] Payers Date Payer Category Payer Self-pay 2022 Unknown [id number] 2021 Private Health Insurance [facility] CHOICE PLUS [id number] 2021-Present [phone] [address] [place] [address] O [id number] 2015 Medicare MEDICARE MEDICAR E A AND B [id number] 2015-Present [phone] [address] [address] [place] [address] Medicare [id number] 2015 Medicare [id number] 1959 Medicare [id number] 1959 Unknown [id number] 1950 Unknown [id number]. [id number] 1950 Unknown [id number] [id number]. 2.593 1950 Unknown [id number] [id number]. 2.593 1950 Unknown [id number] [id number]. 2.593 1950 Unknown [id number] [id number]. 2.175 1950 Unknown [id number] [id number]. 2.727 1950 Unknown [id number] [id number]. 2.727 1950 Unknown [id number] [id number]. 2.727 1950 Unknown [id number] [id number]. 2.727 1950 Unknown [id number] [id number]. 2.727 1950 Unknown [id number] [id number]. 2.727 Medicare [id number] Unknown [id number]. [id number] Social History Date Type Detail Facility Start: 10-31-2018 End: 07-21-2021 Tobacco smoking status Never smoked tobacco (finding) [facility] Start: 10-02-2021 End: 11-18-2021 Sex Assigned At Male [facility] Start: 07-19-2008 End: 11-18-2021 Alcohol intake Current non-drinker of alcohol (finding) [facility] Start: 1950 Sex Assigned At Not on file C [facility] Start: 10-02-2021 End: 11-18-2021 Tobacco use and exposure Smokeless tobacco non-user [facility] Start: 09-22-2021 End: 01-29-2022 Exposure to SARS-CoV-2 (event) Not sure [facility] Tobacco smoking status Never [facility] Start: 10-02-2021 End: 11-18-2021 History of Social function [facility] Start: 04-12-2024 Sex Male (finding) [facility] Start: 1950 Sex Assigned At Male [facility] Functional Status Date Assessment Result Facility 01-18-2024 Functional Status N/A [facility] 07-21-2022 Functional Status N/A [facility] 07-21-[address] [facility] Clinical Notes 07-21-2021 to 05-22-2024 Note Date & Type Note Facility 05-22-2024 Note Patient Education Oncology Transrectal Ultrasound-Guided Prostate Biopsy, Care After The following information offers guidance on how to care for yourself after your procedure. Your health care provider may also give you more specific instructions. If you have problems or questions, contact your health care provider. What can I expect after the procedure? After the procedure, it is common to have: ??? Pain and discomfort near your rectum, especially while sitting. ??? [place]-colored urine due to small amounts of blood in your urine. ??? A burning feeling while urinating. ??? Blood in your stool (feces) or bleeding from your rectum. ??? Blood in your semen. Follow these instructions at home: Medicines ??? Take [id number] and prescription medicines only as told by your health care provider. ??? If you were given a sedative during your procedure, it can affect you for several hours. Do not drive or operate machinery until your health care provider says that it is safe. ??? If you were prescribed an antibiotic medicine, take it as told by your health care provider. Do not stop using the antibiotic even if you start to feel better. Activity ??? Return to your normal activities as told by your health care provider. Ask your health care provider what activities are safe for you. ??? Ask your health care provider when it is okay for you to resume sexual activity. ??? You may have to avoid lifting. Ask your health care provider how much you can safely lift. General instructions ??? Drink enough fluid to keep your urine pale yellow. ??? Watch your urine, stool, and semen for new or increased bleeding. ??? Keep all follow-up visits. This is important. Contact a health care provider if: ??? You have any of the following: ? Blood clots in your urine or stool. ? Blood in your urine more than 2 weeks after the procedure. ? Blood in your semen more than 2 months after the procedure. ? New or increased bleeding in your urine, stool, or semen. ? Severe pain in your abdomen. ??? Your urine smells bad or unusual. ??? You have trouble urinating. ??? Your lower abdomen feels firm. ??? You have problems getting an erection. ??? You have nausea or you vomit. Get help right away if: ??? You have a fever or chills. This could be a sign of infection. ??? You have bright red urine. ??? You have severe pain that does not get better with medicine. ??? You cannot urinate. Summary ??? After this procedure, it is common to have pain and discomfort around your rectum, especially while sitting. ??? You may have blood in your urine and stool after the procedure. ??? It is common to have blood in your semen after this procedure. ??? Get help right away if you have a fever or chills. This could be a sign of infection. This information is not intended to replace advice given to you by your health care provider. Make sure you discuss any questions you have with your health care provider. Document Revised: 08/11/2021 Document Reviewed: 08/11/2021 [employer] Patient Education ? 2023 [employer] Transrectal Ultrasound-Guided Prostate Biopsy A transrectal ultrasound-guided prostate biopsy is a procedure to remove samples of prostate tissue for testing. The prostate is a walnut-sized gland that is located below the bladder and in front of the rectum. During this procedure, a small device (probe) is lubricated and put inside the rectum. The probe sends out sound waves that make a picture of the prostate and surrounding tissues (transrectal ultrasound). The images are used to help guide the process of removing the samples. The samples are taken to a lab to be checked for prostate cancer. This procedure is usually done to evaluate the prostate gland of men who have raised (elevated) levels of prostate-specific antigen (PSA), which can be a sign of prostate cancer or prostate enlargement related to aging (benign prostatic hyperplasia, or BPH). Tell a health care provider about: ??? Any allergies you have. ??? All medicines you are taking, including vitamins, herbs, eye drops, creams, and srpq-hyz-lduedwo medicines. ??? Any problems you or family members have had with anesthetic medicines. ??? Any bleeding problems you have. ??? Any surgeries you have had. ??? Any medical conditions you have. ??? Any prostate infections you have had. What are the risks? Generally, this is a safe procedure. However, problems may occur, including: ??? Prostate infection. ??? Bleeding from the rectum. ??? Blood in the urine. ??? Allergic reactions to medicines. ??? Damage to surrounding structures such as blood vessels, organs, or muscles. ??? Difficulty passing urine. ??? Nerve damage. This is usually temporary. What happens before the procedure? Medicines Ask your health care provider about: ??? Changing or stopping your regular medicines. This is especial (more content not included)... [facility] 01-18-2024 Hospital Discharge instructions Patient Education 01/18/2024 15:24:09 Benign Prostatic Hyperplasia Benign Prostatic Hyperplasia Benign prostatic hyperplasia (BPH) is an enlarged prostate gland that is caused by the normal aging process. The prostate may get bigger as a man gets older. The condition is not caused by cancer. The prostate is a walnut-sized gland that is involved in the production of semen. It is located in front of the rectum and below the bladder. The bladder stores urine. The urethra carries stored urine out of the body. An enlarged prostate can press on the urethra. This can make it harder to pass urine. The buildup of urine in the bladder can cause infection. Back pressure and infection may progress to bladder damage and kidney (renal) failure. What are the causes? This condition is part of the normal aging process. However, not all men develop problems from this condition. If the prostate enlarges away from the urethra, urine flow will not be blocked. If it enlarges toward the urethra and compresses it, there will be problems passing urine. What increases the risk? This condition is more likely to develop in men older than 50 years. What are the signs or symptoms? Symptoms of this condition include: Getting up often during the night to urinate. Needing to urinate frequently during the day. Difficulty starting urine flow. Decrease in size and strength of your urine stream. Leaking (dribbling) after urinating. Inability to pass urine. This needs immediate treatment. Inability to completely empty your bladder. Pain when you pass urine. This is more common if there is also an infection. Urinary tract infection (UTI). How is this diagnosed? This condition is diagnosed based on your medical history, a physical exam, and your symptoms. Tests will also be done, such as: A post-void bladder scan. This measures any amount of urine that may remain in your bladder after you finish urinating. A digital rectal exam. In a rectal exam, your health care provider checks your prostate by putting a lubricated, gloved finger into your rectum to feel the back of your prostate gland. This exam detects the size of your gland and any abnormal lumps or growths. An exam of your urine (urinalysis). A prostate specific antigen (PSA) screening. This is a blood test used to screen for prostate cancer. An ultrasound. This test uses sound waves to electronically produce a picture of your prostate gland. Your health care provider may refer you to a specialist in kidney and prostate diseases (urologist). How is this treated? Once symptoms begin, your health care provider will monitor your condition (active surveillance or watchful waiting). Treatment for this condition will depend on the severity of your condition. Treatment may include: Observation and yearly exams. This may be the only treatment needed if your condition and symptoms are mild. Medicines to relieve your symptoms, including: ?Medicines to shrink the prostate. ?Medicines to relax the muscle of the prostate. Surgery in severe cases. Surgery may include: ?Prostatectomy. In this procedure, the prostate tissue is removed completely through an open incision or with a laparoscope or robotics. ?Transurethral resection of the prostate (TURP). In this procedure, a tool is inserted through the opening at the tip of the penis (urethra). It is used to cut away tissue of the inner core of the prostate. The pieces are removed through the same opening of the penis. This removes the blockage. ?Transurethral incision (TUIP). In this procedure, small cuts are made in the prostate. This lessens the prostate's pressure on the urethra. ?Transurethral microwave thermotherapy (TUMT). This procedure uses microwaves to create heat. The heat destroys and removes a small amount of prostate tissue. ?Transurethral needle ablation (TUNA). This procedure uses radio frequencies to destroy and remove a small amount of prostate tissue. ?Interstitial laser coagulation (ILC). This procedure uses a laser to destroy and remove a small amount of prostate tissue. ?Transurethral electrovaporization (TUVP). This procedure uses electrodes to destroy and remove a small amount of prostate tissue. ?Prostatic urethral lift. This procedure inserts an implant to push the lobes of the prostate away from the urethra. Follow these instructions at home: Take nlye-pln-czxotso and prescription medicines only as told by your health care provider. Monitor your symptoms for any changes. Contact your health care provider with any changes. Avoid drinking large amounts of liquid before going to bed or out in public. Avoid or reduce how much caffeine or alcohol you drink. Give yourself time when you urinate. Keep all follow-up visits. This is important. Contact a health care provider if: You have unexplained back pain. Your symptoms do not get better with treatment. You develop side effects from the medicine you are taking. Your urine becomes very dark or has a bad smell. Your lower abdomen becomes distended and you have trouble passing urine. Get help right away if: You have a fever or chills. You suddenly cannot urinate. You feel light-headed or very dizzy, or you faint. There are large amounts of blood or clots in your urine. Your urinary problems become hard to manage. You develop moderate to severe low back or flank pain. The flank is the side of your body between the ribs and the hip. These symptoms may be an emergency. Get help right away. Call 911. Do not wait to see if the symptoms will go away. Do not drive yourself to the hospital. Summary Benign prostatic hyperplasia (BPH) is an enlarged prostate that is caused by the normal aging process. It is not caused by cancer. An enlarged prostate can press on the urethra. This can make it hard to pass urine. This condition is more likely to develop in men older than 50 years. Get help right away if you suddenly cannot urinate. This information is not intended to replace advice given to you by your health care provider. Make sure you discuss any questions you have with your health care provider. Document Revised: 09/03/2021 Document Reviewed: 09/03/2021 [employer] Patient Education 2023 [employer] Follow Up Care 01/11/2024 14:47:06 With:SUSAN BALLESTEROS PA-C, URL Address: [address] [place] [address] Business (1) When: Unknown Comments:pending results of imaging/testing, will call with next steps [facility] 01-18-2024 Note Patient Education Urology Benign Prostatic Hyperplasia Benign prostatic hyperplasia (BPH) is an enlarged prostate gland that is caused by the normal aging process. The prostate may get bigger as a man gets older. The condition is not caused by cancer. The prostate is a walnut-sized gland that is involved in the production of semen. It is located in front of the rectum and below the bladder. The bladder stores urine. The urethra carries stored urine out of the body. An enlarged prostate can press on the urethra. This can make it harder to pass urine. The buildup of urine in the bladder can cause infection. Back pressure and infection may progress to bladder damage and kidney (renal) failure. What are the causes? This condition is part of the normal aging process. However, not all men develop problems from this condition. If the prostate enlarges away from the urethra, urine flow will not be blocked. If it enlarges toward the urethra and compresses it, there will be problems passing urine. What increases the risk? This condition is more likely to develop in men older than 50 years. What are the signs or symptoms? Symptoms of this condition include: ??? Getting up often during the night to urinate. ??? Needing to urinate frequently during the day. ??? Difficulty starting urine flow. ??? Decrease in size and strength of your urine stream. ??? Leaking (dribbling) after urinating. ??? Inability to pass urine. This needs immediate treatment. ??? Inability to completely empty your bladder. ??? Pain when you pass urine. This is more common if there is also an infection. ??? Urinary tract infection (UTI). How is this diagnosed? This condition is diagnosed based on your medical history, a physical exam, and your symptoms. Tests will also be done, such as: ??? A post-void bladder scan. This measures any amount of urine that may remain in your bladder after you finish urinating. ??? A digital rectal exam. In a rectal exam, your health care provider checks your prostate by putting a lubricated, gloved finger into your rectum to feel the back of your prostate gland. This exam detects the size of your gland and any abnormal lumps or growths. ??? An exam of your urine (urinalysis). ??? A prostate specific antigen (PSA) screening. This is a blood test used to screen for prostate cancer. ??? An ultrasound. This test uses sound waves to electronically produce a picture of your prostate gland. Your health care provider may refer you to a specialist in kidney and prostate diseases (urologist). How is this treated? Once symptoms begin, your health care provider will monitor your condition (active surveillance or watchful waiting). Treatment for this condition will depend on the severity of your condition. Treatment may include: ??? Observation and yearly exams. This may be the only treatment needed if your condition and symptoms are mild. ??? Medicines to relieve your symptoms, including: ? Medicines to shrink the prostate. ? Medicines to relax the muscle of the prostate. ??? Surgery in severe cases. Surgery may include: ? Prostatectomy. In this procedure, the prostate tissue is removed completely through an open incision or with a laparoscope or robotics. ? Transurethral resection of the prostate (TURP). In this procedure, a tool is inserted through the opening at the tip of the penis (urethra). It is used to cut away tissue of the inner core of the prostate. The pieces are removed through the same opening of the penis. This removes the blockage. ? Transurethral incision (TUIP). In this procedure, small cuts are made in the prostate. This lessens the prostate's pressure on the urethra. ? Transurethral microwave thermotherapy (TUMT). This procedure uses microwaves to create heat. The heat destroys and removes a small amount of prostate tissue. ? Transurethral needle ablation (TUNA). This procedure uses radio frequencies to destroy and remove a small amount of prostate tissue. ? Interstitial laser coagulation (ILC). This procedure uses a laser to destroy and remove a small amount of prostate tissue. ? Transurethral electrovaporization (TUVP). This procedure uses electrodes to destroy and remove a small amount of prostate tissue. ? Prostatic urethral lift. This procedure inserts an implant to push the lobes of the prostate away from the urethra. Follow these instructions at home: ??? Take mvbv-syf-ursnzto and prescription medicines only as told by your health care provider. ??? Monitor your symptoms for any changes. Contact your health care provider with any changes. ??? Avoid drinking large amounts of liquid before going to bed or out in public. ??? Avoid or reduce how much caffeine or alcohol you drink. ??? Give yourself time when you urinate. ??? Keep all follow-up visits. This is important. Contact a health care provider if: ??? You have unexplained back pain. ??? Your symptoms do not get (more content not included)... [facility] 07-24-2022 Hospital Discharge instructions Patient Education 07/24/2022 06:49:52 Weakness, Cipx-tk-Yufd Weakness Weakness is a lack of strength. You may feel weak all over your body (generalized), or you may feel weak in one part of your body (focal). There are many potential causes of weakness. Sometimes, the cause of your weakness may not be known. Some causes of weakness can be serious, so it is important to see your doctor. Follow these instructions at home: Activity Rest as needed. Try to get enough sleep. Most adults need 7 8 hours of sleep each night. Talk to your doctor about how much sleep you need. Do exercises, such as arm curls and leg raises, for 30 minutes at least 2 days a week or as told by your doctor. Think about working with a physical therapist or employment trainer to help you get stronger. General instructions Take sjbh-cpk-mrpvufk and prescription medicines only as told by your doctor. Eat a healthy, well-balanced diet. This includes: ?Proteins to build muscles, such as lean meats and fish. ?Fresh fruits and vegetables. ?Carbohydrates to boost energy, such as whole grains. Drink enough fluid to keep your pee (urine) pale yellow. Keep all follow-up visits. Contact a doctor if: Your weakness does not get better or it gets worse. Your weakness affects your ability to: ?Think clearly. ?Do your normal daily activities. Get help right away if: You have sudden weakness on one side of your face or body. You have chest pain. You have trouble breathing or shortness of breath. You have problems with how you see (vision). You have trouble talking or swallowing. You have trouble standing or walking. You are light-headed or faint. These symptoms may be an emergency. Get help right away. Call 911. Do not wait to see if the symptoms will go away. Do not drive yourself to the hospital. Summary Weakness is a lack of strength. You may feel weak all over your body or just in one part of your body. There are many potential causes of weakness. Sometimes, the cause of your weakness may not be known. Rest as needed, and try to get enough sleep. Most adults need 7 8 hours of sleep each night. Eat a healthy, well-balanced diet. This information is not intended to replace advice given to you by your health care provider. Make sure you discuss any questions you have with your health care provider. Document Revised: 01/18/2022 Document Reviewed: 01/18/2022 [employer] Patient Education 2022 [employer] Follow Up Care 07/21/2022 17:24:27 With:Dewey REID, Say [facility] Address: [facility] [address] [place] [address]- When:1 to 2 weeks Comments:Call for followup appointmentCall physician if symptoms worsen With:LOTTIE REID, AYESHA Sena [facility] Address: [address] [place] [phone] When:3 to 5 days Comments:Call for followup appointmentCall physician if symptoms worsen [facility] 07-23-2022 Evaluation + Plan note Extrac elisabet from: Title:APSO Note Author:Lor REID, Abeer Date: 1. General weakness (R53.1: Weakness) - secondary to deconditioning, - PT/OT 2. Physical deconditioning (R53.81: Other malaise) - as above 3. Hypertension (I10: Essential (primary) hypertension) - stable, continue PO metoprolol 4. CKD (chronic kidney disease), stage III (N18.30: Chronic kidney disease, stage 3 unspecified) - history of CKD as the previous notes, creatinine stable continue to monitor kidney function and urine output 5. Depression with anxiety (F41.8: Other specified anxiety disorders) - stable, continue celexa, cymbalta, abilify, buspar 6. BPH without urinary obstruction (N40.0: Benign prostatic hyperplasia without lower urinary tract symptoms) - stable, continue PO flomax 7. Morbid obesity due to excess calories (E66.01: Morbid (severe) obesity due to excess calories) - BMI 46 - lifestyle modification, outpatient PCP follow up 8. No contraindication to deep vein thrombosis (DVT) prophylaxis (Z78.9: Other specified health status) - ordered SCDs, continue heparin subcutaneous bid 1. General weakness (R53.1: Weakness) 2. Physical deconditioning (R53.81: Other malaise) 3. Hypertension (I10: Essential (primary) hypertension) 4. CKD (chronic kidney disease), stage III (N18.30: Chronic kidney disease, stage 3 unspecified) 5. Depression with anxiety (F41.8: Other specified anxiety disorders) 6. BPH without urinary obstruction (N40.0: Benign prostatic hyperplasia without lower urinary tract symptoms) 7. Morbid obesity due to excess calories (E66.01: Morbid (severe) obesity due to excess calories) 8. No contraindication to deep vein thrombosis (DVT) prophylaxis (Z78.9: Other specified health status) Orders: potassium chloride, 40 mEq = 2 tab(s), Tab-ER, Oral, Once, Stop date 07/23/22 10:00:00 EDT, Routine, Start date 07/23/22 10:00:00 EDT, 07/23/22 9:11:00 EDT Automated Diff Basic Metabolic Panel CBC w/ Auto Diff Comprehensive Metabolic Panel Creatine Kinase eGFR This report was transcribed using voice recognition software , Every effort was made to ensure accuracy , however, inadvertently computerized sheriff sergeant mistakes may be present . Extracted from: Title:APSO Note Author:Fatimah HOLLEY MD Date: 1. General weakness (R53.1: Weakness) - secondary to deconditioning - PT/OT 2. Physical deconditioning (R53.81: Other malaise) - as above 3. Hypertension (I10: Essential (primary) hypertension) - stable, continue PO metoprolol 4. CKD (chronic kidney disease), stage III (N18.30: Chronic kidney disease, stage 3 unspecified) - stable 5. Depression with anxiety (F41.8: Other specified anxiety disorders) - stable, continue celexa, cymbalta, abilify, buspar 6. BPH without urinary obstruction (N40.0: Benign prostatic hyperplasia without lower urinary tract symptoms) - stable, continue PO flomax 7. Morbid obesity due to excess calories (E66.01: Morbid (severe) obesity due to excess calories) - BMI 46 - lifestyle modification, outpatient PCP follow up 8. No contraindication to deep vein thrombosis (DVT) prophylaxis (Z78.9: Other specified health status) - ordered SCDs, continue heparin subcutaneous bid Orders: heparin, 5,000 unit(s) = 1 mL, Injection, SubCutaneous, BID for 30 day(s), Stop date 08/21/22 20:59:00 EDT, Routine, Start date 07/22/22 21:00:00 EDT, 07/22/22 11:22:00 EDT Extracted from: Title:Admission H & P Author:Moi Fields MD ate:07/21/22 1. Weakness (R53.1: Weakness ) 2. Physical deconditioning (R53.81: Other malaise) Muscle fatigue and weakness due to deconditioning. We will obtain PT OT patient will probably benefit from placement. 3. Hypertension (I10: Essential (primary) hypertension) Continue metoprolol blood pressure is acceptable 4. 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 Probably this is his baseline. 5. Anxiety and depression (F41.9: Anxiety disorder, unspecified) Continue psych meds Orders: aripiprazole, 2 mg = 1 tab(s), Tab, Oral, Daily, Routine, Start date 07/22/22 9:00:00 EDT, 07/21/22 20:45:00 EDT busPIRone, 5 mg = 1 tab(s), Tab, Oral, TID, Routine, Start date 07/21/22 22:00:00 EDT, 07/21/22 20:45:00 EDT citalopram, 20 mg = 1 tab(s), Tab, Oral, Daily, Routine, Start date 07/22/22 9:00:00 EDT, 07/21/22 20:45:00 EDT dorzolamide ophthalmic, 1 drop(s), Soln-Opth, OPTH, BID, STAT, Start date 07/21/22 20:46:00 EDT duloxetine, 90 mg, Cap-DR, Oral, Daily, Routine, Start date 07/22/22 9:00:00 EDT, 07/21/22 20:46:00 EDT metoprolol, 25 mg = 1 tab(s), Tab, Oral, Daily, Routine, Start date 07/22/22 9:00:00 EDT, 07/21/22 20:47:00 EDT tamsulosin, 0.4 mg = 1 cap(s), Cap, Oral, Daily, Routine, Start date 07/22/22 9:00:00 EDT, 07/21/22 20:47:00 EDT timolol ophthalmic, 1 drop(s), Soln-Opth, OPTH, BID, STAT, Start date 07/21/22 20:46:00 EDT Ambulate with Assistance Basic Metabolic Panel Cardiac Diet CBC w/ Auto Diff Notify Provider Vital Signs Notify Provider Vital Signs Occupational Therapy Evaluate Patient, Develop a Plan of Care and Implement Plan Physical Therapy Evaluate Patient, Develop a Plan of Care and Implement Plan Place in Status Vital Signs Weight Extracted from: Title:ED Note Author:Brennan Reagan PA-C te:07/21/22 1. Weakness (R53.1: Weakness ) 2. Physical deconditioning (R53.81: Other malaise) Orders: Automated Diff Basic Metabolic Panel CBC w/ Auto Diff ED Physician consult Hospitalist for continued care eGFR Extra SST Tube PT & PTT Troponin 0 Hr. UA With Cult Reflex XR Chest Single View [facility]01-10-2023 NoteHNO ID: [id number] Author: Edie Luz APRN.TRAVEL SPECIALIST Service: ? Author Type: Nurse Practitioner Type: Progress Notes Filed: 03/10/2022 4:10 PM Note Text: VIRTUAL VISIT FOLLOW UP PATIENT: Victor M Ni [id number] [birth year]22 This clinic note was copied and updated from previous note from 11/18/2021 This is a virtual visit using [employer] video visit. It required patient-provider interaction for the medical decision making as documented below. 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 Physical Exam (via video enabled technology) Video visit Labs and Pathology: Creatinine Date Value Ref Range Status 02/17/2022 1.74 (H) 0.73 - 1.22 mg/dL Final 01/29/2022 1.61 (H) 0.73 - 1.22 mg/dL Final 10/30/2021 1.72 (H) 0.73 - 1.22 mg/dL Final 10/29/2021 1.70 (H) 0.73 - 1.22 mg/dL Final Imaging: CT chest 02/17/2022 IMPRESSION: 1. Small (less than 5 mm) indeterminate pulmonary nodules are stable since 11/16/2020. Attention on follow-up exam is recommended given the history of malignancy. 2. No thoracic lymphadenopathy. 3. Dilated ascending aorta measuring 5.1 cm, not substantially changed since the prior exam. 4. Compression deformities of T6-T8 vertebral bodies with sclerosis, unchanged since the prior exam. CT abdomen 02/17/2022 IMPRESSION: Ill-defined hypodense in the right partial nephrectomy bed, likely postoperative change, though follow-up recommended. No abdominal Metastasis I personally viewed all applicable imaging and interpreted them and went over the results with the patient. Assessment and Plan: 1.This is a 71 year old male with a history of right renal mass s/p Robotic right partial nephrectomy 10/29/2021 with SANJU to date 03/10/2022 Plan: 1.) Follow up in [address] abd/pelvis, CT chest, BMP, CBC Plan of care discussed with Dr rhonda Luz APRN.TRAVEL SPECIALIST This visit was conducted as a video visit and lasted 15 minutes. Scribed for Miles Luz APRN by aman Gamboa scribe [facility] History of Present illness Narrative* Edie Luz APRN.ELMA - 03/10/2022 1:00 PM EST VIRTUAL VISIT FOLLOW UP PATIENT: Victor M Ni [id number] 03/04/2022 This clinic note was copied and updated from previous note from 11/18/2021 This is a virtual visit using [employer] (formerly [employer]) video visit. It required patient-provider interaction for themedical decision making as documented below. 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 Physical Exam (via video enabled technology) Video visit Labs and Pathology: Creatinine Date Value Ref Range Status 02/17/2022 1.74 (H) 0.73 - 1.22 mg/dL Final 01/29/2022 1.61 (H) 0.73 - 1.22 mg/dL Final 10/30/2021 1.72 (H) 0.73 - 1.22 mg/dL Final 10/29/2021 1.70 (H) 0.73 - 1.22 mg/dL Final Imaging: CT chest 02/17/2022 IMPRESSION: 1. Small (less than 5 mm) indeterminate pulmonary nodules are stable since 11/16/2020. Attention on follow-up exam is recommended given the history of malignancy. 2. No thoracic lymphadenopathy. 3. Dilated ascending aorta measuring 5.1 cm, not substantially changed since the prior exam. 4. Compression deformities of T6-T8 vertebral bodies with sclerosis, unchanged since the prior exam. CT abdomen 02/17/2022 IMPRESSION: Ill-defined hypodense in the right partial nephrectomy bed, likely postoperative change, though follow-up recommended. No abdominal Metastasis I personally viewed all applicable imaging and interpreted them and went over the results with the patient. Assessment and Plan: 1.This is a 71 year old male with a history of right renal mass s/p Robotic right partial nephrectomy 10/29/2021 with SANJU to date 03/10/2022 Plan: 1.) Follow up in [address] abd/pelvis, CT chest, BMP, CBC Plan of care discussed with Dr rhonda Luz APRN.TRAVEL SPECIALIST This visit was conducted as a video visit and lasted 15 minutes. Scribed for Miles Luz APRN by aman Gamboa scribe on 03/10/2022 documented in this encounterP[facility]12-29-2022 NoteHNO ID: [id number] Author: Matt Khan MD Service: ? Author Type: Physician Type: Progress Notes Filed: 02/26/2022 10:53 AM Note Text: NAME: Victor M Ni [facility] NO.: [id number] DATE OF SERVICE: February 26, 2022 ([facility]) Some elements in this clinic note that are critical to medical decision making have been carefully reviewed and included from a prior clinic note dated: January 29, 2022 ([facility]) Referring Provider: self Additional Clinicians involved in Victor M Ni's care: Mar Ellis, Matilda Estrada DIAGNOSIS: Right kidney cancer ASSESSMENT: 71 year old man with history of right renal mass s/p Robotic right partial nephrectomy 10/29/2021. He initially presented in October 2020 with a suspicious mass that was initially stable on serial follow-up but then approximately 9 months later was found to increase in size. Following resection he presents for local follow-up and serial observation. CT's in January 2022 with no evidence of disease. PLAN: Repeat CT in 12 weeks Labs same day RTC 1 Week after to review. HPI: CASE HISTORY: Reverse Chronological Order 10/29/2021 right robotically assisted partial nephrectomy 5.1 cm ISU P grade 3 clear-cell papillary type. Tumor was confined to the kidney margins are negative stage [id number] maximum tumor diameter 5.5 cm. 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 07/10/2021 CT abdomen pelvis comparison 02/07/2021 heterogeneous hypoenhancing right renal mass 5.5 x 4.1 x 4.5 cm biopsy recommended. Compression fractures T7-T8. 02/07/2021 CT abdomen right kidney stable 4.8 cm mass remains nonspecific. Suspect hemorrhagic or density proteinaceous cyst. 01/30/2021 nondisplaced longitudinal fracture left patella 11/15/2020 CT abdomen pelvis: 4.9 cm right renal mass showing density higher than expected for simple fluid. Mass was suspicious with recommended pre and postinfusion imaging. 11/13/2020 ultrasound kidneys bladder: Indications increased frequency of urination, dehydration, nocturia: Right kidney hypoechoic partially exophytic round mass versus cyst projecting from mid body right kidney 4.8 cm diameter. No hydronephrosis or visible stones. Left kidney with normal renal cortical parenchymal echogenicity. Updated Visit, February 26, 2022: Doing well, Energy is back. Anemia resolved. Is staying hydrated. Scans show no evidence of recurrence. Initial Visit, January 29, 2022: Victor M Ni presents today Hematology and Oncology evaluation. He is a 71 year old male who has BPH and mild obstructive uropathy as well as a history of obstructive sleep apnea who was found to have a right renal mass in October 2020. Initially noted on ultrasound in October 2020 as a right hypocholic kidney mass possible cyst. Follow-up CT scan showed a 4.9 cm right renal mass concerning for possible malignancy. Follow-up CT scan in January 2021 showed that the mass was stable but then in June 2021 it was noted to be increasing in size now 5.5 cm. 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 He then underwent a partial right nephrectomy robotically assisted summarized above. Victor M tells me that he still feels very fatigued since his surgery. We will check his laboratories to see if he has become anemic But otherwise he may need his CPAP adjusted which he has been on for many years. He presents with his [place] who is also a patient of mine and wishes for his care to be done closer to home. I promised close correspondence with his urologic team. REVIEW OF SYSTEMS Per HPI and otherwise negative by full review of organ systems. ECOG PERFORMANCE STATUS: 1 PHYSICAL EXAMINATION: Vitals: BP 165/85 Pulse 79 Temp (Src) 97.6 (Temporal) Resp 16 Ht 5' 8.898 (1.75m) Wt 357 lb 9.6 oz (162.2kg) SpO2 98% BMI 52.97 kg/(m2). Body surface area is 2.81 meters squared. Very pleasant age-appropriate man with chronic lower extremity edema and difficulty walking due to orthopedic injuries including ankle and knee injuries. He is neurologically intact on gross visualization and appears to be in no acute distress. ALLERGIES: ALLERGIES Allergen Reactions Bupropion Mental Status Change Mobic [Meloxicam] Mental Status Change Sleepiness MEDICATIONS: ARIPiprazole (ABILIFY) 5 mg tablet Take 5 mg by mouth once daily. docusate sodium (COLACE) 100 mg capsule Take 1 capsule b (more content not included)...[facility]12-29-2022 Instructions* Patient Instructions* Matt Khan MD - 02/26/2022 10:[address] in 12 weeks Labs same day RTC 1 Week after to review. documented in this encounterP[facility]12-29-2022 History of Present illness Narrative* Matt Khan MD - 02/26/2022 10:42 AM EST Images from the original note were not included. NAME: LastVictor M CLIN[facility] NO.: [id number] DATE OF SERVICE: February 26, 2022 ([facility]) Some elements in this clinic note that are critical to medical decision making have been carefully reviewed and included from a prior clinic note dated: January 29, 2022 ([facility]) Referring Provider: self Additional Clinicians involved in Victor M Ni's care: Mar Ellis, Matilda Estrada DIAGNOSIS: Right kidney cancer ASSESSMENT: 71 year old man with history of right renal mass s/p Robotic right partial nephrectomy 10/29/2021. He initially presented in October 2020 with a suspicious mass that was initially stableon serial follow-up but then approximately 9 months later was found to increase in size. Following resection he presents for local follow-up and serial observation. CT's in January 2022 with no evidence of disease. PLAN: Repeat CT in 12 weeks Labs same day RTC 1 Week after to review. HPI: CASE HISTORY: Reverse Chronological Order 10/29/2021 right robotically assisted partial nephrectomy 5.1 cm ISU P grade 3 clear-cell papillarytype. Tumor was confined to the kidney margins are negative stage [id number] maximum tumor diameter 5.5 cm. 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 07/10/2021 CT abdomen pelvis comparison 02/07/2021 heterogeneous hypoenhancing right renal mass 5.5x 4.1 x 4.5 cm biopsy recommended. Compression fractures T7-T8. 02/07/2021 CT abdomen right kidney stable 4.8 cm mass remains nonspecific. Suspect hemorrhagic or density proteinaceous cyst. 01/30/2021 nondisplaced longitudinal fracture left patella 11/15/2020 CT abdomen pelvis: 4.9 cm right renal mass showing density higher than expected for simple fluid. Mass was suspicious with recommended pre and postinfusion imaging. 11/13/2020 ultrasound kidneys bladder: Indications increased frequency of urination, dehydration, nocturia: Right kidney hypoechoic partially exophytic round mass versus cyst projecting from mid bodyright kidney 4.8 cm diameter. No hydronephrosis or visible stones. Left kidney with normal renal cortical parenchymal echogenicity. Updated Visit, February 26, 2022: Doing well, Energy is back. Anemia resolved. Is staying hydrated. Scans show no evidence of recurrence. Initial Visit, January 29, 2022: Victor M Ni presents today Hematology and Oncology evaluation. He is a 71 year old male who hasBPH and mild obstructive uropathy as well as a history of obstructive sleep apnea who was found to have a right renal mass in October 2020. Initially noted on ultrasound in October 2020 as a right hypocholic kidney mass possible cyst. Follow-up CT scan showed a 4.9 cm right renal mass concerning for possible malignancy. Follow-up CT scan in January 2021 showed that the mass was stable but then in June 2021 it was noted to be increasing in size now 5.5 cm. 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 He then underwent a partial right nephrectomy robotically assisted summarized above. Victor M tells me that he still feels very fatigued since his surgery. We will check his laboratoriesto see if he has become anemic But otherwise he may need his CPAP adjusted which he has been on formany years. He presents with his [place] who is also a patient of mine and wishes for his care to be done closer to home. I promised close correspondence with his urologic team. REVIEW OF SYSTEMS Per HPI and otherwise negative by full review of organ systems. ECOG PERFORMANCE STATUS: 1 PHYSICAL EXAMINATION: Vitals: BP 165/85 Pulse 79 Temp (Src) 97.6 (Temporal) Resp 16 Ht 5' 8.898 (1.75m) Wt 357lb 9.6 oz (162.2kg) SpO2 98% BMI 52.97 kg/(m^2). Body surface area is 2.81 meters squared. Very pleasant age-appropriate man with chronic lower extremity edema and difficulty walking due to orthopedic injuries including ankle and knee injuries. He is neurologically intact on gross visualization and appears to be in no acute distress. ALLERGIES: ALLERGIES Allergen Reactions Bupropion Mental Status Change Mobic [Meloxicam] Mental Status Change Sleepiness MEDICATIONS: ARIPiprazole (ABILIFY) 5 mg tablet Take 5 mg by mouth once daily. docusate sodium (COLACE) 100 mg capsule Take 1 capsule by mouth twice daily. Take while taking narcotic pain medication to avoid constipation. Stop taking if you develop loose stools or diarrhea oxyCODONE IR (ROXICODONE) 5 mg immediate release tablet Take 1 tablet by mouth every 8 hours as needed for pain. sulindac (CLINORIL) 200 mg tablet Take 200 mg by mouth as needed. dorzolamide-timolol (COSOPT) 22.3-6.8 mg/mL ophthalmic solution Use 1 Drop in both eyes every 12 hours. AMLODIPINE BESYLATE, BULK, MISC Take 5 mg by mouth once daily. DULoxetine (CYMBALTA) 60 mg capsule Take 120 mg by mouth once daily. tamsulosin (FLOMAX) 0.4 mg Take 0.4 mg by mouth once daily. MULTIVITAMIN TAB Take one(1) tablet daily. acetaminophen(TYLENOL EXTRA STRENGTH 500 MG TAB) Take two(2) tablets every six(6) hours as needed for pain. iv contrast (will be provided with radiology test) CT Chest ABD/PEL-Inject, intravenously, once for1 dose.No IV access, insert saline lock prior to the beginning of sedation, infusion, injection of imaging exam. Discontinue saline lock post exam. If Pt. has a central line or IVAD, may access for administration according to line specific nursing protocol. Once exam is complete flush line and de-access according to line specific nursing protocol in the CT contrast administration guidelines link. enteric contrast (will be provided with radiology test) For CT CHESTABD/PEL W IVCON Routine order Administer, As Directed One Time Only, via Oral, Rectal, both Oral and Rectal, Enteric Tube, Stoma orIndwelling Catheter, Enteric Contrast as designated per enteric contrast guidelines LABORATORY VALUES: WBC (k/uL) Date Value 02/17/2022 6.96 RBC (m/uL) Date Value 02/17/2022 4.43 Hemoglobin (g/dL) Date Value 02/17/2022 13.7 Hematocrit (%) Date Value 02/17/2022 41.6 MCV (fL) Date Value 02/17/2022 93.9 MCH (pg) Date Value 02/17/2022 30.9 MCHC (g/dL) Date Value 02/17/2022 32.9 RDW-CV (%) Date Value 02/17/2022 13.2 Platelet Count (k/uL) Date Value 02/17/2022 239 MPV (fL) Date Value 02/17/2022 9.9 Glucose (mg/dL) Date Value 02/17/2022 125 (H) BUN (mg/dL) Date Value 02/17/2022 29 (H) Creatinine (mg/dL) Date Value 02/17/2022 1.74 (H) Sodium (mmol/L) Date Value 02/17/2022 139 Potassium (mmol/L) Date Value 02/17/2022 4.3 Chloride (mmol/L) Date Value 02/17/2022 103 CO2 (mmol/L) Date Value 02/17/2022 26 Protein, Total (g/dL) Date Value 02/17/2022 7.1 Albumin (g/dL) Date Value 02/17/2022 4.0 Calcium, Total (mg/dL) Date Value 02/17/2022 9.2 Alkaline Phosphatase (U/L) Date Value 02/17/2022 113 Bilirubin, Total (mg/dL) Date Value 02/17/2022 0.5 AST (U/L) Date Value 02/17/2022 17 ALT (U/L) Date Value 02/17/2022 15 DIAGNOSIS: (D49.519) Renal neoplasm (primary encounter diagnosis) Plan: CT ABD/PEL W IVCON, CT CHEST W IVCON, iv contrast (will be provided with radiology test), enteric contrast (will be provided with radiology test), CBC + DIFF, COMP METABOLIC PANEL, PSA/PROSTSPECAG DIAG (N40.1, N13.8) Benign prostatic hyperplasia with urinary obstruction Plan: CT ABD/PEL W IVCON, CT CHEST W IVCON, iv contrast (will be provided with radiology test), enteric contrast (will be provided with radiology test), CBC + DIFF, COMP METABOLIC PANEL, PSA/PROSTSPECAG DIAG PAST MEDICAL HISTORY Diagnosis Date Delayed emergence from general anesthesia Hypertension Obesity Obstructive sleep apnea PAST SURGICAL HISTORY Procedure Laterality Date PAST SURGICAL HISTORY OF L leg fracture - 2nd grade PAST SURGICAL HISTORY OF 2007 knee surgery - fx Social History Tobacco Use Smoking status: Never Smokeless tobacco: Never Substance Use Topics Alcohol use: No Drug use: Never FAMILY HISTORY Problem Relation Age of Onset Anesthesia Problems No Family History I spent a total of 35 minutes on the date of the service which included preparing to see the patient, [id number] patient care, completing clinical documentation, performing a medically appropriate examination, counseling and educating the patient/family/caregiver, ordering medications, tests, or p rocedures, and independently interpreting results (not separately reported). Matt Khan MD, CPE Hematology and Oncology Services Provided at: [place], [place] CC: Mar Roach Weight [id number] [address] [facility] [address] Ayesha Tafoya MD [address] [facility] [address] Matilda Brunson MD documented in this encounterPomerene [facility]12-20-2022 NoteHNO ID: [id number] Author: RT Castro(R) Service: ? Author Type: Technologist Type: Progress Notes Filed: 02/17/2022 9:29 AM Note Text: Radiology Service Progress Note PATIENT NAME: Victor M Ni DATE OF SERVICE: February 17, 2022 TIME: 9:28 AM PATIENT IDENTITY VERIFICATION COMPLETED USING TWO (2) IDENTIFIERS: Name and Date of confirmed by patient verbally. FALL SCREENING: Has the patient had 2 falls in the last year or 1 fall with injury or currently using an Ambulatory Assistive Device (Walker, Cane, Wheelchair, Crutches, etc.)? No PATIENT GENDER DATA: Male PATIENT RELEVANT IMPLANT DATA REVIEWED: Not Applicable RADIOLOGY DEPARTMENT: CT; Exam(s) Completed: Abdomen and Chest With IV and Oral contrast PERIPHERAL IV DATA: Site assessment: Clean,Dry and Intact, Site disposition Discontinued SIGNED BY: Shelly Mora, (R) February 17, 2022 9:28 [facility]12-20-2022 NoteHNO ID: [id number] Author: Monica Gorman RN Service: ? Author Type: Registered Nurse Type: Progress Notes Filed: 02/17/2022 9:28 AM Note Text: Radiology Service Progress Note DATE OF SERVICE: February 17, 2022 TIME: 9:27 AM PATIENT WEIGHT: 350 LBS PATIENT IDENTITY VERIFICATION COMPLETED USING TWO (2) STANDARD IDENTIFIERS: Name and Date of confirmed by patient verbally. FALL SCREENING: Has the patient had 2 falls in the last year or 1 fall with injury or currently using an Ambulatory Assistive Device (Walker, Cane, Wheelchair, Crutches, etc.)? No PATIENT GENDER DATA: Male ALLERGIES: Reviewed and unchanged CONTRAST ALLERGY: No EXAM: CT -CONTRAST INDUCED NEPHROPATHY RISK FACTORS: Patient age > 60 years and Known Chronic Kidney Disease (CKD) CREATININE: Creatinine Date Value Ref Range Status 01/29/2022 1.61 (H) 0.73 - 1.22 mg/dL Final 10/30/2021 1.72 (H) 0.73 - 1.22 mg/dL Final 10/29/2021 1.70 (H) 0.73 - 1.22 mg/dL Final Estimated Glomerular Filtration Rate Date Value Ref Range Status 01/29/2022 45 (L) >=60 mL/min/1.73m? Final Comment: Estimated Glomerular Filtration Rate (eGFR) is calculated using the 2020 CKD-EPI creatinine equation. This equation utilizes serum creatinine, sex, and age as parameters. The creatinine assay has traceable calibration to isotope dilution-mass spectrometry. Refer to KDIGO guidelines for clinical interpretation. In patients with unstable renal function, e.g. those with acute kidney injury, the eGFR may not accurately reflect actual GFR. P.O.C.T. RESULTS: POC done: Yes, See Lab Tab January 29, 2022 TREATMENT: No Hydration needed. IV SITE: Ambulatory: A peripheral IV was started in the Left forearm with a Angio cath: 20 gauge. IV SITE APPEARANCE: Clean,Dry and Intact SIGNATURE: Monica Gorman RN PATIENT NAME: Victor M Ni DATE: February 17, 2022 TIME: 9:27 [facility]12-20-2022 History of Present illness Narrative* Monica Gorman RN - 02/17/2022 9:15 AM EST Radiology Service Progress Note DATE OF SERVICE: February 17, 2022 TIME: 9:27 AM PATIENT WEIGHT: 350 LBS PATIENT IDENTITY VERIFICATION COMPLETED USING TWO (2) STANDARD IDENTIFIERS: Name and Date of confirmed by patient verbally. FALL SCREENING: Has the patient had 2 falls in the last year or 1 fall with injury or currently using an Ambulatory Assistive Device (Walker, Cane, Wheelchair, Crutches, etc.)? No PATIENT GENDER DATA: Male ALLERGIES: Reviewed and unchanged CONTRAST ALLERGY: No EXAM: CT -CONTRAST INDUCED NEPHROPATHY RISK FACTORS: Patient age > 60 years and Known Chronic Kidney Disease (CKD) CREATININE: Creatinine Date Value Ref Range Status 01/29/2022 1.61 (H) 0.73 - 1.22 mg/dL Final 10/30/2021 1.72 (H) 0.73 - 1.22 mg/dL Final 10/29/2021 1.70 (H) 0.73 - 1.22 mg/dL Final Estimated Glomerular Filtration Rate Date Value Ref Range Status 01/29/2022 45 (L) >=60 mL/min/1.73m Final Comment: Estimated Glomerular Filtration Rate (eGFR) is calculated using the 2020 CKD-EPI creatinine equation. This equation utilizes serum creatinine, sex, and age as parameters. The creatinine assay has traceable calibration to isotope dilution- mass spectrometry. Refer to KDIGO guidelines for clinical interpretation. In patients with unstable renal function, e.g. those with acute kidney injury, the eGFRmay not accurately reflect actual GFR. P.O.C.T. RESULTS: POC done: Yes, See Lab Tab January 29, 2022 TREATMENT: No Hydration needed. IV SITE: Ambulatory: A peripheral IV was started in the Left forearm with a Angio cath: 20 gauge. IV SITE APPEARANCE: Clean,Dry and Intact SIGNATURE: Monica Gorman RN PATIENT NAME: Victor M Ni DATE: February 17, 2022 TIME: 9:27 AM * Shelly Mora RT(R) - 02/17/2022 9:15 AM EST Radiology Service Progress Note PATIENT NAME: Victor M Ni DATE OF SERVICE: February 17, 2022 TIME: 9:28 AM PATIENT IDENTITY VERIFICATION COMPLETED USING TWO (2) IDENTIFIERS: Name and Date of confirmedby patient verbally. FALL SCREENING: Has the patient had 2 falls in the last year or 1 fall with injury or currently using an Ambulatory Assistive Device (Walker, Cane, Wheelchair, Crutches, etc.)? No PATIENT GENDER DATA: Male PATIENT RELEVANT IMPLANT DATA REVIEWED: Not Applicable RADIOLOGY DEPARTMENT: CT; Exam(s) Completed: Abdomen and Chest With IV and Oral contrast PERIPHERAL IV DATA: Site assessment: Clean,Dry and Intact, Site disposition Discontinued SIGNED BY: RT Castro(R) February 17, 2022 9:28 AM documented in this encounterPomerene Hospital12-01-2022 NoteHNO ID: [id number] Author: Matt Khan MD Service: ? Author Type: Physician Type: Progress Notes Filed: 02/04/2022 8:36 PM Note Text: NAME: Victor M Ni [facility] NO.: [id number] DATE OF SERVICE: January 29, 2022 Referring Provider: self Consultation requested by Self Referred for an opinion regarding Mr. Victor M Ni, and my final recommendations will be communicated back to the requesting physician by way of shared medical record or letter via US mail. Additional Clinicians involved in Victor M Ni's care: DIAGNOSIS: ASSESSMENT: 71 year old man with history of right renal mass s/p Robotic right partial nephrectomy 10/29/2021. He initially presented in October 2020 with a suspicious mass that was initially stable on serial follow-up but then approximately 9 months later was found to increase in size. Following resection he presents for local follow-up and serial observation. PLAN: Labs today - with anemia work up Please schedule scans ordered by Dr. Ellis herein January please Labs same day please. CBC, CMP. RTC 1 week after to Review. HPI: CASE HISTORY: Reverse Chronological Order 10/29/2021 right robotically assisted partial nephrectomy 5.1 cm ISU P grade 3 clear-cell papillary type. Tumor was confined to the kidney margins are negative stage [id number] maximum tumor diameter 5.5 cm. 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 07/10/2021 CT abdomen pelvis comparison 02/07/2021 heterogeneous hypoenhancing right renal mass 5.5 x 4.1 x 4.5 cm biopsy recommended. Compression fractures T7-T8. 02/07/2021 CT abdomen right kidney stable 4.8 cm mass remains nonspecific. Suspect hemorrhagic or density proteinaceous cyst. 01/30/2021 nondisplaced longitudinal fracture left patella 11/15/2020 CT abdomen pelvis: 4.9 cm right renal mass showing density higher than expected for simple fluid. Mass was suspicious with recommended pre and postinfusion imaging. 11/13/2020 ultrasound kidneys bladder: Indications increased frequency of urination, dehydration, nocturia: Right kidney hypoechoic partially exophytic round mass versus cyst projecting from mid body right kidney 4.8 cm diameter. No hydronephrosis or visible stones. Left kidney with normal renal cortical parenchymal echogenicity. Initial Visit, January 29, 2022: Victor M Ni presents today Hematology and Oncology evaluation. He is a 71 year old male who has BPH and mild obstructive uropathy as well as a history of obstructive sleep apnea who was found to have a right renal mass in October 2020. Initially noted on ultrasound in October 2020 as a right hypocholic kidney mass possible cyst. Follow-up CT scan showed a 4.9 cm right renal mass concerning for possible malignancy. Follow-up CT scan in January 2021 showed that the mass was stable but then in June 2021 it was noted to be increasing in size now 5.5 cm. 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 He then underwent a partial right nephrectomy robotically assisted summarized above. Victor M tells me that he still feels very fatigued since his surgery. We will check his laboratories to see if he has become anemic But otherwise he may need his CPAP adjusted which he has been on for many years. He presents with his [place] who is also a patient of mine and wishes for his care to be done closer to home. I promised close correspondence with his urologic team. REVIEW OF SYSTEMS Per HPI and otherwise negative by full review of organ systems. ECOG PERFORMANCE STATUS: 1 PHYSICAL EXAMINATION: Vitals: BP 154/92 Pulse 70 Temp (Src) 97 (Temporal) Resp 16 Ht 5' 8.898 [with shoes. verified by 2 caregivers[ (1.75m) Wt 343 lb (155.6kg) SpO2 98% BMI 50.80 kg/(m2). Body surface area is 2.75 meters squared. Very pleasant age-appropriate man with chronic lower extremity edema and difficulty walking due to orthopedic injuries including ankle and knee injuries. He is neurologically intact on gross visualization and appears to be in no acute distress. ALLERGIES: ALLERGIES Allergen Reactions Bupropion Mental Status Change Mobic [Meloxicam] Mental Status Change Sleepiness MEDICATIONS: ARIPiprazole (ABILIFY) 5 mg tablet Take 5 mg by mouth once daily. docusate sodium (COLACE) 100 mg capsule Take 1 capsule by mouth twice daily. Take while taking narcotic pain medication to avoid constipation. Stop taking if you develop loose (more content not included)...[facility]12-01-2022 Instructions* Patient Instructions* Matt Khan MD - 01/29/2022 11:33 AM EST Labs today - with anemia work up Please schedule scans ordered by Dr. Ellis herein January please Labs same day please. CBC, CMP. RTC 1 week after to Review. [facility]12-[facility]22 History of Present illness Narrative* Matt Khan MD - 01/29/2022 11:12 AM EST Images from the original note were not included. NAME: Victor M Ni CLINIC NO.: [id number] DATE OF SERVICE: January 29, 2022 Referring Provider: self Consultation requested by Self Referred for an opinion regarding Mr. Victor M Ni, and my final recommendations will be communicated back to the requesting physician by way of shared medical record or letter via US mail. Additional Clinicians involved in Victor M Ni's care: DIAGNOSIS: ASSESSMENT: 71 year old man with history of right renal mass s/p Robotic right partial nephrectomy 10/29/2021. He initially presented in October 2020 with a suspicious mass that was initially stableon serial follow-up but then approximately 9 months later was found to increase in size. Following resection he presents for local follow-up and serial observation. PLAN: Labs today - with anemia work up Please schedule scans ordered by Dr. Ellis herein January please Labs same day please. CBC, CMP. RTC 1 week after to Review. HPI: CASE HISTORY: Reverse Chronological Order 10/29/2021 right robotically assisted partial nephrectomy 5.1 cm ISU P grade 3 clear-cell papillarytype. Tumor was confined to the kidney margins are negative stage [id number] maximum tumor diameter 5.5 cm. 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 07/10/2021 CT abdomen pelvis comparison 02/07/2021 heterogeneous hypoenhancing right renal mass 5.5x 4.1 x 4.5 cm biopsy recommended. Compression fractures T7-T8. 02/07/2021 CT abdomen right kidney stable 4.8 cm mass remains nonspecific. Suspect hemorrhagic or density proteinaceous cyst. 01/30/2021 nondisplaced longitudinal fracture left patella 11/15/2020 CT abdomen pelvis: 4.9 cm right renal mass showing density higher than expected for simple fluid. Mass was suspicious with recommended pre and postinfusion imaging. 11/13/2020 ultrasound kidneys bladder: Indications increased frequency of urination, dehydration, nocturia: Right kidney hypoechoic partially exophytic round mass versus cyst projecting from mid bodyright kidney 4.8 cm diameter. No hydronephrosis or visible stones. Left kidney with normal renal cortical parenchymal echogenicity. Initial Visit, January 29, 2022: Victor M Ni presents today Hematology and Oncology evaluation. He is a 71 year old male who hasBPH and mild obstructive uropathy as well as a history of obstructive sleep apnea who was found to have a right renal mass in October 2020. Initially noted on ultrasound in October 2020 as a right hypocholic kidney mass possible cyst. Follow-up CT scan showed a 4.9 cm right renal mass concerning for possible malignancy. Follow-up CT scan in January 2021 showed that the mass was stable but then in June 2021 it was noted to be increasing in size now 5.5 cm. 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 He then underwent a partial right nephrectomy robotically assisted summarized above. Victor M tells me that he still feels very fatigued since his surgery. We will check his laboratoriesto see if he has become anemic But otherwise he may need his CPAP adjusted which he has been on formany years. He presents with his [place] who is also a patient of mine and wishes for his care to be done closer to home. I promised close correspondence with his urologic team. REVIEW OF SYSTEMS Per HPI and otherwise negative by full review of organ systems. ECOG PERFORMANCE STATUS: 1 PHYSICAL EXAMINATION: Vitals: BP 154/92 Pulse 70 Temp (Src) 97 (Temporal) Resp 16 Ht 5' 8.898 [with shoes. verified by 2 caregivers[ (1.75m) Wt 343 lb (155.6kg) SpO2 98% BMI 50.80 kg/(m^2). Body surface area is 2.75 meters squared. Very pleasant age-appropriate man with chronic lower extremity edema and difficulty walking due to orthopedic injuries including ankle and knee injuries. He is neurologically intact on gross visualization and appears to be in no acute distress. ALLERGIES: ALLERGIES Allergen Reactions Bupropion Mental Status Change Mobic [Meloxicam] Mental Status Change Sleepiness MEDICATIONS: ARIPiprazole (ABILIFY) 5 mg tablet Take 5 mg by mouth once daily. docusate sodium (COLACE) 100 mg capsule Take 1 capsule by mouth twice daily. Take while taking narcotic pain medication to avoid constipation. Stop taking if you develop loose stools or diarrhea sulindac (CLINORIL) 200 mg tablet Take 200 mg by mouth as needed. dorzolamide-timolol (COSOPT) 22.3-6.8 mg/mL ophthalmic solution Use 1 Drop in both eyes every 12 hours. AMLODIPINE BESYLATE, BULK, MISC Take 5 mg by mouth once daily. DULoxetine (CYMBALTA) 60 mg capsule Take 120 mg by mouth once daily. tamsulosin (FLOMAX) 0.4 mg Take 0.4 mg by mouth once daily. MULTIVITAMIN TAB Take one(1) tablet daily. acetaminophen(TYLENOL EXTRA STRENGTH 500 MG TAB) Take two(2) tablets every six(6) hours as needed for pain. oxyCODONE IR (ROXICODONE) 5 mg immediate release tablet Take 1 tablet by mouth every 8 hours as needed for pain. LABORATORY VALUES: WBC (k/uL) Date Value 01/29/2022 5.91 RBC (m/uL) Date Value 01/29/2022 4.57 Hemoglobin (g/dL) Date Value 01/29/2022 14.3 Hematocrit (%) Date Value 01/29/2022 43.2 MCV (fL) Date Value 01/29/2022 94.5 MCH (pg) Date Value 01/29/2022 31.3 MCHC (g/dL) Date Value 01/29/2022 33.1 RDW-CV (%) Date Value 01/29/2022 13.0 Platelet Count (k/uL) Date Value 01/29/2022 229 MPV (fL) Date Value 01/29/2022 9.6 Glucose (mg/dL) Date Value 01/29/2022 122 (H) BUN (mg/dL) Date Value 01/29/2022 16 Creatinine (mg/dL) Date Value 01/29/2022 1.61 (H) Sodium (mmol/L) Date Value 01/29/2022 137 Potassium (mmol/L) Date Value 01/29/2022 4.6 Chloride (mmol/L) Date Value 01/29/2022 102 CO2 (mmol/L) Date Value 01/29/2022 28 Protein, Total (g/dL) Date Value 01/29/2022 7.2 Albumin (g/dL) Date Value 01/29/2022 4.0 Calcium, Total (mg/dL) Date Value 01/29/2022 9.4 Alkaline Phosphatase (U/L) Date Value 01/29/2022 104 Bilirubin, Total (mg/dL) Date Value 01/29/2022 0.5 AST (U/L) Date Value 01/29/2022 20 ALT (U/L) Date Value 01/29/2022 15 DIAGNOSIS: (D49.519) Renal neoplasm (primary encounter diagnosis) Plan: CBC + DIFF, COMP METABOLIC PANEL, CBC + DIFF, COMP METABOLIC PANEL, IRON + TIBC, FERRITIN BLD, VITAMIN B12 BLOOD, FOLATE SERUM (N40.1, N13.8) Benign prostatic hyperplasia with urinary obstruction Plan: CBC + DIFF, COMP METABOLIC PANEL, IRON + TIBC, FERRITIN BLD, VITAMIN B12 BLOOD, FOLATE SERUM (G47.33) Obstructive sleep apnea Plan: CBC + DIFF, COMP METABOLIC PANEL, IRON + TIBC, FERRITIN BLD, VITAMIN B12 BLOOD, FOLATE SERUM (R53.81, R53.83) Malaise and fatigue Plan: CBC + DIFF, COMP METABOLIC PANEL, IRON + TIBC, FERRITIN BLD, VITAMIN B12 BLOOD, FOLATE SERUM (D64.9) Anemia, unspecified type Plan: CBC + DIFF, COMP METABOLIC PANEL, IRON + TIBC, FERRITIN BLD, VITAMIN B12 BLOOD, FOLATE SERUM (N19) Renal failure, unspecified chronicity PAST MEDICAL HISTORY Diagnosis Date Delayed emergence from general anesthesia Hypertension Obesity Obstructive sleep apnea PAST SURGICAL HISTORY Procedure Laterality Date PAST SURGICAL HISTORY OF L leg fracture - 2nd grade PAST SURGICAL HISTORY OF 2008 knee surgery - fx Social History Tobacco Use Smoking status: Never Smokeless tobacco: Never Substance Use Topics Alcohol use: No Drug use: Never FAMILY HISTORY Problem Relation Age of Onset Anesthesia Problems No Family History I spent a total of 65 minutes on the date of the service which included preparing to see the patient, [id number] patient care, completing clinical documentation, obtaining and/or reviewing separately obtained history, performing a medically appropriate examination, counseling and educating the pat ient/family/caregiver, ordering medications, tests, or procedures, and independently interpreting results (not separately reported). Matt Khan MD, CPE Hematology and Oncology Services Provided at: [place], [place] CC: Mar Ellis [id number] [facility] [id number] Ayesha Tafoya MD [address] [facility] [id number] Matilda Brunson MD documented in this encounterP[facility]09-20-2022 NoteHNO ID: [id number] Author: Mar Ellis MD Service: ? Author Type: Physician Type: Progress Notes Filed: 11/28/2021 7:22 PM Note Text: REASON FOR VISIT: Follow up for renal mass HPI: 71 year old male with history of right renal mass who presents for follow-up. 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 -Tumor is confined to the kidney. -Margins are negative for tumor. -See comment. LABS: Creatinine Date Value Ref Range Status 10/30/2021 1.72 (H) 0.73 - 1.22 mg/dL Final 10/29/2021 1.70 (H) 0.73 - 1.22 mg/dL Final 2021 1.50 (H) 0.73 - 1.22 mg/dL Final Creatinine (POCT) Date Value Ref Range Status 2021 1.60 (A) 0.7 - 1.4 mg/dL Final No results found for: PSA URINALYSIS: Specific [place], Ur Date Value Ref Range Status 2021 1.023 1.005 - 1.030 Final Glucose, Urine Date Value Ref Range Status 2021 Negative Negative Final Bilirubin, Urine Date Value Ref Range Status 2021 Negative Negative Final Ketones, Urine Date Value Ref Range Status 2021 Negative Negative Final Hemoglobin/Blood,Ur Date Value Ref Range Status 2021 Negative Negative Final Protein, Urine Date Value Ref Range Status 2021 Trace (A) Negative Final Nitrites Date Value Ref Range Status 2021 Negative Negative Final IMAGING: ALLERGIES: ALLERGIES Allergen Reactions Mobic [Meloxicam] Mental Status Change Sleepiness MEDICATIONS: Current Outpatient Medications Medication Sig docusate sodium (COLACE) 100 mg capsule Take 1 capsule by mouth twice daily. Take while taking narcotic pain medication to avoid constipation. Stop taking if you develop loose stools or diarrhea oxyCODONE IR (ROXICODONE) 5 mg immediate release tablet Take 1 tablet by mouth every 8 hours as needed for pain. sulindac (CLINORIL) 200 mg tablet Take 200 mg by mouth as needed. dorzolamide-timolol (COSOPT) 22.3-6.8 mg/mL ophthalmic solution Use 1 Drop in both eyes every 12 hours. AMLODIPINE BESYLATE, BULK, MISC Take 5 mg by mouth once daily. DULoxetine (CYMBALTA) 60 mg capsule Take 120 mg by mouth once daily. tamsulosin (FLOMAX) 0.4 mg Take 0.4 mg by mouth once daily. MULTIVITAMIN TAB Take one(1) tablet daily. acetaminophen(TYLENOL EXTRA STRENGTH 500 MG TAB) Take two(2) tablets every six(6) hours as needed for pain. No current facility-administered medications for this visit. HISTORIES PAST MEDICAL HISTORY Diagnosis Date Delayed emergence from general anesthesia Hypertension Obesity Obstructive sleep apnea PAST SURGICAL HISTORY Procedure Laterality Date PAST SURGICAL HISTORY OF L leg fracture - 2nd grade PAST SURGICAL HISTORY OF 2008 knee surgery - fx Social History Tobacco Use Smoking status: Never Smokeless tobacco: Never Substance Use Topics Alcohol use: No Drug use: Never FAMILY HISTORY Problem Relation Age of Onset Anesthesia Problems No Family History REVIEW OF SYSTEMS General: No weight loss, malaise or fevers. Genitourinary: No history of dysuria, frequency or incontinence The remainder of the ROS was reviewed and negative. PHYSICAL EXAMINATION There were no vitals taken for this visit. Constitutional: Well appearing, alert, in no acute distress, and well-hydrated, well nourished Skin: Skin color, texture, turgor normal, no suspicious rashes or lesions Gastrointestinal: Normal abdominal exam, Abdomen soft, non-tender. Bowel sounds normal. No masses, organomegaly. Surgical incisions clean, dry and intact Musculoskeletal: Extremities normal. No deformities, edema, or skin discoloration. Good capillary refill. PROBLEMS: 1. Renal cell cancer, right (HCC) - ICD9: 189.0, ICD10: C64.1 IMPRESSION: This is a 71 year old male with history of right renal mass s/p Robotic right partial nephrectomy 10/29/2021. PLAN: Follow up in [address] abd - does not need pelvis CT chest CBC, BMP Edie Luz, FRICTION PAINT MACHINE TENDER.TRAVEL SPECIALIST Scribed for Dr. Mar Ellis by Sky Barry, electromedical equipment technician, on November 18, 2021. I simi (more content not included)...[facility]09-20-2022 History of Present illness Narrative* Mar Ellis MD - 11/18/2021 3:30 PM EDT REASON FOR VISIT: Follow up for renal mass HPI: 71 year old male with history of right renal mass who presents for follow-up. 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 -Tumor is confined to the kidney. -Margins are negative for tumor. -See comment. LABS: Creatinine Date Value Ref Range Status 10/30/2021 1.72 (H) 0.73 - 1.22 mg/dL Final 10/29/2021 1.70 (H) 0.73 - 1.22 mg/dL Final 2021 1.50 (H) 0.73 - 1.22 mg/dL Final Creatinine (POCT) Date Value Ref Range Status 2021 1.60 (A) 0.7 - 1.4 mg/dL Final No results found for: PSA URINALYSIS: Specific [place], Ur Date Value Ref Range Status 2021 1.023 1.005 - 1.030 Final Glucose, Urine Date Value Ref Range Status 2021 Negative Negative Final Bilirubin, Urine Date Value Ref Range Status 2021 Negative Negative Final Ketones, Urine Date Value Ref Range Status 2021 Negative Negative Final Hemoglobin/Blood,Ur Date Value Ref Range Status 2021 Negative Negative Final Protein, Urine Date Value Ref Range Status 2021 Trace (A) Negative Final Nitrites Date Value Ref Range Status 2021 Negative Negative Final IMAGING: ALLERGIES: ALLERGIES Allergen Reactions Mobic [Meloxicam] Mental Status Change Sleepiness MEDICATIONS: Current Outpatient Medications Medication Sig docusate sodium (COLACE) 100 mg capsule Take 1 capsule by mouth twice daily. Take while taking narcotic pain medication to avoid constipation. Stop taking if you develop loose stools or diarrhea oxyCODONE IR (ROXICODONE) 5 mg immediate release tablet Take 1 tablet by mouth every 8 hours as needed for pain. sulindac (CLINORIL) 200 mg tablet Take 200 mg by mouth as needed. dorzolamide-timolol (COSOPT) 22.3-6.8 mg/mL ophthalmic solution Use 1 Drop in both eyes every 12 hours. AMLODIPINE BESYLATE, BULK, MISC Take 5 mg by mouth once daily. DULoxetine (CYMBALTA) 60 mg capsule Take 120 mg by mouth once daily. tamsulosin (FLOMAX) 0.4 mg Take 0.4 mg by mouth once daily. MULTIVITAMIN TAB Take one(1) tablet daily. acetaminophen(TYLENOL EXTRA STRENGTH 500 MG TAB) Take two(2) tablets every six(6) hours as needed for pain. No current facility-administered medications for this visit. HISTORIES PAST MEDICAL HISTORY Diagnosis Date Delayed emergence from general anesthesia Hypertension Obesity Obstructive sleep apnea PAST SURGICAL HISTORY Procedure Laterality Date PAST SURGICAL HISTORY OF L leg fracture - 2nd grade PAST SURGICAL HISTORY OF 2008 knee surgery - fx Social History Tobacco Use Smoking status: Never Smokeless tobacco: Never Substance Use Topics Alcohol use: No Drug use: Never FAMILY HISTORY Problem Relation Age of Onset Anesthesia Problems No Family History REVIEW OF SYSTEMS General: No weight loss, malaise or fevers. Genitourinary: No history of dysuria, frequency or incontinence The remainder of the ROS was reviewed and negative. PHYSICAL EXAMINATION There were no vitals taken for this visit. Constitutional: Well appearing, alert, in no acute distress, and well-hydrated, well nourished Skin: Skin color, texture, turgor normal, no suspicious rashes or lesions Gastrointestinal: Normal abdominal exam, Abdomen soft, non-tender. Bowel sounds normal. No masses, organomegaly. Surgical incisions clean, dry and intact Musculoskeletal: Extremities normal. No deformities, edema, or skin discoloration. Good capillary refill. PROBLEMS: 1. Renal cell cancer, right (HCC) - ICD9: 189.0, ICD10: C64.1 IMPRESSION: This is a 71 year old male with history of right renal mass s/p Robotic right partial nephrectomy 10/29/2021. PLAN: Follow up in [address] abd - does not need pelvis CT chest CBC, BMP Edie Luz, FRICTION PAINT MACHINE TENDER.TRAVEL SPECIALIST Scribed for Dr. Mar Ellis by Sky Barry, electromedical equipment technician, on November 18, 2021. I agree with the Chief Complaint, ROS, and Past Histories independently gathered by the clinical desktop support consultant including scribe and or medical student and or SHADY and or resident or fellow and the remaining scribed note accurately describes my personal service to the patient. Mar Ellis MD, MS [facility] documented in this encounterPomerene Hospital09-20-2022 NotePatient Outreach (UROLMN) VICTOR M NI ([id number]) 1950 M Date Time Provider Department 11/18/21 MAR ELLIS During your visit today, we recorded the following information about you: Allergies As of Date: 11/18/2021 Noted Allergy Reaction BUPROPION 11/18/2021 1 - Mental Status Change MOBIC (MELOXICAM) 2021 1 - Mental Status Change Comments: Sleepiness Date Reviewed: 11/18/2021 Reviewed by: DANNIE Horn - Fully Assessed Visit Diagnosis:Screening for genitourinary condition [Z13.89] Order(s):URINALYSIS, REFLEX MICROSCOPIC [[id number]] Order #: [id number]. #:[id number] Prescriptions as of 11/21/2021 - docusate sodium (COLACE) 100 mg capsule Take 1 capsule by mouth twice daily. Take while taking narcotic pain medication to avoid constipation. Stop taking if you develop loose stools or diarrhea - oxyCODONE IR (ROXICODONE) 5 mg immediate release tablet Take 1 tablet by mouth every 8 hours as needed for pain. - sulindac (CLINORIL) 200 mg tablet Take 200 mg by mouth as needed. - dorzolamide-timolol (COSOPT) 22.3-6.8 mg/mL ophthalmic solution Use 1 Drop in both eyes every 12 hours. - AMLODIPINE BESYLATE, BULK, MISC Take 5 mg by mouth once daily. - DULoxetine (CYMBALTA) 60 mg capsule Take 120 mg by mouth once daily. - tamsulosin (FLOMAX) 0.4 mg Take 0.4 mg by mouth once daily. - MULTIVITAMIN TAB Take one(1) tablet daily. - acetaminophen(TYLENOL EXTRA STRENGTH 500 MG TAB) Take two(2) tablets every six(6) hours as needed for pain. Problem List As Of Date 11/18/2021 Noted Resolved JOINT PAIN-SHLDER [M25.519] 07/20/2003 Benign prostatic hyperplasia with urinary obstr*07/15/2021 Renal mass [N28.89] 10/02/2021 Urge incontinence of urine [N39.41] 10/02/2021 Hypertension [I10] 2021 Obesity [E66.9] 2021 Obstructive sleep apnea [G47.33] 2021 Severe major depression (HCC) [F32.2] 2021 Delayed emergence from general anesthesia [T88.*2021 Obesity, Class III, BMI >= 40 [E66.01] 10/29/2021 Renal neoplasm [D49.519] 10/30/2021 Encounter Status:Closed by MALGORZATA, PRODUSER on 11/21/21[facility] 11-11-2021 Miscellaneous Notes* Telephone Encounter - Janki Ireland - 11/11/2021 1:21 PM EDT Spoke to Mrs. Ni regarding driving restrictions for patient. Advised that he needs to be off ofnarcotics and if he feels up to it, he can drive. I recommended that he take someone with him the first time in case he does not feel well. She verbalized understanding. All questions answered. Janki Ireland air pollution auditor Nurse Department of [facility] documented in this encounterPomerene Hospital09-01-2022 NoteHNO ID: [id number] Author: Aldo Rahman MD Service: Urology Author Type: Resident Type: Progress Notes Filed: 10/30/2021 7:32 AM Note Text: [facility] UROLOGY PROGRESS NOTE Name: Victor M Ni Bed: G090 [id number]/G090-10 Date: 10/30/2021 After Hours [facility] Urology Service Pager: [phone] ASSESSMENT AND PLAN Victor M Ni is a 71 year old male with history of BPH, KARINA, right renal mass now 1 Day Post-Op s/p RIGHT robotic partial nephrectomy. Interval: - NAEON. Feeling better. - Pain controlled. - Tolerating diet. No N/V/CP/SOB. Flatus/BM. - Ambulating. #Neuro - Continue IV and PO pain control #CV/Resp - HDS - Encourage IS #FEN - IV fluids with LR 150 cc/hr - Diet: CLD. ADAT - Colace, Zofran #HEM - Hgb 13.8 post op; morning Hgb pending # - Scr: 1.70 post op; morning Scr pending. Baseline appears to be ~1.50. - UOP: adequate, continue to monitor - Carty in place, remove today #Activity - OOB to chair and Ambulate with assistance. Stressed importance of getting out of bed #DVT prophylaxis - SCDs #ID/Antibiotics - Perioperative antibiotics - Ancef x24h #Secondary Dx/Complications- See active problems below #Discharge teaching - routine #Disposition - pending course Active Problems KARINA - CPA BPH - flomax HTN - amlodipine Depression - home cybalta Postoperative pain - Tylenol, PRN opioids Renal Neoplasm: Suspected malignancy - await final pathology results The patient's progress, lab findings, vitals, and clinical decision making as documented above were discussed with the patient's attending staff surgeon. MD Mendel Mcdonough MD Resident Urology PGY-5 Pager [phone] After hours compo conveyor operator urology pager [phone] CHIEF ADDENDUM: POD1 R robo PNx, CKD at baseline, small bump in serum creatinine as expected. H/h stable. Minimal flatus but not nauseated -OOB, ADROBF, hold sqh for the deep renorrhaphy, SCDs Aldo Rahman MD PGY-[address] Araujo with any patient care issues. Subjective SUBJECTIVE - Please see above interval HPI -Pain: Controlled -N/V: Yes -Bowel function: No, positive flatus -Ambulating: Yes Objective Vital Signs BP 153/79 Pulse 79 Temp 36.9 ?C (98.4 ?F) (Oral) Resp 18 SpO2 94% There is no height or weight on file to calculate BMI. Input and Output Intake/Output Summary (Last 24 hours) at 10/30/2021 0553 Last data filed at 10/30/2021 0214 Gross per 24 hour Intake 3330 ml Output 1010 ml Net 2320 ml Urine output 710cc Drains None Physical Exam Gen: No acute distress, comfortable in appearance. HEENT: atraumatic, normocephalic, sclera anicteric, EOMI CV: Regular rate Resp: Unlabored breathing on RA. No respiratory distress. Symmetric and equal chest rise. GI: Abdomen soft, NTND, no R/G. Fresh surgical scars c/d/I with overlying skin glue Ext: WWP Carty: draining clear light pink urine Labs Recent Labs 10/29/212028 WBC 13.08* HB 14.0 HCT 41.2 PLT 187 NA 138 K 4.5 CHLOR 103 CO2 25 BUN 25* CREAT 1.70* GLUC 166* Alex Ching, [facility]09-01-2022 NoteHNO ID: [id number] Author: Leena Galdamez MD Service: Urology Author Type: Resident Type: Progress Notes Filed: 10/30/2021 1:24 AM Note Text: [facility] UROLOGY PROGRESS NOTE Name: Victor M Ni Bed: ORE2-Periop/ORE2-Periop Date: 10/29/2021 After Hours [facility] Urology Service Pager: [phone] ASSESSMENT AND PLAN Victor M Ni is a 71 year old male with history of BPH, KARINA, right renal mass now POD 0 s/p robotic right partial nephrectomy Interval: Doing well on postop check, pain is well-controlled and tolerating PO. Denies CP, SOB, N/V. Clears, ADAT Pain control Carty - out tomorrow Periop abx, no need for abx on discharge RUBENS drain out prior to d/c DVT prophylaxis - PAS Stockings on and Pharmacologic DVT prophylaxis contraindicated due to bleeding risk Anticipate discharge tomorrow pending AM labs Active Problems KARINA - CPA BPH - flomax HTN - amlodipine Depression - home cybalta Postoperative pain - Tylenol, PRN opioids Renal Neoplasm: Suspected malignancy - await final pathology results Leena Galdamez MD Urology PGY-2 Pager: [phone] After 5PM or on weekends, [place] [phone] SUBJECTIVE -No acute events since OR -Pain is controlled -Tolerating PO -Denies CP, SOB, N/V Objective Vital Signs BP 150/79 Pulse 70 Temp 36.5 ?C (97.7 ?F) (Temporal) Resp (!) 70 SpO2 93% There is no height or weight on file to calculate BMI. Input and Output Intake/Output Summary (Last 24 hours) at 10/29/2021 1829 Last data filed at 10/29/2021 1744 Gross per 24 hour Intake 1150 ml Output 160 ml Net 990 ml Urine output 420cc red urine-- freely draining in bag Drains 190cc Physical Exam General: NAD CV: warm, well-perfused Resp: breathing comfortably on NC GI: Soft, appropriately tender, not distended. No rebound or guarding. Incisions covered with skin glue and CDI : Carty catheter draining clear red urine Extremities: LE compartments soft, nontender Neuro: Alert and oriented Imaging [facility] NoteHNO ID: [id number] Author: Cleopatra Amado APRN.CORPORATE RELATIONS MANAGER Service: ? Author Type: Nurse Silver Recovery Operator Type: Anesthesia Procedure Notes Filed: 10/29/2021 4:14 PM Note Text: ANESTHESIOLOGY PROCEDURE NOTE PIV General Information Procedure Start Time/Medication Administration: 10/29/2021 3:00 PM Patient Location: OR Staffing Anesthesiologist: Josemanuel Celaya MD Performed by: anesthesiologist Preparation Sterility Preparation: skin prep agent completely dried prior to procedure Site Prep: alcohol Procedure Details Indication: need for IV access Needle Size/Type: 18 gauge angiocath Orientation: Left Location: Hand Imaging Guidance Used: No SIGNATURE: Cleopatra Amado APRN.CORPORATE RELATIONS MANAGER PATIENT NAME: Victor M Ni DATE: October 29, 2021 TIME: 4:13 PM CSN: [id number] NoteHNO ID: [id number] Author: Cleopatra Amado APRN.CORPORATE RELATIONS MANAGER Service: ? Author Type: Nurse Silver Recovery Operator Type: Anesthesia Procedure Notes Filed: 10/29/2021 4:09 PM Note Text: ANESTHESIOLOGY PROCEDURE NOTE Airway General Information Procedure Start Time/Medication Administration: 10/29/2021 2:57 PM Patient location during procedure: OR Timeout Performed Pre-procedure: timeout performed Consent Obtained: Yes Patient identity confirmed: arm band and patient Staffing Anesthesiologist: Josemanuel Celaya MD CORPORATE RELATIONS MANAGER: Cleopatra Amado APRN.CORPORATE RELATIONS MANAGER Performed by: anesthesiologist and CORPORATE RELATIONS MANAGER Indications and Patient Condition Indications for airway management: anesthesia Preoxygenated: yes anesthesia circuit Patient position: sniffing Method: asleep Cricoid Pressure: No Manual In-Line Stabilization: Yes Difficult Mask: Yes Airway Accessory: oral airway Final Airway Details Final airway type: endotracheal airway Final Endotracheal Airway: ETT Cuffed: yes Successful intubation technique: video laryngoscopy Devices used: Glidescope Endotracheal tube insertion site: oral Blade size: #4 ETT size (mm): 8.0 Measured from: lips Measurement (cm): 22 Placement verified by: chest auscultation and capnometry Cormack-Lehane Classification: grade IIa - partial view of glottis Number of attempts at approach: 1 Failed airway: no Unrecognized esophageal intubation: no Airway not difficult Comments oral airway required, two hand mask. large thick neck, large tongue. good view with glidescope SIGNATURE: Cleopatra Amado APRN.CRNA PATIENT NAME: Victor M Ni DATE: October 29, 2021 TIME: 4:07 PM CSN: [id number] [facility] NoteHNO ID: [id number] Author: Everton Abad MD Service: ? Author Type: Physician Type: Progress Notes Filed: 2021 1:47 PM Note Text: [facility] PRE-OP NOTE Patient is a 71 year old year old male. Pre-op Date: 10/22/21 Date of Procedure: 10/29/21 Does the patient have an active COVID-19 test in Epic? NA Procedure/Surgery: Right Robot Assisted Partial Nephrectomy Diagnosis: Renal Cell Carcinoma Primary Surgeon: Mar Ellis MD Pain Assessment: Are you currently having pain? No 0 on a scale of 0 to 10 Surgical Guide Book Status: yes Patient has guide with them today. Dialysis Guide Book Status: NA Allergies Reviewed: mobic Medications Reviewed: yes, updated Is patient currently on oral steroids?: no Has the patient had a UTI in the past month?: no Does the patient have any artificial joints (last 2 years), metal parts, pacemakers or cardiac/ureteral stents in place?: Has screws in left knee Does the patient have diabetes?: no Is the patient routinely taking anticoagulants?: no Can the patient have an IV put in either arm?: yes Urine Dip Complete?: yes URINE CULTURE COMPLETE?: NA Ostomy/Stoma Nurse appointment made/completed: N/A IMPACT/Medical Clearance: Cleared per IMP[facility] - To be seen [facility]: Cleared per [facility] - To be seen All testing on cureform has been scheduled: Yes Consent Signed: yes DOS Orders Placed and Signed: Yes. Pre-op HANDP Done by Urology Fellow: Done. PATIENT INSTRUCTIONS FOR SURGERY 1.) DO NOT HAVE ANYTHING TO EAT AFTER MIDNIGHT THE DAY BEFORE SURGERY except for certain morning medications as instructed by the doctor. Candy, mints, gum, and smoking are NOT permitted. You may drink clear liquids (Sprite, water, clif pradeep) up to two hours before your arrival time on the day of surgery. 2.) Medications to be taken on the morning of surgery with a few sips of water: discussed with patient 3.) Please bring all your prescribed inhalers (if you have any you normally take) to the hospital. 4.) Arrival time: Call for arrival. 5.) Prep given: No 6.) Lovenox instructions given: N/A 7.) Patient reminded that surgery time provided day before surgery is tentative based on potential changes with transplants. Recommendations: This patient is optimally prepared for surgery pending LABS, [facility] History and physical note* Elizabeth Champion PA-C - 2021 2:50 PM EDT HISTORY AND PHYSICAL EXAMINATION SERVICE DATE: 10/22/21 SERVICE TIME: 3:01 PM PRIMARY CARE PHYSICIAN: Ayesha Tafoya MD REASON FOR VISIT: Victor M Ni is a 70 year old male who is scheduled for ROBOTIC LAPAROSCOPIC NEPHRECTOMY PARTIALat the request of Dr. Mar Ellis for consultation. My final recommendation will be communicated back to the requesting physician by way of shared medical record or letter. The patient has the following: ACTIVE PROBLEM LIST Pain in Joint, Shoulder Region Benign Prostatic Hyperplasia With Urinary Obstruction Renal Mass Urge Incontinence of Urine Hypertension Obesity Obstructive Sleep Apnea Severe Major Depression (Hcc) Delayed Emergence From General Anesthesia Subjective CHIEF COMPLAINT: Pre-op visit, right renal mass HPI: Victor M Ni is a 70 year old male presenting for pre-anesthesia consultation with his wifeand son. Pt has history of right renal mass. 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 He denies dysuria or gross hematuria. Above procedure recommended to manage disease. Procedure scheduled on 10/29/2021 at . PAST MEDICAL HISTORY Diagnosis Date Hypertension Obesity Obstructive sleep apnea PAST SURGICAL HISTORY Procedure Laterality Date PAST SURGICAL HISTORY OF L leg fracture - 2nd grade PAST SURGICAL HISTORY OF 2008 knee surgery - fx FAMILY HISTORY Problem Relation Age of Onset Anesthesia Problems No Family History SOCIAL HISTORY: Social History Tobacco Use Smoking status: Never Smokeless tobacco: Never Substance Use Topics Alcohol use: No Drug use: Never MEDICATIONS: Prior to Admission medications as of 10/22/21 1504 Medication Sig Last Dose Taking sulindac (CLINORIL) 200 mg tablet Take 200 mg by mouth as needed. Taking Yes dorzolamide-timolol (COSOPT) 22.3-6.8 mg/mL ophthalmic solution Use 1 Drop in both eyes every 12 hours. Taking Yes AMLODIPINE BESYLATE, BULK, MISC Take 5 mg by mouth once daily. Taking Yes DULoxetine (CYMBALTA) 60 mg capsule Take 120 mg by mouth once daily. Taking Yes tamsulosin (FLOMAX) 0.4 mg Take 0.4 mg by mouth once daily. Taking Yes MULTIVITAMIN TAB Take one(1) tablet daily. Taking Yes acetaminophen(TYLENOL EXTRA STRENGTH 500 MG TAB) Take two(2) tablets every six(6) hours as needed for pain. Taking Yes No medication comments found. CURRENT ALLERGIES: ALLERGIES Allergen Reactions Mobic [Meloxicam] Mental Status Change Sleepiness COVID VACCINATION STATUS: Fully vaccinated REVIEW OF SYSTEMS: General: No weight loss, malaise or fevers. Neuro: No history of TIA's, stroke, PACKAGER AND STRAPPER tumor, impaired sensorium, hemiplegia, paraplegia or quadraplegia. No neurological symptoms or problems. Respiratory: +KARINA Negative for Asthma, Bronchitis, COPD, Current cough, Tobacco Use, URI < 2 weeks Cardiovascular: +HTN Negative for Recent [place], Arrhythmia, CHF, Valvular Heart Disease, DVT/PE GI: No history of GI symptoms or problems. No history of esophageal varices, recent ascites, or ETOH greater than 2 drinks per day. : See HPI +BPH Negative for dysuria and hematuria Endocrine: No history of diabetes. Has not taken steroids within the past 30 days. No history of endocrinological symptoms or problems. Hematology: No history of bleeding or clotting disorder. Pt is not taking anti- coagulation or platelet medications. No history of hematological symptoms or problems. Oncology: See HPI Psych: +Depression Musculoskeletal: +L leg weakness, L shoulder pain. Skin: Negative for lesions, rash and itching. Objective PHYSICAL EXAM: VITALS: BP 150/90[Provider notified[ Pulse 60 Temp (Src) 97 (Temporal) Ht 5' 8.5 (1.74m) Wt 340 lb(154.2kg) SpO2 97% BMI 50.94 kg/(m^2). General: Alert and oriented, No acute distress, Morbidly obese Skin: Normal color, no rash, no lesions. HEENT: EOM, pupils equal, round and reactive., No carotid bruits Cardiovascular: Normal S1 & S2, no murmurs. Pulse regular. Lungs: Normal breath sounds, no wheezes or crackles. Extremities: No deformity, 1+ pitting edema in LEs bilaterally. Neurological: Normal cognition and motor skills. Gait not observed, in wheelchair. Pulses: Radial pulses; left 2+ / right 2+. Diagnostic tests reviewed for today's visit: Lab Value Units Date High Low HB 14.5 g/dL 08/27/2021 17.0 13.0 HCT 43.9 % 08/27/2021 51.0 39.0 WBC 6.71 k/uL 08/27/2021 11.00 3.70 PLT 209 k/uL 08/27/2021 400 150 NA No results within date range. K No results within date range. GLUC No results within date range. BUN No results within date range. CREAT 1.60 mg/dL 2021 1.4 0.7 PTSEC 11.3 sec 08/27/2021 13.0 9.7 INR 1.1 no uni* 08/27/2021 1.3 0.9 APTT No results within date range. ALT No results within date range. AST No results within date range. TBILI No results within date range. TSH No results within date range. Lab Value Units Date High Low HCGQT No results within date range. UHCG No results within date range. HCG, BODY* No results within date range. Lab Value Units Date High Low ABORHD No results within date range. ABSCREEN No results within date range. No results found for: HBA1C No results found for this or any previous visit (from the past 8760 hour(s)). No results found for this or any previous visit (from the past 17529 hour(s)). PENDING Assessment/Plan Hypertension Assessment: Stable, on RX. BP today 150/90. Obstructive sleep apnea Assessment: Compliant on CPAP. Benign prostatic hyperplasia with urinary obstruction Assessment: Stable, managed on Flomax. Obesity Assessment: Body mass index is 50.94 kg/m . Severe major depression (HCC) Assessment: Stable, managed on RX. METS: Climb a flight of stairs or walk up a hill (5.50 METs) Patient denies any chest pain or undue shortness of breath with the above physical activity. ASA Class: 3 ANESTHESIA FINDINGS: Intubation History: No history of difficult intubation Significant Anesthesia Considerations: Slow emergence Airway Exam: General: Morbid obesity Mallampati Score is CLASS IV ULBT: Class I - Lower incisors can bite the upper lip above the adela line Neck: Normal function, Distance from hyoid to mentum during neck extension is less than 3 finger breaths, Short thick neck Mouth: Normal tongue size and Mouth opening greater than 2 finger breaths Dentition: Caps/crowns Airway History: No abnormal airway history +KARINA - uses CPAP. Sleep Apnea Probability Snores loudly: No Tired, fatigued or sleepy in daytime: Yes Stops breathing or choking/gasping during sleep: Yes High blood pressure: Yes Sleep Apnea Probability Score 10/20/2021 Sleep Apnea Screen V2 88 (Recommend sleep study) PLAN This patient is optimally prepared for surgery pending LABS and EKG. CONSULTS: Patient does not require consults for optimization at this time. The Following Tests/Procedures Have Been Initiated: Orders placed by surgeon/surgical service in [facility]. Planned Anesthetic: Per anesthesia choice Instructions Given to Patient: Instructions located in the after visit summary. Patient given verbal and written preop instructions and voices comprehension and compliance. SIGNATURE: Elizabeth Champion PA-C PATIENT NAME: Victor M Mileses DATE: October 21, 2021 TIME: 3:10 PM documented in this encounterPome[facility]08-24-2022 NotePatient Outreach (STEW) LASTVICTOR M EVANS Juan ([id number]) 1950 M Date Time Provider Department 10/22/21 EVERTON ABAD During your visit today, we recorded the following information about you: Allergies As of Date: 2021 Noted Allergy Reaction MOBIC (MELOXICAM) 2021 1 - Mental Status Change Comments: Sleepiness Date Reviewed: 2021 Reviewed by: Elizabeth Champion PA-C - Fully Assessed Visit Diagnosis:Screening for genitourinary condition [Z13.89] Order(s):URINALYSIS, REFLEX MICROSCOPIC [EPV7543] Order #: [id number]. #:[id number] Prescriptions as of 10/27/2021 - sulindac (CLINORIL) 200 mg tablet Take 200 mg by mouth as needed. - dorzolamide-timolol (COSOPT) 22.3-6.8 mg/mL ophthalmic solution Use 1 Drop in both eyes every 12 hours. - AMLODIPINE BESYLATE, BULK, MISC Take 5 mg by mouth once daily. - DULoxetine (CYMBALTA) 60 mg capsule Take 120 mg by mouth once daily. - tamsulosin (FLOMAX) 0.4 mg Take 0.4 mg by mouth once daily. - MULTIVITAMIN TAB Take one(1) tablet daily. - acetaminophen(TYLENOL EXTRA STRENGTH 500 MG TAB) Take two(2) tablets every six(6) hours as needed for pain. Problem List As Of Date 2021 Noted Resolved JOINT PAIN-SHLDER [M25.519] 07/20/2003 Benign prostatic hyperplasia with urinary obstr*07/15/2021 Renal mass [N28.89] 10/02/2021 Urge incontinence of urine [N39.41] 10/02/2021 Hypertension [I10] 2021 Obesity [E66.9] 2021 Obstructive sleep apnea [G47.33] 2021 Severe major depression (HCC) [F32.2] 2021 Delayed emergence from general anesthesia [T88.*2021 Encounter Status:Closed by MALGORZATA PRODUSER on 10/27/21[facility] 2021 NoteHNO ID: [id number] Author: RT Kasandra(R) Service: Radiology Author Type: Technologist Type: Progress Notes Filed: 2021 12:52 PM Note Text: Radiology Service Progress Note PATIENT NAME: Victor M Ni DATE OF SERVICE: 2021 TIME: 12:50 PM PATIENT IDENTITY VERIFICATION COMPLETED USING TWO (2) IDENTIFIERS: Name and Date of confirmed by patient verbally and Name and Date of confirmed by identification band. FALL SCREENING: Has the patient had 2 falls in the last year or 1 fall with injury or currently using an Ambulatory Assistive Device (Walker, Cane, Wheelchair, Crutches, etc.)? Yes, Patient High Risk for Falls What interventions were put in place to prevent falls during this visit? Non-Skid Socks Used and Offered Assistance with Transfers/Clothing PATIENT GENDER DATA: Male PATIENT RELEVANT IMPLANT DATA REVIEWED: Yes RADIOLOGY DEPARTMENT: CT; Exam(s) Completed: Chest PERIPHERAL IV DATA: Site assessment: Clean,Dry and Intact, Site disposition Discontinued SIGNED BY: Edward Spear RT(R) 2021 12:50 [facility]08-24-2022 NoteHNO ID: [id number] Author: Shasta Quinteros RN Service: Nursing Author Type: Registered Nurse Type: Progress Notes Filed: 2021 12:50 PM Note Text: Radiology Service Progress Note DATE OF SERVICE: 2021 TIME: 12:36 PM PATIENT WEIGHT: 346LBS PATIENT IDENTITY VERIFICATION COMPLETED USING TWO (2) STANDARD IDENTIFIERS: Name and Date of confirmed by patient verbally and Name and Date of confirmed by identification band. FALL SCREENING: Has the patient had 2 falls in the last year or 1 fall with injury or currently using an Ambulatory Assistive Device (Walker, Cane, Wheelchair, Crutches, etc.)? Yes, Patient High Risk for Falls What interventions were put in place to prevent falls during this visit? [place] Risk Wristband Applied PATIENT GENDER DATA: Male ALLERGIES: Reviewed and unchanged CONTRAST ALLERGY: No EXAM: CT -CONTRAST INDUCED NEPHROPATHY RISK FACTORS: Patient age > 60 years and Known Chronic Kidney Disease (CKD) CREATININE: No results found for: CREAT, EGFROTH, EGFRAA P.O.C.T. RESULTS: POC done: Yes, See Lab Tab 2021 TREATMENT: No Hydration needed. IV SITE: Ambulatory: A peripheral IV was started in the Left forearm with a Angio cath: 22 gauge. IV SITE APPEARANCE: Clean,Dry and Intact SIGNATURE: Shasta Quinteros RN PATIENT NAME: Victor M Ni DATE: 2021 TIME: 12:36 [facility]08-24-2022 History and physical note* Everton Abad MD - 2021 1:22 PM EDT Chief Complaint: Renal neoplasm History of Present Illness: Some aspects copied from prior note but reassessed today. Victor M Ni is a very pleasant 71 year old male who presents with right renal mass found to be renal cell carcinoma, papillary type on renal mass biopsy RCC Snapshot: Age at diagnosis: 70 Gender: male Date of radiographic diagnosis: 11/18/2020 Preop GFR: Unknown Clinical: Cystic Mass: No Tumor size: (maximum tumor diameter in cm): (cm): 5.5cm Stage: [id number] RMB: Date of biopsy: (MM/DD/YYYY, please provide best estimate): 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 Review of Systems: REVIEW OF SYSTEMS: GENERAL: Negative for weight loss, fevers, chills, or night sweats. HEENT: Negative for sudden vision or hearing changes. RESPIRATORY: Negative for cough or shortness of breath. CARDIAC: Negative for chest pain, COPD, dyspnea, palpitations, murmurs, or syncopal episodes. GASTROINTESTINAL: Negative for trouble swallowing, heartburn, change in bowel habits, blood in stool, and dark black stools. GENITOURINARY: See HPI MUSCULAR: Negative for limitations in movement, pain, or swelling. NEUROLOGIC: Negative for dizziness, headache, weakness or numbness. HEMATOLOGIC: Negative for bleeding or easy bruising. SKIN: Negative for rashes or other skin changes. LYMPHATIC: No masses noted. EXTREMITIES: No swelling of extremities. Allergies: Allergies: No Known Allergies Physical Exam: BP 130/73 Pulse 73 Ht 175.3 cm (5' 9 ) Wt (!) 156.9 kg (346 lb) BMI 51.10 kg/m Constitutional: Well appearing, alert, in no acute distress and well-hydrated, well nourished Skin: Skin color, texture, turgor normal, no suspicious rashes or lesions Eyes: Normocephalic, no masses, lesions, tenderness or abnormalities Neuro: Supple, no adenopathy; thyroid symmetric, normal size, no bruits Respiratory: Clear to auscultation bilaterally, no wheezing or rhonchi Cardiovascular: RRR without murmur, gallop, or rubs. No ectopy Gastrointestinal: Normal abdominal exam, Abdomen soft, non-tender. Bowel sounds normal. No masses, organomegaly Musculoskeletal: Extremities normal. No deformities, edema, or skin discoloration. Good capillary refill. Genitourinary: Deferred Labs and Pathology: No results found for: CREAT URINALYSIS: Specific Kasson, Ur Date Value Ref Range Status 10/02/2021 1.015 1.005 - 1.030 Final Glucose, Urine Date Value Ref Range Status 10/02/2021 Negative Negative Final Bilirubin, Urine Date Value Ref Range Status 10/02/2021 Negative Negative Final Ketones, Urine Date Value Ref Range Status 10/02/2021 Negative Negative Final Hemoglobin/Blood,Ur Date Value Ref Range Status 10/02/2021 Negative Negative Final Protein, Urine Date Value Ref Range Status 10/02/2021 Negative Negative Final Nitrites Date Value Ref Range Status 10/02/2021 Negative Negative Final Imaging: N/A Assessment: This is a 70 year old male with right renal mass that was biopsied and showed renal cell carcinoma,papillary subtype grade group 2. Plan: - Right robot assisted partial nephrectomy on 10/29/21 - CT chest, CBC, BMP today documented in [facility]-24-[facility] History of Present illness Narrative* Everton Abad MD - 2021 1:12 PM EDT [facility] PRE-OP NOTE Patient is a 71 year old year old male. Pre-op Date: 10/22/21 Date of Procedure: 10/29/21 Does the patient have an active COVID-19 test in Epic? NA Procedure/Surgery: Right Robot Assisted Partial Nephrectomy Diagnosis: Renal Cell Carcinoma Primary Surgeon: Mar Ellis MD Pain Assessment: Are you currently having pain? No 0 on a scale of 0 to 10 Surgical Guide Book Status: yes Patient has guide with them today. Dialysis Guide Book Status: NA Allergies Reviewed: mobic Medications Reviewed: yes, updated Is patient currently on oral steroids?: no Has the patient had a UTI in the past month?: no Does the patient have any artificial joints (last 2 years), metal parts, pacemakers or cardiac/ureteral stents in place?: Has screws in left knee Does the patient have diabetes?: no Is the patient routinely taking anticoagulants?: no Can the patient have an IV put in either arm?: yes Urine Dip Complete?: yes URINE CULTURE COMPLETE?: NA Ostomy/Stoma Nurse appointment made/completed: N/A IMPACT/Medical Clearance: Cleared per [facility] - To be seen [facility]: Cleared per [facility] - To be seen All testing on cureform has been scheduled: Yes Consent Signed: yes DOS Orders Placed and Signed: Yes. Pre-op H&P Done by Urology Fellow: Done. PATIENT INSTRUCTIONS FOR SURGERY 1.) DO NOT HAVE ANYTHING TO EAT AFTER MIDNIGHT THE DAY BEFORE SURGERY except for certain morning medications as instructed by the doctor. Candy, mints, gum, and smoking are NOT permitted. You may drink clear liquids (Sprite, water, clif pradeep) up to two hours before your arrival time on the day of surgery. 2.) Medications to be taken on the morning of surgery with a few sips of water: discussed with patient 3.) Please bring all your prescribed inhalers (if you have any you normally take) to the hospital. 4.) Arrival time: Call for arrival. 5.) Prep given: No 6.) Lovenox instructions given: N/A 7.) Patient reminded that surgery time provided day before surgery is tentative based on potential changes with transplants. Recommendations: This patient is optimally prepared for surgery pending LABS, IMP[facility] documented in this encounterPome[facility]08-24-[facility]22 History of Present illness Narrative* Shasta Quinteros RN - 2021 12:00 PM EDT Radiology Service Progress Note DATE OF SERVICE: 2021 TIME: 12:36 PM PATIENT WEIGHT: 346LBS PATIENT IDENTITY VERIFICATION COMPLETED USING TWO (2) STANDARD IDENTIFIERS: Name and Date of confirmed by patient verbally and Name and Date of confirmed by identification band. FALL SCREENING: Has the patient had 2 falls in the last year or 1 fall with injury or currently using an Ambulatory Assistive Device (Walker, Cane, Wheelchair, Crutches, etc.)? Yes, Patient High Riskfor Falls What interventions were put in place to prevent falls during this visit? Yellow Falls Risk Wristband Applied PATIENT GENDER DATA: Male ALLERGIES: Reviewed and unchanged CONTRAST ALLERGY: No EXAM: CT -CONTRAST INDUCED NEPHROPATHY RISK FACTORS: Patient age > 60 years and Known Chronic Kidney Disease (CKD) CREATININE: No results found for: CREAT, EGFROTH, EGFRAA P.O.C.T. RESULTS: POC done: Yes, See Lab Tab 2021 TREATMENT: No Hydration needed. IV SITE: Ambulatory: A peripheral IV was started in the Left forearm with a Angio cath: 22 gauge. IV SITE APPEARANCE: Clean,Dry and Intact SIGNATURE: Shasta Quinteros RN PATIENT NAME: Victor M Ni DATE: 2021 TIME: 12:36 PM * RT Kasandra(R) - 2021 12:00 PM EDT Radiology Service Progress Note PATIENT NAME: Victor M Ni DATE OF SERVICE: 2021 TIME: 12:50 PM PATIENT IDENTITY VERIFICATION COMPLETED USING TWO (2) IDENTIFIERS: Name and Date of confirmedby patient verbally and Name and Date of confirmed by identification band. FALL SCREENING: Has the patient had 2 falls in the last year or 1 fall with injury or currently using an Ambulatory Assistive Device (Walker, Cane, Wheelchair, Crutches, etc.)? Yes, Patient High Riskfor Falls What interventions were put in place to prevent falls during this visit? Non- Skid Socks Used and Offered Assistance with Transfers/Clothing PATIENT GENDER DATA: Male PATIENT RELEVANT IMPLANT DATA REVIEWED: Yes RADIOLOGY DEPARTMENT: CT; Exam(s) Completed: Chest PERIPHERAL IV DATA: Site assessment: Clean,Dry and Intact, Site disposition Discontinued SIGNED BY: RT Kasandra(R) 2021 12:50 PM documented in this encounterPomerene Hospital08-23-2022 Instructions* Patient Instructions* Elizabeth Champion PA-C - 10/21/2021 3:10 PM EDT PATIENT PREOPERATIVE INSTRUCTIONS Mar Ellis MD has scheduled you for your procedure at this surgery center: [facility] Scheduling Office: [phone] --[address] [place] [address]. Please read below carefully for your personalized instructions. Dietary Restrictions: - No solid food after midnight. - You may have 12 ounces of clear liquids (water, clear juices such as apple juice or gatorade, carbonated beverages, clear tea, black coffee, jello) until 2 hours before scheduled arrival at facility. Medications: Unless instructed differently below, stay on all of your medications until your surgery. Approved medications to take the morning of surgery with a sip of water: amlodipine If you start any new medications after today's visit, please contact the surgeon's office. Blood Thinning Medications: - Stop NSAIDS (Ibuprofen, Advil, Aleve, Motrin, Celebrex, Mobic, etc.) 7 days before surgery, as directed by your surgeon. - Stop Aspirin 7 days before surgery, as directed by your surgeon. - Stop Vitamin E, ALL multi-vitamins, herbals and dietary supplements 7 days before surgery. - You may take Tylenol (Acetaminophen) or any of your pain medications that do not contain aspirin or NSAIDS as needed. Important Reminders: - If you use CPAP/BIPAP, bring the machine with you to the surgery center. - Candy, mints, and tobacco products are NOT permitted the morning of surgery. - Hearing aids, dentures and glasses may be worn the morning of surgery. - NO jewelry, body piercings, makeup, hairpins or contacts are to be worn the day of surgery. If you develop symptoms such as a fever, cold, or flu, or have other changes to your health within TWO DAYS of scheduled surgery or the morning of surgery, please contact the surgery center above. Personal Belongings: -Please have photo ID and insurance cards. -If you do not have a copy of advance directives on file with us, please bring a copy with you on the day of surgery. - Leave ALL valuables and money at home or with family members. Arrival Time for Surgery: - To obtain your arrival time for surgery, call your physician's office the day before your surgery. - If your surgery is scheduled for Wednesday, call the Wednesday before. Your surgeon s ticket scheduler will tell you what time to call the office. - If you have not reached the departmental ticket scheduler by 5 P.M., call [phone] after 5 P.M. the day before your surgery. Please be aware that emergency situations arise, which may delay or change your surgical time. If this happens, we will notify you as soon as possible and regret any inconvenience. If you already have an Advance Directive, please fax a copy to [phone] or email to for it to be added to your chart. If you do not have an Advance Directive, you can find the appropriate form and more information at [email or web address]. We recommend that youcomplete the Advance Directive form found on the website and bring it with you the day of your surgery. It can be witnessed and scanned into your chart that day. documented in this encounterPomerene Hospital08-04-2022 NoteHNO ID: [id number] Author: Mar Ellis MD Service: ? 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 Review of Systems: REVIEW OF SYSTEMS: GENERAL: Negative for weight loss, fevers, chills, or night sweats. HEENT: Negative for sudden vision or hearing changes. RESPIRATORY: Negative for cough or shortness of breath. CARDIAC: Negative for chest pain, COPD, dyspnea, palpitations, murmurs, or syncopal episodes. GASTROINTESTINAL: Negative for trouble swallowing, heartburn, change in bowel habits, blood in stool, and dark black stools. GENITOURINARY: See HPI MUSCULAR: Negative for limitations in movement, pain, or swelling. NEUROLOGIC: Negative for dizziness, headache, weakness or numbness. HEMATOLOGIC: Negative for bleeding or easy bruising. SKIN: Negative for rashes or other skin changes. LYMPHATIC: No masses noted. EXTREMITIES: No swelling of extremities. Allergies: Allergies: No Known Allergies Physical Exam: BP 130/73 Pulse 73 Ht 175.3 cm (5' 9 ) Wt (!) 156.9 kg (346 lb) BMI 51.10 kg/m? Constitutional: Well appearing, alert, in no acute distress and well-hydrated, well nourished Skin: Skin color, texture, turgor normal, no suspicious rashes or lesions Eyes: Normocephalic, no masses, lesions, tenderness or abnormalities Neuro: Supple, no adenopathy; thyroid symmetric, normal size, no bruits Respiratory: no wheezing or rhonchi Cardiovascular: RRR without murmur, gallop, or rubs. No ectopy Gastrointestinal: Normal abdominal exam, Abdomen soft, non-tender. Bowel sounds normal. No masses, organomegaly Musculoskeletal: Extremities normal. No deformities, edema, or skin discoloration. Good capillary refill. Genitourinary: Deferred Labs and Pathology: No results found for: CREAT URINALYSIS: Specific Kasson, Ur Date Value Ref Range Status 10/02/2021 1.015 1.005 - 1.030 Final Glucose, Urine Date Value Ref Range Status 10/02/2021 Negative Negative Final Bilirubin, Urine Date Value Ref Range Status 10/02/2021 Negative Negative Final Ketones, Urine Date Value Ref Range Status 10/02/2021 Negative Negative Final Hemoglobin/Blood,Ur Date Value Ref Range Status 10/02/2021 Negative Negative Final Protein, Urine Date Value Ref Range Status 10/02/2021 Negative Negative Final Nitrites Date Value Ref Range Status 10/02/2021 Negative Negative Final Imaging: N/A Assessment: This is a 70 year old male with right renal mass that was biopsied and showed renal cell carcinoma, papillary subtype grade group 2. Plan: - Patient will need a PACC visit - Will schedule patient for a right partial robotic nephrectomy - Cannot be scheduled 11/10 - 11/14 - CT chest, CBC, BMP Edie Luz, FRICTION PAINT MACHINE TENDER.TRAVEL SPECIALIST Scribed for Dr. Mar Ellis by Sky Barry electromedical equipment technician, on October 02, 2021. I agree with the Chief Complaint, ROS, and Past Histories independently gathered by the clinical desktop support consultant including scribe and or medical student and or SHADY and or resident or fellow and the remaining scribed note accurately describes my personal service to the patient. Mar Ellis MD, MS [facility] [place] History of Present illness Narrative* Mar Ellis MD - 10/02/2021 3:00 PM EDT Chief Complaint: Renal neoplasm History of Present Illness: Victor M Ni is a very pleasant 70 year old male who presents with right renal mass found to be renal cell carcinoma, papillary type on renal mass biopsy RCC Snapshot: Age at diagnosis: 70 Gender: male Date of radiographic diagnosis: 11/18/2020 Preop GFR: Unknown Clinical: Cystic Mass: No Tumor size: (maximum tumor diameter in cm): (cm): 5.5cm Stage: [id number] RMB: Date of biopsy: (MM/DD/YYYY, please provide best estimate): 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 Review of Systems: REVIEW OF SYSTEMS: GENERAL: Negative for weight loss, fevers, chills, or night sweats. HEENT: Negative for sudden vision or hearing changes. RESPIRATORY: Negative for cough or shortness of breath. CARDIAC: Negative for chest pain, COPD, dyspnea, palpitations, murmurs, or syncopal episodes. GASTROINTESTINAL: Negative for trouble swallowing, heartburn, change in bowel habits, blood in stool, and dark black stools. GENITOURINARY: See HPI MUSCULAR: Negative for limitations in movement, pain, or swelling. NEUROLOGIC: Negative for dizziness, headache, weakness or numbness. HEMATOLOGIC: Negative for bleeding or easy bruising. SKIN: Negative for rashes or other skin changes. LYMPHATIC: No masses noted. EXTREMITIES: No swelling of extremities. Allergies: Allergies: No Known Allergies Physical Exam: BP 130/73 Pulse 73 Ht 175.3 cm (5' 9 ) Wt (!) 156.9 kg (346 lb) BMI 51.10 kg/m Constitutional: Well appearing, alert, in no acute distress and well-hydrated, well nourished Skin: Skin color, texture, turgor normal, no suspicious rashes or lesions Eyes: Normocephalic, no masses, lesions, tenderness or abnormalities Neuro: Supple, no adenopathy; thyroid symmetric, normal size, no bruits Respiratory: no wheezing or rhonchi Cardiovascular: RRR without murmur, gallop, or rubs. No ectopy Gastrointestinal: Normal abdominal exam, Abdomen soft, non-tender. Bowel sounds normal. No masses, organomegaly Musculoskeletal: Extremities normal. No deformities, edema, or skin discoloration. Good capillary refill. Genitourinary: Deferred Labs and Pathology: No results found for: CREAT URINALYSIS: Specific Kasson, Ur Date Value Ref Range Status 10/02/2021 1.015 1.005 - 1.030 Final Glucose, Urine Date Value Ref Range Status 10/02/2021 Negative Negative Final Bilirubin, Urine Date Value Ref Range Status 10/02/2021 Negative Negative Final Ketones, Urine Date Value Ref Range Status 10/02/2021 Negative Negative Final Hemoglobin/Blood,Ur Date Value Ref Range Status 10/02/2021 Negative Negative Final Protein, Urine Date Value Ref Range Status 10/02/2021 Negative Negative Final Nitrites Date Value Ref Range Status 10/02/2021 Negative Negative Final Imaging: N/A Assessment: This is a 70 year old male with right renal mass that was biopsied and showed renal cell carcinoma,papillary subtype grade group 2. Plan: - Patient will need a PACC visit - Will schedule patient for a right partial robotic nephrectomy - Cannot be scheduled 11/10 - 11/14 - CT chest, CBC, BMP Edie Luz, FAUSTO.TRAVEL SPECIALIST Scribed for Dr. Mar Ellis by Sky Barry, electromedical equipment technician, on October 02, 2021. I agree with the Chief Complaint, ROS, and Past Histories independently gathered by the clinical desktop support consultant including scribe and or medical student and or SHADY and or resident or fellow and the remaining scribed note accurately describes my personal service to the patient. Mar Ellis MD, MS [facility] documented in this encounterPomerene Hospital08-04-2022 NotePatient Outreach (UROLMN) VICTOR M NI ([id number]) 1950 M Date Time Provider Department 10/02/21 MAR ELLIS During your visit today, we recorded the following information about you: Allergies As of Date: 10/02/2021 (No Known Allergies) Date Reviewed: 10/02/2021 Reviewed by: Kathleen Lynch MA - Fully Assessed Visit Diagnosis:Screening for genitourinary condition [Z13.89] Order(s):URINALYSIS, REFLEX MICROSCOPIC [[id number]] Order #: [id number]. #:[id number] Prescriptions as of 10/06/2021 - AMLODIPINE BESYLATE, BULK, MISC - DULoxetine (CYMBALTA) 60 mg capsule Take 60 mg by mouth once daily. - tamsulosin (FLOMAX) 0.4 mg Take 0.4 mg by mouth once daily. - lisinopril(PRINIVIL 10 MG TAB) Take one(1) tablet daily. - CITALOPRAM 20 MG TAB - MULTIVITAMIN TAB Take one(1) tablet daily. - acetaminophen(TYLENOL EXTRA STRENGTH 500 MG TAB) Take two(2) tablets every six(6) hours as needed for pain. - lidocaine(LIDODERM 5 % (700 MG/PATCH) ADHESIVE PATCH) Apply one(1) patch to affected area once daily. Remove patch after 12 hours. Problem List As Of Date 10/02/2021 Noted Resolved JOINT PAIN-SHLDER [M25.519] 07/20/2003 Benign prostatic hyperplasia with urinary obstr*07/15/2021 Renal mass [N28.89] 10/02/2021 Urge incontinence of urine [N39.41] 10/02/2021 Encounter Status:Closed by Rezzie, PRODUSER on 10/06/21[facility] 08-22-2021 Miscellaneous Notes* Telephone Encounter - Afsaneh Espinal - 08/22/2021 8:54 AM EDT Spoke to pt's and scheduled biopsy for 08/27/21. * Telephone Encounter - Afsaneh Espinal - 08/21/2021 4:21 PM EDT No order, called Dr. Brunson office and Coni said she'd fax it. Fax did not come through. * Telephone Encounter - Titus Lange MD - 08/19/2021 5:14 PM EDT RADIOLOGIST REQUEST / APPROVAL FORM STAFF RADIOLOGIST:Titus Lange MD PROCEDURE TO BE DONE UNDER: US PROCEDURE REQUESTED: CORE Requested PROCEDURE: Approved TIME SLOT NEEDED: 1 Hour NOTES: exo right renal mass )CT 07/10/21) SPECIAL LABS/ PROCESSING: none Pre-procedure labs: CBC: ordered INR: ordered COVID: ordered SIR Bleeding risk category for this procedure: intermediate-high risk. Reference from [facility] [employer] In[facility]: [email or web address] STAFF SIGNATURE: Titus Lange MD DATE: August 19, 2021 TIME: 5:14 PM * Telephone Encounter - Romi Garcia LPN - 08/19/2021 4:12 PM EDT BX. COORDINATOR INFORMATION LAB RESULTS: No results found for: INR No results found for: APTT No results found for: PLT Current Outpatient Medications Medication Sig lisinopril(PRINIVIL 10 MG TAB) Take one(1) tablet daily. CITALOPRAM 20 MG TAB MULTIVITAMIN TAB Take one(1) tablet daily. acetaminophen(TYLENOL EXTRA STRENGTH 500 MG TAB) Take two(2) tablets every six(6) hours as needed for pain. lidocaine(LIDODERM 5 % (700 MG/PATCH) ADHESIVE PATCH) Apply one(1) patch to affected area once daily. Remove patch after 12 hours. No current facility-administered medications for this visit. ALLERGIES No Known Allergies FILMS SENT TO WORKSTATION: GUIDELINES FOR HOLDING ANTI-PLATELET AND ANTI- COAGULATION THERAPY: none on file NURSE SIGNATURE: Romi Garcia LPN DATE: August 19, 2021 TIME: 4:12 PM * Telephone Encounter - Edie Villalobos - 08/19/2021 1:24 PM EDT RADIOLOGY CALL CENTER INTAKE PAN TANK WORKER: EDIE EXT: 0000 DATE: 08.19.2021 TIME: 1.:26PM TRACKING #. [id number] REQUESTING PERSON: CONI Pagan PHONE/PAGER: [phone] REQUESTING STAFF: MATILDA BRUNSON PHONE/PAGER: [phone] SPECIFICS OF THE REQUEST: (Please be as detailed as possible. If request is lymph node biopsy, specify LOCATION of the node if possible): right renal biopsy (For example: biopsy liver mass or biopsy pelvic lymph node ) SPECIAL REQUESTS: TISSUE SAMPLE, LABWORK: they will send in tissues -Fine needle aspiration (FNA), core biopsy, no preference, unsure, specific processing request for pathology (For example: send for ER, OK, HER2/niraj or possible lymphoma send in RPMI solution ) IS THIS REQUEST PART OF A RESEARCH PROTOCOL: No IF YES: List specifics of request and name/contact number of research coordinator and primary physician. MEDICAL DIAGNOSIS: right renal mass (For example: history of breast cancer with liver mass or history of lymphoma ) TYPE AND DATE OF THE EXAM THAT IS THE BASIS OF THE REQUEST: CT Date: 07.11.2019 and MRI Date: (Note: Requests for random organ biopsies, specifically liver and kidney random biopsies do not need imaging. ALL OTHER CASES NEED IMAGING TO EVALUATE APPROPRIATENESS/FEASIBILITY OF THE REQUEST) IMAGING: OUTSIDE [facility] Films: Where is study now: push thought portal of [place] (If the imaging was obtained outside the [facility] system, then it needs to be submitted for review prior to approval.) Note to all persons requesting biopsies: All biopsy requests will be scheduled as quickly as possible, based on the clinical urgency, availability of appointment times, the need to hold anti-thrombolytic therapy (aspirin, blood thinners) and the patient s schedule, including the need for an available cdl company flatbed driver. If a percutaneous biopsy or drainage is not felt to be safe or an alternative method for establishing a diagnosis is possible, this will be discussed directly with the requesting physician. documented in this encounterPomerene Hospital05-23-2022 Hospital Discharge instructions Patient Education 07/21/2021 08:21:59 Benign Prostatic Hyperplasia Benign Prostatic Hyperplasia Benign prostatic hyperplasia (BPH) is an enlarged prostate gland that is caused by the normal agingprocess and not by cancer. The prostate is a walnut-sized gland that is involved in the production of semen. It is located in front of the rectum and below the bladder. The bladder stores urine and the urethra is the tube that carries the urine out of the body. The prostate may get bigger as a man gets older. An enlarged prostate can press on the urethra. This can make it harder to pass urine. The build-up of urine in the bladder can cause infection. Back pressure and infection may progress to bladder damage and kidney (renal) failure. What are the causes? This condition is part of a normal aging process. However, not all men develop problems from this condition. If the prostate enlarges away from the urethra, urine flow will not be blocked. If it enlarges toward the urethra and compresses it, there will be problems passing urine. What increases the risk? This condition is more likely to develop in men over the age of 50 years. What are the signs or symptoms? Symptoms of this condition include: Getting up often during the night to urinate. Needing to urinate frequently during the day. Difficulty starting urine flow. Decrease in size and strength of your urine stream. Leaking (dribbling) after urinating. Inability to pass urine. This needs immediate treatment. Inability to completely empty your bladder. Pain when you pass urine. This is more common if there is also an infection. Urinary tract infection (UTI). How is this diagnosed? This condition is diagnosed based on your medical history, a physical exam, and your symptoms. Tests will also be done, such as: A post-void bladder scan. This measures any amount of urine that may remain in your bladder after you finish urinating. A digital rectal exam. In a rectal exam, your health care provider checks your prostate by putting a lubricated, gloved finger into your rectum to feel the back of your prostate gland. This exam detects the size of your gland and any abnormal lumps or growths. An exam of your urine (urinalysis). A prostate specific antigen (PSA) screening. This is a blood test used to screen for prostate cancer. An ultrasound. This test uses sound waves to electronically produce a picture of your prostate gland. Your health care provider may refer you to a specialist in kidney and prostate diseases (urologist). How is this treated? Once symptoms begin, your health care provider will monitor your condition (active surveillance or watchful waiting). Treatment for this condition will depend on the severity of your condition. Treatment may include: Observation and yearly exams. This may be the only treatment needed if your condition and symptoms are mild. Medicines to relieve your symptoms, including: ?Medicines to shrink the prostate. ?Medicines to relax the muscle of the prostate. Surgery in severe cases. Surgery may include: ?Prostatectomy. In this procedure, the prostate tissue is removed completely through an open incision or with a laparoscope or robotics. ?Transurethral resection of the prostate (TURP). In this procedure, a tool is inserted through the opening at the tip of the penis (urethra). It is used to cut away tissue of the inner core of the prostate. The pieces are removed through the same opening of the penis. This removes the blockage. ?Transurethral incision (TUIP). In this procedure, small cuts are made in the prostate. This lessens the prostate's pressure on the urethra. ?Transurethral microwave thermotherapy (TUMT). This procedure uses microwaves to create heat. The heat destroys and removes a small amount of prostate tissue. ?Transurethral needle ablation (TUNA). This procedure uses radio frequencies to destroy and remove a small amount of prostate tissue. ?Interstitial laser coagulation (ILC). This procedure uses a laser to destroy and remove a small amount of prostate tissue. ?Transurethral electrovaporization (TUVP). This procedure uses electrodes to destroy and remove a small amount of prostate tissue. ?Prostatic urethral lift. This procedure inserts an implant to push the lobes of the prostate away from the urethra. Follow these instructions at home: Take [id number] and prescription medicines only as told by your health care provider. Monitor your symptoms for any changes. Contact your health care provider with any changes. Avoid drinking large amounts of liquid before going to bed or out in public. Avoid or reduce how much caffeine or alcohol you drink. Give yourself time when you urinate. Keep all follow-up visits as told by your health care provider. This is important. Contact a health care provider if: You have unexplained back pain. Your symptoms do not get better with treatment. You develop side effects from the medicine you are taking. Your urine becomes very dark or has a bad smell. Your lower abdomen becomes distended and you have trouble passing your urine. Get help right away if: You have a fever or chills. You suddenly cannot urinate. You feel lightheaded, or very dizzy, or you faint. There are large amounts of blood or clots in the urine. Your urinary problems become hard to manage. You develop moderate to severe low back or flank pain. The flank is the side of your body between the ribs and the hip. These symptoms may represent a serious problem that is an emergency. Do not wait to see if the symptoms will go away. Get medical help right away. Call your local emergency services (911 in the [place] Do not drive yourself to the hospital. Summary Benign prostatic hyperplasia (BPH) is an enlarged prostate that is caused by the normal aging process and not by cancer. An enlarged prostate can press on the urethra. This can make it hard to pass urine. This condition is part of a normal aging process and is more likely to develop in men over the age of 50 years. Get help right away if you suddenly cannot urinate. This information is not intended to replace advice given to you by your health care provider. Make sure you discuss any questions you have with your health care provider. Document Released: 02/15/2006 Document Revised: 01/10/2019 Document Reviewed: 03/22/2017 [employer] Patient Education 2020 [employer] Follow Up Care 03/31/2021 14:17:21 With:NANNETTE REID, Matilda Grimes, URL Address: [facility] [address], [place] [address]- When: Unknown Comments:Refer to interventional radiology at [facility]. [facility] evaluation + Plan note No data available for this section [facility] evaluation note* Diagnosis Renal mass, right- Primary Unspecified disorder of kidney and ureter Right renal mass Unspecified disorder of kidney and ureter documented in this encounter [facility] note* Diagnosis Screening for genitourinary condition Screening for other and unspecified genitourinary condition Renal mass Unspecified disorder of kidney and ureter documented in this encounter [facility] note* Diagnosis Renal mass- Primary Unspecified disorder of kidney and ureter Renal mass Unspecified disorder of kidney and ureter documented in this encounter [facility] note* Diagnosis Renal cell cancer, right (HCC)- Primary Renal mass Unspecified disorder of kidney and ureter documented in this encounter [facility] note* Diagnosis Preoperative examination- Primary Preoperative examination, unspecified Renal mass Unspecified disorder of kidney and ureter Primary hypertension Unspecified essential hypertension Obstructive sleep apnea Obstructive sleep apnea (adult) (pediatric) Benign prostatic hyperplasia with urinary obstruction Class 3 severe obesity with body mass index (BMI) of 50.0 to 59.9 in adult, unspecified obesity type, unspecified whether serious comorbidity present (HCC) Severe major depression (HCC) Major depressive disorder, single episode, severe, without mention of psychotic behavior Renal mass Unspecified disorder of kidney and ureter [facility] Diagnosis Renal mass Unspecified disorder of kidney and ureter Renal mass Unspecified disorder of kidney and ureter [facility] Diagnosis Screening for genitourinary condition Screening for other and unspecified genitourinary condition Renal mass Unspecified disorder of kidney and ureter [facility]* Diagnosis Renal cell cancer, right (HCC)- Primary [facility]* Diagnosis Renal cell cancer, right (HCC)- Primary Other specified disorders of kidney and ureter [facility] Diagnosis Renal neoplasm- Primary Neoplasm of unspecified nature of other genitourinary organs Benign prostatic hyperplasia with urinary obstruction Obstructive sleep apnea Obstructive sleep apnea (adult) (pediatric) Malaise and fatigue Other malaise and fatigue Anemia, unspecified type Renal failure, unspecified chronicity [facility]* Diagnosis Renal neoplasm- Primary Neoplasm of unspecified nature of other genitourinary organs Benign prostatic hyperplasia with urinary obstruction [facility]* Diagnosis Personal history of renal cancer- Primary Personal history of malignant neoplasm of kidney [facility] Diagnosis Preoperative examination- Primary Preoperative examination, unspecified Renal mass Unspecified disorder of kidney and ureter Primary hypertension Unspecified essential hypertension Obstructive sleep apnea Obstructive sleep apnea (adult) (pediatric) Benign prostatic hyperplasia with urinary obstruction Class 3 severe obesity with body mass index (BMI) of 50.0 to 59.9 in adult, unspecified obesity type, unspecified whether serious comorbidity present (HCC) Severe major depression (HCC) Major depressive disorder, single episode, severe, without mention of psychotic behavior Renal cell cancer, right (HCC) Other specified disorders of kidney and ureter Renal neoplasm Neoplasm of unspecified nature of other genitourinary organs [facility] noteNo assessment information availableWilson [facility] Work Phone: Progress note No data available for this section [facility] Reason for Referral Specialty Diagnoses / Procedures Referred By Umberto t Referred To Contact CT IMAGING Diagnoses Renal neoplasm Benign prostatic hyperplasia with urinary obstruction Procedures CT CHEST W IVCON DIAGNOSTIC COMPUTED TOMOGRAPHY THORAX W/CONTRAST Matt Khan MD [address] [place] [address] [place] [address] Ct Imaging Referral ID Status Reason Start Date Expiration Date Visits Requested Visits Authorized [id number] Authorized Auto-Generat ed Referral 05/27/2022 03/28/2023 1 1 Specialty Diagnoses / Procedures Referred By Contac t Referred To Contact CT IMAGING Diagnoses Renal neoplasm Benign prostatic hyperplasia with urinary obstruction Procedures CT ABD/PEL W IVCON CT ABD & PELVIS W/CONTRAST Matt Khan MD [address] [place] [address] [place] [address] Ct Imaging Referral ID Status Reason Start Date Expiration Date Visits Requested Visits Authorized [id number] Authorized Auto-Generat ed Referral 05/27/2022 03/28/2023 1 1 Specialty Diagnoses / Procedures Referred By Contac t Referred To Contact CT IMAGING Diagnoses Other specified disorders of kidney and ureter Procedures CT ABDOMEN W IVCON CT ABDOMEN W/[place], [place] [address] [place] [address] Ct Imaging Referral ID Status Reason Start Date Expiration Date Visits Requested Visits Authorized [id number] Pending Review Auto-Generat ed Referral 11/28/2021 12/18/2022 1 1 Specialty Diagnoses / Procedures Referred By Contac t Referred To Contact CT IMAGING Diagnoses Renal cell cancer, right (HCC) Procedures CT CHEST W IVCON DIAGNOSTIC COMPUTED TOMOGRAPHY THORAX W/CONTRAST [place], [place] Mar [address] [place] [address] Ct Imaging Referral ID Status Reason Start Date Expiration Date Visits Requested Visits Authorized [id number] Authorized Auto-Generat ed Referral 11/18/2021 12/18/2022 1 1 Specialty Diagnoses / Procedures Referred By Contac t Referred To Contact CT IMAGING Diagnoses Renal cell cancer, right (HCC) Procedures CT ABD/PEL W IVCON CT ABD & PELVIS W/[place] [address] [place] [address] Ct Imaging Referral ID Status Reason Start Date Expiration Date Visits Requested Visits Authorized [id number] Authorized Auto-Generat ed Referral 11/18/2021 12/18/2022 1 1 Specialty Diagnoses / Procedures Referred By Contac t Referred To Contact CT IMAGING Diagnoses Renal mass Procedures CT CHEST W IVCON DIAGNOSTIC COMPUTED TOMOGRAPHY THORAX W/[place] [id number] [place] [address] Ct Imaging Referral ID Status Reason Start Date Expiration Date Visits Requested Visits Authorized [id number] Authorized Auto-Generat ed Referral 10/02/2021 11/01/2022 1 1 Summary Purpose Family History No Family History Records Found Relationship Condition Age at Onset Recorded Date/T amalia mother Depression Unknown Malignant neoplasm of colon Unknown father Malignant neoplasm of colon Unknown son Non-Hodgkin's lymphoma Unknown Advance Directives No Advanced Directives Records Found Advance Directive Response Recorded Date/ Time Advance Directives No October 5:22pm Chief Complaint and Reason for Visit Chief Complaint Admit Date r97.20 April 11, 2024 10:40am Additional Source Comments Source Comments (unrecognize d section and content) In the event this informatio n is protected by the Federal Confidentiality of Alcohol and Drug Abuse Patient Records regulations: The Federal rules restrict any use of the information to criminally investigate or prosecute any alcohol or drug abuse patient.[facility] event this information is protected by the Federal Confidentiality of Alcohol and Drug Abuse Patient Records regulations: The Federal rules restrict any use of the information to criminally investigate or prosecute any alcohol or drug abuse patient.[facility] the event this information is protected by the Federal Confidentiality of Alcohol and Drug Abuse Patient Records regulations: The Federal rules restrict any use of the information to criminally investigate or prosecute any alcohol or drug abuse patient.[facility] the event this information is protected by the Federal Confidentiality of Alcohol and Drug Abuse Patient Records regulations: The Federal rules restrict any use of the information to criminally investigate or prosecute any alcohol or drug abuse patient.[facility] the event this information is protected by the Federal Confidentiality of Alcohol and Drug Abuse Patient Records regulations: The Federal rules restrict any use of the information to criminally investigate or prosecute any alcohol or drug abuse patient.[facility] the event this information is protected by the Federal Confidentiality of Alcohol and Drug Abuse Patient Records regulations: The Federal rules restrict any use of the information to criminally investigate or prosecute any alcohol or drug abuse patient.[facility] the event this information is protected by the Federal Confidentiality of Alcohol and Drug Abuse Patient Records regulations: The Federal rules restrict any use of the information to criminally investigate or prosecute any alcohol or drug abuse patient.[facility] the event this information is protected by the Federal Confidentiality of Alcohol and Drug Abuse Patient Records regulations: The Federal rules restrict any use of the information to criminally investigate or prosecute any alcohol or drug abuse patient.[facility] the event this information is protected by the Federal Confidentiality of Alcohol and Drug Abuse Patient Records regulations: The Federal rules restrict any use of the information to criminally investigate or prosecute any alcohol or drug abuse patient.[facility] the event this information is protected by the Federal Confidentiality of Alcohol and Drug Abuse Patient Records regulations: The Federal rules restrict any use of the information to criminally investigate or prosecute any alcohol or drug abuse patient.[facility] the event this information is protected by the Federal Confidentiality of Alcohol and Drug Abuse Patient Records regulations: The Federal rules restrict any use of the information to criminally investigate or prosecute any alcohol or drug abuse patient.[facility] the event this information is protected by the Federal Confidentiality of Alcohol and Drug Abuse Patient Records regulations: The Federal rules restrict any use of the information to criminally investigate or prosecute any alcohol or drug abuse patient.[facility] the event this information is protected by the Federal Confidentiality of Alcohol and Drug Abuse Patient Records regulations: The Federal rules restrict any use of the information to criminally investigate or prosecute any alcohol or drug abuse patient.[facility] the event this information is protected by the Federal Confidentiality of Alcohol and Drug Abuse Patient Records regulations: The Federal rules restrict any use of the information to criminally investigate or prosecute any alcohol or drug abuse patient.[facility] Reason for Visit (unrecogniz ed section and content) Reason Comments Biopsy Request Reason Comments Consult Reason Comments Pre-Op Exam Reason Comments Anesthesia Consult Reason Comments Radiology CT Specialty Diagnoses / Procedures Referred By Contac t Referred To Contact CT IMAGING Diagnoses Renal mass Procedures CT CHEST W IVCON DIAGNOSTIC COMPUTED TOMOGRAPHY THORAX W/[place], [place] Mar [address] [place] [address] Ct Imaging Referral ID Status Reason Start Date Expiration Date V isits Requested Visits Authorized [id number] Closed Auto-Generate d Referral 10/02/2021 11/01/2022 1 1 Reason Comments Returning Patient's Call Reason Comments Post-Op Visit Reason Comments renal cell carcinoma Reason Comments Renal Cancer Reason Comments Follow Up Reason Comments Radiology CT Specialty Diagnoses / Procedures Referred By Contac t Referred To Contact CT IMAGING Diagnoses Renal cell cancer, right (HCC) Procedures CT CHEST W IVCON DIAGNOSTIC COMPUTED TOMOGRAPHY THORAX W/CONTRAST Weight, MD Mar [address] [place] [address] Ct Imaging [place] [facility] Referral ID Status Reason Start Date Expiration Date V isits Requested Visits Authorized [id number] Closed Auto-Generate d Referral 11/18/2021 12/18/2022 1 1 Care Teams (unrecognized sec tion and content) Transport Tech Relationship Specialty Start Date End Date Ayesha Tafoya MD [address] [place] [address] PCP - General 07/11/08 Transport Tech Relationship Specialty Start Date End Date Ayesha Tafoya MD [address] [place] [address] PCP - General 07/11/08 Transport Tech Relationship Specialty Start Date End Date Ayesha Tafoya MD [address] [place] [address] PCP - General 07/11/08 Transport Tech Relationship Specialty Start Date End Date Ayesha Tafoya MD [address] [place] [address] PCP - General 07/11/08 Transport Tech Relationship Specialty Start Date End Date Ayesha Tafoya MD [address] [place] [address] PCP - General 07/11/08 Transport Tech Relationship Specialty Start Date End Date Ayesha Tafoya MD [address] [place], [facility] PCP - General 07/11/08 Transport Tech Relationship Specialty Start Date End Date Ayesha Tafoya MD [address] [place], [facility] PCP - General 07/11/08 Transport Tech Relationship Specialty Start Date End Date Ayesha Tafoya MD [address] [place] [address] PCP - General 07/11/08 Transport Tech Relationship Specialty Start Date End Date Ayesha Tafoya MD [address] [place], [facility] PCP - General 07/11/08 Transport Tech Relationship Specialty Start Date End Date Ayesha Tafoya MD [address] [place] [address] PCP - General 07/11/08 Transport Tech Relationship Specialty Start Date End Date Ayesha Tafoya MD [address] [place] [address] PCP - General 07/11/08 Transport Tech Relationship Specialty Start Date End Date Ayesha Tafoya MD [address] [place] [address] PCP - General 07/11/08 Team Status: Active Member Role Status Dates NON STAFF Primary Care Provider Active Team Status: Inactive Member Role Status Dates Susan Ballesteros PA-C Attending Provider Active Start: April 11, 2024 End: April 11, 2024 NON STAFF Primary Care Provider Active Start: April 11, 2024 End: April 11, 2024 (unrecognized sect ion and content) No Status Records FoundNo Status Records FoundNo Status Records FoundNo Status Records FoundNo Status Records Found INFORMATION SOURCE (unrecogn ized section and content) DATE CREATED AUTHOR 03/11/[address] [facility] DATE CREATED AUTHOR AUTHOR'S ORGANIZ ATION 04/07/2022 [facility] DATE CREATED AUTHOR AUTHOR'S ORGANIZ ATION 03/24/2024 [facility] DATE CREATED AUTHOR AUTHOR'S ORGANIZ ATION 04/17/2024 [facility] DATE CREATED AUTHOR AUTHOR'S ORGANIZ ATION 08/08/2024 [facility] Goals (unrecognized section and content) Goals may be documented in a n alternate section FOR RECORDS PERTAINING TO PATIENTS WHO ARE OR HAVE BEEN ENROLLED IN A CHEMICAL DEPENDENCY/SUBSTANCEABUSE PROGRAM, SOME INFORMATION MAY BE OMITTED. This clinical summary was aggregated from multiple sources. Caution should be exercised in using it in the provision of clinical care. This summary normalizes information from multiple sources, and as a consequence, information in this document may materially change the coding, format and clinical context of patient data. In addition, data may be omitted in some cases. CLINICAL DECISIONS SHOULD BE BASED ON THE PRIMARY CLINICAL RECORDS. [employer] [facility]. provides no warranty or guarantee of the accuracy or completeness of information in this document.
[2024-08-10] MEDS: LIDOCAINE 2% JELLY 20 ML UR (08:18)
[2024-08-10] MEDS: LIDOCAINE HCL 1% 100 MG/10 ML MDV INJ (08:28)
--- NOTE | 2024-08-10 08:55 | PM.URSON ---
Urology Surgery Operative Note Operative Note Procedure Date: 08/10/24 Time Out Performed: yes Pre-op Diagnosis: Elevated PSA Post-op Diagnosis: same as pre-op Procedures performed: 1. Transrectal ultrasound of the prostate. 2. Prostate needle biopsies Anesthesia: local and other (Periprostatic block) Primary Surgeon: Yossi Bhatti Complications: None Estimated blood loss (mL): 10 Findings: 1. No hypoechoic areas noted. 2. Prostatic calcifications Specimens: Prostate needle biopsies. Drains: None Indications for Procedures: This gentleman has an elevated and rising PSA. He has no evidence of infection. Prostate MRI was negative. He now presents for transrectal ultrasound of the prostate and prostate needle biopsies. He has signed an informed consent after risks were explained. Some of these risks include bleeding, infection, urosepsis and anesthesia to name a few. Detailed description of Procedure: The patient was kept on the relsa bed and brought into the endoscopy suite. He was rotated into the left lateral decubitus position. Timeout was done by all parties in the room. We started by passing Betadine soaked sponges and doing rectal swabs for preventing infection. We then passed 2% lidocaine gel per rectum. The ultrasound probe was passed per rectum. The prostate was scanned in the transverse and sagittal views. The volume was calculated to be 71 g. A few prostatic calcifications were noted. No suspicious hypoechoic areas were seen. While using 1% plain lidocaine I then did a Favian prostatic block in the usual fashion. We then began taking biopsies of the prostate while in the sagittal view. We started on the left side and progressed from the base towards the apex. We divided up into 4 levels and from each level took 2 biopsies. We then did a similar maneuver on the right side. At the end of the procedure we had 16 satisfactory cores. The probe was then removed. He was then discharged to his facility. He was instructed to finish his antibiotic course. Will be in a couple weeks to review the pathology.
== END 2024-08-10 09:07 | disposition home or self-care (01) ==
LOC: SURGOUT 07:53
PROVIDERS: PCP Family Medicine; Visit Provider Urology
PROC: (CPT 55700; principal; 2024-08-10 08:00)
DX: R97.20 Elevated prostate specific antigen [PSA] (principal); N40.1 Benign prostatic hyperplasia with lower urinary tract symptoms; Z85.528 Personal history of other malignant neoplasm of kidney; G47.30 Sleep apnea, unspecified; I12.9 Hypertensive chronic kidney disease with stage 1 through stage 4 chronic kidney disease, or unspecified chronic kidney disease; N18.9 Chronic kidney disease, unspecified; Z90.5 Acquired absence of kidney
CPT/HCPCS: 55700; 76872; J1580